=== PATIENT | female | born 1955 | race Caucasian/White ===

== ENCOUNTER 2017-11-04 15:00 | Outpatient (RCR) | payer OTHER, SELFPAY ==
--- NOTE | 2017-09-28 15:56 | HP.PTEVAL_ITS ---
Patient's Visit Information VITALY CORREA is a 62 year old F referred to Physical Therapy by MD ADOLPH Palacio with a diagnosis of R knee OA. Date of Evaluation: 09/28/17 Physical Therapist: Wily Templeton, PT, - Visit Plan Frequency: 1-2x /Week Duration: 4 Weeks Plan: R LE strengthening, core stab ex's, nustep, HEP. CP for pain - Subjective Subjective: Pt reports her R knee has been sore for 2-3 mos. Pt reports she noticed it the most when she was driving, switching from one peddle to the other one. Pt received an xray at that time which revealed OA, the worst in medial compartment. Pt reports advil helps with the pain at this time. Pt reports she can still do most things, but climbing ladders and stair negotiation still results in increased pain. No T or N in R LE. Occasional sleep difficulty secondary to pain. No PMHx R knee pain. 0/10 pain at rest, 8/ 10 at worst (stair negotiation). Pt is retired. - Pain R knee Pain Intensity (Out of 10): 0 Pain Intensity Range: 8 - Objective Neuro: B LE sensation is WNL to light touch. B achilles reflex= 1/3. Palpation : Pt is very sore on the medial compartment of R knee. No obvious swelling or deformity noted at this time. ROM: R knee 0-102 degrees, L knee 0-98 degrees. MMT: R knee flexion is 4/5, ext 4+/5. L knee is 5/5 throughout. Special tests: pos aplley compression test - Goals Goal 1:: Decrease R knee pain x 50% to aid with sleep Goal Time Frame: 4-6 Weeks Goal 2:: Increase R knee strength x 1 grade to aid with stair negotiation Goal Time Frame: 4-6 Weeks Goal 3:: I with HEP Goal Time Frame: 4-6 Weeks - Rehabilitation Potential Physical Therapy Diagnosis: R knee pain, weakness, and intol for driving secondary to R knee AO Rehabilitation Potential: Good - Anticipated Interventions Patient/Client Instruction: Educate patient on: Condition, Plan of Care For the Purpose of:: To improve self management Therapeutic Exercise to Include: Strength training, Endurance training, Balance training, Dynamic Lumbar Stabilization For the Purpose of:: To decrease pain, To improve muscle performance and motor function, To improve ability to perform ADL's Cryotherapy (ice pack, ice massage): Yes For the Purpose of:: To decrease pain Thank you for the opportunity to evaluate your patient. For Medicare and Medicare HMO plans, please review the plan of care and approve it. It will need to be FAXED BACK to us at [phone] for Medicare purposes. Please let me know if there are questions or concerns regarding this plan of care. Physician Signature: Date:
--- NOTE | 2018-01-10 12:54 | HP.PT.NRP ---
HP - Discharge Summary (1) - Patient Information VITALY CORREA was seen in my office for initial evaluation on 09/28/17. The following Plan of Care was established for this patient: Initial Frequency: 1-2x /Week Initial Duration: 4 Weeks - Anticipated Interventions Patient/Client Instruction: Educate patient on: Condition, Plan of Care For the Purpose of:: To improve self management Therapeutic Exercise to Include: Strength training, Endurance training, Balance training, Dynamic Lumbar Stabilization For the Purpose of:: To decrease pain, To improve muscle performance and motor function, To improve ability to perform ADL's Cryotherapy (ice pack, ice massage): Yes For the Purpose of:: To decrease pain This patient was last seen in our office . Pertinent comments regarding their Physical therapy will appear below: Pt was last treated on the date of 11/04/17. Pt has not returned through todays date, and is therefore discontinued at this time. At this point I will be discontinuing this patient from physical therapy. I would be happy to see this patient again in the future if found appropriate by the physician. Thank you! Wily Templeton, PT,
== END 2017-11-04 19:00 | disposition home or self-care (01) ==
LOC: PT 15:00
PROVIDERS: Family Provider Family Medicine; PCP Family Medicine; Visit Provider Orthopaedic Surgery
DX: M17.11 Unilateral primary osteoarthritis, right knee (principal)
CPT/HCPCS: 97110; 97161; 97530

== ENCOUNTER → 2018-01-12 14:03 | Outpatient (CLI) | payer OTHER, SELFPAY ==
[2018-01-12 16:17] LABS: Hemoglobin A1c 6.5 % (4.2-6.3)
[2018-01-12 16:28] LABS: Microalbumin,Random Urine 57.9 mg/L (NO RANGE EST.); Microalbumin:Creatinine Ratio 50.8 mg/g CRE (<30 mg/g CRE)
[2018-01-12 16:30] LABS: AST(SGOT) 23 U/L (15-37); Alanine Aminotransfer ALT/SGPT 27 U/L (13-56); Alkaline Phosphatase 201 U/L (45-117); Anion Gap 8 (5-15); BUN 23 mg/dL (7-18); BUN/Creat Ratio 22.1 RATIO (10-20); Bilirubin, Direct 0.19 mg/dL (0.00-0.30); Calcium,Total 9.5 mg/dL (8.5-10.1); Chloride 104 mmol/L (98-107); Cholesterol 166 mg/dL (200); Creatinine, Serum 1.04 mg/dL (0.55-1.02); EST Glomerular Filtration Rate 57 mL/min (>60); Est Glom Filt Rate - Afr Amer 69 mL/min (>60); Globulin 5.1 g/dL (2.2-4.2); Glucose 89 mg/dL (74-106); High Density Lipoprotein 41 mg/dL; Protein, Total 8.1 g/dL (6.4-8.2); Sodium Level 138 mmol/L (136-145); T4 Total, Thyroxin 10.7 ug/dL (4.8-13.9); Thyroid Stim Hormone (TSH) 1.63 uIU/mL (0.358-3.74); Triglycerides 95 mg/dL; Very Low Density Lipoprotein 19 mg/dL (5-40)
== END ==
PROVIDERS: Family Provider Family Medicine; PCP Family Medicine; Visit Provider Family Medicine
DX: E11.9 Type 2 diabetes mellitus without complications (principal); E03.9 Hypothyroidism, unspecified
CPT/HCPCS: 36415; 80048; 80061; 80076; 82043; 82570; 83036; 84436; 84443

== ENCOUNTER → 2018-08-29 19:41 | Outpatient (CLI) | payer OTHER, SELFPAY ==
[2017-07-06 11:00] VITALS: BMI 58.6
--- OUTSIDE RECORDS SUMMARY | 2018-12-01 10:12 | XMS RPT_ITS ---
:1955 Author Organization [facility] Care Team Providers Name Role Phone José Manuel Gonzalez Attending Unavailable Gilam, Tracy Primary Care Unavailable José Manuel Gonzalez Referring Unavailable Brian Lowery Attending Unavailable Brian Lowery Referring Unavailable Gilma, Tracy Primary Care Unavailable Tracy Dillard Attending Unavailable Dilmaiff, Tracy Primary Care Unavailable PROBLEMS PROBLEMS DATE TYPE CONDITION / CODE ATTENDING STATUS SOURCE 08/30/2018 Unknown R39.9 - Unspecified José Manuel Gonzalez Active [place] symptoms and signs Community involving the [facility] genitourinary Repository system / R39.9(ICD-10) 01/14/2018 Unknown M17.11 - Unilateral Brian Lowery Active [place] [facility] osteoarthritis, [facility] right knee / Repository M17.11(ICD-10) PROCEDURES PROCEDURES No Procedure Records FoundRESULTS RESULTS Observed: 08/29/2018 Status: F Source: [place] CULTURE, URINE 2:45 PM [facility] REPOSITORY Urine Culture ORGANISM 1: Presumptive E. coli [place] Count >100,000 Presumptive E. coli: REACTION Amoxacillin/Clavulanic Acid $ <=2 S Ampicillin $ <=2 S Ampicillin/Sulbactam $ <=2 S Cefazolin $ <=4 S Cefepime $ <=1 S Ceftriaxone $ <=1 S Ciprofloxacin $ <=0.25 S ESBL - Ertapenim $$$ <=0.5 S Gentamicin $ <=1 S Imipenem *NF <=0.25 S Levofloxacin $ <=0.12 S Nitrofurantoin $ <=16 S Piperacillin/Tazobactam $$ <=4 S Tobramycin $ <=1 S Trimethoprim/Sulfametho $ <=20 S (NF) indicates non-formulary drug at [facility]. Approval by Infectious Disease Specialist required before non-formulary drugs may be ordered and/or dispensed. Performed By: #### M100.0650 #### [facility] [address] [place], [address] HEMOGLOBIN A1C Collected: 01/12/2018 Status: F Source: [place] 2:04 PM [facility] REPOSITORY TYPE CODE TESTS RESULT OUT OF RANGE REFERENCE UNITS LAB L501.9985 4.2-6.3 % High HGB A1C 6.5 Performed By: #### L501.9985 #### [facility] [address] [place], [address] MICROALB:CREAT Collected: 01/12/2018 Status: F Source: [place] RATIO,RANDOM UR 2:04 PM [facility] REPOSITORY TYPE CODE TESTS RESULT OUT OF RANGE REFERENCE UNITS LAB L501.1200 NO RANGE EST. mg/dL Normal UR CREAT 114.00 LAB L502.0500 NO RANGE EST. mg/L Normal 57.9 MICROALBUMIN ,UR LAB L502.0600 <30 mg/g CRE mg/g CRE High 50.8 MALB:CREAT Performed By: #### L502.0250 #### [facility] [address] [place], [address] BASIC METABOLIC Collected: 01/12/2018 Status: F Source: [place] PROFILE (BMP) 2:04 PM [facility] REPOSITORY TYPE CODE TESTS RESULT OUT OF RANGE REFERENCE UNITS LAB L501.0100 74-106 mg/dL Normal GLU 89 Result Comment: Please note revised GLUCOSE reference range effective 2017. LAB L501.1000 7-18 mg/dL High BUN 23 LAB L501.1100 0.55-1.02 mg/dL High CREAT,SERUM 1.04 Result Comment: The validity of the calculated GFR AND GFRAA in patients over 70 years has not been determined. Clinical correlation is essential. LAB L501.1110 >60 mL/min Low EST GFR 57 Result Comment: Non- GFR Calc LAB L501.1115 >60 mL/min Normal EST GFR - AA 69 Result Comment: GFR Calc LAB L501.1300 10-20 RATIO High BUN/CRE 22.1 LAB L501.2200 8.5-10.1 mg/dL CA Normal 9.5 LAB L501.5300 136-145 mmol/L NA Normal 138 LAB L501.5600 3.5-5.1 mmol/L K Normal 4.0 LAB L501.5900 98-107 mmol/L CL Normal 104 LAB L501.6100 21.0-32.0 mmol/L Normal CO2 26.0 LAB L501.6200 5-15 Normal GAP 8 Performed By: #### L500.2500, L500.3400, L500.4100, L501.9310, L501.9520 #### [facility] [address] [facility] [place], [place], [id number] LIVER PROFILE Collected: 01/12/2018 Status: F Source: [place] 2:04 PM [facility] REPOSITORY TYPE CODE TESTS RESULT OUT OF RANGE REFERENCE UNITS LAB L501.1500 6.4-8.2 g/dL Normal T PROT 8.1 LAB L501.1800 3.2-5.0 g/dL Low ALB 3.0 LAB L501.1950 2.2-4.2 g/dL High GLOB 5.1 LAB L501.4100 15-37 U/L Normal AST 23 LAB L501.4305 45-117 U/L High ALK P 201 LAB L501.4405 13-56 U/L Normal ALT 27 LAB L501.4600 0.20-1.00 mg/dL Normal T BILI 0.50 LAB L501.4700 0.00-0.30 mg/dL Normal D BILI 0.19 Performed By: #### L500.2500, L500.3400, L500.4100, L501.9310, L501.9520 #### [facility] [address] [place], [address] LIPID PROFILE Collected: 01/12/2018 Status: F Source: [place] 2:04 PM [facility] REPOSITORY TYPE CODE TESTS RESULT OUT OF RANGE REFERENCE UNITS LAB L501.4900 200 mg/dL Normal CHOL 166 Result Comment: <200 mg/dL Desirable 200-240 mg/dL Borderline >240 mg/dL High Risk LAB L501.5000 mg/dL Normal TRIG 95 Result Comment: The drugs N-Acetylcysteine and Metamizole may falsely depress this assay. Serum Triglycerides Reference Interval Normal <150 mg/dL Borderline high 150 - 199 mg/dL High 200 - 499 mg/dL Very High > or = 500 mg/dL LAB L501.6400 mg/dL Normal HDL 41 Result Comment: The drugs N-Acetylcysteine and Metamizole may falsely depress this assay. Reference Range HDL <40 mg/dL Low HDL Cholesterol HDL >or= 60 mg/dL High HDL Cholesterol LAB L501.6500 0-130 mg/dL Normal LDL 106 LAB L501.6600 5-40 mg/dL Normal VLDL 19 Performed By: #### L500.2500, L500.3400, L500.4100, L501.9310, L501.9520 #### [facility] [address] [facility] [place], [place], [address] T4 TOTAL, THYROXIN Collected: 01/12/2018 Status: F Source: [place] 2:04 PM [facility] REPOSITORY TYPE CODE TESTS RESULT OUT OF RANGE REFERENCE UNITS LAB L501.9310 4.8-13.9 ug/dL T4 Normal THYROXIN 10.7 Performed By: #### L500.2500, L500.3400, L500.4100, L501.9310, L501.9520 #### [facility] [address] [place], [place], [address] THYROID STIM HORMONE Collected: 01/12/2018 Status: F Source: [place] (TSH) 2:04 PM [facility] REPOSITORY TYPE CODE TESTS RESULT OUT OF RANGE REFERENCE UNITS LAB L501.9520 0.358-3.74 uIU/mL Normal TSH 1.63 Performed By: #### L500.2500, L500.3400, L500.4100, L501.9310, L501.9520 #### [facility] [address] [place], [address] ALLERGIES ALLERGIES DATE TYPE / CODE NAME / CODE REACTION SEVERITY SOURCE 08/18/2017 Drug nabumetone/F Itching Unknown [facility] Allergy/4160 [id number]([facility] [address](SNOMED NORM) Repository CT) ENCOUNTERS ENCOUNTERS ADMIT/DISCHARGE ACCOUNT ADMITTING ENCOUNTER LOCATION SOURCE NUMBER CLASS 08/29/2018 [id number] [place] [facility] ing:LABSPEC Repository 01/12/2018 [id number] Ambulatory [place] 7 [facility] ing:MFPLAB Repository 11/04/2017/ [id number] Ambulatory [place] 8 4 [facility] ing:PT Repository PAYERS PAYERS ENCOUNTER GUARANTOR PAYER SUBSCRIBER SOURCE 08/29/2018 VITALY Yeager Primary VITALY [id number] Insurance:MEDICAL MOOREDOB: [facility] [id number] Number: Repository [id number]: 330 [id number] [phone] () Date:[id number] [address]XF: 08/29/2018 Secondary NOT GIVENUNK [place] Insurance:SELF PAY [facility] Number: Effective Repository Date:2018-08-29 01/12/2018 VITALY Yeager Primary VITALY Shobha [id number] Insurance:MEDICAL MOOREDOB: [facility] [id number] Number: Repository [id number]: 330 [id number] [phone] (HP) Date:[id number] [address]YJ: 01/12/2018 Secondary NOT GIVENUNK [place] Insurance:SELF PAY [facility] Number: Effective Repository Date:2018-01-12 11/04/2017 VITALY [id number] Insurance:MEDICAL MOOREDOB: [facility] [id number] Number: Repository [id number]: [phone]) [id number] [phone] () Date:[id number], [place] [address]PO: 11/04/2017 Secondary NOT GIVENUNK [place] Insurance:SELF PAY [facility] Number: Effective Repository Date:2017-09-23
== END ==
PROVIDERS: Family Provider Family Medicine; PCP Family Medicine; Referring Provider Nurse Practitioner Family; Visit Provider Nurse Practitioner Family
DX: R39.9 Unspecified symptoms and signs involving the genitourinary system (principal)
CPT/HCPCS: 87086; 87088; 87186

== ENCOUNTER → 2019-01-11 14:05 | Outpatient (CLI) | payer OTHER, SELFPAY ==
[2019-01-11 16:56] LABS: AST(SGOT) 21 U/L (15-37); Alanine Aminotransfer ALT/SGPT 21 U/L (13-56); Albumin, Serum 3.3 g/dL (3.2-5.0); Alkaline Phosphatase 271 U/L (45-117); Anion Gap 6 (5-15); BUN 22 mg/dL (7-18); BUN/Creat Ratio 25.3 RATIO (10-20); Bilirubin, Direct 0.24 mg/dL (0.00-0.30); Chloride 105 mmol/L (98-107); Cholesterol 196 mg/dL (200); Creatinine, Serum 0.87 mg/dL (0.55-1.02); EST Glomerular Filtration Rate 70 mL/min (>60); Est Glom Filt Rate - Afr Amer 85 mL/min (>60); Globulin 3.9 g/dL (2.2-4.2); Glucose 109 mg/dL (74-106); High Density Lipoprotein 50 mg/dL; Potassium 4.5 mmol/L (3.5-5.1); Protein, Total 7.2 g/dL (6.4-8.2); Sodium Level 139 mmol/L (136-145); Thyroid Stim Hormone (TSH) 1.87 uIU/mL (0.358-3.74); Triglycerides 102 mg/dL; Very Low Density Lipoprotein 20 mg/dL (5-40)
[2019-01-11 17:55] LABS: Microalbumin,Random Urine 81.6 mg/L (NO RANGE EST.); Microalbumin:Creatinine Ratio 79.2 mg/g CRE (<30 mg/g CRE)
== END ==
PROVIDERS: Family Provider Family Medicine; PCP Family Medicine; Referring Provider Family Medicine; Visit Provider Family Medicine
DX: E11.65 Type 2 diabetes mellitus with hyperglycemia (principal)
CPT/HCPCS: 36415; 80048; 80061; 80076; 82043; 82570; 84443

== ENCOUNTER → 2019-02-20 11:59 | Outpatient (CLI) | payer OTHER, SELFPAY ==
[2017-07-06 11:00] VITALS: BMI 58.6
[2019-02-20 14:17] LABS: Prothrombin Time (Protime)PT. 13.4 SECONDS (11.7-14.9)
[2019-02-20 14:18] LABS: Partial Thromboplast Time 33.8 Seconds (24.1-36.2)
[2019-02-20 14:24] LABS: ALB/GLOB Ratio 0.6 RATIO (0.9-2.4); AST(SGOT) 22 U/L (15-37); Alanine Aminotransfer ALT/SGPT 23 U/L (13-56); Albumin, Serum 3.1 g/dL (3.2-5.0); Alkaline Phosphatase 211 U/L (45-117); Anion Gap 10 (5-15); BUN 21 mg/dL (7-18); BUN/Creat Ratio 22.3 RATIO (10-20); Calcium,Total 9.7 mg/dL (8.5-10.1); Chloride 105 mmol/L (98-107); Creatinine, Serum 0.94 mg/dL (0.55-1.02); EST Glomerular Filtration Rate 64 mL/min (>60); Est Glom Filt Rate - Afr Amer 77 mL/min (>60); Glucose 115 mg/dL (74-106); Potassium 4.6 mmol/L (3.5-5.1); Protein, Total 8.1 g/dL (6.4-8.2); Sodium Level 140 mmol/L (136-145)
[2019-02-21 13:27] LABS: AFP, Tumor Marker 2.1 ng/mL (0.0-8.3)
== END ==
PROVIDERS: Family Provider Family Medicine; PCP Family Medicine; Referring Provider Internal Medicine Gastroenterology; Visit Provider Internal Medicine Gastroenterology
DX: K74.60 Unspecified cirrhosis of liver (principal)
CPT/HCPCS: 36415; 80053; 82105; 85610; 85730

== ENCOUNTER → 2019-02-23 07:02 | Outpatient (CLI) | payer OTHER, SELFPAY ==
[2017-07-06 11:00] VITALS: BMI 58.6
--- NOTE | 2019-02-23 07:04 | CT_ITS ---
STUDY: CT ABDOMEN AND PELVIS WITH CONTRAST REASON FOR EXAM: Female, 64 years old. Patient has a history of cirrhosis of the liver. RADIATION DOSAGE (If Supplied By Facility): CTDIvol = ( 17.07 ) mGy, DLP = ( 2020.68 ) mGycm TECHNIQUE: Transaxial images were obtained from the dome of the diaphragm to the symphysis pubis with oral contrast. 100cc IV/Oral Isovue 300 was administered. Sagittal and coronal images were reconstructed. Individualized dose optimization techniques were used for this CT. COMPARISON: Comparison is made with prior study dated May 10, 2014. FINDINGS: The visualized lung bases are unremarkable. The visualized portions of the heart are within normal limits. There is a diffuse contour abnormality of the liver consistent with cirrhotic changes. Once again, findings in keeping with the venous collaterals in the splenic hilum in keeping with the varices. Normal gallbladder and extrahepatic biliary system. Normal spleen. Normal pancreas. Normal bilateral adrenal glands. Normal right kidney. Normal left kidney. Normal visualized stomach. Normal small intestine. Normal colon. The appendix is visualized and appears normal. There is scattered atherosclerotic calcification of the abdominal aorta, without a demonstrated aneurysm. Normal inferior vena cava. Normal retroperitoneum. Normal urinary bladder. There is a 7.2 cm x 8.4 cm cyst in the left ovary. Normal abdominal wall. Normal osseous structures. CT/Abdomen/Pelvis WITH Contrast IMPRESSION: Nodular contour of the liver as described in keeping with cirrhosis. Findings suggestive of varicosities in the region of the splenic hilum 7.2 cm x 8.4 cm left ovarian cyst. Electronically Signed: Mac Gregorio, at 10:10 EDT , Service support ,
== END ==
PROVIDERS: Family Provider Family Medicine; PCP Family Medicine; Referring Provider Internal Medicine Gastroenterology; Visit Provider Internal Medicine Gastroenterology
DX: K74.60 Unspecified cirrhosis of liver (principal)
CPT/HCPCS: 74177; Q9967

== ENCOUNTER → 2019-10-24 14:12 | Outpatient (CLI) | payer OTHER, SELFPAY ==
[2017-07-06 11:00] VITALS: BMI 58.6
[2019-10-24 16:14] LABS: Anion Gap 6 (5-15); BUN 19 mg/dL (7-18); Calcium,Total 9.4 mg/dL (8.5-10.1); Chloride 105 mmol/L (98-107); EST Glomerular Filtration Rate 67 mL/min (>60); Est Glom Filt Rate - Afr Amer 81 mL/min (>60); Glucose 118 mg/dL (74-106); Potassium 4.1 mmol/L (3.5-5.1); Sodium Level 138 mmol/L (136-145)
== END ==
PROVIDERS: PCP Family Medicine; Visit Provider Family Medicine
DX: E11.65 Type 2 diabetes mellitus with hyperglycemia (principal)
CPT/HCPCS: 36415; 80048

== ENCOUNTER → 2020-05-03 13:27 | Outpatient (CLI) | payer OTHER, SELFPAY ==
[2017-07-06 11:00] VITALS: BMI 58.6
--- NOTE | 2020-05-03 13:43 | BI_ITS ---
MAMMOGRAPHY - BILATERAL SCREENING 3-D TOMOSYNTHESIS REASON FOR EXAM: Female, 65 years old. Annual screening mammogram. PERTINENT HISTORY: No significant family history. TECHNIQUE: 2-D mammograms and 3-D Tomosynthesis of the breast (s) were performed. CAD was performed. COMPARISON: Prior films from 1999 not available. FINDINGS: The breast composition is almost entirely fat. Scattered benign calcifications are seen. No dense spiculated masses or suspicious microcalcifications are identified. No architectural distortion is identified. There is no skin thickening or retraction. There has been no significant change since the prior study. BI/SCREEN MAMM (CAD) W/VIANEY BILAT IMPRESSION: No mammographic signs of malignancy. Routine yearly mammograms recommended. ASSESSMENT CATEGORY: BIRADS Category 2: Benign. A letter regarding these results will be sent to the patient by the facility within 30 days. FOLLOW UP RECOMMENDATION: Yearly follow up mammogram recommended. (A) Approximately 10% of breast cancers are not detected by mammography. A normal mammogram should not delay biopsy of a clinically suspicious abnormality. Electronically Signed: Celestino Bragg MD at 15:54 EDT , Service support ,
== END ==
PROVIDERS: PCP Family Medicine; Referring Provider Family Medicine; Visit Provider Family Medicine
DX: Z12.31 Encounter for screening mammogram for malignant neoplasm of breast (principal)
CPT/HCPCS: 77063; 77067

== ENCOUNTER 2020-05-08 14:59 | Outpatient (RCR) | payer OTHER, SELFPAY ==
[2017-07-06 11:00] VITALS: BMI 58.6
== END 2020-05-13 23:59 ==
LOC: DC 14:59
PROVIDERS: PCP Family Medicine; Visit Provider Family Medicine
DX: Z71.3 Dietary counseling and surveillance (principal); E11.65 Type 2 diabetes mellitus with hyperglycemia
CPT/HCPCS: G0108

== ENCOUNTER 2020-06-12 13:00 | Outpatient (RCR) | payer OTHER, SELFPAY ==
[2017-07-06 11:00] VITALS: BMI 58.6
== END 2020-06-12 23:59 ==
LOC: DC 13:00
PROVIDERS: PCP Family Medicine; Visit Provider Family Medicine
DX: Z71.3 Dietary counseling and surveillance (principal); E11.65 Type 2 diabetes mellitus with hyperglycemia
CPT/HCPCS: 97802; 97803; G0108

== ENCOUNTER 2020-07-03 15:00 | Outpatient (RCR) | payer OTHER, SELFPAY ==
[2017-07-06 11:00] VITALS: BMI 58.6
== END 2020-07-13 23:59 ==
LOC: DC 15:00
PROVIDERS: PCP Family Medicine; Visit Provider Family Medicine
DX: Z71.3 Dietary counseling and surveillance (principal); E11.65 Type 2 diabetes mellitus with hyperglycemia
CPT/HCPCS: G0108

== ENCOUNTER 2020-08-05 13:00 | Outpatient (RCR) | payer OTHER, SELFPAY ==
[2017-07-06 11:00] VITALS: BMI 58.6
== END 2020-08-12 23:59 ==
LOC: DC 13:00
PROVIDERS: PCP Family Medicine; Visit Provider Family Medicine
DX: Z71.3 Dietary counseling and surveillance (principal); E11.65 Type 2 diabetes mellitus with hyperglycemia
CPT/HCPCS: 97803; G0108

== ENCOUNTER → 2020-08-07 11:04 | Outpatient (CLI) | payer OTHER, SELFPAY ==
[2017-07-06 11:00] VITALS: BMI 58.6
[2020-08-07 12:33] LABS: Hematocrit 42.8 % (37-47); Hemoglobin 13.2 g/dL (12.0-15.0); Mean Corp Hgb Conc 30.8 g/dL (32-36); Mean Corpuscular Hgb 28.8 pg (27.0-32.0); Mean Corpuscular Volume 93.4 fL (81-99); Platelet Count 295 K/mm3 (150-450); Prothrombin Time (Protime)PT. 12.7 SECONDS (11.7-14.9); RBC Distribution Width CV 12.7 % (11.6-14.6); RBC Distribution Width SD 43.9 fl (35.1-43.9); Red Blood Count 4.58 M/mm3 (4.2-5.4); White Blood Count 6.1 K/mm3 (4.4-11.0)
[2020-08-07 12:34] LABS: Partial Thromboplast Time 29.9 Seconds (24.1-36.2)
[2020-08-07 12:57] LABS: ALB/GLOB Ratio 0.7 RATIO (0.9-2.4); AST(SGOT) 16 U/L (15-37); Alanine Aminotransfer ALT/SGPT 21 U/L (13-56); Albumin, Serum 3.1 g/dL (3.2-5.0); Alkaline Phosphatase 219 U/L (45-117); Anion Gap 7 (5-15); BUN 27 mg/dL (7-18); BUN/Creat Ratio 29.6 RATIO (10-20); Calcium,Total 9.5 mg/dL (8.5-10.1); Chloride 106 mmol/L (98-107); Creatinine, Serum 0.91 mg/dL (0.55-1.02); EST Glomerular Filtration Rate 66 mL/min (>60); Est Glom Filt Rate - Afr Amer 80 mL/min (>60); Globulin 4.5 g/dL (2.2-4.2); Glucose 166 mg/dL (74-106); Protein, Total 7.6 g/dL (6.4-8.2); Sodium Level 138 mmol/L (136-145)
[2020-08-08 08:43] LABS: AFP, Tumor Marker 2.4 ng/mL (0.0-8.3)
== END ==
PROVIDERS: PCP Family Medicine; Referring Provider Internal Medicine Gastroenterology; Visit Provider Internal Medicine Gastroenterology
DX: K74.60 Unspecified cirrhosis of liver (principal)
CPT/HCPCS: 36415; 80053; 82105; 85027; 85610; 85730

== ENCOUNTER 2020-09-02 11:02 | Outpatient (RCR) | payer OTHER, SELFPAY ==
[2017-07-06 11:00] VITALS: BMI 58.6
== END 2020-09-12 23:59 ==
LOC: DC 11:02
PROVIDERS: PCP Family Medicine; Visit Provider Family Medicine
DX: Z71.3 Dietary counseling and surveillance (principal); E11.65 Type 2 diabetes mellitus with hyperglycemia
CPT/HCPCS: 97803

== ENCOUNTER 2020-10-02 14:02 | Outpatient (RCR) | payer OTHER, SELFPAY ==
[2017-07-06 11:00] VITALS: BMI 58.6
== END 2020-10-13 23:59 ==
LOC: DC 14:02
PROVIDERS: PCP Family Medicine; Visit Provider Family Medicine
DX: Z71.3 Dietary counseling and surveillance (principal); E11.65 Type 2 diabetes mellitus with hyperglycemia
CPT/HCPCS: G0108

== ENCOUNTER → 2020-10-22 13:53 | Outpatient (CLI) | payer OTHER, SELFPAY ==
[2020-10-22 15:52] LABS: T4 Total, Thyroxin 10.1 ug/dL (4.8-13.9); Thyroid Stim Hormone (TSH) 1.64 uIU/mL (0.358-3.74)
== END ==
PROVIDERS: PCP Family Medicine; Referring Provider Family Medicine; Visit Provider Family Medicine
DX: E03.9 Hypothyroidism, unspecified (principal)
CPT/HCPCS: 36415; 84436; 84443

== ENCOUNTER 2020-11-27 13:08 | Outpatient (RCR) | payer OTHER, SELFPAY ==
[2017-07-06 11:00] VITALS: BMI 58.6
== END 2020-12-11 23:59 ==
LOC: DC 13:08
PROVIDERS: PCP Family Medicine; Visit Provider Family Medicine
DX: E11.65 Type 2 diabetes mellitus with hyperglycemia (principal)
CPT/HCPCS: G0108

== ENCOUNTER 2021-01-08 13:34 | Outpatient (RCR) | payer OTHER, SELFPAY ==
[2017-07-06 11:00] VITALS: BMI 58.6
== END 2021-01-10 23:59 ==
LOC: DC 13:34
PROVIDERS: PCP Family Medicine; Visit Provider Family Medicine
DX: E11.65 Type 2 diabetes mellitus with hyperglycemia (principal)
CPT/HCPCS: G0108

== ENCOUNTER 2021-01-16 14:33 | Outpatient (RCR) | payer OTHER, SELFPAY ==
[2017-07-06 11:00] VITALS: BMI 58.6
== END 2021-02-10 23:59 ==
LOC: DC 14:33
PROVIDERS: PCP Family Medicine; Visit Provider Family Medicine
DX: E11.65 Type 2 diabetes mellitus with hyperglycemia (principal)
CPT/HCPCS: G0109

== ENCOUNTER 2021-02-13 10:03 | Outpatient (RCR) | payer MEDICARE, OTHER, SELFPAY ==
[2017-07-06 11:00] VITALS: BMI 58.6
== END 2021-03-12 23:59 ==
LOC: DC 10:03
PROVIDERS: PCP Family Medicine; Visit Provider Family Medicine
DX: E11.65 Type 2 diabetes mellitus with hyperglycemia (principal)
CPT/HCPCS: G0109

== ENCOUNTER → 2021-03-19 11:38 | Outpatient (CLI) | payer MEDICARE, OTHER, SELFPAY ==
[2017-07-06 11:00] VITALS: BMI 58.6
--- NOTE | 2021-03-19 11:43 | RAD_ITS ---
STUDY: X-RAY - PELVIS AND BILATERAL HIPS REASON FOR EXAM: Female, 66 years old. HIP PAIN TECHNIQUE: AP view of the pelvis.? 2 views of the right hip, and 2 views of the left hip were obtained. COMPARISON: None. FINDINGS: There is a non-specific bowel gas pattern. Normal visualized soft tissue structures. There is narrowing with cortical sclerosis and osteophyte formation of the sacroiliac joint consistent with degenerative osteoarthritic changes. Normal bilateral superior and inferior pubic rami. Normal pubic symphysis. Normal bilateral ischial tuberosities. Normal visualized right femoral head. Normal right acetabulum. There is moderate articular joint space narrowing of the right hip. Normal visualized left femoral head. Normal left acetabulum. There is moderate articular joint space narrowing of the left hip. RAD/Hips B/L min 2 views w/ Pelvis IMPRESSION: Moderate degree of joint space narrowing of both hip joints. Electronically Signed: Mac Gregorio MD at 14:32 EDT , Service support ,
== END ==
PROVIDERS: PCP Family Medicine; Referring Provider Family Medicine; Visit Provider Family Medicine
DX: M25.559 Pain in unspecified hip (principal)
CPT/HCPCS: 73521

== ENCOUNTER 2021-03-20 14:30 | Outpatient (RCR) | payer MEDICARE, OTHER, SELFPAY ==
[2017-07-06 11:00] VITALS: BMI 58.6
== END 2021-04-12 23:59 ==
LOC: DC 14:30
PROVIDERS: PCP Family Medicine; Visit Provider Family Medicine
DX: E11.65 Type 2 diabetes mellitus with hyperglycemia (principal)
CPT/HCPCS: G0109

== ENCOUNTER → 2021-04-25 15:13 | Outpatient (CLI) | payer MEDICARE, OTHER, SELFPAY ==
[2017-07-06 11:00] VITALS: BMI 58.6
[2021-04-25 17:52] LABS: Absolute Lymphocyte Count 1.05 X10^3/uL (0.83-4.51); Absolute Neutrophil Count 4.8 X10^3/uL (2.0-7.7); Basophil# 0.03 X10^3/uL; Basophil% 0.5 % (0-1); Eosinophil# 0.31 X10^3/uL; Eosinophils% 4.7 % (0-5); Hematocrit 41.8 % (37-47); Hemoglobin 13.5 g/dL (12.0-15.0); Lymphocyte # 1.05 X10^3/ul (0.83-4.51); Mean Corp Hgb Conc 32.3 g/dL (32-36); Mean Corpuscular Hgb 30.5 pg (27.0-32.0); Mean Corpuscular Volume 94.6 fL (81-99); Mean Platelet Vol. 11.1 fl (6.2-12.0); Monocyte# 0.32 X10^3/uL; Monocyte% 4.9 % (0-10); NRBC Flagged by Analyzer 0 % (0-5); Neutrophil # 4.83 X10^3/uL (2.7-7.7); Neutrophil % 73.6 % (47-70); Platelet Count 242 K/mm3 (150-450); RBC Distribution Width CV 12.1 % (11.6-14.6); RBC Distribution Width SD 42.2 fl (35.1-43.9); Red Blood Count 4.42 M/mm3 (4.2-5.4); White Blood Count 6.6 K/mm3 (4.4-11.0)
[2021-04-25 17:54] LABS: Hemoglobin A1c 6.7 % (3.8-5.6)
[2021-04-25 18:09] LABS: ALB/GLOB Ratio 0.7 RATIO (0.9-2.4); AST(SGOT) 17 U/L (15-37); Alanine Aminotransfer ALT/SGPT 21 U/L (13-56); Albumin, Serum 3.2 g/dL (3.2-5.0); Alkaline Phosphatase 192 U/L (45-117); Anion Gap 6 (5-15); BUN 18 mg/dL (7-18); BUN/Creat Ratio 24.2 RATIO (10-20); Calcium,Total 9.3 mg/dL (8.5-10.1); Chloride 105 mmol/L (98-107); Cholesterol 167 mg/dL (200); Creatinine, Serum 0.74 mg/dL (0.55-1.02); EST Glomerular Filtration Rate 83 mL/min (>60); Est Glom Filt Rate - Afr Amer 100 mL/min (>60); Globulin 4.4 g/dL (2.2-4.2); Glucose 162 mg/dL (74-106); High Density Lipoprotein 56 mg/dL; Potassium 4.3 mmol/L (3.5-5.1); Protein, Total 7.6 g/dL (6.4-8.2); Sodium Level 138 mmol/L (136-145); T4 Total, Thyroxin 9.8 ug/dL (4.8-13.9); Thyroid Stim Hormone (TSH) 1.81 uIU/mL (0.358-3.74); Triglycerides 93 mg/dL; Very Low Density Lipoprotein 19 mg/dL (5-40)
== END ==
PROVIDERS: PCP Family Medicine; Referring Provider Family Medicine; Visit Provider Registered Nurse
DX: E11.65 Type 2 diabetes mellitus with hyperglycemia (principal); E03.9 Hypothyroidism, unspecified
CPT/HCPCS: 36415; 80053; 80061; 83036; 84436; 84443; 85025

== ENCOUNTER 2021-04-29 12:30 | Outpatient (RCR) | payer MEDICARE, OTHER, SELFPAY ==
--- NOTE | 2021-03-31 16:54 | HP.PTEVAL ---
Patient's Visit Information VITALY CORREA is a 66 year old F referred to Physical Therapy by Dr. Tracy Dillard MD with a diagnosis of Bilateral Hip Pain. Date of Evaluation: 03/31/21 Physical Therapist: Britt Weiner DPT - Visit Plan Frequency: 2x /Week Duration: 4 Weeks Plan: Aquatic- Focus on LE and core strength/stabilization with functional mobility - Subjective Patient reports that she had extreme right hip pain- in the past she noticed if she leans one way or the other or leans forwards she has had it in the past. She was leaning over the left side for an afternoon-it was the worst pain. Is normally on crutches for 4-5 days and this time she had to do 7-8 days. So since she has intermittent pain she wanted to get it checked out. She was here for PT prior she had left SI joint issues so she has two heel lifts in her left shoe and that really helps. She knows that she has poor muscle tone and the pain felt like severe muscle cramps. It grabbed every time she moved. The pain at this time is completely gone for about 2-3 weeks but she is nervous that its going to come back. She uses a cane all the time due to bad knees and in her foot. Her balance is not as good- she has been using the cane for a few years. Pain is located in the back of the hip. Does not radiate into her back. Has never had back issues before. No falls. She reports that she is more sedentary and sits for most of the day- has a bike that she does use sometimes. Sits in a lift chair and also sleeps in that as well- has been sleeping in it for 12-13 years- bothers her back to sleep in a regular bed. PMHx: HTN, DM, heart murmor, thyroid, sarcoidosis of the liver. Meds: asprin, thyroid, depression meds, metformin, statin, liver - Objective Posture: FH, RS, increased kyphosis- can correct with verbal and tactile cues but is unable to maintain. Gait: severely antalgic- decreased stance on the left with- toes turned out to the side and does not take full steps- single point cane. Seated HR/TR: able but reports pain in the feet. unable to perform standing. SLS: weight shift but unable to SLS without significant UE A. Sensation/Reflex: WNL. Palpation: not tender to touch. ROM: Lumbar: WFL Hip: Flexion: limited to 90 degrees, Extn: 10 degrees, Abd: 60 degrees, IR/ER: not tested due to pain but limited. Knee: 0-90 degrees, Ankle: WFL. Strength: Core: fair, minus Hip: 4/5 with pain, Knee: 4+/5 Ankle: 4/5. Flex: HS: severe, Gastroc: moderate - Goals Goal 1:: Patient will be I with HEP and progression Goal Time Frame: 4-6 Weeks Goal 2:: Patient will maintain proper posture t/o tx session to demo core strength/stabilization Goal Time Frame: 4-6 Weeks Goal 3:: Patient will report no pain for 1 week Goal Time Frame: 4-6 Weeks - Rehabilitation Potential Physical Therapy Diagnosis: Patient presents with hypmobility- she has decreased painfree ROM, LE and core strength/stabilization, proprioception, flex and muscular endurance leading to abnormal gait pattern and increased pain with ADL's. Rehabilitation Potential: Fair - Anticipated Interventions Patient/Client Instruction: Educate patient on: Benefits of Fitness Program Therapeutic Exercise to Include: Strength training, Endurance training, Balance training, Coordination, Agility training, Postural training, Flexibilty training, Gait and locomotor training, Neuromotor development, In an aquatic setting, Dynamic Lumbar Stabilization, Scapular Strength/Stabilization For the Purpose of:: To improve muscle performance and motor function Thank you for the opportunity to evaluate your patient. For Medicare and Medicare HMO plans, please review the plan of care and approve it. It will need to be FAXED BACK to us at [phone] for Medicare purposes. For Medicare only, by signing this I certify the plan of care. Please let me know if there are questions or concerns regarding this plan of care. Physician Signature: Date:
--- NOTE | 2021-04-29 12:43 | HP.PTDCSUM ---
It has been my pleasure to treat VITALY CORREA referred by Dr. Tracy Dillard MD, with the diagnosis of Bilateral Hip Pain for a total of 8 visit(s). Discharge Date: 04/29/21 Please see the following information for a summary of their discharge status. Subjective: Pt liked the water and she felt that she got stronger. She feels that her pain is much better. Every now and then she will feel the pain but it does not stay. She is still using her cane. No falls. Pt is able do some of the exercises at home and prefers do them at home now. L knee Pain Intensity (Out of 10): 0 RLE Pain Intensity (Out of 10): 1 % Improvement: 60 Objective/Function: pt is challenged on land to do her ex, fewer reps and needed rest breaks d/t fatigue today. Goal 1:: Patient will be I with HEP and progression Goal Progress: Goal Met Goal 2:: Patient will maintain proper posture t/o tx session to demo core strength/stabilization Goal Progress: Progressing Goal 3:: Patient will report no pain for 1 week Goal Progress: Goal Met Plan: DC PT to HEP Discharge Comments: DC PT to HEP If there are questions or concerns regarding this patient's physical therapy, please feel free to call me at [phone]. Thank you for the referral of this patient. Sincerely, Albertina Martins, MPT Balance/Gait/Functional tests - Balance/Special Test Scores Lower Extremity Functional Score: 38
== END 2021-04-29 19:00 | disposition home or self-care (01) ==
LOC: PT 12:30
PROVIDERS: PCP Family Medicine; Referring Provider Family Medicine; Visit Provider Family Medicine
DX: M25.551 Pain in right hip (principal); M25.552 Pain in left hip
CPT/HCPCS: 97110; 97113; 97162; 97530

== ENCOUNTER 2021-05-01 09:30 | Outpatient (RCR) | payer MEDICARE, OTHER, SELFPAY ==
[2017-07-06 11:00] VITALS: BMI 58.6
== END 2021-05-01 23:59 | disposition home or self-care (01) ==
LOC: DC 09:30
PROVIDERS: PCP Family Medicine; Visit Provider Family Medicine
DX: E11.65 Type 2 diabetes mellitus with hyperglycemia (principal)
CPT/HCPCS: G0109

== ENCOUNTER → 2021-06-03 12:32 | Outpatient (CLI) | payer MEDICARE, OTHER, SELFPAY ==
--- NOTE | 2021-06-03 12:48 | MRI_ITS ---
STUDY: MRI ABDOMEN WITH AND WITHOUT CONTRAST REASON FOR EXAM: Female, 66 years old. CIRRHOSIS TECHNIQUE: Standardized fat and water weighted pulse sequences were obtained in all 3 orthogonal planes post contrast administration. IV 29 CC DOTAREM was administered for the contrast portion of the examination. COMPARISON: None. FINDINGS: The visualized lung bases are unremarkable. The visualized portions of the heart are within normal limits. There is a diffuse contour abnormality of the liver consistent with cirrhotic changes. No T2 hyperintense or arterially hyperenhancing lesions seen in the liver. There is gallbladder sludge. There is normal extrahepatic biliary system. There is mild splenomegaly. Normal pancreas. Normal bilateral adrenal glands. Normal right kidney. Normal left kidney. Normal visualized stomach. Normal small intestine. Normal colon. Normal abdominal aorta. Normal inferior vena cava. Normal retroperitoneum. Normal abdominal wall. Normal osseous structures. MRI/MRI Abd WITH and W/O Contrast IMPRESSION: Cirrhotic liver with no T2 hyperintense or arterially hyperenhancing lesions to suggest HCC. Evidence of portal hypertension including mild splenomegaly. Electronically Signed: Leonides Acevedo MD at 22:48 EDT Tel , Service support ,
[2021-06-03 12:56] LABS: CREATININE FINGERSTICK 0.7 mg/dL (0.55-1.02); EGFR FINGERSTICK > 60.0000 mL/min (>60)
== END ==
PROVIDERS: PCP Family Medicine; Referring Provider Internal Medicine Gastroenterology; Visit Provider Internal Medicine Gastroenterology
DX: K74.60 Unspecified cirrhosis of liver (principal); K76.6 Portal hypertension
CPT/HCPCS: 74183; A9575

== ENCOUNTER → 2022-05-07 | Outpatient (CLI) | payer MEDICARE, OTHER, SELFPAY ==
--- NOTE | 2022-05-07 14:55 | BI_ITS ---
MAMMOGRAPHY - BILATERAL SCREENING REASON FOR EXAM: Female, 67 years old. Routine annual screening examination. PERTINENT HISTORY: Non-contributory. TECHNIQUE: Digital bilateral breast vianey (3D mammographic acquisition) in the CC and MLO projections. 2-D mediolateral oblique (MLO) and craniocaudad (CC) views of both breasts were obtained. CAD: Full Field Digital Mammography with Computer Added Detection was performed. COMPARISON: Comparison is made with prior study 05/03/2020. FINDINGS: Breast Composition: The breasts are almost entirely fatty. There are no dominant masses or suspicious calcifications. Stable small benign-appearing bilateral axillary lymph nodes. No other significant abnormalities are identified. There has been no significant change since the prior study. BI/SCRN MAMM (CAD)W/VIANEY BILAT IMPRESSION: Stable bilateral screening mammogram. Yearly follow-up mammogram recommended. (A) ASSESSMENT CATEGORY: BIRADS Category 2: Benign. A letter regarding these results will be sent to the patient by the facility within 30 days. Approximately 10% of breast cancers are not detected by mammography. A normal mammogram should not delay biopsy of a clinically suspicious abnormality. [id number] Electronically Signed: Mac Gregorio MD at 8:31 EDT ,
--- NOTE | 2022-05-07 15:00 | BD_ITS ---
STUDY: DUAL ENERGY X-RAY ABSORPTIOMETRY / DXA REASON FOR EXAM: Female, 67 years old. V76.12ScreeningBONE DENSITY REASON FOR EXAM TECHNIQUE: Bone Mineral Density (BMD) measurements of lumbar spine and bilateral hips were obtained. COMPARISON: None. FINDINGS: Lumbar Spine (L1-L4): g/cm2 (1.166) / T-score (1.1) / Z-score (2.9) Findings are suggestive of normal bone density with a low fracture risk. Left Femur Total: g/cm2 (0.927) / T-score (-0.1) / Z-score (1.2) Left Femoral Neck: g/cm2 (0.636) / T-score (-1.9) / Z-score (-0.3) Right Femur Total: g/cm2 (0.918) / T-score (-0.2) / Z-score (1.1) Right Femoral Neck: g/cm2 (0.662) / T-score (-1.7) / Z-score (-0.1) BD/Dexa Bone Density Study IMPRESSION: The patient is considered osteopenic as outlined below according to World Greg Organization (WHO) criteria with a moderate fracture risk. Reference Information: The T-score is the number of standard deviations above or below the standard which is normal for young adults at their peak bone mineral density. The World Health Organization (WHO) interprets the T-scores as follows: Above -1 Normal bone density Between -1 and -2.5 Osteopenia Equal to / or below -2.5 Osteoporosis As a practical clinical guideline, osteopenia may be graded as follows: Mild -1 through -1.5 Moderate -1.6 through -2.0 Severe -2.1 through -2.4 The Z-score is the number of standard deviations above or below age-matched controls. A Z-score of less than -1.5 would be considered abnormal. References: 1. NIH Osteoporosis and Related Bone Diseases www osteo.org 2. International Society for Clinical Densitometry www iscd.org 3. National Osteoporosis Foundation www nof.org Electronically Signed: Mac Gregorio MD at 14:26 EDT ,
== END | disposition home or self-care (01) ==
LOC: OPBD 14:52
PROVIDERS: PCP Family Medicine; Visit Provider Family Medicine
DX: N95.9 Unspecified menopausal and perimenopausal disorder (principal); Z12.31 Encounter for screening mammogram for malignant neoplasm of breast
CPT/HCPCS: 77063; 77067; 77080

== ENCOUNTER 2022-09-05 13:51 | Inpatient (IN) | payer MEDICARE, OTHER, SELFPAY ==
[2022-09-05] VITALS (23 sets, daily range): BP systolic 129–167; BP diastolic 76–100; PULSE 56–135; RESP 12–36; TEMP 36.3–36.8; O2SAT 82–98; BMI 58.1
--- NOTE | 2022-09-05 14:14 | RAD_ITS ---
STUDY: X-RAY CHEST REASON FOR EXAM: Female, 67 years old. cough TECHNIQUE: XR Chest 1 View COMPARISON: Prior comparison studies are not available for review at this time. FINDINGS: There is atherosclerotic calcification of the aortic arch with tortuosity. There are diffuse degenerative changes of the visualized thoracic spine. There is degenerative osteoarthritis of the bilateral shoulders. There is no demonstrated pleural abnormality. There is bilateral infiltrate. Normal size heart. Normal mediastinum and alexsander. Normal visualized pulmonary arteries. There is no demonstrated abnormality of the visualized soft tissue structures of the upper abdomen. RAD/Chest 1 View (Portable) IMPRESSION: There is bilateral infiltrate. Electronically Signed: Wily Garcia MD at 15:09 EST ,
--- NOTE | 2022-09-05 14:16 | ED.VIS.DYS ---
HPI History of Present Illness Chief Complaint: Shortness of Breath Informant: patient Narrative Narrative: 3 days worsening dyspnea cough. Fever 2 days ago. COVID vaccinated home COVID test negative. No history of COPD or asthma. Sleep apnea with CPAP at night she has been using this more even during the day to help with breathing. Denies chest pains. Presented 82% on room air. [facility] Medical History Diabetes Hypertension sarcoidosis liver Home Medications Ropinirole Hcl [Requip] 0.5 mg PO QHS 05/23/15 [History Last Taken Unknown] aripiprazole 2 mg tablet 0.5 mg PO DAILY 05/23/15 [History Last Taken Unknown] aspirin 81 mg chewable tablet 81 mg PO DAILY@0800 05/23/15 [History Last Taken Unknown] bupropion HCl 150 mg 24 hr tablet, extended release 150 mg PO DAILY 05/23/15 [History Last Taken Unknown] glimepiride 2 mg tablet 2 mg PO DAILY 05/23/15 [History Last Taken Unknown] levothyroxine 50 mcg tablet 50 mcg PO DAILY 05/23/15 [History Last Taken 07/06/17 09:45 50 MCG] loratadine 10 mg tablet (Allergy Relief (loratadine)) 10 mg PO DAILY PRN PRN allergies 05/23/15 [History Last Taken Unknown] trazodone 50 mg tablet 50 mg PO DAILY 05/23/15 [History Last Taken Unknown] ursodiol 250 mg tablet 500 mg PO TID 05/23/15 [History Last Taken Unknown] amlodipine 5 mg-benazepril 10 mg capsule 1 ea PO DAILY 06/30/17 [History Last Taken 07/06/17 09:45 1 EACH] exenatide microspheres 2 mg/0.65 mL subcutaneous pen injector (Bydureon) 2 mg SQ QWEEK 06/30/17 [History Last Taken Unknown] docusate sodium 100 mg capsule (DOK) 100 mg PO BID PRN PRN Constipation ##10 07/06/17 [Rx Last Taken Unknown] allopurinol 300 mg tablet 300 mg PO DAILY 09/05/22 [History Last Taken Unknown] furosemide 40 mg tablet 40 mg PO QODAY 09/05/22 [History Last Taken Unknown] omeprazole 20 mg capsule,delayed release 20 mg PO DAILY 09/05/22 [History Last Taken Unknown] tamsulosin 0.4 mg capsule (Flomax) 0.4 mg PO DAILY 09/05/22 [History Last Taken Unknown] Allergy/AdvReac Type Severity Reaction Status Date / Time nabumetone [From Relafen] Allergy Itching Verified 09/05/22 13:51 nitrofurantoin Allergy Rash Verified 09/05/22 16:12 [From Macrobid] Family History Father Goodpasture syndrome Surgical History bilateral carpal tunnel left long finger I&D right long finger I&D Social History Smoking Status: Never smoker ROS ROS ED Constitutional Constitutional ED: Reports fever(s); Denies chills or sweats Eyes Eyes: Denies change in vision ENT ENT ED: Denies dysphagia or sore throat Cardiovascular Cardiovascular: Denies chest pain, leg edema, palpitations or racing heartbeat Respiratory/Chest Respiratory/Chest: Reports cough and dyspnea; Denies dyspnea on exertion Gastrointestinal Gastrointestinal: Denies abdominal pain, diarrhea, nausea or vomiting Genitourinary Genitourinary ED: Denies dysuria, hematuria or urinary frequency Musculoskeletal Musculoskeletal: Denies back pain, extremity pain or neck pain Integumentary Denies rash or wounds Neurologic Neurologic: Denies headache(s), paresthesias or weakness EXAM Physical Exam Const Vital Signs: 09/05/22 13:52 09/05/22 13:51 09/05/22 13:54 Temperature 97.8 F Temperature Source Temporal Pulse Rate 89 Respiratory Rate 26 H Respiratory Pattern Tachypnea Blood Pressure 129/78 H Blood Pressure Mean 95 Pulse Ox 82 97 Oxygen Delivery Method Room Air Nasal Cannula Nasal Cannula Oxygen Flow Rate (L/min) 5 5 Fraction of Inspired Oxygen (FIO2) 09/05/22 14:25 09/05/22 14:51 09/05/22 15:00 Temperature Temperature Source Pulse Rate 127 H 121 H Respiratory Rate 27 H 25 H Respiratory Pattern Blood Pressure 141/90 H 157/98 H Blood Pressure Mean 107 117 Pulse Ox 94 98 92 Oxygen Delivery Method Nasal Cannula Bi-pap Bi-pap Oxygen Flow Rate (L/min) 5 Fraction of Inspired Oxygen (FIO2) 09/05/22 14:54 09/05/22 15:00 09/05/22 14:28 Temperature 97.4 F L 97.5 F L Temperature Source Temporal Temporal Pulse Rate 123 H 126 H 135 H Respiratory Rate 24 H 27 H 36 H Respiratory Pattern Tachypnea Blood Pressure 141/90 H 159/99 H Blood Pressure Mean 107 119 Pulse Ox 97 97 Oxygen Delivery Method Bi-pap Bi-pap Oxygen Flow Rate (L/min) Fraction of Inspired Oxygen (FIO2) 09/05/22 14:28 09/05/22 14:45 09/05/22 15:50 Temperature Temperature Source Pulse Rate 135 H 135 H 115 H Respiratory Rate 36 H 24 H 23 H Respiratory Pattern Tachypnea Tachypnea Blood Pressure 165/95 H Blood Pressure Mean 118 Pulse Ox 95 97 97 Oxygen Delivery Method Bi-pap Oxygen Flow Rate (L/min) Fraction of Inspired Oxygen (FIO2) 45 35 Positive well nourished and well developed Constitutional Narrative: Nasal cannula speaking in short sentences. General Appearance ED: well developed HEENT Reports moist mucous membranes normocephalic and atraumatic Eyes PERRL, EOMs intact bilaterally and conjunctivae normal General Eye ED: Yes normal appearance of both eyes Neck no lymphadenopathy and supple General: Negative for tenderness Chest Wall Chest: Negative for tenderness Resp Resp Narrative: Diffuse rhonchi, diminished breath sounds at the bases. Effort and Inspection: respiratory distress Cardio no murmurs Rate: tachycardic Rhythm: abnormal rhythm Peripheral Pulses: pulses 2+ throughout GI normal to inspection, nondistended, normoactive bowel sounds and non-tender Palpation: Negative for guarding or rebound tenderness present Back/Spine no CVA tenderness and no thoracic nor lumbar tenderness Extremity normal to inspection General Extremety ED: Negative for edema or tenderness General Extremity: Negative for edema Neuro oriented x3 and no sensory deficits noted Sensorium / Orientation: awake and alert Skin Skin Narrative: Sweaty on exam. Sepsis Attestation Sepsis Alert: Yes Sepsis Attestation: Agree w/Sepsis Date exam was performed: 09/05/22 Time exam was performed: 16:00 Possible Source of Sepsis: Pulmonary Sepsis Organ Dysfunction Criteria Present: Lactic Acid > 2 mmol/L Fluid Resuscitation Fluid Resuscitation ordered: Fluids not indicated Sepsis Note Date exam was performed: 09/05/22 Time exam was performed: 16:30 Sepsis Attestation: Sepsis re-evaluation was performed MDM MDM MDM Narrative Medical decision making narrative: Hypoxic on arrival speaking in short sentences. Rhonchorous throughout. Sepsis labs were ordered, BiPAP. On 40% oxygen ABG was stable this was weaned down. She felt better with the BiPAP. Chest x-ray 1 view reviewed by myself read by radiology bilateral infiltrates. Her white count was normal. COVID and influenza negative. She is covered with committee acquired pneumonia sepsis antibiotics of Rocephin and doxycycline. Lactic acid returned at 2.2. She meets sepsis criteria. Sodium 133. Blood cultures were drawn prior to antibiotics. Reevaluation A. fib with RVR heart rate in the 120s with a seen on the EKG. She is given IV Lopressor x3. I discussed with hospitalist Dr. Bethea for admission. She will be admitted to PCU. Prior to transport upstairs patient converted normal sinus rhythm with confirmed EKG. Lab Data Attestation: I reviewed the patient's lab results. Labs: Laboratory Results - last 24 hr 09/05/22 09/05/22 09/05/22 14:10 14:10 14:10 WBC 5.1 RBC 4.55 Hgb 13.8 Hct 42.5 MCV 93.4 MCH 30.3 MCHC 32.5 RDW Std Deviation 44.1 H RDW Coeff of Tree 12.9 Plt Count 195 MPV 10.1 Immature Gran % (Auto) 0.400 Neut % (Auto) 81.0 H Lymph % (Auto) 12.[address] [place] % (Auto) 6.1 Eos % (Auto) 0.0 Baso % (Auto) 0.4 Absolute Neuts (auto) 4.1 Absolute Lymphs (auto) 0.61 L Nucleated RBC % 0 PT 14.4 INR 1.2 APTT 34.4 Sodium 133 L Potassium 4.0 Chloride 94 L Carbon Dioxide 32.0 Anion Gap 7 BUN 20 H Creatinine 1.03 H Estim Creat Clear Calc 42.49 Est GFR (MDRD) Af Amer 69 Est GFR (MDRD) Non-Af 57 L BUN/Creatinine Ratio 19.4 Glucose 365 H Lactic Acid Calcium 8.5 Total Bilirubin 0.60 AST 34 ALT 27 Alkaline Phosphatase 236 H Total Protein 7.7 Albumin 2.9 L Globulin 4.8 H Albumin/Globulin Ratio 0.6 L 09/05/22 14:10 WBC RBC Hgb Hct MCV MCH MCHC RDW Std Deviation RDW Coeff of Tree Plt Count MPV Immature Gran % (Auto) Neut % (Auto) Lymph % (Auto) [place] % (Auto) Eos % (Auto) Baso % (Auto) Absolute Neuts (auto) Absolute Lymphs (auto) Nucleated RBC % PT INR APTT Sodium Potassium Chloride Carbon Dioxide Anion Gap BUN Creatinine Estim Creat Clear Calc Est GFR (MDRD) Af Amer Est GFR (MDRD) Non-Af BUN/Creatinine Ratio Glucose Lactic Acid 2.2 H* Calcium Total Bilirubin AST ALT Alkaline Phosphatase Total Protein Albumin Globulin Albumin/Globulin Ratio ABG Data ABG results: ABG 09/05/22 14:50 Specimen Type ART Sample Site L Radial pH 7.37 Bicarbonate Actual 33.4 H Total CO2 35 Base Excess 8 H O2 Saturation 98 O2 % 40 ABG pCO2 58.2 H ABG pO2 103 H [place] Test Positive Respiration Rate 12 O2 Delivery Device BiPAP Vent Mode BiLevel Tidal Volume 450 POC PEEP 6 Clinical Comments 06/05 Radiography Diagnostic Testing: Clinical Impression(s) from Imaging Studies Chest X-Ray 09/05/22 14:14 IMPRESSION: There is bilateral infiltrate. Electronically Signed: Wily Garcia MD at 15:09 EST Reading Location ID and State: [facility] / [place] , Service support , EKG Initial EKG: Attestation: I personally reviewed and interpreted this EKG as follows: Comments: Atrial fibrillation rate of 139, possible ST depression extreme lateral leads. Artifacts at baseline. Follow-up EKG: Attestation: I personally reviewed and interpreted this EKG as follows: Comments: Repeat at 1656: Sinus rhythm with no acute findings. Discharge Plan Triage Chief Complaint: Shortness of Breath ED Provider: Jose Sweeney Dx/Rx/DC Orders Clinical Impression: Community acquired pneumonia, Acute respiratory failure with hypoxia, Severe sepsis, Atrial fibrillation, currently in sinus rhythm Primary Care Provider: Tracy Dillard Disposition Disposition: Acute Care [facility]
[2022-09-05 14:27] LABS: Absolute Lymphocyte Count 0.61 X10^3/uL (0.83-4.51); Absolute Neutrophil Count 4.1 X10^3/uL (2.0-7.7); Basophil# 0.02 X10^3/uL; Basophil% 0.4 % (0-1); Hematocrit 42.5 % (37-47); Hemoglobin 13.8 g/dL (12.0-15.0); Lymphocyte # 0.61 X10^3/ul (0.83-4.51); Lymphocyte % 12.1 % (19-41); Mean Corp Hgb Conc 32.5 g/dL (32-36); Mean Corpuscular Hgb 30.3 pg (27.0-32.0); Mean Corpuscular Volume 93.4 fL (81-99); Mean Platelet Vol. 10.1 fl (6.2-12.0); Monocyte# 0.31 X10^3/uL; Monocyte% 6.1 % (0-10); NRBC Flagged by Analyzer 0 % (0-5); Neutrophil # 4.09 X10^3/uL (2.7-7.7); Platelet Count 195 K/mm3 (150-450); RBC Distribution Width CV 12.9 % (11.6-14.6); RBC Distribution Width SD 44.1 fl (35.1-43.9); Red Blood Count 4.55 M/mm3 (4.2-5.4); White Blood Count 5.1 K/mm3 (4.4-11.0)
[2022-09-05 14:35] LABS: International Normalized Ratio 1.2; Prothrombin Time (Protime)PT. 14.4 SECONDS (11.7-14.9)
[2022-09-05 14:36] LABS: Partial Thromboplast Time 34.4 Seconds (24.1-36.2)
[2022-09-05 14:41] LABS: ALB/GLOB Ratio 0.6 RATIO (0.9-2.4); AST(SGOT) 34 U/L (15-37); Alanine Aminotransfer ALT/SGPT 27 U/L (13-56); Albumin, Serum 2.9 g/dL (3.2-5.0); Alkaline Phosphatase 236 U/L (45-117); Anion Gap 7 (5-15); BUN 20 mg/dL (7-18); BUN/Creat Ratio 19.4 RATIO (10-20); Calcium,Total 8.5 mg/dL (8.5-10.1); Chloride 94 mmol/L (98-107); Creatinine, Serum 1.03 mg/dL (0.55-1.02); EST Glomerular Filtration Rate 57 mL/min (>60); Est Glom Filt Rate - Afr Amer 69 mL/min (>60); Estimated Creatinine Clearance 42.49 ml/min; Globulin 4.8 g/dL (2.2-4.2); Glucose 365 mg/dL (74-106); Protein, Total 7.7 g/dL (6.4-8.2); Sodium Level 133 mmol/L (136-145)
[2022-09-05 14:55] LABS: Allen Test Positive; Base Excess 8 mmol/L (-2 to +2); Bicarbonate 33.4 mmol/L (22-26); Blood Gas Specimen Type ART; Comment 24/8; FI02 40; Mode BiLevel; O2 Delivery Device BiPAP; PEEP 6; PO2 103 mmHG (75-100); RR 12; SITE L Radial; SO2 98 % (95-99); Total Carbon Dioxide 35 mmol/L; Vt 450; pCO2 58.2 mmHg (35-45); pH 7.37 (7.35-7.45)
[2022-09-05] MEDS: Albuterol 2.5 MG/3 ML VIAL.NEB. INHALATION (15:06)
[2022-09-05 15:26] LABS: Lactic Acid 2.2 mmol/L (0.4-1.9)
[2022-09-05] MEDS: Metoprolol Tartrate 5 MG/5 ML Vial IV ×3 (15:32→16:06)
[2022-09-05] MEDS: Ipratropium/Albuterol Sulfate 3 ML AMPUL.NEB INHALATION (15:34)
--- NOTE | 2022-09-05 16:07 | NURSING ---
PCU [place] PNEUMONIA, HYPOXIA, AFIB RVR
--- NOTE | 2022-09-05 16:42 | HP.PCM.HOS_ITS ---
HPI - General General Date of Admission: 09/05/22 HPI Narrative VITALY CORREA, is a 67 F who presents to the hospital with 4 days of not feeling well. She states that she developed a cough as well as fever a few days ago. She was hoping that it would go away before the holidays without having to come into the hospital or go to her doctor. She does not have a history of COPD but she does have a history of sleep apnea and she does wear CPAP at night. When she presented to the hospital she was 82% on room air and during my evaluation was oxygenating well and doing well on BiPAP. Chest x-ray in the ED demonstrated bilateral infiltrates. [facility] Medical History Diabetes Hypertension sarcoidosis liver Home Medications Ropinirole Hcl [Requip] 0.5 mg PO QHS 05/23/15 [History Last Taken Unknown] aripiprazole 2 mg tablet 0.5 mg PO DAILY 05/23/15 [History Last Taken Unknown] aspirin 81 mg chewable tablet 81 mg PO DAILY@0800 05/23/15 [History Last Taken Unknown] bupropion HCl 150 mg 24 hr tablet, extended release 150 mg PO DAILY 05/23/15 [History Last Taken Unknown] glimepiride 2 mg tablet 2 mg PO DAILY 05/23/15 [History Last Taken Unknown] levothyroxine 50 mcg tablet 50 mcg PO DAILY 05/23/15 [History Last Taken 07/06/17 09:45 50 MCG] loratadine 10 mg tablet (Allergy Relief (loratadine)) 10 mg PO DAILY PRN PRN allergies 05/23/15 [History Last Taken Unknown] trazodone 50 mg tablet 50 mg PO DAILY 05/23/15 [History Last Taken Unknown] ursodiol 250 mg tablet 500 mg PO TID 05/23/15 [History Last Taken Unknown] amlodipine 5 mg-benazepril 10 mg capsule 1 ea PO DAILY 06/30/17 [History Last Taken 07/06/17 09:45 1 EACH] exenatide microspheres 2 mg/0.65 mL subcutaneous pen injector (Bydureon) 2 mg SQ QWEEK 06/30/17 [History Last Taken Unknown] docusate sodium 100 mg capsule (DOK) 100 mg PO BID PRN PRN Constipation ##10 07/06/17 [Rx Last Taken Unknown] allopurinol 300 mg tablet 300 mg PO DAILY 09/05/22 [History Last Taken Unknown] furosemide 40 mg tablet 40 mg PO QODAY 09/05/22 [History Last Taken Unknown] omeprazole 20 mg capsule,delayed release 20 mg PO DAILY 09/05/22 [History Last Taken Unknown] tamsulosin 0.4 mg capsule (Flomax) 0.4 mg PO DAILY 09/05/22 [History Last Taken Unknown] Allergy/AdvReac Type Severity Reaction Status Date / Time nabumetone [From Relafen] Allergy Itching Verified 09/05/22 13:51 nitrofurantoin Allergy Rash Verified 09/05/22 16:12 [From Macrobid] Family History Father Goodpasture syndrome Surgical History bilateral carpal tunnel left long finger I&D right long finger I&D Social History Smoking Status: Never smoker ROS Constitutional Constitutional: Reports chills, fatigue and fever(s); Denies malaise Eyes Eyes: Denies blurry vision ENT HEENT: Denies headache(s) or nasal discharge Cardiovascular Cardiovascular: Denies chest pain, dyspnea on exertion or syncope Respiratory/Chest Respiratory/Chest: Reports cough and shortness of breath at rest; Denies shortness of breath with exertion Gastrointestinal Gastrointestinal: Denies constipation, diarrhea, nausea or vomiting Genitourinary Genitourinary: Denies dysuria Neurologic Neurologic: Denies focal weakness, numbness or tremor(s) Psychiatric Psychiatric: Denies anxiety or depression Vital Signs Vital Signs Vital Signs: 09/05/22 13:52 09/05/22 13:51 09/05/22 13:54 Temperature 97.8 F Temperature Source Temporal Pulse Rate 89 Respiratory Rate 26 H Respiratory Pattern Tachypnea Blood Pressure 129/78 H Blood Pressure Mean 95 Pulse Ox 82 97 Oxygen Delivery Method Room Air Nasal Cannula Nasal Cannula Oxygen Flow Rate (L/min) 5 5 Fraction of Inspired Oxygen (FIO2) 09/05/22 14:25 09/05/22 14:51 09/05/22 15:00 Temperature Temperature Source Pulse Rate 127 H 121 H Respiratory Rate 27 H 25 H Respiratory Pattern Blood Pressure 141/90 H 157/98 H Blood Pressure Mean 107 117 Pulse Ox 94 98 92 Oxygen Delivery Method Nasal Cannula Bi-pap Bi-pap Oxygen Flow Rate (L/min) 5 Fraction of Inspired Oxygen (FIO2) 09/05/22 14:54 09/05/22 15:00 09/05/22 14:28 Temperature 97.4 F L 97.5 F L Temperature Source Temporal Temporal Pulse Rate 123 H 126 H 135 H Respiratory Rate 24 H 27 H 36 H Respiratory Pattern Tachypnea Blood Pressure 141/90 H 159/99 H Blood Pressure Mean 107 119 Pulse Ox 97 97 Oxygen Delivery Method Bi-pap Bi-pap Oxygen Flow Rate (L/min) Fraction of Inspired Oxygen (FIO2) 09/05/22 14:28 09/05/22 14:45 09/05/22 15:50 Temperature Temperature Source Pulse Rate 135 H 135 H 115 H Respiratory Rate 36 H 24 H 23 H Respiratory Pattern Tachypnea Tachypnea Blood Pressure 165/95 H Blood Pressure Mean 118 Pulse Ox 95 97 97 Oxygen Delivery Method Bi-pap Oxygen Flow Rate (L/min) Fraction of Inspired Oxygen (FIO2) 45 35 09/05/22 15:57 09/05/22 16:00 09/05/22 16:00 Temperature 97.6 F L 97.3 F L Temperature Source Temporal Temporal Pulse Rate 102 H 96 96 Respiratory Rate 21 H 22 H Respiratory Pattern Blood Pressure 167/100 H 155/91 H Blood Pressure Mean 122 112 Pulse Ox 97 97 Oxygen Delivery Method Bi-pap Bi-pap Oxygen Flow Rate (L/min) Fraction of Inspired Oxygen (FIO2) Weight Weight: 318 lb Body Mass Index (BMI) 58.1 Physical Exam Narrative General: Alert, Oriented x3, Cooperative, No apparent distress while on BiPAP HEENT: Atraumatic, PERRLA, EOMI, Normocephalic, morbidly obese Oral: Moist Mucosa Neck: Supple, No JVD Lungs: Diminished, Normal air movement, rhonchi on the right, No wheeze, No rales Cardiovascular: Regular rate, Regular Rhythm, Normal S1, Normal S2, No murmurs Abdomen: Soft, Non Tender, Non-Distended, No Hepato-splenomegaly Extremities: Chronic lymphedema, Capillary Refill Less than 3 Seconds Skin: No rashes, No breakdown Musculoskeletal: No Tenderness to Palpation of Joints or Extremities Neurological: Cranial nerves II-XII grossly intact, Motor Exam 5/5 strength throughout, Sensory exam intact to light touch and pain Psych/Mental Status: Normal Affect, Appropriate Results Lab / Micro Data Result Diagrams: 09/05/22 14:10 09/05/22 14:10 Labs: Laboratory Results - last 24 hr 09/05/22 14:10: WBC 5.1, RBC 4.55, Hgb 13.8, Hct 42.5, MCV 93.4, MCH 30.3, MCHC 32.5, RDW Std Deviation 44.1 H, RDW Coeff of Tree 12.9, Plt Count 195, MPV 10.1, Immature Gran % (Auto) 0.400, Neut % (Auto) 81.0 H, Lymph % (Auto) 12.1 L, [place] % (Auto) 6.1, Eos % (Auto) 0.0, Baso % (Auto) 0.4, Absolute Neuts (auto) 4.1, Absolute Lymphs (auto) 0.61 L, Nucleated RBC % 0 09/05/22 14:10: PT 14.4, INR 1.2, APTT 34.4 09/05/22 14:10: Sodium 133 L, Potassium 4.0, Chloride 94 L, Carbon Dioxide 32.0, Anion Gap 7, BUN 20 H, Creatinine 1.03 H, Estim Creat Clear Calc 42.49, Est GFR (MDRD) Af Amer 69, Est GFR (MDRD) Non-Af 57 L, BUN/Creatinine Ratio 19.4, Glucose 365 H, Calcium 8.5, Total Bilirubin 0.60, AST 34, ALT 27, Alkaline Phosphatase 236 H, Total Protein 7.7, Albumin 2.9 L, Globulin 4.8 H, A lbumin/Globulin Ratio 0.6 L 09/05/22 14:10: Lactic Acid 2.2 H* Micro: Microbiology 09/05/22 14:21 Nasal Secretion SARS-CoV-2 & FLU Antigen (Rapid) - Final ABG Data ABG results: ABG 09/05/22 14:50 Specimen Type ART Sample Site L Radial pH 7.37 Bicarbonate Actual 33.4 H Total CO2 35 Base Excess 8 H O2 Saturation 98 O2 % 40 ABG pCO2 58.2 H ABG pO2 103 H [place] Test Positive Respiration Rate 12 O2 Delivery Device BiPAP Vent Mode BiLevel Tidal Volume 450 POC PEEP 6 Clinical Comments 06/05 Radiology Impression Chest X-Ray 09/05/22 14:14 IMPRESSION: There is bilateral infiltrate. Electronically Signed: Wily Garcia MD at 15:09 EST , Assessment & Plan Assessment/Plan (1) Acute respiratory failure with hypoxia: (2) Pneumonia: PLAN: Plan 1. Acute hypoxic respiratory failure secondary to community-acquired pneumonia/NEREYDA ?We will continue with Rocephin and azithromycin, she was given a dose of doxycycline in the ER ? Continue with BiPAP and wean as able ? She has been COVID vaccinated and she was negative for COVID and flu ? We will obtain a sputum culture 2. New onset A. fib/HTN/HLD/lower extremity edema ? We will continue with her home blood pressure medications, her blood pressures are stable ? We will obtain an echo to better characterize her A. fib and place her on p.o. metoprolol ? We will obtain a TSH ? Will hold her Lasix, her creatinine is very slightly elevated to 1.03 we will hold off any fluids 3. Morbid obesity/DM2 ? We will hold her glimepiride ? Continue with sliding scale insulin ? Accu-Cheks AC at bedtime ? We will monitor and make adjustments as necessary 4. Hypothyroidism ? Stable ? Continue with Synthroid 4. GERD ? Stable ? Continue with PPI DVT: Lovenox Charges/Coding Visit Charges Inpatient E&M: 29058 Init Hosp L3
--- NOTE | 2022-09-05 17:19 | ECHOCS_ITS ---
Reason For Study: AFIB Procedure This was a 2D Doppler, Color Flow transthoracic echocardiogram. The study was technically difficult. Contrast injection was performed. Exam performed portable in patient room. Left Ventricle Normal size and thickness. The left ventricular ejection fraction is 65 %. Unable to assess diastolic function based on available data. Right Ventricle Normal right ventricle. Atria The left atrium is moderately enlarged. The right atrium is not well visualized. Mitral Valve Trivial mitral valve insufficiency. Tricuspid Valve The tricuspid valve is not well visualized. Aortic Valve There is no aortic stenosis. Trivial aortic valve insufficiency. Pulmonic Valve The pulmonic valve is not well visualized. Great Vessels Normal sized aortic root. Pericardium/Pleural No pericardial effusion. Medication Diluted definity 2ml given slow IV push to enhance endocardial definition. MMode/2D Measurements & Calculations Ao root diam: 2.8 cm LA dimension(2D): 4.3 cm RA A4 area: 26.6 cm2 Time Measurements MV dec time: 0.27 sec Doppler Measurements & Calculations MV E max cornell: 116.1 cm/sec Lat Peak E' Cornell: 11.5 cm/sec Med Peak E' Cornell: 12.7 cm/sec MV A max cornell: 54.9 cm/sec E/E' lat: 10.1 E/E' med: 9.1 MV E/A: 2.1 MV V2 max: 87.0 cm/sec MV dec slope: 426.9 cm/sec2 Ao V2 max: 203.5 cm/sec MV max P.1 mmHg Ao max P.6 mmHg MV V2 mean: 41.8 cm/sec Ao V2 mean: 134.9 cm/sec MV mean P.92 mmHg Ao mean P.5 mmHg MV V2 VTI: 25.4 cm Ao V2 VTI: 43.8 cm AV (velocity ratio): 0.58 LV V1 max: 109.7 cm/sec PA V2 max: 162.3 cm/sec LV V1 max P.8 mmHg LV V1 mean P.1 mmHg LV V1 mean: 83.9 cm/sec LV V1 VTI: 25.2 cm ECHO/Echo Complete W/ Contrast Interpretation Summary The study was technically difficult. The left ventricular ejection fraction is 65 %. The left atrium is moderately enlarged. Ordering Physician: Everton Bethea Referring Physician: Tracy Dillard M.D. Performed By: Jacqueline Moreno RCS
--- NOTE | 2022-09-05 17:26 | CPS ---
Pt on AVAPS, too SOB to do I.S.
[2022-09-05 18:21] LABS: Reflex Lactate? Y
[2022-09-05] MEDS: Insulin Lispro 100 UNIT/ML INSULN.PEN SC ×2 (18:25→23:55)
[2022-09-05 18:29] LABS: Thyroid Stim Hormone (TSH) 2.11 uIU/mL (0.358-3.74)
[2022-09-05 18:30] LABS: Bedside Glucose 371 mg/dL (74-106)
[2022-09-05 19:04] LABS: Lactic Acid 1.3 mmol/L (0.4-1.9)
[2022-09-05] MEDS: Enoxaparin 30 MG/0.3 ML Syringe SC (23:54)
[2022-09-06] VITALS (14 sets, daily range): BP systolic 141–170; BP diastolic 68–80; PULSE 57–81; RESP 12–24; TEMP 36.2–37; O2SAT 95–97
[2022-09-06 01:36] LABS: Bedside Glucose 259 mg/dL (74-106)
[2022-09-06 05:06] LABS: Absolute Lymphocyte Count 0.86 X10^3/uL (0.83-4.51); Absolute Neutrophil Count 3.7 X10^3/uL (2.0-7.7); Basophil# 0.01 X10^3/uL; Basophil% 0.2 % (0-1); Hematocrit 39.2 % (37-47); Hemoglobin 12.6 g/dL (12.0-15.0); Lymphocyte # 0.86 X10^3/ul (0.83-4.51); Lymphocyte % 17.4 % (19-41); Mean Corp Hgb Conc 32.1 g/dL (32-36); Mean Corpuscular Hgb 30.7 pg (27.0-32.0); Mean Corpuscular Volume 95.4 fL (81-99); Mean Platelet Vol. 10.1 fl (6.2-12.0); Monocyte# 0.38 X10^3/uL; Monocyte% 7.7 % (0-10); NRBC Flagged by Analyzer 0 % (0-5); Neutrophil # 3.68 X10^3/uL (2.7-7.7); Neutrophil % 74.5 % (47-70); Platelet Count 197 K/mm3 (150-450); RBC Distribution Width CV 13.1 % (11.6-14.6); RBC Distribution Width SD 46.1 fl (35.1-43.9); Red Blood Count 4.11 M/mm3 (4.2-5.4); White Blood Count 4.9 K/mm3 (4.4-11.0)
[2022-09-06 05:39] LABS: Anion Gap 4 (5-15); BUN 24 mg/dL (7-18); BUN/Creat Ratio 25.5 RATIO (10-20); Calcium,Total 7.8 mg/dL (8.5-10.1); Chloride 99 mmol/L (98-107); Creatinine, Serum 0.94 mg/dL (0.55-1.02); EST Glomerular Filtration Rate 63 mL/min (>60); Est Glom Filt Rate - Afr Amer 76 mL/min (>60); Estimated Creatinine Clearance 46.56 ml/min; Glucose 217 mg/dL (74-106); Potassium 4.3 mmol/L (3.5-5.1); Sodium Level 134 mmol/L (136-145)
[2022-09-06] MEDS: Ursodiol 250 MG Tablet 500 MG PO ×3 (05:50→21:20)
[2022-09-06] MEDS: Levothyroxine 50 MCG Tablet PO (05:50)
[2022-09-06] MEDS: Insulin Lispro 100 UNIT/ML INSULN.PEN SC ×4 (06:26→21:19)
[2022-09-06 06:50] LABS: Bedside Glucose 217 mg/dL (74-106)
[2022-09-06] MEDS: Aspirin 81 MG TAB.CHEW PO (08:54)
[2022-09-06] MEDS: Allopurinol 300 MG Tablet PO (08:54)
[2022-09-06] MEDS: Tamsulosin HCl 0.4 MG Capsule PO (10:54)
[2022-09-06] MEDS: traZODone 50 MG Tablet PO (10:54)
[2022-09-06] MEDS: Enoxaparin 30 MG/0.3 ML Syringe SC ×2 (10:54→21:20)
[2022-09-06] MEDS: Azithromycin 250 MG Tablet 500 MG PO (10:55)
[2022-09-06] MEDS: amLODIPine 2.5 MG Tablet PO (10:55)
[2022-09-06] MEDS: Pantoprazole Sodium 20 MG Tablet PO (10:55)
[2022-09-06] MEDS: Lisinopril 10 MG Tablet PO (10:56)
[2022-09-06] MEDS: buPROPion (XL) 150 MG TABLET.XL PO (10:57)
[2022-09-06] MEDS: Ceftriaxone 1 GM/50 ML BAG IV (10:57)
--- NOTE | 2022-09-06 12:41 | PCM.PN.HOSP ---
Subjective Subjective Doing well, no issues overnight. Her oxygenation is improved and she is now on 4 L nasal cannula down from BiPAP Objective Data Objective Data Vital Signs: Vital Signs Temp Pulse Resp BP Pulse Ox O2 Del Method O2 Flow Rate 98 F 81 24 H 170/79 H 97 Nasal Cannula 4 09/06/22 11:45 09/06/22 11:45 09/06/22 11:45 09/06/22 11:45 09/06/22 11:45 09/06/22 11:45 09/06/22 11:45 FiO2 30 09/06/22 01:50 Oxygen Flow Rate (L/min) 4 Oxygen Delivery Method Nasal Cannula Weight: 317 lb 15.916 oz Body Mass Index (BMI) 58.1 Intake & Output: Intake and Output for Last 24 Hours 09/05/22 09/06/22 09/07/22 03:59 03:59 03:59 Intake Total 310 / 310 300 / 300 Output Total 200 / 200 200 / 200 Balance 110 / 110 100 / 100 Lab / Micro Data Result Diagrams: 09/06/22 04:30 09/06/22 04:30 Labs: Laboratory Results - last 24 hr 09/05/22 14:10: WBC 5.1, RBC 4.55, Hgb 13.8, Hct 42.5, MCV 93.4, MCH 30.3, MCHC 32.5, RDW Std Deviation 44.1 H, RDW Coeff of Tree 12.9, Plt Count 195, MPV 10.1, Immature Gran % (Auto) 0.400, Neut % (Auto) 81.0 H, Lymph % (Auto) 12.1 L, Mcintosh % (Auto) 6.1, Eos % (Auto) 0.0, Baso % (Auto) 0.4, Absolute Neuts (auto) 4.1, Absolute Lymphs (auto) 0.61 L, Nucleated RBC % 0 09/05/22 14:10: PT 14.4, INR 1.2, APTT 34.4 09/05/22 14:10: Sodium 133 L, Potassium 4.0, Chloride 94 L, Carbon Dioxide 32.0, Anion Gap 7, BUN 20 H, Creatinine 1.03 H, Estim Creat Clear Calc 42.49, Est GFR (MDRD) Af Amer 69, Est GFR (MDRD) Non-Af 57 L, BUN/Creatinine Ratio 19.4, Glucose 365 H, Calcium 8.5, Total Bilirubin 0.60, AST 34, ALT 27, Alkaline Phosphatase 236 H, Total Protein 7.7, Albumin 2.9 L, Globulin 4.8 H, Albumin/Globulin Ratio 0.6 L 09/05/22 14:10: Lactic Acid 2.2 H* 09/05/22 14:10: TSH 2.11 09/05/22 18:11: POC Glucose 371 H 09/05/22 18:29: Lactic Acid 1.3 09/05/22 23:52: POC Glucose 259 H 09/06/22 04:30: WBC 4.9, RBC 4.11 L, Hgb 12.6, Hct 39.2, MCV 95.4, MCH 30.7, MCHC 32.1, RDW Std Deviation 46.1 H, RDW Coeff of Tree 13.1, Plt Count 197, MPV 10.1, Immature Gran % (Auto) 0.200, Neut % (Auto) 74.5 H, Lymph % (Auto) 17.4 L, Mcintosh % (Auto) 7.7, Eos % (Auto) 0.0, Baso % (Auto) 0.2, Absolute Neuts (auto) 3.7, Absolute Lymphs (auto) 0.86, Nucleated RBC % 0 09/06/22 04:30: Sodium 134 L, Potassium 4.3, Chloride 99, Carbon Dioxide 31.0, Anion Gap 4 L, BUN 24 H, Creatinine 0.94, Estim Creat Clear Calc 46.56, Est GFR (MDRD) Af Amer 76, Est GFR (MDRD) Non-Af 63, BUN/Creatinine Ratio 25.5 H, Glucose 217 H, Calcium 7.8 L 09/06/22 06:25: POC Glucose 217 H Micro: Microbiology 09/05/22 14:21 Nasal Secretion SARS-CoV-2 & FLU Antigen (Rapid) - Final ABG Data ABG results: ABG 09/05/22 14:50 Specimen Type ART Sample Site L Radial pH 7.37 Bicarbonate Actual 33.4 H Total CO2 35 Base Excess 8 H O2 Saturation 98 O2 % 40 ABG pCO2 58.2 H ABG pO2 103 H Motnana Test Positive Respiration Rate 12 O2 Delivery Device BiPAP Vent Mode BiLevel Tidal Volume 450 POC PEEP 6 Clinical Comments 06/05 Radiography Diagnostic Testing: Radiology Impression Chest X-Ray 09/05/22 14:14 IMPRESSION: There is bilateral infiltrate. Electronically Signed: Wily Garcia MD at 15:09 EST Reading Location ID and State: [facility] / [place] , Service support , Physical Exam Narrative General: Alert, Oriented x3, Cooperative, No apparent distress while on BiPAP HEENT: Atraumatic, PERRLA, EOMI, Normocephalic, morbidly obese Oral: Moist Mucosa Neck: Supple, No JVD Lungs: Diminished, Normal air movement, rhonchi on the right?improved, No wheeze, No rales Cardiovascular: Regular rate, Regular Rhythm, Normal S1, Normal S2, No murmurs Abdomen: Soft, Non Tender, Non-Distended, No Hepato-splenomegaly Extremities: Chronic lymphedema, Capillary Refill Less than 3 Seconds Skin: No rashes, No breakdown Musculoskeletal: No Tenderness to Palpation of Joints or Extremities Neurological: Cranial nerves II-XII grossly intact, Motor Exam 5/5 strength throughout, Sensory exam intact to light touch and pain Psych/Mental Status: Normal Affect, Appropriate Assessment & Plan Assessment/Plan (1) Acute respiratory failure with hypoxia: (2) Pneumonia: PLAN: Plan 1. Acute hypoxic respiratory failure secondary to community-acquired pneumonia/NEREYDA ?We will continue with Rocephin and azithromycin, she was given a dose of doxycycline in the ER ?She has been weaned down to 4 L nasal cannula we will continue to encourage getting out of bed and sitting in the chair and ambulating ? She has been COVID vaccinated and she was negative for COVID and flu ? We will obtain a sputum culture ? Unlikely that she was septic her tachycardia and her tachypnea were likely related to her new onset A. fib 2. New onset A. fib/HTN/HLD/lower extremity edema ? We will continue with her home blood pressure medications, her blood pressures are stable ? We will obtain an echo to better characterize her A. fib as she converted to normal sinus last evening and her heart rate was down into the 60s so her metoprolol was discontinued. We will hold off on any Eliquis secondary to the fact that her A. fib converted and it was likely due to her respiratory status ? TSH is normal ? Can resume her Lasix 3. Morbid obesity/DM2 ? We will hold her glimepiride ? Continue with sliding scale insulin ? Accu-Cheks AC at bedtime ? We will monitor and make adjustments as necessary 4. Hypothyroidism ? Stable ? Continue with Synthroid 4. GERD ? Stable ? Continue with PPI DVT: Lovenox Charges/Coding Visit Charges Inpatient E&M: 43444 Subs Hosp L2
[2022-09-06 13:05] LABS: Bedside Glucose 269 mg/dL (74-106)
[2022-09-06 18:30] LABS: Bedside Glucose 239 mg/dL (74-106)
[2022-09-06 22:36] LABS: Bedside Glucose 242 mg/dL (74-106)
[2022-09-07] VITALS (16 sets, daily range): BP systolic 140–166; BP diastolic 68–83; PULSE 61–87; RESP 12–30; TEMP 36.1–37; O2SAT 86–98
[2022-09-07] MEDS: Levothyroxine 50 MCG Tablet PO (05:24)
[2022-09-07] MEDS: Ursodiol 250 MG Tablet 500 MG PO ×3 (05:24→21:52)
[2022-09-07] MEDS: Insulin Lispro 100 UNIT/ML INSULN.PEN SC ×4 (06:29→21:49)
[2022-09-07 07:11] LABS: Bedside Glucose 169 mg/dL (74-106)
[2022-09-07 07:16] LABS: Absolute Lymphocyte Count 0.97 X10^3/uL (0.83-4.51); Absolute Neutrophil Count 2.8 X10^3/uL (2.0-7.7); Basophil# 0.01 X10^3/uL; Basophil% 0.2 % (0-1); Eosinophil# 0.01 X10^3/uL; Eosinophils% 0.2 % (0-5); Hematocrit 38.7 % (37-47); Hemoglobin 12.1 g/dL (12.0-15.0); Lymphocyte # 0.97 X10^3/ul (0.83-4.51); Lymphocyte % 23.2 % (19-41); Mean Corp Hgb Conc 31.3 g/dL (32-36); Mean Corpuscular Hgb 29.9 pg (27.0-32.0); Mean Corpuscular Volume 95.6 fL (81-99); Mean Platelet Vol. 10.2 fl (6.2-12.0); Monocyte# 0.35 X10^3/uL; Monocyte% 8.4 % (0-10); NRBC Flagged by Analyzer 0 % (0-5); Neutrophil # 2.82 X10^3/uL (2.7-7.7); Neutrophil % 67.5 % (47-70); Platelet Count 212 K/mm3 (150-450); RBC Distribution Width SD 45.9 fl (35.1-43.9); Red Blood Count 4.05 M/mm3 (4.2-5.4); White Blood Count 4.2 K/mm3 (4.4-11.0)
[2022-09-07] MEDS: Allopurinol 300 MG Tablet PO (07:38)
[2022-09-07] MEDS: Aspirin 81 MG TAB.CHEW PO (07:38)
[2022-09-07] MEDS: 0.9% Saline Lock 10 ML Syringe IV (07:39)
[2022-09-07 08:03] LABS: Anion Gap 3 (5-15); BUN 28 mg/dL (7-18); BUN/Creat Ratio 30.3 RATIO (10-20); Calcium,Total 8.2 mg/dL (8.5-10.1); Chloride 99 mmol/L (98-107); Creatinine, Serum 0.92 mg/dL (0.55-1.02); EST Glomerular Filtration Rate 65 mL/min (>60); Est Glom Filt Rate - Afr Amer 78 mL/min (>60); Estimated Creatinine Clearance 47.57 ml/min; Glucose 168 mg/dL (74-106); Potassium 4.4 mmol/L (3.5-5.1); Sodium Level 136 mmol/L (136-145)
[2022-09-07 09:33] LABS: BNP,B-Type NATRIURETIC PEPTIDE 43.3 pg/mL (0-100)
[2022-09-07] MEDS: Furosemide 40 MG Tablet PO (09:58)
[2022-09-07] MEDS: Tamsulosin HCl 0.4 MG Capsule PO (09:58)
[2022-09-07] MEDS: Ceftriaxone 1 GM/50 ML BAG IV (09:58)
[2022-09-07] MEDS: buPROPion (XL) 150 MG TABLET.XL PO (09:58)
[2022-09-07] MEDS: amLODIPine 2.5 MG Tablet PO (09:59)
[2022-09-07] MEDS: Enoxaparin 30 MG/0.3 ML Syringe SC ×2 (09:59→21:45)
[2022-09-07] MEDS: Pantoprazole Sodium 20 MG Tablet PO (09:59)
[2022-09-07] MEDS: Lisinopril 10 MG Tablet PO (10:00)
[2022-09-07 11:35] LABS: Bedside Glucose 216 mg/dL (74-106)
[2022-09-07] MEDS: ARIPiprazole 2 MG Tablet 1 MG PO (14:45)
--- NOTE | 2022-09-07 15:40 | PN.HOSP_ITS ---
Subjective Subjective Patient is currently feeling little bit better. Has been weaned to 2 L nasal cannula with stable oxygen saturations. Still with shortness of breath. Appears very fatigued. Highly suspect viral etiology with differential and no leukocytosis or fevers. Objective Data Objective Data Vital Signs: Vital Signs Temp Pulse Resp BP Pulse Ox O2 Del Method O2 Flow Rate 98.6 F 74 24 H 140/83 H 97 Nasal Cannula 2 09/07/22 14:41 09/07/22 14:41 09/07/22 14:41 09/07/22 14:41 09/07/22 14:41 09/07/22 14:41 09/07/22 14:41 FiO2 97 09/07/22 14:34 Oxygen Flow Rate (L/min) [At 2 REST with Oxygen] Oxygen Flow Rate (L/min) 2 Oxygen Delivery Method Nasal Cannula Weight: 144.24 kg Body Mass Index (BMI) 58.1 Intake & Output: Intake and Output for Last 24 Hours 09/05/22 09/06/22 09/07/22 23:59 23:59 23:59 Intake Total 310 / 310 870 / 870 420 / 420 Output Total 800 / 800 475 / 475 Balance 310 / 110 70 / 70 -55 / -55 Lab / Micro Data Result Diagrams: 09/07/22 06:40 09/07/22 06:40 Labs: Laboratory Results - last 24 hr 09/06/22 17:46: POC Glucose 239 H 09/06/22 21:17: POC Glucose 242 H 09/07/22 06:28: POC Glucose 169 H 09/07/22 06:40: WBC 4.2 L, RBC 4.05 L, Hgb 12.1, Hct 38.7, MCV 95.6, MCH 29.9, MCHC 31.3 L, RDW Std Deviation 45.9 H, RDW Coeff of Tree 13.0, Plt Count 212, MPV 10.2, Immature Gran % (Auto) 0.500, Neut % (Auto) 67.5, Lymph % (Auto) 23.2, M roney % (Auto) 8.4, Eos % (Auto) 0.2, Baso % (Auto) 0.2, Absolute Neuts (auto) 2.8, Absolute Lymphs (auto) 0.97, Nucleated RBC % 0 09/07/22 06:40: Sodium 136, Potassium 4.4, Chloride 99, Carbon Dioxide 34.0 H, Anion Gap 3 L, BUN 28 H, Creatinine 0.92, Estim Creat Clear Calc 47.57, Est GFR (MDRD) Af Amer 78, Est GFR (MDRD) Non-Af 65, BUN/Creatinine Ratio 30.3 H, Glucose 168 H, Calcium 8.2 L 09/07/22 06:40: B-Natriuretic Peptide 43.3 09/07/22 11:08: POC Glucose 216 H Micro: Microbiology 09/05/22 14:19 Blood Culture (Wb) - Anticubital Right Blood Culture - Preliminary No growth in 48 hours. 09/05/22 14:50 Blood Culture (Wb) - Left Forearm Blood Culture - Preliminary No growth in 48 hours. 09/06/22 17:50 Urine, Clean Catch Legionella Antigen - Final 09/06/22 17:50 Urine, Clean Catch Streptococcus pneumoniae Antigen (M - Final 09/05/22 14:21 Nasal Secretion SARS-CoV-2 & FLU Antigen (Rapid) - Final Physical Exam Const alert, oriented x3, no apparent distress and well nourished Constitutional Narrative: Morbidly obese, white female, middle-aged, sitting up in bed, appears ill but nontoxic, currently appears comfortable but fatigued HEENT head/scalp atraumatic and moist oral mucous membranes HEENT Narrative: Dentition is fair, Mallampati 3, no thrush Head and Scalp: normocephalic Resp no retractions and no use of accessory muscles Resp Narrative: Diffuse scattered crackles, some noise in the upper airway, no wheeze or rhonchi, mild tachypnea Auscultation: Negative for rhonchi or wheezes Cardio regular rate, regular rhythm, S1 normal heart sound, S2 normal heart sound, no murmurs, no rub, no gallops and no clicks GI normal to inspection, nondistended, normoactive bowel sounds, soft to palpation and non-tender GI Narrative: Large protuberant abdomen Extremity Extremity Narrative: Trace bilateral lower extremity edema, no cyanosis or clubbing, pedal pulses are 2+ Neuro oriented x3, moves all extremities and no focal motor deficits Neuro Narrative: Dentalized weakness noted Speech: speech normal Psych Psych Narrative: Affect is somewhat flat but mood seems appropriate for situation Assessment & Plan Assessment/Plan (1) Community acquired pneumonia: (2) Acute respiratory failure with hypoxia: (3) Atrial fibrillation, currently in sinus rhythm: PLAN: Plan Acute hypoxic respiratory failure secondary to suspected viral pneumonia -Continue committee acquired coverage for now with Rocephin -Discontinue azithromycin with negative Legionella -Currently down to 2 L nasal cannula and continue weaning -Respiratory viral panel as I think that is likely that this is viral in nature -Urine culture is pending however patient has been unable to produce -Add Acapella -Continue I-S -Add Mucinex -PT/OT consultation as I am concerned that she may develop worsening debility giving her current physical status New onset A. fib -Patient has already converted to normal sinus rhythm -No anticoagulation unless she redevelops A. fib -TSH is within normal limits -Echocardiogram is pending -Had been on metoprolol however heart rate went to the 60s so this was discontinued Leukopenia -Differential was unremarkable -Suspect related to acute infection-likely viral DM-2 -Hold home antidiabetic agents -Continue sliding scale insulin -Carb controlled diet -Monitor blood sugars-thus far stable Hypertension -Continue home amlodipine, Lasix every other day, lisinopril Hypothyroidism -TSH within normal limits -Continue home levothyroxine GERD -Continue Protonix NEREYDA -Nocturnal BiPAP/CPAP Morbid obesity -Recommend weight loss -Complicates treatment, prognosis, outcomes Gout -Continue home allopurinol Depression/anxiety -Continue home aripiprazole -Continue home bupropion -Continue home trazodone DVT prophylaxis -Continue home enoxaparin CODE STATUS -Full code Charges/Coding Visit Charges Inpatient E&M: 53756 Subs Hosp L2
[2022-09-07 16:21] LABS: Bedside Glucose 182 mg/dL (74-106)
[2022-09-07] MEDS: guaiFENesin 1,200 MG Tablet 1200 MG PO (21:51)
[2022-09-08] VITALS (23 sets, daily range): BP systolic 151–175; BP diastolic 69–87; PULSE 67–95; RESP 12–30; TEMP 36.6–37.3; O2SAT 89–96
[2022-09-08 00:10] LABS: Bedside Glucose 219 mg/dL (74-106)
[2022-09-08] MEDS: Ursodiol 250 MG Tablet 500 MG PO ×3 (04:56→20:28)
[2022-09-08] MEDS: Ibuprofen 200 MG Tablet PO (04:57)
[2022-09-08] MEDS: Levothyroxine 50 MCG Tablet PO (04:57)
[2022-09-08 05:10] LABS: Absolute Lymphocyte Count 0.84 X10^3/uL (0.83-4.51); Absolute Neutrophil Count 2.7 X10^3/uL (2.0-7.7); Basophil# 0.01 X10^3/uL; Basophil% 0.3 % (0-1); Eosinophil# 0.03 X10^3/uL; Eosinophils% 0.8 % (0-5); Hematocrit 40.3 % (37-47); Hemoglobin 12.4 g/dL (12.0-15.0); Lymphocyte # 0.84 X10^3/ul (0.83-4.51); Lymphocyte % 21.5 % (19-41); Mean Corp Hgb Conc 30.8 g/dL (32-36); Mean Corpuscular Hgb 29.2 pg (27.0-32.0); Mean Platelet Vol. 10.1 fl (6.2-12.0); Monocyte# 0.34 X10^3/uL; Monocyte% 8.7 % (0-10); NRBC Flagged by Analyzer 0 % (0-5); Neutrophil # 2.68 X10^3/uL (2.7-7.7); Neutrophil % 68.4 % (47-70); Platelet Count 243 K/mm3 (150-450); RBC Distribution Width CV 12.7 % (11.6-14.6); RBC Distribution Width SD 44.1 fl (35.1-43.9); Red Blood Count 4.24 M/mm3 (4.2-5.4); White Blood Count 3.9 K/mm3 (4.4-11.0)
[2022-09-08] MEDS: 0.9% Saline Lock 10 ML Syringe IV ×2 (05:23→12:27)
[2022-09-08] MEDS: hydrALAZINE 20 MG/ML Vial 10 MG IV ×2 (05:23→22:06)
[2022-09-08 05:49] LABS: ALB/GLOB Ratio 0.5 RATIO (0.9-2.4); AST(SGOT) 34 U/L (15-37); Alanine Aminotransfer ALT/SGPT 17 U/L (13-56); Albumin, Serum 2.1 g/dL (3.2-5.0); Alkaline Phosphatase 186 U/L (45-117); Anion Gap 4 (5-15); BUN 20 mg/dL (7-18); BUN/Creat Ratio 26.1 RATIO (10-20); Calcium,Total 8.6 mg/dL (8.5-10.1); Chloride 98 mmol/L (98-107); Creatinine, Serum 0.76 mg/dL (0.55-1.02); EST Glomerular Filtration Rate 80 mL/min (>60); Est Glom Filt Rate - Afr Amer 97 mL/min (>60); Estimated Creatinine Clearance 43.77 ml/min; Globulin 4.6 g/dL (2.2-4.2); Glucose 162 mg/dL (74-106); Magnesium 2.4 mg/dL (1.6-2.6); Phosphorus 2.1 mg/dL (2.5-4.9); Potassium 4.7 mmol/L (3.5-5.1); Protein, Total 6.7 g/dL (6.4-8.2); Sodium Level 136 mmol/L (136-145)
--- NOTE | 2022-09-08 05:55 | RAD_ITS ---
EXAM: XR CHEST, 1 VIEW CLINICAL INDICATION: SOB TECHNIQUE: Frontal view of the chest. This report was created using [employer] report generation technology. COMPARISON: 09/05/2022 FINDINGS: LUNGS AND PLEURAL SPACES: Continued patchy bilateral airspace disease, not significantly changed. No pneumothorax. No effusion. HEART: Unremarkable. Cardiac silhouette not enlarged. MEDIASTINUM: Central airways and mediastinal contour are unremarkable. BONES/JOINTS: Unremarkable. SOFT TISSUES: Unremarkable. RAD/Chest 1 View (Portable) IMPRESSION: Continued patchy bilateral airspace disease, not significantly changed. Electronically Signed: Wily Mcgregor MD at 7:23 EST ,
[2022-09-08] MEDS: Insulin Lispro 100 UNIT/ML INSULN.PEN SC ×4 (06:26→22:07)
[2022-09-08] MEDS: Lisinopril 10 MG Tablet PO ×2 (06:51→09:31)
[2022-09-08] MEDS: amLODIPine 2.5 MG Tablet PO (06:51)
[2022-09-08 06:56] LABS: Bedside Glucose 174 mg/dL (74-106)
[2022-09-08] MEDS: Aspirin 81 MG TAB.CHEW PO (09:25)
[2022-09-08] MEDS: Tamsulosin HCl 0.4 MG Capsule PO (09:26)
[2022-09-08] MEDS: Pantoprazole Sodium 20 MG Tablet PO (09:26)
[2022-09-08] MEDS: Enoxaparin 30 MG/0.3 ML Syringe SC ×2 (09:26→20:28)
[2022-09-08] MEDS: traZODone 50 MG Tablet PO (09:27)
[2022-09-08] MEDS: ARIPiprazole 2 MG Tablet 1 MG PO (09:28)
[2022-09-08] MEDS: Allopurinol 300 MG Tablet PO (09:28)
[2022-09-08] MEDS: buPROPion (XL) 150 MG TABLET.XL PO (09:29)
[2022-09-08] MEDS: amLODIPine 10 MG Tablet PO (09:30)
[2022-09-08] MEDS: Na Biphos/Potassium Phosphate PACKET 1 PACKET PO ×2 (09:30→20:28)
--- NOTE | 2022-09-08 10:36 | CT_ITS ---
EXAM: CT ANGIOGRAPHY CHEST WITHOUT AND WITH INTRAVENOUS CONTRAST CLINICAL INDICATION: Shortness of breath. TECHNIQUE: Helically acquired angiography images were obtained of the chest without and with intravenous contrast. This CT exam was performed using one or more of the following dose reduction techniques: automated exposure control, adjustment of the mA and/or kV according to patient size, and/or use of iterative reconstruction technique. This report was created using [employer] report generation technology. MIP reconstructed images were created and reviewed. CONTRAST: IV 100mL Isovue-370 RADIATION DOSE: CTDIvol = 18.6 mGy, DLP = 513.23 mGy-cm COMPARISON: None. FINDINGS: PULMONARY ARTERIES: Less than optimal contrast enhancement of the central pulmonary arteries but suboptimal contrast enhancement of the peripheral pulmonary arteries. Dilated main pulmonary artery suspicious for poststenotic dilatation. AORTA: Unremarkable. Normal in caliber. No evidence of dissection. GREAT VESSELS OF AORTIC ARCH: Unremarkable. Normal in caliber. No evidence of dissection. LUNGS AND PLEURAL SPACES: Ill-defined multifocal groundglass opacities in the upper lobes, right middle lobe and lower lobes. No mass. No pleural effusion or thickening. No pneumothorax. HEART: Unremarkable. Heart size is normal. No pericardial effusion. No signs of right heart strain, ratio of right ventricle to left ventricle measures less than 1. MEDIASTINUM: Unremarkable. No mediastinal or hilar adenopathy. Esophagus is unremarkable. No hiatal hernia. THYROID: Unremarkable. No thyroid lesions. BONES/JOINTS: Unremarkable. No suspicious lytic or blastic abnormality. LIVER: Nodularity of the liver surface due to cirrhosis. CT/CTA Chest W/WO Contrast IMPRESSION: 1. No CTA evidence of central pulmonary thromboembolism but peripheral pulmonary thromboembolism is suboptimal for evaluation due to suboptimal contrast enhancement of the peripheral pulmonary arteries. 2. Dilated main pulmonary artery suspiciously secondary to pulmonic valvular stenosis with poststenotic dilatation. 2-D echocardiogram will help confirm/clarify. 3. No CTA evidence of thoracic aortic aneurysm or dissection. 4. Multifocal groundglass opacities in both lungs is nonspecific. Covid-19 pneumonia is worrisome. Advise clinical correlation. 5. Multi nodularity of the liver surface consistent liver cirrhosis. Electronically Signed: Luke Garces MD at 11:24 EST ,
--- NOTE | 2022-09-08 11:15 | CASEMGMT ---
RN WEI Face to Face with patient for initial transition planning/care coordination assessment. RN CM introduced self and role at [facility]. Patient lying in bed, alert and oriented. Patient willing to participate in assessment and is able to answer all questions appropriately. Care providers, pharmacy, and demographics verified. Patient wishes to discharge home, denies need for home health at this time, will monitor progress with therapy. Patient states she has no further needs or concerns at this time. CM to follow for discharge planning needs that may arise. PCP: Gilma Specialists: Song cabin man; [facility]; Harrison, urologist Preferred Pharmacy: [facility] Insurance: [employer], [employer] Prescription Benefit: yes Living Will/HPOA: yes, sister Indira Farley LNOK: sister Living Arrangements: Patient lives alone in a single story home with 4 steps and railing to enter the home. Patient state she was independent at home. Transportation: self, sister DME/HHC: Patient has raised toilet, cane, walker, grab bars, and cpap at home. No previous HHC or SNF. Will monitor for home oxgyen at discharge. DME agencies reviewed with patient and prefers [employer]. Disposition Plan: Patient to discharge home with family support and follow-up plans in place. Esmer PATEL, RN, CM
--- NOTE | 2022-09-08 11:30 | PN.HOSP_ITS ---
Subjective Subjective Requiring oxygen at 2 L still. Lives alone at baseline. States she still gets very exertionally dyspneic. T-max in the last 24 hours 99.2. Objective Data Objective Data Vital Signs: Vital Signs Temp Pulse Resp BP Pulse Ox O2 Del Method O2 Flow Rate 99.1 F 88 27 H 151/81 H 94 Nasal Cannula 2 09/08/22 11:25 09/08/22 11:25 09/08/22 11:25 09/08/22 11:25 09/08/22 11:25 09/08/22 11:25 09/08/22 11:25 FiO2 30 09/08/22 04:55 Oxygen Flow Rate (L/min) [At 2 REST with Oxygen] Oxygen Flow Rate (L/min) 2 Oxygen Delivery Method Nasal Cannula Weight: 144.2 kg Body Mass Index (BMI) 58.1 Intake & Output: Intake and Output for Last 24 Hours 09/06/22 09/07/22 09/08/22 23:59 23:59 23:59 Intake Total 870 / 870 420 / 540 150 / 150 Output Total 800 / 800 1525 / 2075 1000 / 1000 Balance 70 / 70 -1105 / -1535 -850 / -850 Lab / Micro Data Result Diagrams: 09/08/22 04:37 09/08/22 04:37 Labs: Laboratory Results - last 24 hr 09/07/22 11:08: POC Glucose 216 H 09/07/22 15:57: POC Glucose 182 H 09/07/22 21:48: POC Glucose 219 H 09/08/22 04:37: WBC 3.9 L, RBC 4.24, Hgb 12.4, Hct 40.3, MCV 95.0, MCH 29.2, MCHC 30.8 L, RDW Std Deviation 44.1 H, RDW Coeff of Tree 12.7, Plt Count 243, MPV 10.1, Immature Gran % (Auto) 0.300, Neut % (Auto) 68.4, Lymph % (Auto) 21.5, [place] % (Auto) 8.7, Eos % (Auto) 0.8, Baso % (Auto) 0.3, Absolute Neuts (auto) 2.7, Absolute Lymphs (auto) 0.84, Nucleated RBC % 0 09/08/22 04:37: Sodium 136, Potassium 4.7, Chloride 98, Carbon Dioxide 34.0 H, Anion Gap 4 L, BUN 20 H, Creatinine 0.76, Estim Creat Clear Calc 43.77, Est GFR (MDRD) Af Amer 97, Est GFR (MDRD) Non-Af 80, BUN/Creatinine Ratio 26.1 H, Glucose 162 H, Calcium 8.6, Phosphorus 2.1 L, Magnesium 2.4, Total Bilirubin 0.80, AST 34, ALT 17, Alkaline Phosphatase 186 H, Total Protein 6.7, Albumin 2.1 L, Globulin 4.6 H, Albumin/Globulin Ratio 0.5 L 09/08/22 06:23: POC Glucose 174 H Micro: Microbiology 09/07/22 20:20 Mucosa - Nasopharyngeal Respiratory Panel (PCR) - Final 09/05/22 14:19 Blood Culture (Wb) - Anticubital Right Blood Culture - Preliminary No growth in 48 hours. 09/05/22 14:50 Blood Culture (Wb) - Left Forearm Blood Culture - Preliminary No growth in 48 hours. 09/06/22 17:50 Urine, Clean Catch Legionella Antigen - Final 09/06/22 17:50 Urine, Clean Catch Streptococcus pneumoniae Antigen (M - Final 09/05/22 14:21 Nasal Secretion SARS-CoV-2 & FLU Antigen (Rapid) - Final Radiography Diagnostic Testing: Radiology Impression Chest X-Ray 09/08/22 05:55 IMPRESSION: Continued patchy bilateral airspace disease, not significantly changed. Electronically Signed: Wily Mcgregor MD at 7:23 EST Reading Location ID and State: [facility] / [place] Tel , Service support , Chest CTA 09/08/22 10:36 IMPRESSION: 1. No CTA evidence of central pulmonary thromboembolism but peripheral pulmonary thromboembolism is suboptimal for evaluation due to suboptimal contrast enhancement of the peripheral pulmonary arteries. 2. Dilated main pulmonary artery suspiciously secondary to pulmonic valvular stenosis with poststenotic dilatation. 2-D echocardiogram will help confirm/clarify. 3. No CTA evidence of thoracic aortic aneurysm or dissection. 4. Multifocal groundglass opacities in both lungs is nonspecific. Covid-19 pneumonia is worrisome. Advise clinical correlation. 5. Multi nodularity of the liver surface consistent liver cirrhosis. Electronically Signed: Luke Garces MD at 11:24 EST , Physical Exam Const alert, oriented x3, no apparent distress and well nourished Constitutional Narrative: Morbidly obese, white female, middle-aged, sitting up in bed, appears ill but nontoxic, currently appears comfortable but fatigued, able to sit up in bed independently for lung exam HEENT head/scalp atraumatic and moist oral mucous membranes HEENT Narrative: Mallampati 3-4, no thrush Resp no retractions and no use of accessory muscles Resp Narrative: Diffuse scattered crackles that do not improve with coughing, no wheeze or rhonchi, tachypnea Auscultation: crackles; Negative for rhonchi or wheezes Cardio regular rate, regular rhythm, S1 normal heart sound, S2 normal heart sound, no murmurs, no rub, no gallops and no clicks GI normal to inspection, nondistended, normoactive bowel sounds, soft to palpation and non-tender GI Narrative: Large protuberant abdomen Extremity Extremity Narrative: Trace bilateral lower extremity edema, no cyanosis or clubbing, pedal pulses are 2+ Neuro oriented x3, moves all extremities and no focal motor deficits Neuro Narrative: Mild generalized weakness noted Speech: speech normal Psych affect normal Psych Narrative: Very pleasant and appropriately interactive Assessment & Plan Assessment/Plan (1) Community acquired pneumonia: (2) Acute respiratory failure with hypoxia: (3) Atrial fibrillation, currently in sinus rhythm: PLAN: Plan Acute hypoxic respiratory failure secondary to suspected viral pneumonia -We will discontinue all antibiotics -Remains at 2 L at 94% but becomes markedly dyspneic with exertion -BNP without elevation yesterday -Respiratory viral panel unremarkable -COVID and influenza were negative on admission -Check COVID PCR -Blood cultures are normal -CTA of the chest performed and shows no PE, dilated pulmonary artery, multifocal ground glass opacities, liver nodularity consistent with cirrhosis -Continue Acapella -Continue I-S -Continue Mucinex -PT/OT consultation as I am concerned that she may develop worsening debility giving her current physical status New onset A. fib -Brief episode with quick conversion to a sinus rhythm and no new events -No anticoagulation unless she redevelops A. fib at this time -TSH is within normal limits -Echocardiogram is pending Leukopenia -Differential was unremarkable -Possibly related to acute viral syndrome Hypophosphatemia -Potassium replacement orally -Repeat in a.m. DM-2 -Hold home antidiabetic agents -Continue sliding scale insulin -Carb controlled diet -Monitor blood sugars-thus far stable Hypertension -Continue home Lasix every other day, lisinopril -Increase amlodipine to 10 mg -We will dose with an extra dose of Lasix today Liver cirrhosis-suspect secondary to HEAD -We will refer to GI as outpatient -Suspect HEAD--> findings are consistent with CT of the abdomen pelvis done on 02/23/19 -It appears the patient has seen Dr. Miller previously Hypothyroidism -TSH within normal limits -Continue home levothyroxine GERD -Continue Protonix NEREYDA -Nocturnal BiPAP/CPAP Morbid obesity -Recommend weight loss -Complicates treatment, prognosis, outcomes Gout -Continue home allopurinol Depression/anxiety -Continue home aripiprazole -Continue home bupropion -Continue home trazodone DVT prophylaxis -Continue home enoxaparin CODE STATUS -Full code Charges/Coding Visit Charges Inpatient E&M: 42960 Subs Hosp L2
[2022-09-08] MEDS: Ceftriaxone 1 GM/50 ML BAG IV (11:33)
[2022-09-08] MEDS: Furosemide 40 MG/4 ML Vial IV (12:26)
[2022-09-08] MEDS: guaiFENesin 1,200 MG Tablet 1200 MG PO ×2 (12:27→20:28)
[2022-09-08 12:40] LABS: Bedside Glucose 237 mg/dL (74-106)
[2022-09-08 17:15] LABS: Bedside Glucose 265 mg/dL (74-106)
[2022-09-08] MEDS: Acetaminophen 325 MG Tablet 650 MG PO (22:17)
[2022-09-09] VITALS (24 sets, daily range): BP systolic 124–212; BP diastolic 61–130; PULSE 71–151; RESP 12–33; TEMP 36.8–37.2; O2SAT 93–98
[2022-09-09] MEDS: 0.9% Saline Lock 10 ML Syringe IV ×3 (01:14→16:49)
[2022-09-09] MEDS: hydrALAZINE 20 MG/ML Vial 10 MG IV ×2 (01:15→06:11)
[2022-09-09 02:31] LABS: Bedside Glucose 236 mg/dL (74-106)
[2022-09-09] MEDS: Ursodiol 250 MG Tablet 500 MG PO ×3 (05:51→23:25)
[2022-09-09] MEDS: Levothyroxine 50 MCG Tablet PO (05:51)
[2022-09-09] MEDS: Insulin Lispro 100 UNIT/ML INSULN.PEN SC ×4 (06:36→23:27)
[2022-09-09 07:20] LABS: Bedside Glucose 189 mg/dL (74-106)
[2022-09-09 08:24] LABS: Absolute Lymphocyte Count 0.74 X10^3/uL (0.83-4.51); Basophil# 0.01 X10^3/uL; Basophil% 0.2 % (0-1); Eosinophil# 0.02 X10^3/uL; Eosinophils% 0.4 % (0-5); Hematocrit 38.6 % (37-47); Hemoglobin 12.5 g/dL (12.0-15.0); Lymphocyte # 0.74 X10^3/ul (0.83-4.51); Lymphocyte % 14.1 % (19-41); Mean Corp Hgb Conc 32.4 g/dL (32-36); Mean Corpuscular Hgb 30.1 pg (27.0-32.0); Mean Platelet Vol. 9.9 fl (6.2-12.0); Monocyte# 0.44 X10^3/uL; Monocyte% 8.4 % (0-10); NRBC Flagged by Analyzer 0 % (0-5); Neutrophil # 4.01 X10^3/uL (2.7-7.7); Neutrophil % 76.3 % (47-70); Platelet Count 260 K/mm3 (150-450); RBC Distribution Width CV 12.9 % (11.6-14.6); RBC Distribution Width SD 44.3 fl (35.1-43.9); Red Blood Count 4.15 M/mm3 (4.2-5.4); White Blood Count 5.3 K/mm3 (4.4-11.0)
[2022-09-09 08:53] LABS: Anion Gap 7 (5-15); BUN 24 mg/dL (7-18); BUN/Creat Ratio 28.7 RATIO (10-20); Calcium,Total 8.8 mg/dL (8.5-10.1); Chloride 96 mmol/L (98-107); Creatinine, Serum 0.84 mg/dL (0.55-1.02); EST Glomerular Filtration Rate 72 mL/min (>60); Est Glom Filt Rate - Afr Amer 88 mL/min (>60); Glucose 193 mg/dL (74-106); Potassium 3.8 mmol/L (3.5-5.1); Sodium Level 137 mmol/L (136-145)
--- NOTE | 2022-09-09 09:10 | NURSING ---
Emergency documentation effective at this time, per charge nurse Luke CROSS
[2022-09-09 09:35] LABS: International Normalized Ratio 1.2; Prothrombin Time (Protime)PT. 15.1 SECONDS (11.7-14.9)
--- NOTE | 2022-09-09 09:52 | CPS ---
patient cannot do incentive or pep
[2022-09-09] MEDS: Aspirin 81 MG TAB.CHEW PO (10:31)
[2022-09-09] MEDS: Allopurinol 300 MG Tablet PO (10:31)
[2022-09-09] MEDS: buPROPion (XL) 150 MG TABLET.XL PO (10:32)
[2022-09-09] MEDS: guaiFENesin 1,200 MG Tablet 1200 MG PO ×2 (10:32→23:21)
[2022-09-09] MEDS: Enoxaparin 30 MG/0.3 ML Syringe SC (10:32)
[2022-09-09] MEDS: Pantoprazole Sodium 20 MG Tablet PO (10:32)
[2022-09-09] MEDS: Tamsulosin HCl 0.4 MG Capsule PO (10:32)
[2022-09-09] MEDS: Furosemide 40 MG Tablet PO (10:32)
[2022-09-09] MEDS: amLODIPine 10 MG Tablet PO (10:32)
[2022-09-09] MEDS: ARIPiprazole 2 MG Tablet 1 MG PO (10:33)
[2022-09-09] MEDS: Na Biphos/Potassium Phosphate PACKET 1 PACKET PO ×2 (10:39→23:23)
[2022-09-09 11:55] LABS: Bedside Glucose 346 mg/dL (74-106)
--- NOTE | 2022-09-09 12:07 | CASEMGMT ---
Social Work Consult: [facility] placement. Referral source: Hospitalist. This secondary social studies teacher met with patient in room. Introduced self and secondary social studies teacher role. Patient agreeable to speak with this secondary social studies teacher. This secondary social studies teacher broached topic of half-way placement for patient. Patient is agreeable to half-way. This secondary social studies teacher provided patient with list of in-network nursing facilities that are local to patient geographical region. Patient to look over list and provide this secondary social studies teacher with preferred half-way. This secondary social studies teacher inquired as to which family member this secondary social studies teacher can contact in regards to patient care. Patient request for this secondary social studies teacher to contact patient sister, Indira. Telephone call to Indira. This secondary social studies teacher updated Indira on discharge plan for patient. Indira with no questions and thanked this secondary social studies teacher for the phone call. Proposed discharge date: TBD PLAN[facility]. Adeel BARRAZA, [place]
[2022-09-09] MEDS: Furosemide 20 MG/2 ML VIAL IV (12:19)
--- NOTE | 2022-09-09 13:34 | CASEMGMT ---
Social Work This community mental health social worker following up with patient in room. Patient reports to have looked over list and first choice is [facility]. This community mental health social worker updated discharge planning assistance, Annabella. Annabella to make referral to [facility]. Proposed discharge date: Medically cleared, pending senior care acceptance. PLAN: nursing home home. Adeel BARRAZA, [place]
--- NOTE | 2022-09-09 13:44 | CASEMGMT ---
Discharge Banking Officer This typewriter assembler sent referral to Janiya at [facility] via [facility]. Randall VALENZUELA Post Commander
--- NOTE | 2022-09-09 14:30 | CASEMGMT ---
Discharge Corporate Concierge Patient has been accepted at [facility]. Patient can go to [facility] when medically ready. LYNN Jimenez notified. Randall VALENZUELA Crocheter
--- NOTE | 2022-09-09 14:36 | CASEMGMT ---
Social Work Notified by discharge planning aideAnnabella that patient has been accepted by [facility] and can be admitted today. Annabella reports that [facility] just needs a few hours to get things ready. This social services aide updated Dr. Jenkins on above information. Dr. Jenkins reports that patient is medically cleared for discharge today. This social services aide updated patient on above information. Patient agreeable to discharge to [facility] skilled. This social services aide inquired about transportation for patient. Patient request for this social services aide to set up a wheelchair van/cot transport for patient and is aware that the wheelchair van might not be covered by patient insurance. [facility]phone call to [facility]. Transportation set up for 4:30pm today. Transportation form completed and placed with patient discharge information. This social services aide provided discharge planning aideAnnabella with signed medication list and transfer to extended care from to be sent to [facility] and then placed on patient chart. Proposed discharge date: 09/09/2022 [address]AN: [facility], [place]. Adeel BARRAZA, [place]
--- NOTE | 2022-09-09 14:40 | PCM.TXEXTCAR ---
Diet Diet Order/Speech Therapy: 09/05/22 17:20 Diet: Cardiac: Calorie-Controlled Food consistency:: Regular Liquid Consistency:: Regular/Thin Dietary Modifications:: Consistent Carbohydrate How many daily calories?: 1800 calorie Routine Orders/Code Status O2 Liters per Minute: 2 at rest and 4 with exertion O2 Frequency: Continuous Keep PO Greater than or Equal to (%): 90 Routine Lab Work: CBC (09/14/2022) and BMP (09/14/2022) Code Status: Full Code Wound(s) left lower leg: Wound Type: healing laceration Suggestions for Active Care Change Position every (hours): 2 Hours to sit in a chair: 2 Times a day to sit in chair: 3 Therapies Physical Therapy: Eval and Treat Occupational Therapy: Eval and Treat Problem/Diagnosis (1) Community acquired pneumonia: Status: Acute Code(s): J18.9 - Pneumonia, unspecified organism (2) Acute respiratory failure with hypoxia: Status: Acute Code(s): J96.01 - Acute respiratory failure with hypoxia (3) Atrial fibrillation, currently in sinus rhythm: Status: Acute Code(s): Z86.79 - Personal history of other diseases of the circulatory system Allergies/Procedures Done in Hospital Allergies nabumetone [From Relafen] Allergy (Verified 09/05/22 13:51) Itching nitrofurantoin [From Macrobid] Allergy (Verified 09/05/22 16:12) Rash Procedures: 2-D Echocardiogram and - (CTA chest) Type of Care/Length of Stay Estimated LOS: Convalescent Care Less Than 30 days Type of Care Needed: Skilled Rehab Potential: Good Prognosis: Good Additional Orders/Day of Discharge Day of Discharge: 09/09/22 Dietary and Speech Recommendations Dietitian Recommendations/Changes: Will adjust diet to 1800 calorie/consistent carbohydrate; cardiac. ONS not indicated at this time. Diet education as pt willing; supportive weight loss referral recommended when medically stable. Follow Up Care Please follow up with your Primary Care Physician in: 4 weeks Please Follow Up With: Jose David Zuleta MD When: 2 weeks Discharge Plan Admission Admit Date/Time: 09/05/22 15:55 Attending Provider: Mavis Jenkins Primary Care Provider: Tracy Dillard Consulting Providers: Everton Bethea Discharge Orders/Prescriptions Prescriptions: No Action trazodone 50 MG tablet 50 mg PO DAILY glimepiride 2 MG tablet 2 mg PO DAILY levothyroxine 50 MCG tablet 50 mcg PO DAILY ursodiol 250 MG tablet 500 mg PO TID Label Comments: LIVER aspirin 81 MG tablet,chewable 81 mg PO DAILY@0800 loratadine [Allergy Relief (loratadine)] 10 MG tablet 10 mg PO DAILY PRN PRN (Reason: allergies) bupropion HCl 150 MG tablet extended release 24 hr 150 mg PO DAILY aripiprazole 2 MG tablet 0.5 mg PO DAILY Ropinirole Hcl [Requip] 0.25 MG tablet 0.5 mg PO QHS amlodipine-benazepril 1 EACH capsule 1 ea PO DAILY Label Comments: AMLODIPINE DOSE IS 2.5 MG Bydureon 2 MG/0.65 ML pen injector 2 mg SQ QWEEK docusate sodium [DOK] 100 MG capsule 100 mg PO BID PRN PRN (Reason: Constipation) Qty: 10 0RF furosemide 40 mg Tablet 40 mg PO QODAY tamsulosin [Flomax] 0.4 mg Capsule 0.4 mg PO DAILY omeprazole 20 mg Capsule,Delayed Release(Dr/Ec) 20 mg PO DAILY allopurinol 300 mg tablet 300 mg PO DAILY Label Comments: TAKE 1 TABLET BY MOUTH EVERY DAY Referrals / Follow Up: Tracy Dillard MD [Primary Care Provider] -
--- NOTE | 2022-09-09 14:42 | DS.PCM_ITS ---
Providers Date of Admission: 09/05/22 Date of Discharge: 09/10/22 Primary Care Physician: Dr. Tracy Dillard MD Reason For Visit: AFIB WITH HYPOXIA AND PNEUMONIA Diagnosis Discharge Diagnosis (1) Community acquired pneumonia: Status: Acute Code(s): J18.9 - Pneumonia, unspecified organism (2) Acute respiratory failure with hypoxia: Status: Acute Code(s): J96.01 - Acute respiratory failure with hypoxia (3) Atrial fibrillation, currently in sinus rhythm: Status: Acute Code(s): Z86.79 - Personal history of other diseases of the circulatory system Plan Acute hypoxic respiratory failure secondary to suspected viral pneumonia -We will discontinue all antibiotics -Remains at 2 L at 94% but becomes markedly dyspneic with exertion -BNP without elevation yesterday -Respiratory viral panel unremarkable -COVID and influenza were negative on admission -Check COVID PCR -Blood cultures are normal -CTA of the chest performed and shows no PE, dilated pulmonary artery, multifocal ground glass opacities, liver nodularity consistent with cirrhosis -Continue Acapella -Continue I-S -Continue Mucinex -PT/OT consultation as I am concerned that she may develop worsening debility giving her current physical status New onset A. fib -Brief episode with quick conversion to a sinus rhythm and no new events -No anticoagulation unless she redevelops A. fib at this time -TSH is within normal limits -Echocardiogram is pending Leukopenia -Differential was unremarkable -Possibly related to acute viral syndrome Hypophosphatemia -Potassium replacement orally -Repeat in a.m. DM-2 -Hold home antidiabetic agents -Continue sliding scale insulin -Carb controlled diet -Monitor blood sugars-thus far stable Hypertension -Continue home Lasix every other day, lisinopril -Increase amlodipine to 10 mg -We will dose with an extra dose of Lasix today Liver cirrhosis-suspect secondary to HEAD -We will refer to GI as outpatient -Suspect HEDA--> findings are consistent with CT of the abdomen pelvis done on 02/23/19 -It appears the patient has seen Dr. Miller previously Hypothyroidism -TSH within normal limits -Continue home levothyroxine GERD -Continue Protonix NEREYDA -Nocturnal BiPAP/CPAP Morbid obesity -Recommend weight loss -Complicates treatment, prognosis, outcomes Gout -Continue home allopurinol Depression/anxiety -Continue home aripiprazole -Continue home bupropion -Continue home trazodone DVT prophylaxis -Continue home enoxaparin CODE STATUS -Full code Medications at Discharge Home Medications Ropinirole Hcl [Requip] 0.5 mg PO QHS 05/23/15 aripiprazole 2 mg tablet 0.5 mg PO DAILY 05/23/15 aspirin 81 mg chewable tablet 81 mg PO DAILY@0800 05/23/15 bupropion HCl 150 mg 24 hr tablet, extended release 150 mg PO DAILY 05/23/15 glimepiride 2 mg tablet 2 mg PO DAILY 05/23/15 levothyroxine 50 mcg tablet 50 mcg PO DAILY 05/23/15 loratadine 10 mg tablet (Allergy Relief (loratadine)) 10 mg PO DAILY PRN PRN allergies 05/23/15 trazodone 50 mg tablet 50 mg PO DAILY 05/23/15 ursodiol 250 mg tablet 500 mg PO TID 05/23/15 exenatide microspheres 2 mg/0.65 mL subcutaneous pen injector (Bydureon) 2 mg SQ QWEEK Check with primary doctor 06/30/17 docusate sodium 100 mg capsule (DOK) 100 mg PO BID PRN PRN Constipation ##10 07/06/17 allopurinol 300 mg tablet 300 mg PO DAILY 09/05/22 furosemide 40 mg tablet 40 mg PO QODAY 09/05/22 omeprazole 20 mg capsule,delayed release 20 mg PO DAILY 09/05/22 tamsulosin 0.4 mg capsule (Flomax) 0.4 mg PO DAILY 09/05/22 acetaminophen 325 mg tablet (Tylenol) 650 mg PO Q4H PRN PRN Fever, pain -06/22 #0 tabs 09/09/22 amlodipine 10 mg tablet 10 mg PO DAILY #0 tabs 09/09/22 apixaban 5 mg tablet (Eliquis) 5 mg PO BID #0 tabs 09/09/22 guaifenesin 1,200 mg tablet, extended release 12 hr (Mucus Relief ER) 1,200 mg PO BID #0 tabs 09/09/22 lisinopril 10 mg tablet 10 mg PO DAILY #0 tabs 09/09/22 azithromycin 500 mg tablet 500 mg PO DAILY 14 days #14 tabs 09/10/22 carvedilol 6.25 mg tablet 12.5 mg PO BID #60 tabs 09/10/22 furosemide 40 mg tablet 40 mg PO DAILY #0 tabs 09/10/22 Hospital Course Operations None Procedures 2-D Echocardiogram and - (Chest x-ray/CTA chest/foot and ankle x-ray) Summary of Care Provided Minutes Spent on Discharge: 38 Hospital Course: Mrs. Richter is a 67-year-old morbidly obese white female who presented to the emergency department [facility] on 09/05/2022 with 4 days of general malaise and not feeling well. She reported that she developed a cough as well as a fever a few days prior to presentation and was hoping it would go away prior to the holidays without having to come to the hospital or go to see her doctor. She does not have any lung disease at baseline of which she is aware however she does have sleep apnea and follows with Dr. Zuleta. She does wear CPAP at night. Upon presentation the hospital she was noted to have an oxygen saturation of 92% on room air and was initially placed on BiPAP for respiratory distress. Her chest x-ray in the emergency department demonstrated bilateral interstitial infiltrates. She was admitted to the medical floor and started on Rocephin and azithromycin for suspected community-acquired pneumonia. While in the emergency department she was noted to have tachycardia and found to be in atrial fibrillation. This initial bout was very brief however she had recurrent bouts during her hospital course all of which were short in nature and she was started on Coreg and Eliquis for this and was in sinus rhythm at the time of discharge. She will need outpatient cardio allergy follow-up after discharge and has requested to follow-up with Dr. Hendricks. A TSH was obtained and found to be unremarkable. An echocardiogram was also obtained and showed an EF of 65% with a moderately enlarged left atrium. She was eventually able to be weaned to 2 L however remained on 2 L at rest and 4 L with exertion. With her ongoing hypoxia and failure to progress any further we obtain a CTA of her chest which showed a dilated main pulmonary artery suspicious of pulmonary artery hypertension. This was reviewed with compared to previous CTAs and was present as far back as 2007. It also showed no PE or aneurysm/dissection, multifocal groundglass opacities in both lungs and a multi nodular liver consistent with liver cirrhosis. The liver appearance was present on an abdominal CT of the abdomen pelvis done in 2019. We also obtain a BNP which was normal at 43.3. A rapid COVID and flu are negative as were respiratory viral panel. We were unable to obtain a sputum culture. Given the appearance on her CAT scan and chest x-ray I did obtain a COVID PCR which was also negative. Strep pneumo and Legionella antigens were negative. Blood cultures were negative. I reviewed the case with her outpatient correction[facility] psychiatrist Dr. Zuleta who reviewed the imaging. We had stopped antibiotics when her cultures resulted as negative however he wanted us to retry azithromycin as he suspects this may be an atypical pneumonia. He indicated he would follow-up with her in 2 weeks after discharge. She complained of some foot pain to physical therapy during her hospital course and foot and ankle x-rays were obtained and showed no signs of acute fracture. Physical and Occupational Therapy both recommended ongoing rehab prior to discharge home as she was quite debilitated and became fairly short of breath with exertion. Oxygen saturation were stable when she was on 4 L nasal c annula. She will need to be discharged on 2 L nasal cannula at rest and 4 L with exertion. She will continue to wear her CPAP with naps and at at bedtime. New medications include Coreg, daily scheduled Lasix, Eliquis, and azithromycin to complete a 14-day course. She was discharged to the nursing facility in stable condition on 09/10/2022. I would recommend a repeat BMP and CBC within the next week. With regards to her cirrhosis I will make a referral to gastroenterology to be performed after she is discharged from the nursing facility Discharge diagnoses: Acute hypoxic respiratory failure secondary to suspected viral/atypical pneumonia Sepsis secondary pneumonia New onset atrial fibrillation-now in sinus rhythm Leukopenia Hypophosphatemia-resolved DM-2 Hypertension Liver cirrhosis-suspect secondary to HEAD Hypothyroidism GERD NEREYDA Morbid obesity Gout Depression Anxiety Physical Exam Narrative Patient states she is overall feeling much better than presentation. Still short of breath predominantly with exertion and with intermittent tachypnea. Const alert, oriented x3, no apparent distress and well nourished Constitutional Narrative: Morbidly obese, white female, middle-aged, lying in bed sleeping upon my arrival but awakens easily, appears more comfortable today, able to sit up in bed independently for lung exam but still appears generally weak General Appearance: cooperative, comfortable, well kempt and well developed Orientation / Consciousness: awake, oriented to person, oriented to place and oriented to time Exam Limitations: no limitations HEENT normocephalic, head/scalp atraumatic, hearing grossly normal bilaterally and moist oral mucous membranes HEENT Narrative: Mallampati 3, no thrush Eyes PERRL, EOMs intact bilaterally and conjunctivae normal Eyes Narrative: No scleral icterus Neck no lymphadenopathy and supple Neck Narrative: Trachea midline, no thyroid enlargement, intermittently has an upper airway wheeze Resp no retractions and no use of accessory muscles Resp Narrative: Diffuse scattered crackles that do not improve with coughing, no wheeze or rhonchi, mild tachypnea, wheeze present upon my arrival however clears with cough Auscultation: crackles and wheezes; Negative for rhonchi Cardio regular rate, regular rhythm, S1 normal heart sound, S2 normal heart sound, no murmurs, no rub, no gallops and no clicks GI normal to inspection, nondistended, normoactive bowel sounds, soft to palpation and non-tender GI Narrative: Large protuberant abdomen with pannus Extremity no clubbing, cyanosis or edema Extremity Narrative: Pedal pulses are 2+ Skin no rashes or lesions noted, no wounds, skin turgor normal and no jaundice Neuro oriented x3, CN's II-XII intact bilaterally, moves all extremities and no focal motor deficits Neuro Narrative: Mild generalized weakness noted Speech: speech normal Psych affect normal Psych Narrative: Very pleasant and appropriately interactive Weight / BMI Weight Weight: 144.2 kg Body Mass Index (BMI) 58.1 ABG / Lab / Microbiology Data Result Diagrams: 09/10/22 07:15 09/10/22 07:15 Laboratory: Laboratory Results - last 24 hr 09/07/22 20:20: COVID-19 (BONIFACIO) Not Detected 09/08/22 16:52: POC Glucose 265 H 09/08/22 22:03: POC Glucose 236 H 09/09/22 06:34: POC Glucose 189 H 09/09/22 07:45: WBC 5.3, RBC 4.15 L, Hgb 12.5, Hct 38.6, MCV 93.0, MCH 30.1, MCHC 32.4 D, RDW Std Deviation 44.3 H, RDW Coeff of Tree 12.9, Plt Count 260, MPV 9.9, Immature Gran % (Auto) 0.600, Neut % (Auto) 76.3 H, Lymph % (Auto) 14.1 L, [place] % (Auto) 8.4, Eos % (Auto) 0.4, Baso % (Auto) 0.2, Absolute Neuts (auto) 4.0, Absolute Lymphs (auto) 0.74 L, Nucleated RBC % 0 09/09/22 07:45: PT 15.1 H, INR 1.2 09/09/22 07:45: Sodium 137, Potassium 3.8, Chloride 96 L, Carbon Dioxide 34.0 H, Anion Gap 7, BUN 24 H, Creatinine 0.84, Estim Creat Clear Calc 52.10, Est GFR (MDRD) Af Amer 88, Est GFR (MDRD) Non-Af 72, BUN/Creatinine Ratio 28.7 H, Glucose 193 H, Calcium 8.8 09/09/22 11:30: POC Glucose 346 H Microbiology: Microbiology 09/07/22 20:20 Mucosa - Nasopharyngeal Respiratory Panel (PCR) - Final 09/05/22 14:19 Blood Culture (Wb) - Anticubital Right Blood Culture - Preliminary No growth in 48 hours. 09/05/22 14:50 Blood Culture (Wb) - Left Forearm Blood Culture - Preliminary No growth in 48 hours. 09/06/22 17:50 Urine, Clean Catch Legionella Antigen - Final 09/06/22 17:50 Urine, Clean Catch Streptococcus pneumoniae Antigen (M - Final 09/05/22 14:21 Nasal Secretion SARS-CoV-2 & FLU Antigen (Rapid) - Final D/C Instructions Please Follow Up With: Jose David Zuleta MD Meaningful Use Info Meaningful Use Diagnoses (Choose all that apply): None applicable Discharge Plan Admission Admit Date/Time: 09/05/22 15:55 Primary Reason for Your Visit: Cough/Shortness of Breath Attending Provider: Mavis Jenkins Primary Care Provider: Tracy Dillard Consulting Providers: Everton Bethea Discharge Orders/Prescriptions Prescriptions: New Eliquis 5 mg Tablet 5 mg PO BID Qty: 0 0RF acetaminophen [Tylenol] 325 mg Tablet 650 mg PO Q4H PRN PRN (Reason: Fever, pain 1-1010) Qty: 0 0RF amlodipine 10 mg Tablet 10 mg PO DAILY Qty: 0 0RF lisinopril 10 mg Tablet 10 mg PO DAILY Qty: 0 0RF Mucus Relief ER 1,200 mg Tablet Extended Release 12hr 1,200 mg PO BID Qty: 0 0RF furosemide 40 mg Tablet 40 mg PO DAILY Qty: 0 0RF carvedilol 6.25 mg Tablet 12.5 mg PO BID Qty: 60 0RF azithromycin 500 mg tablet 500 mg PO DAILY 14 Days Qty: 14 0RF Continued trazodone 50 MG tablet 50 mg PO DAILY glimepiride 2 MG tablet 2 mg PO DAILY levothyroxine 50 MCG tablet 50 mcg PO DAILY ursodiol 250 MG tablet 500 mg PO TID Label Comments: LIVER aspirin 81 MG tablet,chewable 81 mg PO DAILY@0800 loratadine [Allergy Relief (loratadine)] 10 MG tablet 10 mg PO DAILY PRN PRN (Reason: allergies) bupropion HCl 150 MG tablet extended release 24 hr 150 mg PO DAILY aripiprazole 2 MG tablet 0.5 mg PO DAILY Ropinirole Hcl [Requip] 0.25 MG tablet 0.5 mg PO QHS Bydureon 2 MG/0.65 ML pen injector 2 mg SQ QWEEK docusate sodium [DOK] 100 MG capsule 100 mg PO BID PRN PRN (Reason: Constipation) Qty: 10 0RF furosemide 40 mg Tablet 40 mg PO QODAY tamsulosin [Flomax] 0.4 mg Capsule 0.4 mg PO DAILY omeprazole 20 mg Capsule,Delayed Release(Dr/Ec) 20 mg PO DAILY allopurinol 300 mg tablet 300 mg PO DAILY Label Comments: TAKE 1 TABLET BY MOUTH EVERY DAY Discontinued amlodipine-benazepril 1 EACH capsule 1 ea PO DAILY Label Comments: AMLODIPINE DOSE IS 2.5 MG Referrals / Follow Up: Tracy Dillard MD [Primary Care Provider] - Within 1 Month Spenser Mccrary DO [Med Staff - Active Staff] - Within 1 Month (new appt for liver cirrhosis) Jose David Zuleta MD [Med Staff - Active Staff] - Within 2 Weeks Disposition Disposition (needs filled in before D/C Order can be placed): Shelter Facility Charges/Coding Visit Charges Inpatient E&M: 03063 SNF Disch >30 Min
--- NOTE | 2022-09-09 15:03 | EKG12_ITS ---
Test Reason : TACHY Blood Pressure : / mmHG Vent. Rate : 134 BPM Atrial Rate : 000 BPM P-R Int : 000 ms QRS Dur : 088 ms QT Int : 282 ms P-R-T Axes : 000 022 239 degrees QTc Int : 421 ms Atrial fibrillation with rapid ventricular response Nonspecific ST & T wave abnormality, consider inferolateral ischemia Abnormal ECG Confirmed by EL ELLSWORTH, RHONDA ([id number]), script editor ANÍBAL LINO ([id number]) on 09/17/2022 10:13:42 AM Referred By: Confirmed By:RHONDA GALLEGOS MD
[2022-09-09] MEDS: Carvedilol 6.25 MG Tablet PO ×2 (15:09→23:20)
--- NOTE | 2022-09-09 15:30 | CASEMGMT ---
Social Work PASRR completed in [employer]. This social sciences lecturer having difficulty getting PASRR to download to allow this social sciences lecturer to print document. Telephone call to Janiya Castro. This social sciences lecturer updated Janiya on above information. Janiya reports to be able to get PASRR off the [employer] system. Adeel Doyle LEGISLATORS, CREDIT OPERATIONS SPECIALIST-S
--- NOTE | 2022-09-09 15:55 | RAD_ITS ---
STUDY: X-RAY - RIGHT ANKLE REASON FOR EXAM: Female, 67 years old. Right ankle pain. Pain in the dorsum of the foot. Pain with walking. TECHNIQUE: 3 view(s) of the ankle. COMPARISON: Right foot, September 09, 2022. FINDINGS: Generalized osteopenia. Normal visualized distal tibia and fibula. Normal medial and lateral malleoli. Mild narrowing of the tibiotalar articulation. Normal visualized talus. There is a plantar spur along the undersurface of the calcaneus. Arthrosis of the visualized subtalar, talonavicular, calcaneocuboid and tarsal articulations. Mild generalized soft tissue swelling. RAD/Ankle min 3 Views IMPRESSION: Osteopenia and degenerative changes of the ankle. There is no acute fracture or dislocation. Electronically Signed: Raffi Multani DO at 16:46 EST ,
--- NOTE | 2022-09-09 16:06 | RAD_ITS ---
STUDY: X-RAY - RIGHT FOOT CLINICAL: Female, 67 years old. Pain in the right ankle and dorsum of the foot. Pain when walking. TECHNIQUE: 3 view(s) of the foot. COMPARISON: Right ankle, September 09, 2022 FINDINGS: Generalized osteopenia. There is a plantar calcaneal spur. Normal talus and tarsal bones. Arthrosis of the visualized subtalar, talonavicular, calcaneocuboid, tarsal and tarsometatarsal articulations. Normal metatarsi. There is degenerative arthrosis of the metatarsophalangeal joint of the hallux with a hallux valgus deformity. Normal tibial and fibular sesamoid bones. Normal interphalangeal joint of the great toe. Normal phalanges of the great toe. Normal second through fifth metatarsophalangeal joints. Normal interphalangeal joints and phalanges of the lesser toes. The soft tissue structures are unremarkable. RAD/Foot 2 Views IMPRESSION: Degenerative changes of the right foot without visualized fracture or dislocation. Electronically Signed: Raffi Multani DO at 16:36 EST ,
[2022-09-09] MEDS: Metoprolol Tartrate 5 MG/5 ML Vial IV (16:50)
[2022-09-09 17:01] LABS: Bedside Glucose 268 mg/dL (74-106)
--- NOTE | 2022-09-09 17:46 | PN.HOSP_ITS ---
Subjective Subjective Patient still short of breath but saturations stable on 2 L. Patient without any complaints. I was getting ready to discharge her to her nursing facility however she redeveloped A. fib with RVR Objective Data Objective Data Vital Signs: Vital Signs Temp Pulse Resp BP Pulse Ox O2 Del Method O2 Flow Rate 98.5 F 140 H 28 H 124/81 H 93 Nasal Cannula 2 09/09/22 14:50 09/09/22 16:50 09/09/22 14:50 09/09/22 16:50 09/09/22 14:50 09/09/22 14:50 09/09/22 14:50 FiO2 30 09/09/22 03:21 Oxygen Flow Rate (L/min) [At 2 REST with Oxygen] Oxygen Flow Rate (L/min) [At 0 REST on Room Air] Oxygen Flow Rate (L/min) 2 Oxygen Delivery Method Nasal Cannula Weight: 144.2 kg Body Mass Index (BMI) 58.1 Intake & Output: Intake and Output for Last 24 Hours 09/07/22 09/08/22 09/09/22 23:59 23:59 23:59 Intake Total 420 / 540 635 / 635 Output Total 1525 / 2075 2200 / 2200 0 / 0 Balance -1105 / -1535 -1565 / -1565 0 / 0 Lab / Micro Data Result Diagrams: 09/09/22 07:45 09/09/22 07:45 Labs: Laboratory Results - last 24 hr 09/08/22 22:03: POC Glucose 236 H 09/09/22 06:34: POC Glucose 189 H 09/09/22 07:45: WBC 5.3, RBC 4.15 L, Hgb 12.5, Hct 38.6, MCV 93.0, MCH 30.1, MCHC 32.4 D, RDW Std Deviation 44.3 H, RDW Coeff of Tree 12.9, Plt Count 260, MP V 9.9, Immature Gran % (Auto) 0.600, Neut % (Auto) 76.3 H, Lymph % (Auto) 14.1 L , [place] % (Auto) 8.4, Eos % (Auto) 0.4, Baso % (Auto) 0.2, Absolute Neuts (auto) 4.0, Absolute Lymphs (auto) 0.74 L, Nucleated RBC % 0 09/09/22 07:45: PT 15.1 H, INR 1.2 09/09/22 07:45: Sodium 137, Potassium 3.8, Chloride 96 L, Carbon Dioxide 34.0 H, Anion Gap 7, BUN 24 H, Creatinine 0.84, Estim Creat Clear Calc 52.10, Est GFR (MDRD) Af Amer 88, Est GFR (MDRD) Non-Af 72, BUN/Creatinine Ratio 28.7 H, Glucose 193 H, Calcium 8.8 09/09/22 11:30: POC Glucose 346 H 09/09/22 16:36: POC Glucose 268 H Micro: Microbiology 09/09/22 14:45 Nasal Secretion SARS-CoV-2 Antigen (Rapid) - Final 09/07/22 20:20 Mucosa - Nasopharyngeal Respiratory Panel (PCR) - Final 09/05/22 14:19 Blood Culture (Wb) - Anticubital Right Blood Culture - Preliminary No growth in 48 hours. 09/05/22 14:50 Blood Culture (Wb) - Left Forearm Blood Culture - Preliminary No growth in 48 hours. 09/06/22 17:50 Urine, Clean Catch Legionella Antigen - Final 09/06/22 17:50 Urine, Clean Catch Streptococcus pneumoniae Antigen (M - Final 09/05/22 14:21 Nasal Secretion SARS-CoV-2 & FLU Antigen (Rapid) - Final Radiography Diagnostic Testing: Radiology Impression Ankle X-Ray 09/09/22 15:55 IMPRESSION: Osteopenia and degenerative changes of the ankle. There is no acute fracture or dislocation. Electronically Signed: Raffi Multani DO at 16:46 EST Reading Location ID and State: [facility] / [place] Tel [phone], Service support , Foot X-Ray 09/09/22 16:06 IMPRESSION: Degenerative changes of the right foot without visualized fracture or dislocation. Electronically Signed: Raffi Multani DO at 16:36 EST Reading Location ID and State: [facility] / [place] Tel [phone], Service support , Physical Exam Const alert, oriented x3, no apparent distress and well nourished Constitutional Narrative: Morbidly obese, white female, middle-aged, sitting up in bed, toxic, currently appears comfortable but fatigued, able to sit up in bed independently for lung exam HEENT normocephalic, head/scalp atraumatic, hearing grossly normal bilaterally and moist oral mucous membranes Resp no retractions and no use of accessory muscles Resp Narrative: Diffuse scattered crackles that improve with coughing, no wheeze or rhonchi, mild tachypnea Auscultation: crackles; Negative for rhonchi or wheezes Cardio regular rate, regular rhythm, S1 normal heart sound, S2 normal heart sound, no murmurs, no rub, no gallops and no clicks GI normal to inspection, nondistended, normoactive bowel sounds, soft to palpation and non-tender GI Narrative: Large protuberant abdomen Extremity Extremity Narrative: Trace bilateral lower extremity edema, no cyanosis or clubbing, pedal pulses are 2+ Neuro oriented x3, moves all extremities and no focal motor deficits Neuro Narrative: Mild generalized weakness noted Speech: speech normal Psych affect normal Psych Narrative: Very pleasant and appropriately interactive Assessment & Plan Assessment/Plan (1) Community acquired pneumonia: (2) Acute respiratory failure with hypoxia: (3) Atrial fibrillation, currently in sinus rhythm: PLAN: Plan Acute hypoxic respiratory failure secondary to suspected viral pneumonia -We will discontinue all antibiotics -Remains at 2 L at 93-97 % at rest but becomes markedly dyspneic with exertion -Wrongly encourage increased mobility -BNP without elevation -Respiratory viral panel unremarkable -COVID and influenza were negative on admission -COVID PCR is negative -Blood cultures are normal -CTA of the chest performed and shows no PE, dilated pulmonary artery, multifocal ground glass opacities, liver nodularity consistent with cirrhosis -Continue Acapella -Continue I-S -Continue Mucinex -PT/OT evaluate the patient she will need placed at discharge -Discussed case with her personnel research scientist Dr. Zuleta and he recommended starting azithromycin to cover atypical pneumonia with her presentation as well start azithromycin 500 mg daily -Highly suspicious of pulmonary artery hypertension New onset A. fib -Redeveloped A. fib with RVR today just as I was getting ready to discharge her -Coreg initiated as blood pressures have been high -Eliquis restarted this morning as patient did have an event yesterday that quickly resolved -TSH is within normal limits -Echocardiogram was unremarkable Leukopenia -Differential was unremarkable -Possibly related to acute viral syndrome Hypophosphatemia -Resolved DM-2 -Hold home antidiabetic agents -Continue sliding scale insulin -Carb controlled diet -Monitor blood sugars-thus far stable Hypertension -Continue home Lasix every other day, lisinopril -Dose Lasix IV today -Increase amlodipine to 10 mg Liver cirrhosis-suspect secondary to HEAD -We will refer to GI as outpatient -Suspect HEAD--> findings are consistent with CT of the abdomen pelvis done on 02/23/19 -It appears the patient has seen Dr. Brunner previously Hypothyroidism -TSH within normal limits -Continue home levothyroxine GERD -Continue Protonix NEREYDA -Nocturnal BiPAP/CPAP Morbid obesity -Recommend weight loss -Complicates treatment, prognosis, outcomes Gout -Continue home allopurinol Depression/anxiety -Continue home aripiprazole -Continue home bupropion -Continue home trazodone DVT prophylaxis -Continue home enoxaparin CODE STATUS -Full code Charges/Coding Visit Charges Inpatient E&M: 89803 Subs Hosp L2
--- NOTE | 2022-09-09 19:00 | PCA ---
EMERGENCY DOCUMENTATION
[2022-09-09] MEDS: APIXABAN 5 MG TABLET PO (23:21)
[2022-09-09] MEDS: traZODone 50 MG Tablet PO (23:21)
[2022-09-10] VITALS (9 sets, daily range): BP systolic 142–157; BP diastolic 67–75; PULSE 76–80; RESP 12–24; TEMP 36.8–36.9; O2SAT 90–96
[2022-09-10 01:25] LABS: Bedside Glucose 239 mg/dL (74-106)
[2022-09-10] MEDS: Levothyroxine 50 MCG Tablet PO (05:53)
[2022-09-10] MEDS: Ursodiol 250 MG Tablet 500 MG PO (05:53)
[2022-09-10] MEDS: Insulin Lispro 100 UNIT/ML INSULN.PEN SC ×2 (07:00→11:14)
[2022-09-10 07:20] LABS: Bedside Glucose 181 mg/dL (74-106)
[2022-09-10 07:38] LABS: Absolute Lymphocyte Count 1.13 X10^3/uL (0.83-4.51); Absolute Neutrophil Count 6.4 X10^3/uL (2.0-7.7); Basophil# 0.02 X10^3/uL; Basophil% 0.2 % (0-1); Eosinophils% 1.2 % (0-5); Hematocrit 38.1 % (37-47); Hemoglobin 12.3 g/dL (12.0-15.0); Lymphocyte # 1.13 X10^3/ul (0.83-4.51); Lymphocyte % 13.6 % (19-41); Mean Corp Hgb Conc 32.3 g/dL (32-36); Mean Corpuscular Hgb 30.1 pg (27.0-32.0); Mean Corpuscular Volume 93.2 fL (81-99); Mean Platelet Vol. 9.7 fl (6.2-12.0); Monocyte# 0.64 X10^3/uL; Monocyte% 7.7 % (0-10); NRBC Flagged by Analyzer 0 % (0-5); Neutrophil # 6.39 X10^3/uL (2.7-7.7); Neutrophil % 76.7 % (47-70); Platelet Count 290 K/mm3 (150-450); RBC Distribution Width CV 12.7 % (11.6-14.6); RBC Distribution Width SD 43.6 fl (35.1-43.9); Red Blood Count 4.09 M/mm3 (4.2-5.4); White Blood Count 8.3 K/mm3 (4.4-11.0)
[2022-09-10 08:03] LABS: ALB/GLOB Ratio 0.5 RATIO (0.9-2.4); AST(SGOT) 25 U/L (15-37); Alanine Aminotransfer ALT/SGPT 16 U/L (13-56); Albumin, Serum 2.1 g/dL (3.2-5.0); Alkaline Phosphatase 173 U/L (45-117); Anion Gap 4 (5-15); BUN 25 mg/dL (7-18); BUN/Creat Ratio 31.1 RATIO (10-20); Calcium,Total 8.3 mg/dL (8.5-10.1); Chloride 96 mmol/L (98-107); EST Glomerular Filtration Rate 76 mL/min (>60); Est Glom Filt Rate - Afr Amer 92 mL/min (>60); Estimated Creatinine Clearance 54.71 ml/min; Globulin 4.6 g/dL (2.2-4.2); Glucose 190 mg/dL (74-106); Magnesium 2.2 mg/dL (1.6-2.6); Potassium 3.8 mmol/L (3.5-5.1); Protein, Total 6.7 g/dL (6.4-8.2); Sodium Level 136 mmol/L (136-145)
[2022-09-10] MEDS: Na Biphos/Potassium Phosphate PACKET 1 PACKET PO (08:08)
[2022-09-10] MEDS: Aspirin 81 MG TAB.CHEW PO (08:08)
[2022-09-10] MEDS: APIXABAN 5 MG TABLET PO (08:08)
[2022-09-10] MEDS: amLODIPine 10 MG Tablet PO (08:09)
[2022-09-10] MEDS: Allopurinol 300 MG Tablet PO (08:09)
[2022-09-10] MEDS: Pantoprazole Sodium 20 MG Tablet PO (08:09)
[2022-09-10] MEDS: Tamsulosin HCl 0.4 MG Capsule PO (08:09)
[2022-09-10] MEDS: buPROPion (XL) 150 MG TABLET.XL PO (08:09)
[2022-09-10] MEDS: guaiFENesin 1,200 MG Tablet 1200 MG PO (08:09)
[2022-09-10] MEDS: ARIPiprazole 2 MG Tablet 1 MG PO (08:10)
[2022-09-10] MEDS: Lisinopril 10 MG Tablet PO (08:10)
[2022-09-10] MEDS: Acetaminophen 325 MG Tablet 650 MG PO (08:19)
[2022-09-10] MEDS: Carvedilol 6.25 MG Tablet PO (08:19)
[2022-09-10 11:55] LABS: Bedside Glucose 330 mg/dL (74-106)
--- NOTE | 2022-09-10 12:37 | CASEMGMT ---
Social Work Patient cleared for discharge today to [facility] Telephone call to [facility]. Transportation set up for 09/10/2022 in 30min via wheelchair van. This director of social media marketing updated [facility] via [employer]. Janiya reports to be off today. Telephone call to [facility]. Jeff updated on patient being discharge today. This director of social media marketing updated patient and patient sister, Indira. All agreeable to above plan. Medical team updated. Proposed discharge date: 09/10/2022 PLAN[facility] Adeel BARRAZA, [place]
--- NOTE | 2022-09-10 13:38 | NURSING ---
report called to Deidre Solano rn at [facility]
== END 2022-09-10 13:35 | disposition skilled nursing facility (03) | DRG 871 ==
LOC: ED 15:58 → PCU 16:35
PROVIDERS: Admitting Provider Family Medicine; Emergency Provider Emergency Medicine; PCP Family Medicine; Visit Provider Internal Medicine
DX: A41.9 Sepsis, unspecified organism (principal); J96.01 Acute respiratory failure with hypoxia; J12.9 Viral pneumonia, unspecified; Z68.43 Body mass index [BMI] 50.0-59.9, adult; I27.20 Pulmonary hypertension, unspecified; E83.39 Other disorders of phosphorus metabolism; E11.9 Type 2 diabetes mellitus without complications; I48.91 Unspecified atrial fibrillation; Z79.4 Long term (current) use of insulin; E66.01 Morbid (severe) obesity due to excess calories; K74.60 Unspecified cirrhosis of liver; D72.819 Decreased white blood cell count, unspecified; E03.9 Hypothyroidism, unspecified; I10 Essential (primary) hypertension; K21.9 Gastro-esophageal reflux disease without esophagitis; E78.5 Hyperlipidemia, unspecified; M10.9 Gout, unspecified; G47.33 Obstructive sleep apnea (adult) (pediatric); K75.81 Nonalcoholic steatohepatitis (NASH); F41.9 Anxiety disorder, unspecified; F32.A Depression, unspecified; Z79.01 Long term (current) use of anticoagulants; Z79.84 Long term (current) use of oral hypoglycemic drugs; Z79.899 Other long term (current) drug therapy
CPT/HCPCS: 36415; 36600; 71045; 71275; 73610; 73620; 80048; 80053; 82803; 82962; 83605; 83735; 83880; 84100; 84443; 85025; 85610; 85730; 87040; 87426; 87428; 87449; 87633; 87635; 93005; 93306; 94002; 94003; 94640; 94668; 94762; 97110; 97116; 97162; 97166; 97530; 97535; 99251; 99285; J7030; J7040; J7050; Q9957; Q9967; A4216; C8929; G0463; J0696; J1940; U0003; U0005

== ENCOUNTER → 2022-09-11 | Outpatient (REF) | payer MEDICARE, OTHER, SELFPAY ==
[2022-09-11 07:47] LABS: Absolute Lymphocyte Count 0.88 X10^3/uL (0.83-4.51); Basophil# 0.03 X10^3/uL; Basophil% 0.3 % (0-1); Eosinophil# 0.07 X10^3/uL; Eosinophils% 0.7 % (0-5); Hematocrit 37.4 % (37-47); Hemoglobin 11.5 g/dL (12.0-15.0); Lymphocyte # 0.88 X10^3/ul (0.83-4.51); Mean Corp Hgb Conc 30.7 g/dL (32-36); Mean Corpuscular Volume 94.2 fL (81-99); Mean Platelet Vol. 10.5 fl (6.2-12.0); Monocyte# 0.73 X10^3/uL; Monocyte% 7.5 % (0-10); NRBC Flagged by Analyzer 0 % (0-5); Neutrophil # 7.98 X10^3/uL (2.7-7.7); Neutrophil % 82.1 % (47-70); Platelet Count 315 K/mm3 (150-450); RBC Distribution Width CV 12.5 % (11.6-14.6); RBC Distribution Width SD 43.2 fl (35.1-43.9); Red Blood Count 3.97 M/mm3 (4.2-5.4); White Blood Count 9.7 K/mm3 (4.4-11.0)
[2022-09-11 08:17] LABS: AST(SGOT) 18 U/L (15-37); Alanine Aminotransfer ALT/SGPT 15 U/L (13-56); Albumin, Serum 1.9 g/dL (3.2-5.0); Alkaline Phosphatase 163 U/L (45-117); Anion Gap 5 (5-15); BUN 28 mg/dL (7-18); Bilirubin, Direct 0.39 mg/dL (0.00-0.30); Calcium,Total 8.4 mg/dL (8.5-10.1); Chloride 97 mmol/L (98-107); Cholesterol 111 mg/dL (200); EST Glomerular Filtration Rate 76 mL/min (>60); Est Glom Filt Rate - Afr Amer 92 mL/min (>60); Globulin 4.7 g/dL (2.2-4.2); Glucose 225 mg/dL (74-106); High Density Lipoprotein 40 mg/dL; Potassium 3.6 mmol/L (3.5-5.1); Protein, Total 6.6 g/dL (6.4-8.2); Sodium Level 134 mmol/L (136-145); Thyroid Stim Hormone (TSH) 1.09 uIU/mL (0.358-3.74); Triglycerides 70 mg/dL; Very Low Density Lipoprotein 14 mg/dL (5-40)
[2022-09-11 08:52] LABS: Hemoglobin A1c 8.7 % (3.8-5.6)
== END ==
LOC: OLS.WHLTCC 04:00
PROVIDERS: PCP Family Medicine; Visit Provider Internal Medicine
DX: R53.83 Other fatigue (principal); J96.01 Acute respiratory failure with hypoxia; B37.9 Candidiasis, unspecified; I87.323 Chronic venous hypertension (idiopathic) with inflammation of bilateral lower extremity; Z86.79 Personal history of other diseases of the circulatory system; Z79.899 Other long term (current) drug therapy
CPT/HCPCS: 36415; 80048; 80061; 80076; 83036; 84443; 85025

== ENCOUNTER 2022-09-21 09:30 | Inpatient (IN) | payer MEDICARE, OTHER, SELFPAY ==
[2022-09-21] VITALS (18 sets, daily range): BP systolic 131–174; BP diastolic 61–120; PULSE 61–90; RESP 12–34; TEMP 35.8–36.9; O2SAT 82–97; BMI 65.0; BMI 58.1
--- NOTE | 2022-09-21 09:41 | EKG12_ITS ---
Test Reason : SOB Blood Pressure : / mmHG Vent. Rate : 078 BPM Atrial Rate : 078 BPM P-R Int : 156 ms QRS Dur : 094 ms QT Int : 366 ms P-R-T Axes : 045 021 054 degrees QTc Int : 417 ms Normal sinus rhythm Nonspecific ST abnormality Abnormal ECG Confirmed by EL ELLSWORTH, RHONDA ([id number]), acquisitions editor ANÍBAL LINO ([id number]) on 09/23/2022 10:33:08 AM Referred By: Confirmed By:RHONDA GALLEGOS MD
--- NOTE | 2022-09-21 09:45 | ED.VIS.DYS ---
HPI History of Present Illness Chief Complaint: Shortness of Breath Detail of Chief Complaint: Shortness of breath normally on O2 at 2 L Informant: patient, EMS, mental health staff and other (Review of prior records and most recent admission and discharge summary) Limited: other (Patient is not a good informant.) Onset/Context/Timing Onset: Days Context: gradual Timing: Continuous Current Severity: Difficult to determine Maximum Severity: Shortness of breath with any type of movement Worsened by: Exertion, Lying flat and Coughing Relieved by: Nothing Associated Symptoms cough and rhinorrhea; Negative for post nasal drip, ear pain, fever, sore throat, subjective, chills or sweats Chest Pain: Positive for None Narrative Narrative: Patient is a 67-year-old morbidly obese woman who is not a good informant. Patient is not awake or alert. She opens her eyes and responds to verbal stimuli. Patient was recently admitted for sepsis and pneumonia. She was discharged to nursing facility. She is presently on azithromycin. She is on anticoagulant for atrial fibrillation. She denies history of PE or DVT. Review of prior records indicates she does not have history of PE or DVT. She reports history of heart failure. She states an x-ray of her right upper extremity was obtained because of swelling. There is no history of trauma. There is some bruising which I suspect is due to the fact that she is on anticoagulant. Patient denies fever or chills. Patient states she is normally on oxygen at 2 L. Patient does complain of mild nasal congestion. She does report cough. The cough is essentially nonproductive. She states she has not not done much. She has been less mobile. She does report increased swelling of her lower and upper extremity. She denies fever, chills night sweats. She denies chest discomfort. She denies lower extremity pain or discoloration. She denies nausea, vomiting or diarrhea. She denies dysuria, frequency, urgency or hematuria. PE Risk Factors: Positive for Recent immobilization; Negative for Cancer, OCP + Smoking + > 35, Prior DVT or PE, Recent surgery or Recent travel Prior similar symptoms: Yes (Acute respiratory failure due to community-acquired pneumonia) Recent Illness/Hospitalization: Yes [facility] Medical History Atrial fibrillation, currently in sinus rhythm Diabetes Hypertension sarcoidosis liver Home Medications Ropinirole Hcl [Requip] 0.5 mg PO QHS 05/23/15 [History Last Taken 09/20/22] aripiprazole 2 mg tablet 0.5 mg PO DAILY 05/23/15 [History Last Taken 09/20/22] aspirin 81 mg chewable tablet 81 mg PO DAILY@0800 05/23/15 [History Last Taken Unknown] bupropion HCl 150 mg 24 hr tablet, extended release 150 mg PO DAILY 05/23/15 [History Last Taken 09/20/22] glimepiride 2 mg tablet 2 mg PO DAILY 05/23/15 [History Last Taken 09/20/22] levothyroxine 50 mcg tablet 50 mcg PO DAILY 05/23/15 [History Last Taken 09/20/22] loratadine 10 mg tablet (Allergy Relief (loratadine)) 10 mg PO DAILY PRN PRN allergies 05/23/15 [History Last Taken Unknown] trazodone 50 mg tablet 50 mg PO DAILY 05/23/15 [History Last Taken 09/20/22] ursodiol 250 mg tablet 500 mg PO TID 05/23/15 [History Last Taken 09/20/22] exenatide microspheres 2 mg/0.65 mL subcutaneous pen injector (Bydureon) 2 mg SQ QWEEK Check with primary doctor 06/30/17 [History Last Taken Unknown] docusate sodium 100 mg capsule (DOK) 100 mg PO BID PRN PRN Constipation #10 caps 07/06/17 [Rx Last Taken Unknown] allopurinol 300 mg tablet 300 mg PO DAILY 09/05/22 [History Last Taken 09/20/22] omeprazole 20 mg capsule,delayed release 20 mg PO DAILY 09/05/22 [History Last Taken Unknown] tamsulosin 0.4 mg capsule (Flomax) 0.4 mg PO DAILY 09/05/22 [History Last Taken 09/20/22] acetaminophen 325 mg tablet (Tylenol) 650 mg PO Q4H PRN PRN Fever, pain 1-06/22 #0 tabs 09/09/22 [Rx Last Taken Unknown] apixaban 5 mg tablet (Eliquis) 5 mg PO BID #0 tabs 09/09/22 [Rx Last Taken 09/20/22] guaifenesin 1,200 mg tablet, extended release 12 hr (Mucus Relief ER) 1,200 mg PO BID #0 tabs 09/09/22 [Rx Last Taken Unknown] lisinopril 10 mg tablet 10 mg PO DAILY #0 tabs 09/09/22 [Rx Last Taken 09/20/22] carvedilol 6.25 mg tablet 12.5 mg PO BID #60 tabs 09/10/22 [Rx Last Taken 09/20/22] furosemide 40 mg tablet 40 mg PO DAILY #0 tabs 09/10/22 [Rx Last Taken 09/20/22] amlodipine 2.5 mg-benazepril 10 mg capsule 2.5 - 10 cap PO DAILY HEART 09/21/22 [History Last Taken 09/20/22] Allergy/AdvReac Type Severity Reaction Status Date / Time nabumetone [From Relafen] Allergy Itching Verified 09/05/22 13:51 nitrofurantoin Allergy Rash Verified 09/05/22 16:12 [From Macrobid] Family History Father Goodpasture syndrome Surgical History bilateral carpal tunnel left long finger I&D right long finger I&D Social History (Updated 09/21/22 @ 09:[address] oJhnnie Duckworth MD) household members: none housing: long-term Smoking Status: Never smoker substance use type: does not use ROS ROS ED Review of Systems ROS Unobtainable: due to mental status Constitutional Constitutional ED: Denies chills, fever(s), sweats or weight loss Eyes Eyes: Denies blurry vision or change in vision ENT ENT ED: Reports rhinorrhea; Denies ear pain or sore throat Cardiovascular Cardiovascular: Reports orthopnea; Denies chest pain, palpitations, paroxysmal nocturnal dyspnea or racing heartbeat Respiratory/Chest Respiratory/Chest: Reports cough, dyspnea, dyspnea on exertion and orthopnea; Denies paroxysmal nocturnal dyspnea Gastrointestinal Gastrointestinal: Denies abdominal pain, diarrhea, melena, nausea or vomiting Genitourinary Genitourinary ED: Denies dysuria, hematuria or urinary frequency Musculoskeletal Musculoskeletal: Denies arthralgias, back pain, myalgias or neck pain Integumentary Reports other Details: Bruises noted extremities. ; Denies Abrasions or rash Neurologic Neurologic: Reports weakness; Denies paresthesias Psychiatric Psychiatric: Reports depression; Denies anxiety, suicidal ideation or suicidal thoughts Hematologic/Lymphatic Hematologic/Lymphatic: Reports easy bruising EXAM Physical Exam Const Vital Signs: 09/21/22 09:31 09/21/22 09:35 09/21/22 10:06 Temperature 97.7 F L 97.7 F L Temperature Source Temporal Temporal Pulse Rate 78 82 Respiratory Rate 26 H 19 H Respiratory Effort Blood Pressure 135/86 H 173/84 H Blood Pressure Mean 102 113 Pulse Ox 82 93 94 Oxygen Delivery Method Room Air Nasal Cannula Nasal Cannula Oxygen Flow Rate (L/min) 5 5 Fraction of Inspired Oxygen (FIO2) 09/21/22 10:06 09/21/22 10:15 09/21/22 10:52 Temperature Temperature Source Pulse Rate 77 76 Respiratory Rate 17 23 H Respiratory Effort Short of Breath Labored Accessory Muscle Use Blood Pressure Blood Pressure Mean Pulse Ox 95 Oxygen Delivery Method Room Air Oxygen Flow Rate (L/min) 5 Fraction of Inspired Oxygen (FIO2) 35 Positive well nourished, well developed and obese Constitutional Narrative: Patient is not awake or alert. General Appearance ED: well developed and NAD; Negative for pallor Nutritional Appearance: obese HEENT Reports dry mucous membranes HEENT Narrative: Head is atraumatic normocephalic. Ears normal. Nares reveals slight clear whitish drainage. Uvula is midline. No deviation of protrusion. No erythema exudate the posterior pharynx. No dysphonia. Mouth ED: Yes dry mucous membranes Mouth: dry mucous membranes Eyes PERRL and EOMs intact bilaterally General Eye ED: Negative for pale conjunctiva or scleral icterus Neck no lymphadenopathy, supple, no meningeal signs and no JVD Neck Narrative: Trachea is midline. There no inspiratory expiratory stridor. Difficult to say if patient does or does not have JVD based on body habitus. Resp No normal respiratory effort and No clear to auscultation bilaterally Resp Narrative: Patient has a pleuritic friction rub on the right. There is rhonchi noted bilaterally. There are rales at the right base. There is also mild expiratory wheezing noted. Breath sounds are diminished. Cardio regular rate, regular rhythm, S1 normal heart sound, S2 normal heart sound and no murmurs GI non-tender, non-distended and no masses Auscultation: normoactive bowel sounds Palpation: soft Back/Spine no CVA tenderness Back/Spine Narrative: Unable to inspect back due to body habitus and difficulty rolling patient in bed. Extremity Negative for normal to inspection Extremity Narrative: Patient has pitting edema of all extremities. There is no cellulitis, pressure sores or open wounds. Neuro oriented x3, CN's II-XII intact bilaterally and no sensory deficits noted [place] Coma Scale: document GCS findings Spontaneous Obeys Commands Oriented 15 Sensorium / Orientation: Negative for alert Psych Mood & Affect: depressed; Negative for anxious or tearful Skin no wounds Skin Narrative: Bruising noted. Suspect this is due to the fact that she is on Eliquis. General Skin Exam: Negative for jaundice or pallor MDM MDM MDM Narrative Medical decision making narrative: With history of obstructive sleep apnea requiring more oxygen and decreased awareness/alertness will obtain ABG to assess acid-base status and oxygen level since she is present on 5 L oxygen as well as CO2 because of concern for CO2 narcosis. EKG was obtained to evaluate for cardiac ischemia. CBC to assess white count and rule out anemia. Since she is diabetic BMP was obtained to assess glucose as well as CO2 and anion gap. Patient is on loop diuretic and will also assess sodium and potassium level. Chest x-ray is obtained to determine if the infiltrate has improved or gotten worse. Because of concern for sepsis blood cultures were obtained. Antibiotics were not administered since she is presently on antibiotics. Patient is still wheezing after aerosol treatments. Will order Solu-Medrol. Rapid COVID influenza were obtained because of bibasilar interstitial infiltrates noted on chest x-ray. Hospitalist has been paged for admission. Patient is presently on BiPAP. Lab Data Attestation: I reviewed the patient's lab results. Lab results narrative: CBC is unremarkable. Patient has mild anemia. Competence metabolic panel is remarked for glucose of 228 with a elevated carbon dioxide level and normal anion gap. BUN to creatinine ratio is elevated to 34-1. Lactate was normal. ABG reveals acute on chronic respiratory failure with hypercapnia and hypoxia. Labs: Laboratory Results - last 24 hr 09/21/22 09/21/22 09/21/22 10:00 10:00 10:00 WBC 6.9 RBC 3.85 L Hgb 11.6 L Hct 38.1 MCV 99.0 MCH 30.1 MCHC 30.4 L RDW Std Deviation 44.7 H RDW Coeff of Tree 12.6 Plt Count 375 MPV 10.2 Immature Gran % (Auto) 0.400 Neut % (Auto) 81.8 H Lymph % (Auto) 10.7 L [place] % (Auto) 6.1 Eos % (Auto) 0.6 Baso % (Auto) 0.4 Absolute Neuts (auto) 5.6 Absolute Lymphs (auto) 0.74 L Nucleated RBC % 0 Sodium 137 Potassium 4.8 Chloride 94 L Carbon Dioxide 41.0 H Anion Gap 2 L BUN 27 H Creatinine 0.79 Estim Creat Clear Calc 43.77 Est GFR (MDRD) Af Amer 94 Est GFR (MDRD) Non-Af 77 BUN/Creatinine Ratio 34.2 H Glucose 228 H Lactic Acid 0.5 Calcium 9.8 Total Bilirubin 0.40 AST 16 ALT 15 Alkaline Phosphatase 161 H Total Protein 7.5 Albumin 2.1 L Globulin 5.4 H Albumin/Globulin Ratio 0.4 L Radiography Chest X-Ray - ED: 1 View, 2 View and Read by ED Physician (Single view portable chest x-ray reveals bibasilar infiltrates. In light of this we will obtain rapid COVID influenza test. Cardiac silhouette is unremarkable. Perihilar regions unremarkable. Osseous structures are unremarkable.) Diagnostic Testing: Clinical Impression(s) from Imaging Studies Chest X-Ray 09/21/22 10:15 IMPRESSION: Essentially stable examination demonstrating mild degree of basilar congestion with patchy bibasilar infiltrates. Electronically Signed: Mac Gregorio MD at 10:44 EST , EKG Initial EKG: Attestation: I personally reviewed and interpreted this EKG as follows: Interpretation: Sinus Rhythm (Ventricular rate is 78. There is artifact. LA interval is 156 ms. Cures duration 94 ms. QT duration 366 ms. [place] is normal. EKG other than the artifact is normal.) Critical Care Time Critical Care Time: Yes Critical care time (excluding procedures): 30-74 minutes (37), Including time spent: (History, physical, documentation, review of prior admission and discharge summary interpretation laboratory results and chest x-ray initiation of therapy), Discussing w/Patient &/or Family/Inner Layer Scrubber Tender, Discussing w/Consultants (Hospitalist for admission) and Arranging Admission or Transfer Discharge Plan Dx/Rx/DC Orders Clinical Impression: Acute and chronic respiratory failure with hypercapnia, Acute and chronic respiratory failure with hypoxia, Acute bronchospasm, Acute hyperglycemia, Hypertension, Anticoagulant long-term use Disposition Disposition: Acute Care [facility]
[2022-09-21] MEDS: Ipratropium/Albuterol Sulfate 3 ML AMPUL.NEB INHALATION ×3 (10:04→23:05)
[2022-09-21] MEDS: Albuterol 2.5 MG/3 ML VIAL.NEB. INHALATION ×2 (10:04→10:56)
[2022-09-21 10:12] LABS: Absolute Lymphocyte Count 0.74 X10^3/uL (0.83-4.51); Absolute Neutrophil Count 5.6 X10^3/uL (2.0-7.7); Basophil# 0.03 X10^3/uL; Basophil% 0.4 % (0-1); Eosinophil# 0.04 X10^3/uL; Eosinophils% 0.6 % (0-5); Hematocrit 38.1 % (37-47); Hemoglobin 11.6 g/dL (12.0-15.0); Lymphocyte # 0.74 X10^3/ul (0.83-4.51); Lymphocyte % 10.7 % (19-41); Mean Corp Hgb Conc 30.4 g/dL (32-36); Mean Corpuscular Hgb 30.1 pg (27.0-32.0); Mean Platelet Vol. 10.2 fl (6.2-12.0); Monocyte# 0.42 X10^3/uL; Monocyte% 6.1 % (0-10); NRBC Flagged by Analyzer 0 % (0-5); Neutrophil # 5.64 X10^3/uL (2.7-7.7); Neutrophil % 81.8 % (47-70); Platelet Count 375 K/mm3 (150-450); RBC Distribution Width CV 12.6 % (11.6-14.6); RBC Distribution Width SD 44.7 fl (35.1-43.9); Red Blood Count 3.85 M/mm3 (4.2-5.4); White Blood Count 6.9 K/mm3 (4.4-11.0)
--- NOTE | 2022-09-21 10:15 | RAD_ITS ---
STUDY: X-RAY CHEST REASON FOR EXAM: Female, 67 years old. Acute on chronic respiratory failure, bilateral rh -- Rhonchi, friction rub on the right TECHNIQUE: Single AP portable view of the chest. COMPARISON: Comparison is made with prior study dated 09/08/2022. FINDINGS: EKG electrodes are seen. There is evidence of a vascular congestion. Stable bilateral patchy infiltrates. There is been essentially no change since prior study. There is no demonstrated pleural abnormality. Normal size heart. Normal mediastinum and alexsandre. Normal visualized pulmonary arteries. There is atherosclerotic calcification of the aortic arch with tortuosity. There are diffuse degenerative changes of the visualized thoracic spine. Normal visualized ribs, clavicles, and shoulders. There is no demonstrated abnormality of the visualized soft tissue structures of the upper abdomen. RAD/Chest 1 View (Portable) IMPRESSION: Essentially stable examination demonstrating mild degree of basilar congestion with patchy bibasilar infiltrates. Electronically Signed: Mac Gregorio MD at 10:44 EST ,
--- NOTE | 2022-09-21 10:26 | CPS ---
Critical blood gas results given to Dr Duckworth.
[2022-09-21 10:31] LABS: ALB/GLOB Ratio 0.4 RATIO (0.9-2.4); AST(SGOT) 16 U/L (15-37); Alanine Aminotransfer ALT/SGPT 15 U/L (13-56); Albumin, Serum 2.1 g/dL (3.2-5.0); Alkaline Phosphatase 161 U/L (45-117); Anion Gap 2 (5-15); BUN 27 mg/dL (7-18); BUN/Creat Ratio 34.2 RATIO (10-20); Calcium,Total 9.8 mg/dL (8.5-10.1); Chloride 94 mmol/L (98-107); Creatinine, Serum 0.79 mg/dL (0.55-1.02); EST Glomerular Filtration Rate 77 mL/min (>60); Est Glom Filt Rate - Afr Amer 94 mL/min (>60); Estimated Creatinine Clearance 43.77 ml/min; Globulin 5.4 g/dL (2.2-4.2); Glucose 228 mg/dL (74-106); Potassium 4.8 mmol/L (3.5-5.1); Protein, Total 7.5 g/dL (6.4-8.2); Sodium Level 137 mmol/L (136-145)
[2022-09-21 10:36] LABS: Lactic Acid 0.5 mmol/L (0.4-1.9)
[2022-09-21 11:31] LABS: Allen Test Positive; Base Excess 20 mmol/L (-2 to +2); Bicarbonate 47.1 mmol/L (22-26); Blood Gas Specimen Type ART; PO2 71 mmHG (75-100); SITE R Radial; SO2 90 % (95-99); Total Carbon Dioxide > 50 mmol/L; pCO2 99.3 mmHg (35-45); pH 7.28 (7.35-7.45)
--- NOTE | 2022-09-21 12:08 | PCM.HP.STD ---
HPI - General General Date of Admission: 09/21/22 Date of Service: 09/21/22 Chief Complaint: SOB, AMS HPI Narrative VITALY CORREA, 67-year-old female with obstructive sleep apnea, chronic hypoxic respiratory failure on 2 L of home O2 who presented to [facility] 09/21/2022 from a nursing facility due to increasing confusion and shortness of breath. Here she was noted to be hypoxic and confused, was noted to have a PCO2 of 99.3 and a low PO2 and was placed on BiPAP, hospitalist consulted for admission. History obtained partially from . Rober but partially from friend at bedside. She had been having increasing shortness of breath and confusion over the past several days, mild nonproductive cough. Reports she had a temperature of 99.8 but nothing further than that. Has some swelling in her extremities. Upon further discussion she has not been able to use her CPAP for her obstructive [facility] apnea at the [facility] due to not having a location for her O2 so she has not been using CPAP or BiPAP since discharge. [facility] Medical History Atrial fibrillation, currently in sinus rhythm Diabetes Hypertension sarcoidosis liver Home Medications Ropinirole Hcl [Requip] 0.5 mg PO QHS 05/23/15 [History Last Taken 09/20/22] aripiprazole 2 mg tablet 0.5 mg PO DAILY 05/23/15 [History Last Taken 09/20/22] aspirin 81 mg chewable tablet 81 mg PO DAILY@0800 05/23/15 [History Last Taken Unknown] bupropion HCl 150 mg 24 hr tablet, extended release 150 mg PO DAILY 05/23/15 [History Last Taken 09/20/22] glimepiride 2 mg tablet 2 mg PO DAILY 05/23/15 [History Last Taken 09/20/22] levothyroxine 50 mcg tablet 50 mcg PO DAILY 05/23/15 [History Last Taken 09/20/22] loratadine 10 mg tablet (Allergy Relief (loratadine)) 10 mg PO DAILY PRN PRN allergies 05/23/15 [History Last Taken Unknown] trazodone 50 mg tablet 50 mg PO DAILY 05/23/15 [History Last Taken 09/20/22] ursodiol 250 mg tablet 500 mg PO TID 09/10/15 [History Last Taken 09/20/22] exenatide microspheres 2 mg/0.65 mL subcutaneous pen injector (Bydureon) 2 mg SQ QWEEK Check with primary doctor 06/30/17 [History Last Taken Unknown] docusate sodium 100 mg capsule (DOK) 100 mg PO BID PRN PRN Constipation #10 caps 07/06/17 [Rx Last Taken Unknown] allopurinol 300 mg tablet 300 mg PO DAILY 09/05/22 [History Last Taken 09/20/22] omeprazole 20 mg capsule,delayed release 20 mg PO DAILY 09/05/22 [History Last Taken Unknown] tamsulosin 0.4 mg capsule (Flomax) 0.4 mg PO DAILY 09/05/22 [History Last Taken 09/20/22] acetaminophen 325 mg tablet (Tylenol) 650 mg PO Q4H PRN PRN Fever, pain 1-06/22 #0 tabs 09/09/22 [Rx Last Taken Unknown] apixaban 5 mg tablet (Eliquis) 5 mg PO BID #0 tabs 09/09/22 [Rx Last Taken 09/20/22] guaifenesin 1,200 mg tablet, extended release 12 hr (Mucus Relief ER) 1,200 mg PO BID #0 tabs 09/09/22 [Rx Last Taken Unknown] lisinopril 10 mg tablet 10 mg PO DAILY #0 tabs 09/09/22 [Rx Last Taken 09/20/22] carvedilol 6.25 mg tablet 12.5 mg PO BID #60 tabs 09/10/22 [Rx Last Taken 09/20/22] furosemide 40 mg tablet 40 mg PO DAILY #0 tabs 09/10/22 [Rx Last Taken 09/20/22] amlodipine 2.5 mg-benazepril 10 mg capsule 2.5 - 10 cap PO DAILY HEART 09/21/22 [History Last Taken 09/20/22] Allergy/AdvReac Type Severity Reaction Status Date / Time nabumetone [From Relafen] Allergy Itching Verified 09/05/22 13:51 nitrofurantoin Allergy Rash Verified 09/05/22 16:12 [From Macrobid] Family History Father Goodpasture syndrome Surgical History bilateral carpal tunnel left long finger I&D right long finger I&D Social History (Updated 09/21/22 @ 09:[address] Johnnie Duckworth MD) household members: none housing: [facility] Smoking Status: Never smoker substance use type: does not use ROS Constitutional Constitutional: Reports other Details: tmax 99.8 ; Denies change in weight or chills Eyes Eyes: Denies change in vision ENT HEENT: Denies headache(s), nasal congestion or sore throat Cardiovascular Cardiovascular: Denies chest pain or palpitations Respiratory/Chest Respiratory/Chest: Reports cough, shortness of breath at rest and shortness of breath with exertion Gastrointestinal Gastrointestinal: Reports other Details: denies changes in bowel or bladder ; Denies abdominal pain Genitourinary Genitourinary: Reports other Details: denies changes in urination Musculoskeletal Musculoskeletal: Denies joint pain Neurologic Neurologic: Denies dizziness, focal weakness, headache(s), numbness or tingling Psychiatric Psychiatric: Reports other Details: had some confusion, improving Hematologic/Lymphatic Hematologic/Lymphatic: Denies easy bleeding Allergic/Immunologic Allergic/Immunologic: Reports other Details: denies rashes Vital Signs Vital Signs Vital Signs: 09/21/22 09:31 09/21/22 09:35 09/21/22 10:06 Temperature 97.7 F L 97.7 F L Temperature Source Temporal Temporal Pulse Rate 78 82 Respiratory Rate 26 H 19 H Respiratory Effort Blood Pressure 135/86 H 173/84 H Blood Pressure Mean 102 113 Pulse Ox 82 93 94 Oxygen Delivery Method Room Air Nasal Cannula Nasal Cannula Oxygen Flow Rate (L/min) 5 5 Fraction of Inspired Oxygen (FIO2) 09/21/22 10:06 09/21/22 10:15 09/21/22 10:52 Temperature Temperature Source Pulse Rate 77 76 Respiratory Rate 17 23 H Respiratory Effort Short of Breath Labored Accessory Muscle Use Blood Pressure Blood Pressure Mean Pulse Ox 95 Oxygen Delivery Method Room Air Oxygen Flow Rate (L/min) 5 Fraction of Inspired Oxygen (FIO2) 35 Weight Weight: 161.4 kg Body Mass Index (BMI) 65.0 Physical Exam Const Constitutional Narrative: Appears tired, on BiPAP and wakes up easily, not presently in acute distress HEENT normocephalic and head/scalp atraumatic Eyes Eyes Narrative: EOM grossly intact, anicteric Neck supple Resp Resp Narrative: On BiPAP, weak cough, diminished at the bases Cardio regular rate and regular rhythm GI soft to palpation, non-tender and non-distended Extremity Extremity Narrative: 1+ pitting edema in extremities Neuro moves all extremities Neuro Narrative: No overt focal deficits appreciated Psych Psych Narrative: Cooperative Results Lab / Micro Data Result Diagrams: 09/21/22 10:00 09/21/22 10:00 Labs: Laboratory Results - last 24 hr 09/21/22 10:00: WBC 6.9, RBC 3.85 L, Hgb 11.6 L, Hct 38.1, MCV 99.0, MCH 30.1, MCHC 30.4 L, RDW Std Deviation 44.7 H, RDW Coeff of Tree 12.6, Plt Count 375, MPV 10.2, Immature Gran % (Auto) 0.400, Neut % (Auto) 81.8 H, Lymph % (Auto) 10.7 L, [place] % (Auto) 6.1, Eos % (Auto) 0.6, Baso % (Auto) 0.4, Absolute Neuts (auto) 5.6, Absolute Lymphs (auto) 0.74 L, Nucleated RBC % 0 09/21/22 10:00: Sodium 137, Potassium 4.8, Chloride 94 L, Carbon Dioxide 41.0 H, Anion Gap 2 L, BUN 27 H, Creatinine 0.79, Estim Creat Clear Calc 43.77, Est GFR (MDRD) Af Amer 94, Est GFR (MDRD) Non-Af 77, BUN/Creatinine Ratio 34.2 H, Glucose 228 H, Calcium 9.8, Total Bilirubin 0.40, AST 16, ALT 15, Alkaline Phosphatase 161 H, Total Protein 7.5, Albumin 2.1 L, Globulin 5.4 H, Albumin/Globulin Ratio 0.4 L 09/21/22 10:00: Lactic Acid 0.5 ABG Data ABG results: ABG 09/21/22 10:22 Specimen Type ART Sample Site R Radial pH 7.28 L Bicarbonate Actual 47.1 H Total CO2 > 50 Base Excess 20 H O2 Saturation 90 L ABG pCO2 99.3 H* ABG pO2 71 L [place] Test Positive O2 Delivery Device CPAP Liter Flow 5.0 Crit Call To/Read Back Yes Radiology Impression Chest X-Ray 09/21/22 10:15 IMPRESSION: Essentially stable examination demonstrating mild degree of basilar congestion with patchy bibasilar infiltrates. Electronically Signed: Mac Gregorio MD at 10:44 EST , Assessment & Plan Assessment/Plan (1) Acute and chronic respiratory failure with hypercapnia: PLAN: Plan #acute on chronic combined hypoxic and hypercapneic respiratory failure Likely secondary to noncompliance with CPAP versus fluid overload versus acute exacerbation of underlying lung condition most likely combination Hypoxic and hypercapnic on ABG, placed on BiPAP and does seem to be improving Had been given nebs and steroids, repeat abg Does not appear to have a hx of COPD but is responding to nebs and steroids so will continue Do not see s/s of bacterial infxn so will hold changing abx this time but continue azithro course Do not see definitive infiltrate on x-ray but does have some increased congestion Will continue breathing treatments and steroids as well as Lasix, will give extra dose IV now however Will check for COVID, flu, respiratory panel Daily weights, I's and O's, incentive spirometry Will follow with Dr. Reinoso on Oct 06 as outpt Did have increased confusion which I presume to be d/t hypercapnia, seems to be improving on BiPAP, repeat ABG. Wakes up easily and is protecting airway, patient did confirm that she is full code but do not feel she needs intubated at this time, due to dependence on BiPAP and her mental status however will admit to stepdown though likely will be able to de-escalate care to PCU quickly she continues to respond well #Type 2 diabetes mellitus Holding home glimepiride Sliding scale insulin and glucose checks #Paroxysmal atrial fibrillation Continue Eliquis 5 mg twice daily Continue carvedilol #Hypothyroidism Continue Synthroid If no recent TSH done will obtain #DVT ppx: Home Jennifer Ashley MD Charges/Coding Visit Charges Inpatient E&M: 38980 Init Hosp L2
[2022-09-21] MEDS: MethylPREDNISolone 125 MG/2 ML Vial IV (12:15)
[2022-09-21 13:15] LABS: Blood Gas Specimen Type VEN; O2 Delivery Device AVAPS; VBG BASE EXCESS 19 mmol/L (-1.0-3.5); VBG Bicarbonate 44 mmol/L (22-26); VBG PO2 52 mmHg (25-40); VBG SO2 84 % (50-70); VBG TCO2 47 mmol/L (23-33); VBG pCO2 75.5 mmHg (41-51); VBG pH 7.38 (7.32-7.42)
--- NOTE | 2022-09-21 13:19 | CPS ---
critical blood gas results given to dr smith
[2022-09-21] MEDS: Azithromycin 250 MG Tablet 500 MG PO (17:40)
[2022-09-21] MEDS: Insulin Lispro 100 UNIT/ML INSULN.PEN SC ×2 (17:40→21:34)
[2022-09-21] MEDS: Furosemide 20 MG/2 ML VIAL IV (17:40)
[2022-09-21] MEDS: Ursodiol 250 MG Tablet 500 MG PO ×2 (17:40→21:35)
[2022-09-21 17:45] LABS: Bedside Glucose 252 mg/dL (74-106)
[2022-09-21] MEDS: Carvedilol 6.25 MG Tablet 12.5 MG PO (21:33)
[2022-09-21] MEDS: APIXABAN 5 MG TABLET PO (21:33)
[2022-09-21] MEDS: Pramipexole Di-HCl 0.25 MG Tablet PO (21:34)
[2022-09-21] MEDS: guaiFENesin 1,200 MG Tablet 1200 MG PO (21:35)
[2022-09-21] MEDS: 0.9% Saline Lock 10 ML Syringe IV (21:36)
[2022-09-22] VITALS (17 sets, daily range): BP systolic 130–177; BP diastolic 62–104; PULSE 67–83; RESP 12–30; TEMP 36.5–36.9; O2SAT 92–98
[2022-09-22 00:50] LABS: Bedside Glucose 298 mg/dL (74-106)
[2022-09-22] MEDS: Ipratropium/Albuterol Sulfate 3 ML AMPUL.NEB INHALATION ×5 (02:58→21:13)
[2022-09-22] MEDS: Menthol/Lanolin/Calamine/Znox 113 GM Tube 1 APPLIC TOPICAL ×3 (06:08→23:00)
[2022-09-22] MEDS: Levothyroxine 50 MCG Tablet PO (06:09)
[2022-09-22] MEDS: Ursodiol 250 MG Tablet 500 MG PO ×3 (06:09→22:12)
[2022-09-22] MEDS: 0.9% Saline Lock 10 ML Syringe IV ×2 (06:09→12:52)
[2022-09-22] MEDS: Insulin Lispro 100 UNIT/ML INSULN.PEN SC ×2 (06:15→23:00)
[2022-09-22 06:18] LABS: Hematocrit 33.9 % (37-47); Hemoglobin 10.4 g/dL (12.0-15.0); Mean Corp Hgb Conc 30.7 g/dL (32-36); Mean Corpuscular Hgb 29.5 pg (27.0-32.0); Mean Platelet Vol. 10.6 fl (6.2-12.0); Platelet Count 328 K/mm3 (150-450); RBC Distribution Width CV 12.7 % (11.6-14.6); RBC Distribution Width SD 43.1 fl (35.1-43.9); Red Blood Count 3.53 M/mm3 (4.2-5.4); White Blood Count 4.4 K/mm3 (4.4-11.0)
[2022-09-22 06:41] LABS: Bedside Glucose 347 mg/dL (74-106)
[2022-09-22 07:04] LABS: ALB/GLOB Ratio 0.4 RATIO (0.9-2.4); AST(SGOT) 14 U/L (15-37); Alanine Aminotransfer ALT/SGPT 15 U/L (13-56); Albumin, Serum 1.8 g/dL (3.2-5.0); Alkaline Phosphatase 136 U/L (45-117); Anion Gap 4 (5-15); BUN 34 mg/dL (7-18); BUN/Creat Ratio 39.4 RATIO (10-20); Calcium,Total 9.6 mg/dL (8.5-10.1); Chloride 90 mmol/L (98-107); Creatinine, Serum 0.86 mg/dL (0.55-1.02); EST Glomerular Filtration Rate 70 mL/min (>60); Est Glom Filt Rate - Afr Amer 84 mL/min (>60); Estimated Creatinine Clearance 50.89 ml/min; Globulin 4.8 g/dL (2.2-4.2); Glucose 337 mg/dL (74-106); Potassium 4.9 mmol/L (3.5-5.1); Protein, Total 6.6 g/dL (6.4-8.2); Sodium Level 133 mmol/L (136-145); Thyroid Stim Hormone (TSH) 1.11 uIU/mL (0.358-3.74)
--- NOTE | 2022-09-22 09:38 | CASEMGMT ---
Patient is from [facility]. LYNN met with patient and she confirmed her plans are to return to [place] when ready. LYNN will send updates to [place] and make sure they are okay taking patient back at d/c. Plan: Return to [place] at d/c Shelia ANTON
--- NOTE | 2022-09-22 10:08 | CASEMGMT ---
During rounds with physician she indicated patient likely returned to [facility] because she was not on a cpap at night or with naps. LYNN told physician LYNN will follow up on this. LYNN did review d/c orders from patient's last visit and there were no orders for cpap or bipap. LYNN sent a message to Janiya via [employer] and inquired if patient had been wearing a cpap or bipap at night and with naps. Await response. Plan: d/c back to [place] Shelia ANTON
[2022-09-22] MEDS: ARIPiprazole 2 MG Tablet 1 MG PO (10:33)
[2022-09-22] MEDS: Azithromycin 250 MG Tablet 500 MG PO (10:34)
[2022-09-22] MEDS: Carvedilol 6.25 MG Tablet 12.5 MG PO ×2 (10:35→22:11)
[2022-09-22] MEDS: Allopurinol 300 MG Tablet PO (10:36)
[2022-09-22] MEDS: buPROPion (XL) 150 MG TABLET.XL PO (10:36)
[2022-09-22] MEDS: Aspirin 81 MG TAB.CHEW PO (10:36)
[2022-09-22] MEDS: Lisinopril 10 MG Tablet PO (10:36)
[2022-09-22] MEDS: guaiFENesin 1,200 MG Tablet 1200 MG PO ×2 (10:37→22:12)
[2022-09-22] MEDS: APIXABAN 5 MG TABLET PO ×2 (10:37→22:11)
[2022-09-22] MEDS: Pantoprazole Sodium 20 MG Tablet PO (10:37)
[2022-09-22] MEDS: Tamsulosin HCl 0.4 MG Capsule PO (10:37)
[2022-09-22] MEDS: Furosemide 40 MG Tablet PO (10:37)
[2022-09-22] MEDS: Insulin Lispro 100 UNIT/ML INSULN.PEN 14 UNIT SC (12:50)
[2022-09-22] MEDS: hydrALAZINE 20 MG/ML Vial 10 MG IV (12:51)
--- NOTE | 2022-09-22 14:28 | PN.HOSP_ITS ---
Subjective Subjective Is feeling somewhat better today though at time of evaluation felt ready to go back on BiPAP Objective Data Objective Data Vital Signs: Vital Signs Temp Pulse Resp BP Pulse Ox O2 Del Method O2 Flow Rate 98.1 F 71 22 H 177/69 H 98 Bi-pap 2 09/22/22 12:16 09/22/22 12:51 09/22/22 13:02 09/22/22 12:51 09/22/22 14:06 09/22/22 13:02 09/22/22 14:06 FiO2 30 09/22/22 13:02 Oxygen Flow Rate (L/min) 2 Oxygen Delivery Method Bi-pap Weight: 145.6 kg Body Mass Index (BMI) 58.1 Intake & Output: Intake and Output for Last 24 Hours 09/20/22 09/21/22 09/22/22 23:59 23:59 23:59 Intake Total 710 / 710 Output Total 1150 / 1150 Balance -440 / -440 Lab / Micro Data Result Diagrams: 09/22/22 06:03 09/22/22 06:03 Labs: Laboratory Results - last 24 hr 09/21/22 17:24: POC Glucose 252 H 09/21/22 21:31: POC Glucose 298 H 09/22/22 06:03: WBC 4.4, RBC 3.53 L, Hgb 10.4 L, Hct 33.9 L, MCV 96.0, MCH 29.5, MCHC 30.7 L, RDW Std Deviation 43.1, RDW Coeff of Tree 12.7, Plt Count 328, MPV 1 0.6 09/22/22 06:03: Sodium 133 L, Potassium 4.9, Chloride 90 L, Carbon Dioxide 39.0 H, Anion Gap 4 L, BUN 34 H, Creatinine 0.86, Estim Creat Clear Calc 50.89, Est GFR (MDRD) Af Amer 84, Est GFR (MDRD) Non-Af 70, BUN/Creatinine Ratio 39.4 H, Glucose 337 H, Calcium 9.6, Total Bilirubin 0.50, AST 14 L, ALT 15, Alkaline Phosphatase 136 H, Total Protein 6.6, Albumin 1.8 L, Globulin 4.8 H, Albumin/Globulin Ratio 0.4 L, TSH 1.11 09/22/22 06:14: POC Glucose 347 H Micro: Microbiology 09/21/22 16:30 Mucosa - Nose Respiratory Panel (PCR) - Final 09/21/22 12:25 Nasal Secretion SARS-CoV-2 & FLU Antigen (Rapid) - Final Physical Exam Const Constitutional Narrative: Awake alert, not in acute distress HEENT normocephalic and head/scalp atraumatic Eyes Eyes Narrative: EOM grossly intact, anicteric Neck supple Resp Resp Narrative: Diminished at the bases but better airflow than on admission Cardio regular rate and regular rhythm GI soft to palpation, non-tender and non-distended Extremity Extremity Narrative: 1+ pitting edema in extremities Neuro moves all extremities Neuro Narrative: No overt focal deficits appreciated Psych Psych Narrative: Cooperative Assessment & Plan Assessment/Plan (1) Acute and chronic respiratory failure with hypercapnia: PLAN: Plan #acute on chronic combined hypoxic and hypercapneic respiratory failure Likely secondary to noncompliance with CPAP versus fluid overload versus acute exacerbation of underlying lung condition most likely combination Hypoxic and hypercapnic on ABG, placed on BiPAP and does seem to be improving Had been given nebs and steroids, repeat abg Does not appear to have a hx of COPD but is responding to nebs and steroids so will continue Do not see s/s of bacterial infxn so will hold changing abx this time but continue azithro course Do not see definitive infiltrate on x-ray but does have some increased congestion Will continue breathing treatments and steroids as well as Lasix, will give extra dose IV now however Will check for COVID, flu, respiratory panel Daily weights, I's and O's, incentive spirometry Will follow with Dr. Reinoso on Oct 06 as outpt Did have increased confusion which I presume to be d/t hypercapnia, seems to be improving on BiPAP, repeat ABG. Wakes up easily and is protecting airway, patient did confirm that she is full code but do not feel she needs intubated at this time, due to dependence on BiPAP and her mental status however will admit to stepdown though likely will be able to de-escalate care to PCU quickly she continues to respond well 09/22: Is improving, continue BiPAP nightly and as needed. Continue current management #Type 2 diabetes mellitus Holding home glimepiride Sliding scale insulin and glucose checks 10: Does not have Byetta on formulary, will start long-acting #Paroxysmal atrial fibrillation Continue Eliquis 5 mg twice daily Continue carvedilol #Hypothyroidism Continue Synthroid TSH within normal limits #DVT ppx: Home Jennifer Ashley MD Charges/Coding Visit Charges Inpatient E&M: 78479 Subs Hosp L2
--- NOTE | 2022-09-22 14:35 | CASEMGMT ---
LYNN spoke with patient and her sister, Indira. Indira told SW patient's cpap machine is very old and there is no way to hook it up to O2. Patient was scheduled to get a new sleep study so she could update her machine on Sep 09, but she was in the hospital so it had to be canceled. Patient's cpap machine is here now at [facility]. LYNN spoke with RN and fire extinguisher charger wondering if patient could be placed on her cpap when she naps or tonight to see if she does okay with cpap and no O2. They will try this and pass this along to next shift. Shelia Fox BALANCING MACHINE SET UP WORKER DESEAN
[2022-09-22] MEDS: Insulin Lispro 100 UNIT/ML INSULN.PEN 20 UNIT SC (17:55)
[2022-09-22 20:51] LABS: Bedside Glucose 453 mg/dL (74-106)
[2022-09-22 20:51] LABS: Bedside Glucose 469 mg/dL (74-106)
[2022-09-22] MEDS: Pramipexole Di-HCl 0.25 MG Tablet PO (22:12)
[2022-09-22] MEDS: amLODIPine 5 MG Tablet PO (22:12)
[2022-09-22] MEDS: Insulin Glargine-YFGN 100 UNIT/ML Pen SC (22:15)
[2022-09-23] VITALS (14 sets, daily range): BP systolic 122–143; BP diastolic 56–69; PULSE 65–81; RESP 12–24; TEMP 36.5–37.3; O2SAT 93–98
[2022-09-23] MEDS: Insulin Lispro 100 UNIT/ML INSULN.PEN SC ×4 (01:29→17:44)
[2022-09-23 05:56] LABS: Bedside Glucose 353 mg/dL (74-106)
[2022-09-23 05:56] LABS: Bedside Glucose 450 mg/dL (74-106)
[2022-09-23] MEDS: Menthol/Lanolin/Calamine/Znox 113 GM Tube 1 APPLIC TOPICAL ×3 (06:16→21:02)
[2022-09-23] MEDS: Levothyroxine 50 MCG Tablet PO (06:17)
[2022-09-23] MEDS: Ursodiol 250 MG Tablet 500 MG PO ×3 (06:17→21:13)
[2022-09-23 06:55] LABS: Bedside Glucose 289 mg/dL (74-106)
[2022-09-23 07:14] LABS: Absolute Lymphocyte Count 0.62 X10^3/uL (0.83-4.51); Absolute Neutrophil Count 7.3 X10^3/uL (2.0-7.7); Hematocrit 34.6 % (37-47); Hemoglobin 10.7 g/dL (12.0-15.0); Lymphocyte # 0.62 X10^3/ul (0.83-4.51); Lymphocyte % 7.4 % (19-41); Mean Corp Hgb Conc 30.9 g/dL (32-36); Mean Corpuscular Hgb 28.9 pg (27.0-32.0); Mean Corpuscular Volume 93.5 fL (81-99); Mean Platelet Vol. 10.5 fl (6.2-12.0); Monocyte% 4.8 % (0-10); NRBC Flagged by Analyzer 0 % (0-5); Neutrophil # 7.26 X10^3/uL (2.7-7.7); Platelet Count 348 K/mm3 (150-450); RBC Distribution Width SD 43.1 fl (35.1-43.9); White Blood Count 8.4 K/mm3 (4.4-11.0)
[2022-09-23] MEDS: Ipratropium/Albuterol Sulfate 3 ML AMPUL.NEB INHALATION ×4 (07:33→19:21)
[2022-09-23 07:34] LABS: O2 Delivery Device Cannula
[2022-09-23 07:37] LABS: Anion Gap 1 (5-15); BUN 50 mg/dL (7-18); BUN/Creat Ratio 50.8 RATIO (10-20); Calcium,Total 9.9 mg/dL (8.5-10.1); Chloride 92 mmol/L (98-107); Creatinine, Serum 0.98 mg/dL (0.55-1.02); EST Glomerular Filtration Rate 60 mL/min (>60); Est Glom Filt Rate - Afr Amer 72 mL/min (>60); Estimated Creatinine Clearance 44.66 ml/min; Glucose 298 mg/dL (74-106); Potassium 4.3 mmol/L (3.5-5.1); Sodium Level 133 mmol/L (136-145)
--- NOTE | 2022-09-23 08:03 | CPS ---
Pt was placed on her home Bipap unit per nurse instruction in order to see if her saturation stays in acceptable range. Nurse aware of placement at this time.
[2022-09-23] MEDS: guaiFENesin 1,200 MG Tablet 1200 MG PO ×2 (08:34→21:12)
[2022-09-23] MEDS: Lisinopril 10 MG Tablet PO (08:34)
[2022-09-23] MEDS: Azithromycin 250 MG Tablet 500 MG PO (08:34)
[2022-09-23] MEDS: Carvedilol 6.25 MG Tablet 12.5 MG PO ×2 (08:35→21:10)
[2022-09-23] MEDS: predniSONE 20 MG Tablet 40 MG PO (08:35)
[2022-09-23] MEDS: ARIPiprazole 2 MG Tablet 1 MG PO (08:35)
[2022-09-23] MEDS: Furosemide 40 MG Tablet PO (08:36)
[2022-09-23] MEDS: Aspirin 81 MG TAB.CHEW PO (08:36)
[2022-09-23] MEDS: Pantoprazole Sodium 20 MG Tablet PO (08:36)
[2022-09-23] MEDS: APIXABAN 5 MG TABLET PO ×2 (08:36→21:11)
[2022-09-23] MEDS: Tamsulosin HCl 0.4 MG Capsule PO (08:36)
[2022-09-23] MEDS: amLODIPine 5 MG Tablet PO (08:36)
[2022-09-23] MEDS: buPROPion (XL) 150 MG TABLET.XL PO (08:36)
[2022-09-23] MEDS: Allopurinol 300 MG Tablet PO (08:36)
[2022-09-23 08:40] LABS: Bedside Glucose 486 mg/dL (74-106)
[2022-09-23 08:40] LABS: Bedside Glucose > 500 mg/dL (74-106)
--- NOTE | 2022-09-23 11:05 | CPS ---
1025AM Pt is on her own CPAP unit. Saturation is 88-89% upon entering room. 3 lpm O2 was bleed into pts unit. Saturationto 94%. career services manager and pt's nurse aware of oxygen bleed in.
[2022-09-23] MEDS: Insulin Glargine-YFGN 100 UNIT/ML Pen SC (12:04)
[2022-09-23 14:05] LABS: Bedside Glucose 380 mg/dL (74-106)
--- NOTE | 2022-09-23 14:25 | PCM.PN.HOSP ---
Subjective Subjective Feeling better this AM, breathing improving. No CP, no other complaints Objective Data Objective Data Vital Signs: Vital Signs Temp Pulse Resp BP Pulse Ox O2 Del Method O2 Flow Rate 97.7 F L 65 16 143/69 H 96 Nasal Cannula 2 09/23/22 08:25 09/23/22 10:51 09/23/22 10:51 09/23/22 08:25 09/23/22 08:25 09/23/22 08:43 09/23/22 08:43 FiO2 09/23/22 03:44 Oxygen Flow Rate (L/min) 2 Oxygen Delivery Method Nasal Cannula Weight: 146.9 kg Body Mass Index (BMI) 58.1 Intake & Output: Intake and Output for Last 24 Hours 09/21/22 09/22/22 09/23/22 23:59 23:59 23:59 Intake Total 710 / 710 Output Total 1950 / 1950 550 / 550 Balance -1240 / -1240 -550 / -550 Lab / Micro Data Result Diagrams: 09/23/22 07:00 09/23/22 07:00 Labs: Laboratory Results - last 24 hr 09/22/22 12:21: POC Glucose 469 H* 09/22/22 16:08: POC Glucose 453 H* 09/22/22 22:14: POC Glucose > 500 H* 09/22/22 22:17: POC Glucose 486 H* 09/23/22 00:52: POC Glucose 450 H 09/23/22 03:09: POC Glucose 353 H 09/23/22 06:19: POC Glucose 289 H 09/23/22 07:00: WBC 8.4, RBC 3.70 L, Hgb 10.7 L, Hct 34.6 L, MCV 93.5, MCH 28.9, MCHC 30.9 L, RDW Std Deviation 43.1, RDW Coeff of Tree 13.0, Plt Count 348, MPV 10.5, Immature Gran % (Auto) 0.800, Neut % (Auto) 87.0 H, Lymph % (Auto) 7.4 L, [place] % (Auto) 4.8, Eos % (Auto) 0.0, Baso % (Auto) 0.0, Absolute Neuts (auto) 7.3, Absolute Lymphs (auto) 0.62 L, Nucleated RBC % 0 09/23/22 07:00: Sodium 133 L, Potassium 4.3, Chloride 92 L, Carbon Dioxide 40.0 H, Anion Gap 1 L, BUN 50 H, Creatinine 0.98, Estim Creat Clear Calc 44.66, Est GFR (MDRD) Af Amer 72, Est GFR (MDRD) Non-Af 60, BUN/Creatinine Ratio 50.8 H, Glucose 298 H, Calcium 9.9 09/23/22 12:01: POC Glucose 380 H Micro: Microbiology 09/21/22 10:10 Blood Culture (Wb) - Anticubital Right Blood Culture - Preliminary No growth in 48 hours. 09/21/22 10:00 Blood Culture (Wb) - Arm Left Blood Culture - Preliminary No growth in 48 hours. 09/21/22 16:30 Mucosa - Nose Respiratory Panel (PCR) - Final 09/21/22 12:25 Nasal Secretion SARS-CoV-2 & FLU Antigen (Rapid) - Final ABG Data ABG results: ABG 09/21/22 10:22 O2 Delivery Device Cannula Physical Exam Const Constitutional Narrative: Awake alert, not in acute distress HEENT normocephalic and head/scalp atraumatic Eyes Eyes Narrative: EOM grossly intact, anicteric Neck supple Resp Resp Narrative: improving airflow Cardio regular rate and regular rhythm GI soft to palpation, non-tender and non-distended Extremity Extremity Narrative: 1+ pitting edema in extremities Neuro moves all extremities Neuro Narrative: No overt focal deficits appreciated Psych Psych Narrative: Cooperative Assessment & Plan Assessment/Plan (1) Acute and chronic respiratory failure with hypercapnia: PLAN: Plan #acute on chronic combined hypoxic and hypercapneic respiratory failure Likely secondary to noncompliance with CPAP versus fluid overload versus acute exacerbation of underlying lung condition most likely combination Hypoxic and hypercapnic on ABG, placed on BiPAP and does seem to be improving Had been given nebs and steroids, repeat abg Does not appear to have a hx of COPD but is responding to nebs and steroids so will continue Do not see s/s of bacterial infxn so will hold changing abx this time but continue azithro course Do not see definitive infiltrate on x-ray but does have some increased congestion Will continue breathing treatments and steroids as well as Lasix, will give extra dose IV now however Will check for COVID, flu, respiratory panel Daily weights, I's and O's, incentive spirometry Will follow with Dr. Reinoso on Oct 06 as outpt Did have increased confusion which I presume to be d/t hypercapnia, seems to be improving on BiPAP, repeat ABG. Wakes up easily and is protecting airway, patient did confirm that she is full code but do not feel she needs intubated at this time, due to dependence on BiPAP and her mental status however will admit to stepdown though likely will be able to de-escalate care to PCU quickly she continues to respond well 09/22: Is improving, continue BiPAP nightly and as needed. Continue current management 09/23: Stable from a respiratory standpoint but do not presently have a safe discharge, discussed options- will have ABG this evening then attempt home cpap with O2 and AM ABG to assess for PO2 and PCO2 to assess levels and safety of d/c back to SNF with cpap +O2 #Type 2 diabetes mellitus Holding home glimepiride Sliding scale insulin and glucose checks 09/22: Does not have Byetta on formulary, will start long-acting 09/23: will adjust further #Paroxysmal atrial fibrillation Continue Eliquis 5 mg twice daily Continue carvedilol #Hypothyroidism Continue Synthroid TSH within normal limits #DVT ppx: Home Ludaquis Nataly Ashley MD Charges/Coding Visit Charges Inpatient E&M: 11254 Subs Hosp L1
[2022-09-23] MEDS: Insulin Lispro 100 UNIT/ML INSULN.PEN 15 UNIT SC (21:02)
[2022-09-23] MEDS: Insulin Glargine-YFGN 100 UNIT/ML Pen 8 UNIT SC (21:09)
[2022-09-23] MEDS: Pramipexole Di-HCl 0.25 MG Tablet PO (21:13)
--- NOTE | 2022-09-23 22:08 | CPS ---
Pt on home Cpap machine with a 3L bleed in. ABG will be obtained at 10:15pm
[2022-09-23 22:30] LABS: Allen Test Positive; Base Excess 14 mmol/L (-2 to +2); Bicarbonate 38.6 mmol/L (22-26); Blood Gas Specimen Type ART; O2 Delivery Device CPAP; PO2 66 mmHG (75-100); SITE R Radial; SO2 92 % (95-99); Total Carbon Dioxide 41 mmol/L; pCO2 60.4 mmHg (35-45); pH 7.41 (7.35-7.45)
[2022-09-24] VITALS (8 sets, daily range): BP systolic 107–144; BP diastolic 55–75; PULSE 57–77; RESP 16–18; TEMP 36.4–36.8; O2SAT 93–98
[2022-09-24] MEDS: Insulin Lispro 100 UNIT/ML INSULN.PEN SC ×5 (00:10→16:15)
[2022-09-24 01:21] LABS: Bedside Glucose 460 mg/dL (74-106)
[2022-09-24 01:21] LABS: Bedside Glucose 430 mg/dL (74-106)
[2022-09-24] MEDS: Menthol/Lanolin/Calamine/Znox 113 GM Tube 1 APPLIC TOPICAL ×2 (05:14→13:27)
[2022-09-24] MEDS: Levothyroxine 50 MCG Tablet PO (05:17)
[2022-09-24] MEDS: Ursodiol 250 MG Tablet 500 MG PO ×2 (05:17→14:22)
[2022-09-24 05:50] LABS: Allen Test Positive; Base Excess 16 mmol/L (-2 to +2); Bicarbonate 40.8 mmol/L (22-26); Blood Gas Specimen Type ART; O2 Delivery Device Cannula; PO2 91 mmHG (75-100); SITE R Radial; SO2 97 % (95-99); Total Carbon Dioxide 43 mmol/L; pCO2 65.1 mmHg (35-45); pH 7.41 (7.35-7.45)
[2022-09-24 06:51] LABS: Absolute Lymphocyte Count 0.99 X10^3/uL (0.83-4.51); Absolute Neutrophil Count 6.4 X10^3/uL (2.0-7.7); Hematocrit 34.4 % (37-47); Hemoglobin 10.8 g/dL (12.0-15.0); Lymphocyte # 0.99 X10^3/ul (0.83-4.51); Lymphocyte % 12.5 % (19-41); Mean Corp Hgb Conc 31.4 g/dL (32-36); Mean Corpuscular Hgb 29.4 pg (27.0-32.0); Mean Corpuscular Volume 93.7 fL (81-99); Mean Platelet Vol. 10.6 fl (6.2-12.0); Monocyte# 0.52 X10^3/uL; Monocyte% 6.6 % (0-10); NRBC Flagged by Analyzer 0 % (0-5); Neutrophil # 6.36 X10^3/uL (2.7-7.7); Neutrophil % 80.5 % (47-70); Platelet Count 323 K/mm3 (150-450); RBC Distribution Width CV 13.1 % (11.6-14.6); RBC Distribution Width SD 43.6 fl (35.1-43.9); Red Blood Count 3.67 M/mm3 (4.2-5.4); White Blood Count 7.9 K/mm3 (4.4-11.0)
[2022-09-24] MEDS: Ipratropium/Albuterol Sulfate 3 ML AMPUL.NEB INHALATION ×2 (07:10→10:26)
[2022-09-24 07:17] LABS: Anion Gap 2 (5-15); BUN 49 mg/dL (7-18); BUN/Creat Ratio 49.7 RATIO (10-20); Calcium,Total 9.5 mg/dL (8.5-10.1); Chloride 94 mmol/L (98-107); Creatinine, Serum 0.98 mg/dL (0.55-1.02); EST Glomerular Filtration Rate 60 mL/min (>60); Est Glom Filt Rate - Afr Amer 72 mL/min (>60); Estimated Creatinine Clearance 44.66 ml/min; Glucose 227 mg/dL (74-106); Potassium 4.1 mmol/L (3.5-5.1); Sodium Level 136 mmol/L (136-145)
[2022-09-24 07:20] LABS: Bedside Glucose 331 mg/dL (74-106)
[2022-09-24 07:20] LABS: Bedside Glucose 221 mg/dL (74-106)
[2022-09-24 07:35] LABS: Bedside Glucose > 500 mg/dL (74-106)
[2022-09-24 07:35] LABS: Bedside Glucose > 500 mg/dL (74-106)
[2022-09-24] MEDS: guaiFENesin 1,200 MG Tablet 1200 MG PO (08:35)
[2022-09-24] MEDS: predniSONE 20 MG Tablet 40 MG PO (08:35)
[2022-09-24] MEDS: Allopurinol 300 MG Tablet PO (08:36)
[2022-09-24] MEDS: Azithromycin 250 MG Tablet 500 MG PO (08:36)
[2022-09-24] MEDS: Lisinopril 10 MG Tablet PO (08:36)
[2022-09-24] MEDS: Carvedilol 6.25 MG Tablet 12.5 MG PO (08:36)
[2022-09-24] MEDS: Tamsulosin HCl 0.4 MG Capsule PO (08:36)
[2022-09-24] MEDS: Pantoprazole Sodium 20 MG Tablet PO (08:36)
[2022-09-24] MEDS: ARIPiprazole 2 MG Tablet 1 MG PO (08:36)
[2022-09-24] MEDS: APIXABAN 5 MG TABLET PO (08:36)
[2022-09-24] MEDS: Furosemide 40 MG Tablet PO (08:37)
[2022-09-24] MEDS: buPROPion (XL) 150 MG TABLET.XL PO (08:37)
[2022-09-24] MEDS: amLODIPine 5 MG Tablet PO (08:37)
[2022-09-24] MEDS: Insulin Glargine-YFGN 100 UNIT/ML Pen 8 UNIT SC (08:37)
[2022-09-24] MEDS: Aspirin 81 MG TAB.CHEW PO (08:37)
--- NOTE | 2022-09-24 10:56 | CASEMGMT ---
Patient is ready for discharge back to [place] today. Patient has a connector that [facility] respiratory provided that allows patient to have O2 connected to her cpap machine. LYNN sent Janiya at [facility] a message via [employer] letting her know this information. SW also spoke with patient letting her know about discharge. Await orders. Plan: d/c back to [place] under skilled level of care. Shelia Fox ICT PROGRAMMER DESEAN
[2022-09-24 12:06] LABS: Bedside Glucose 295 mg/dL (74-106)
--- NOTE | 2022-09-24 14:39 | TREXTCAR_ITS ---
Diet Diet Order/Speech Therapy: 09/21/22 16:22 Diet: Cardiac: Calorie-Controlled Food consistency:: Regular Liquid Consistency:: Regular/Thin Dietary Modifications:: Consistent Carbohydrate Diet Comments: Can start once able to take breaks from bipap How many daily calories?: 1999 calorie Routine Orders/Code Status Suppository Frequency: Daily PRN O2 Liters per Minute: 2 O2 Frequency: Continuous Keep PO Greater than or Equal to (%): 92 Code Status: Full Code Therapies Physical Therapy: Eval and Treat Occupational Therapy: Eval and Treat Problem/Diagnosis (1) Acute and chronic respiratory failure with hypercapnia: Status: Chronic Code(s): J96.22 - Acute and chronic respiratory failure with hypercapnia Plan #acute on 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 Richter is a 67-year-old female with a history of obstructive sleep apnea, chronic hypoxic respiratory failure on 2 L of home O2 who presented 09/21/2022 from long-term facility due to confusion and hypoxia as well as shortness of breath. In the ED her PCO2 was 99.3 and she had a low PCO2 and was placed on BiPAP and hospitalist consulted for admission. She was very tired but was improving by the time of evaluation. She did report that she had not been able to use her CPAP for her NEREYDA at her retirement due to not having an attachment for her O2. She was brought in and placed on nebs and steroids. Did not appear to have a bacterial infection but had been given azithromycin and due to unclear underlying cause this had been continued but no additional antibiotics were added. Received an extra dose of Lasix due to increased congestion on chest x- ray. Respiratory panel and flu negative. She improved with using BiPAP and was stable for discharge. Suspect part of her worsening mental status was due to lack of CPAP/BiPAP available at bedtime. Was able to obtain attachments so O2 could be used through her CPAP. ABG obtained before using CPAP in the evening and then in the morning with good p.o. till in the morning, PCO2 minimally increased and she had no worsening in her mental status. Discussed extensively following up with her toaster element repairer and she is agreeable. DISCHARGE INSTRUCTIONS PLEASE READ - It is imperative that you use your CPAP with oxygen attachment nightly - It will be important for you to follow-up with your lung doctor upon discharge, you indicated that you have an appointment on October [address] Zuleta - you will take 2 more days of prednisone and 1 more day of azithromycin - Would recommend albuterol nebulizers as needed and duo nebs 3 times a day which can be de-escalated or discontinued once your breathing continues to improve -Please call your primary care provider's office upon discharge to schedule a hospital follow up within 1 week. -For any concerning signs or symptoms please call 911 or proceed to the nearest emergency department Allergies/Procedures Done in Hospital Allergies nabumetone [From Relafen] Allergy (Verified 09/05/22 13:51) Itching nitrofurantoin [From Macrobid] Allergy (Verified 09/05/22 16:12) Rash Type of Care/Length of Stay Estimated LOS: Convalescent Care Less Than 30 days Type of Care Needed: Skilled Rehab Potential: Fair Prognosis: Fair Additional Orders/Day of Discharge Day of Discharge: 09/24/22 Dietary and Speech Recommendations Dietitian Recommendations/Changes: Continue 2000 calorie/consistent carbohydrate; cardiac diet. No ONS at this time. Diet education as pt agreeable; need supportive weight loss with out-patient dietitian. Discharge Plan Admission Admit Date/Time: 09/21/22 11:54 Primary Reason for Your Visit: Shortness of breath and confusion Attending Provider: Nataly Ashley Primary Care Provider: Tracy Dillard Instructions Patient Instructions: CPAP Additional Instructions / Restrictions: DISCHARGE INSTRUCTIONS PLEASE READ - It is imperative that you use your CPAP with oxygen attachment nightly - It will be important for you to follow-up with your lung doctor upon discharge, you indicated that you have an appointment on October [address] Zuleta - you will take 2 more days of prednisone and 1 more day of azithromycin - Would recommend albuterol nebulizers as needed and duo nebs 3 times a day which can be de-escalated or discontinued once your breathing continues to improve -Please call your primary care provider's office upon discharge to schedule a hospital follow up within 1 week. -For any concerning signs or symptoms please call 911 or proceed to the nearest emergency department Discharge Orders/Prescriptions Prescriptions: New ipratropium-albuterol 0.5 mg-3 mg(2.5 mg base)/3 mL Solution For Nebulization 3 ml inhalation Q8H Qty: 90 0RF albuterol sulfate 2.5 mg /3 mL (0.083 %) Solution For Nebulization 2.5 mg inhalation Q2H PRN PRN (Reason: SHORTNESS OF BREATH ) Qty: 75 0RF azithromycin 250 mg Tablet 500 mg PO Q24 1 Days Qty: 2 0RF prednisone 20 mg Tablet 40 mg PO DAILY 2 Days Qty: 4 0RF Continued trazodone 50 MG tablet 50 mg PO DAILY glimepiride 2 MG tablet 2 mg PO DAILY levothyroxine 50 MCG tablet 50 mcg PO DAILY ursodiol 250 MG tablet 500 mg PO TID Label Comments: LIVER aspirin 81 MG tablet,chewable 81 mg PO DAILY@0800 loratadine [Allergy Relief (loratadine)] 10 MG tablet 10 mg PO DAILY PRN PRN (Reason: allergies) bupropion HCl 150 MG tablet extended release 24 hr 150 mg PO DAILY aripiprazole 2 MG tablet 0.5 mg PO DAILY Ropinirole Hcl [Requip] 0.25 MG tablet 0.5 mg PO QHS Bydureon 2 MG/0.65 ML pen injector 2 mg SQ QWEEK docusate sodium [DOK] 100 MG capsule 100 mg PO BID PRN PRN (Reason: Constipation) Qty: 10 0RF tamsulosin [Flomax] 0.4 mg Capsule 0.4 mg PO DAILY omeprazole 20 mg Capsule,Delayed Release(Dr/Ec) 20 mg PO DAILY allopurinol 300 mg tablet 300 mg PO DAILY Label Comments: TAKE 1 TABLET BY MOUTH EVERY DAY Eliquis 5 mg Tablet 5 mg PO BID Qty: 0 0RF acetaminophen [Tylenol] 325 mg Tablet 650 mg PO Q4H PRN PRN (Reason: Fever, pain 1-06/22) Qty: 0 0RF lisinopril 10 mg Tablet 10 mg PO DAILY Qty: 0 0RF furosemide 40 mg Tablet 40 mg PO DAILY Qty: 0 0RF carvedilol 6.25 mg Tablet 12.5 mg PO BID Qty: 60 0RF amlodipine-benazepril 2.5-10 mg capsule 2.5 - 10 cap PO DAILY Discontinued Mucus Relief ER 1,200 mg Tablet Extended Release 12hr 1,200 mg PO BID Qty: 0 0RF Referrals / Follow Up: Tracy Dillard MD [Primary Care Provider] - Within 1 Week Jose David Zuleta MD [Med Staff - Active Staff] - See Referral Note (Please follow-up as previously scheduled) Disposition Disposition (needs filled in before D/C Order can be placed): [facility] Facility
--- NOTE | 2022-09-24 15:19 | DS.PCM_ITS ---
Providers Date of Admission: 09/21/22 Date of Discharge: 09/24/22 Primary Care Physician: Dr. Tracy Dillard MD Reason For Visit: ACUTE ON CHRONIC HYPOXIC AND HYPERCAPNIC RESP FAIL Diagnosis Discharge Diagnosis (1) Acute and chronic respiratory failure with hypercapnia: Status: Chronic Code(s): J96.22 - Acute and chronic respiratory failure with hypercapnia Plan #acute on chronic combined hypoxic and hypercapneic respiratory failure #Type 2 diabetes mellitus #Paroxysmal atrial fibrillation #Hypothyroidism Medications at Discharge Home Medications Ropinirole Hcl [Requip] 0.5 mg PO QHS 05/23/15 aripiprazole 2 mg tablet 0.5 mg PO DAILY 05/23/15 aspirin 81 mg chewable tablet 81 mg PO DAILY@0800 05/23/15 bupropion HCl 150 mg 24 hr tablet, extended release 150 mg PO DAILY 05/23/15 glimepiride 2 mg tablet 2 mg PO DAILY 05/23/15 levothyroxine 50 mcg tablet 50 mcg PO DAILY 05/23/15 loratadine 10 mg tablet (Allergy Relief (loratadine)) 10 mg PO DAILY PRN PRN allergies 05/23/15 trazodone 50 mg tablet 50 mg PO DAILY 05/23/15 ursodiol 250 mg tablet 500 mg PO TID 05/23/15 exenatide microspheres 2 mg/0.65 mL subcutaneous pen injector (Bydureon) 2 mg SQ QWEEK Check with primary doctor 06/30/17 docusate sodium 100 mg capsule (DOK) 100 mg PO BID PRN PRN Constipation #10 caps 07/06/17 allopurinol 300 mg tablet 300 mg PO DAILY 09/05/22 omeprazole 20 mg capsule,delayed release 20 mg PO DAILY 09/05/22 tamsulosin 0.4 mg capsule (Flomax) 0.4 mg PO DAILY 09/05/22 acetaminophen 325 mg tablet (Tylenol) 650 mg PO Q4H PRN PRN Fever, pain -06/22 #0 tabs 09/09/22 apixaban 5 mg tablet (Eliquis) 5 mg PO BID #0 tabs 09/09/22 lisinopril 10 mg tablet 10 mg PO DAILY #0 tabs 09/09/22 carvedilol 6.25 mg tablet 12.5 mg PO BID #60 tabs 09/10/22 furosemide 40 mg tablet 40 mg PO DAILY #0 tabs 09/10/22 amlodipine 2.5 mg-benazepril 10 mg capsule 2.5 - 10 cap PO DAILY HEART 09/21/22 albuterol sulfate 2.5 mg/3 mL (0.083 %) solution for nebulization 2.5 mg (3 mL) inhalation Q2H PRN PRN SHORTNESS OF BREATH #75 mL 09/24/22 azithromycin 250 mg tablet 500 mg PO Q24 1 day #2 tabs 09/24/22 ipratropium 0.5 mg-albuterol 3 mg (2.5 mg base)/3 mL nebulization soln 3 ml inhalation Q8H #90 mL 09/24/22 prednisone 20 mg tablet 40 mg PO DAILY 2 days #4 tabs 09/24/22 Hospital Course Summary of Care Provided Minutes Spent on Discharge: 35 Hospital Course: Ms. Richter is a 67-year-old female with a history of obstructive sleep apnea, chronic hypoxic respiratory failure on 2 L of home O2 who [facility] confusion and hypoxia as well as shortness of breath. In the ED her PCO2 was 99.3 and she had a low PCO2 and was placed on BiPAP and hospitalist consulted for admission. She was very tired but was improving by the time of evaluation. She did report that she had not been able to use her CPAP for her [place] at her [place] [facility] due to not having an attachment for her O2. She was brought in and placed on nebs and steroids. Did not appear to have a bacterial infection but had been given azithromycin and due to unclear underlying cause this had been continued but no additional antibiotics were added. Received an extra dose of Lasix due to increased congestion on chest x-ray. Respiratory panel and flu negative. She improved with using BiPAP and was stable for discharge. Suspect part of her worsening mental status was due to lack of CPAP/BiPAP available at bedtime. Was able to obtain attachments so O2 could be used through her CPAP. ABG obtained before using CPAP in the evening and then in the morning with good p.o. till in the morning, PCO2 minimally increased and she had no worsening in her mental status. Discussed extensively following up with her statistical clerk and she is agreeable. DISCHARGE INSTRUCTIONS PLEASE READ - It is imperative that you use your CPAP with oxygen attachment nightly - It will be important for you to follow-up with your lung doctor upon discharge, you indicated that you have an appointment on October [address] Zuleta - you will take 2 more days of prednisone and 1 more day of azithromycin - Would recommend albuterol nebulizers as needed and duo nebs 3 times a day which can be de-escalated or discontinued once your breathing continues to improve -Please call your primary care provider's office upon discharge to schedule a hospital follow up within 1 week. -For any concerning signs or symptoms please call 911 or proceed to the nearest emergency department Physical Exam Const Constitutional Narrative: Awake alert, not in acute distress HEENT normocephalic and head/scalp atraumatic Eyes Eyes Narrative: EOM grossly intact, anicteric Neck supple Resp Resp Narrative: improving airflow Cardio regular rate and regular rhythm GI soft to palpation, non-tender and non-distended Extremity Extremity Narrative: 1+ pitting edema in extremities Neuro moves all extremities Neuro Narrative: No overt focal deficits appreciated Psych Psych Narrative: Cooperative Weight / BMI Weight Weight: 148.7 kg Body Mass Index (BMI) 58.1 ABG / Lab / Microbiology Data Result Diagrams: 09/24/22 06:28 09/24/22 06:28 Laboratory: Laboratory Results - last 24 hr 09/23/22 17:19: POC Glucose 460 H* 09/23/22 20:20: POC Glucose > 500 H* 09/23/22 20:21: POC Glucose > 500 H* 09/23/22 23:53: POC Glucose 430 H 09/24/22 01:33: POC Glucose 331 H 09/24/22 06:28: WBC 7.9, RBC 3.67 L, Hgb 10.8 L, Hct 34.4 L, MCV 93.7, MCH 29.4, MCHC 31.4 L, RDW Std Deviation 43.6, RDW Coeff of Tree 13.1, Plt Count 323, MPV 10.6, Immature Gran % (Auto) 0.400, Neut % (Auto) 80.5 H, Lymph % (Auto) 12.5 L, [place] % (Auto) 6.6, Eos % (Auto) 0.0, Baso % (Auto) 0.0, Absolute Neuts (auto) 6.4, Absolute Lymphs (auto) 0.99, Nucleated RBC % 0 09/24/22 06:28: Sodium 136, Potassium 4.1, Chloride 94 L, Carbon Dioxide 40.0 H, Anion Gap 2 L, BUN 49 H, Creatinine 0.98, Estim Creat Clear Calc 44.66, Est GFR (MDRD) Af Amer 72, Est GFR (MDRD) Non-Af 60, BUN/Creatinine Ratio 49.7 H, Glucose 227 H, Calcium 9.5 09/24/22 06:57: POC Glucose 221 H 09/24/22 11:21: POC Glucose 295 H Microbiology: Microbiology 09/24/22 13:30 Nasal Secretion SARS-CoV-2 Antigen (Rapid) - Final 09/23/22 08:45 Sputum, Expectorated/Coughed Gram Stain - Final 09/23/22 08:45 Sputum, Expectorated/Coughed Respiratory Culture - Preliminary Appears to be normal respiratory erin. Further studies to follow. 09/21/22 10:10 Blood Culture (Wb) - Anticubital Right Blood Culture - Preliminary No growth in 48 hours. 09/21/22 10:00 Blood Culture (Wb) - Arm Left Blood Culture - Preliminary No growth in 48 hours. 09/21/22 16:30 Mucosa - Nose Respiratory Panel (PCR) - Final 09/21/22 12:25 Nasal Secretion SARS-CoV-2 & FLU Antigen (Rapid) - Final ABG: ABG 09/23/22 09/24/22 22:25 05:44 Specimen Type ART ART Sample Site R Radial R Radial pH 7.41 7.41 Bicarbonate Actual 38.6 H 40.8 H Total CO2 41 43 Base Excess 14 H 16 H O2 Saturation 92 L 97 ABG pCO2 60.4 H 65.1 H ABG pO2 66 L 91 [place] Test Positive Positive O2 Delivery Device CPAP Cannula Liter Flow 3.0 2.0 Clinical Comments D/C Instructions Discharge Diet: - (Diabetic diet) Meaningful Use Info Meaningful Use Diagnoses (Choose all that apply): None applicable Discharge Plan Admission Admit Date/Time: 09/21/22 11:54 Primary Reason for Your Visit: Shortness of breath and confusion Attending Provider: Nataly Ashley Primary Care Provider: Tracy Dillard Instructions Patient Instructions: CPAP Additional Instructions / Restrictions: DISCHARGE INSTRUCTIONS PLEASE READ - It is imperative that you use your CPAP with oxygen attachment nightly - It will be important for you to follow-up with your lung doctor upon discharge, you indicated that you have an appointment on October [address] Zuleta - you will take 2 more days of prednisone and 1 more day of azithromycin - Would recommend albuterol nebulizers as needed and duo nebs 3 times a day which can be de-escalated or discontinued once your breathing continues to improve -Please call your primary care provider's office upon discharge to schedule a hospital follow up within 1 week. -For any concerning signs or symptoms please call 911 or proceed to the nearest emergency department Discharge Orders/Prescriptions Prescriptions: New ipratropium-albuterol 0.5 mg-3 mg(2.5 mg base)/3 mL Solution For Nebulization 3 ml inhalation Q8H Qty: 90 0RF albuterol sulfate 2.5 mg /3 mL (0.083 %) Solution For Nebulization 2.5 mg inhalation Q2H PRN PRN (Reason: SHORTNESS OF BREATH ) Qty: 75 0RF azithromycin 250 mg Tablet 500 mg PO Q24 1 Days Qty: 2 0RF prednisone 20 mg Tablet 40 mg PO DAILY 2 Days Qty: 4 0RF Continued trazodone 50 MG tablet 50 mg PO DAILY glimepiride 2 MG tablet 2 mg PO DAILY levothyroxine 50 MCG tablet 50 mcg PO DAILY ursodiol 250 MG tablet 500 mg PO TID Label Comments: LIVER aspirin 81 MG tablet,chewable 81 mg PO DAILY@0800 loratadine [Allergy Relief (loratadine)] 10 MG tablet 10 mg PO DAILY PRN PRN (Reason: allergies) bupropion HCl 150 MG tablet extended release 24 hr 150 mg PO DAILY aripiprazole 2 MG tablet 0.5 mg PO DAILY Ropinirole Hcl [Requip] 0.25 MG tablet 0.5 mg PO QHS Bydureon 2 MG/0.65 ML pen injector 2 mg SQ QWEEK docusate sodium [DOK] 100 MG capsule 100 mg PO BID PRN PRN (Reason: Constipation) Qty: 10 0RF tamsulosin [Flomax] 0.4 mg Capsule 0.4 mg PO DAILY omeprazole 20 mg Capsule,Delayed Release(Dr/Ec) 20 mg PO DAILY allopurinol 300 mg tablet 300 mg PO DAILY Label Comments: TAKE 1 TABLET BY MOUTH EVERY DAY Eliquis 5 mg Tablet 5 mg PO BID Qty: 0 0RF acetaminophen [Tylenol] 325 mg Tablet 650 mg PO Q4H PRN PRN (Reason: Fever, pain -06/22) Qty: 0 0RF lisinopril 10 mg Tablet 10 mg PO DAILY Qty: 0 0RF furosemide 40 mg Tablet 40 mg PO DAILY Qty: 0 0RF carvedilol 6.25 mg Tablet 12.5 mg PO BID Qty: 60 0RF amlodipine-benazepril 2.5-10 mg capsule 2.5 - 10 cap PO DAILY Discontinued Mucus Relief ER 1,200 mg Tablet Extended Release 12hr 1,200 mg PO BID Qty: 0 0RF Referrals / Follow Up: Tracy Dillard MD [Primary Care Provider] - Within 1 Week Jose David Zuleta MD [Med Staff - Active Staff] - See Referral Note (Please follow-up as previously scheduled) Disposition Disposition (needs filled in before D/C Order can be placed): [facility] Charges/Coding Visit Charges Inpatient E&M: 25204 Disch Hosp >30min
--- NOTE | 2022-09-24 15:21 | CASEMGMT ---
Addendum entered by Shelia Fox 09/24/22 15:51: SW called [facility] and they are not able to do a 430 brass pickler. They can pick patient up at 530. SW notified RN, office secretary, patient, and [place] at [facility] via [facility]. Shelia ANTON Original Note: Patient is ready for discharge. SW sent orders and COVID test to [facility] via [facility]. SW requested a 430 brass pickler from [facility] via the [facility] portal. Awaiting their acceptance. Plan: d/c back to [facility] under skilled level of care. [facility] will transport via wheelchair van. Shelia ANTON
[2022-09-24 16:30] LABS: Bedside Glucose 409 mg/dL (74-106)
--- NOTE | 2022-09-24 16:54 | NURSING ---
Natacha from [facility] called our p/u time was 1730 and has been pushed back to 1900/193
== END 2022-09-24 19:08 | disposition skilled nursing facility (03) | DRG 189 ==
LOC: ED 14:18 → PCU 14:22
PROVIDERS: Admitting Provider Internal Medicine; Emergency Provider Emergency Medicine; PCP Family Medicine; Visit Provider Internal Medicine
DX: J96.22 Acute and chronic respiratory failure with hypercapnia (principal); Z68.44 Body mass index [BMI] 60.0-69.9, adult; Z99.81 Dependence on supplemental oxygen; J96.21 Acute and chronic respiratory failure with hypoxia; E66.01 Morbid (severe) obesity due to excess calories; E11.65 Type 2 diabetes mellitus with hyperglycemia; I48.0 Paroxysmal atrial fibrillation; E03.9 Hypothyroidism, unspecified; I10 Essential (primary) hypertension; J98.01 Acute bronchospasm; G47.33 Obstructive sleep apnea (adult) (pediatric); Z91.198 Patient's noncompliance with other medical treatment and regimen for other reason; Z79.01 Long term (current) use of anticoagulants; Z79.82 Long term (current) use of aspirin; Z79.84 Long term (current) use of oral hypoglycemic drugs; Z79.899 Other long term (current) drug therapy
CPT/HCPCS: 36415; 36600; 71045; 80048; 80053; 82803; 82962; 83605; 84443; 85025; 85027; 87040; 87070; 87205; 87428; 87633; 87811; 93005; 94002; 94003; 94640; 94762; 97110; 97116; 97163; 97166; 97530; 97535; 99252; 99285; A4216; G0463; J1940

== ENCOUNTER → 2022-10-23 | Outpatient (REF) | payer MEDICARE, OTHER, SELFPAY ==
[2022-10-23 07:58] LABS: Absolute Lymphocyte Count 1.14 X10^3/uL (0.83-4.51); Absolute Neutrophil Count 2.4 X10^3/uL (2.0-7.7); Basophil# 0.02 X10^3/uL; Basophil% 0.5 % (0-1); Eosinophil# 0.18 X10^3/uL; Eosinophils% 4.4 % (0-5); Hematocrit 33.9 % (37-47); Hemoglobin 10.7 g/dL (12.0-15.0); Lymphocyte # 1.14 X10^3/ul (0.83-4.51); Lymphocyte % 27.7 % (19-41); Mean Corp Hgb Conc 31.6 g/dL (32-36); Mean Corpuscular Hgb 30.9 pg (27.0-32.0); Mean Platelet Vol. 10.5 fl (6.2-12.0); Monocyte# 0.39 X10^3/uL; Monocyte% 9.5 % (0-10); NRBC Flagged by Analyzer 0 % (0-5); Neutrophil # 2.37 X10^3/uL (2.7-7.7); Neutrophil % 57.4 % (47-70); Platelet Count 237 K/mm3 (150-450); RBC Distribution Width CV 15.6 % (11.6-14.6); RBC Distribution Width SD 55.4 fl (35.1-43.9); Red Blood Count 3.46 M/mm3 (4.2-5.4); White Blood Count 4.1 K/mm3 (4.4-11.0)
[2022-10-23 08:09] LABS: Anion Gap 6 (5-15); BUN 11 mg/dL (7-18); BUN/Creat Ratio 12.5 RATIO (10-20); Calcium,Total 8.5 mg/dL (8.5-10.1); Chloride 101 mmol/L (98-107); Creatinine, Serum 0.88 mg/dL (0.55-1.02); EST Glomerular Filtration Rate 68 mL/min (>60); Est Glom Filt Rate - Afr Amer 83 mL/min (>60); Glucose 125 mg/dL (74-106); Sodium Level 143 mmol/L (136-145)
== END ==
LOC: OLS.WHLTCC 05:00
PROVIDERS: PCP Family Medicine; Visit Provider Internal Medicine
DX: R53.83 Other fatigue (principal); J96.01 Acute respiratory failure with hypoxia; B37.9 Candidiasis, unspecified; I87.323 Chronic venous hypertension (idiopathic) with inflammation of bilateral lower extremity; Z86.79 Personal history of other diseases of the circulatory system
CPT/HCPCS: 36415; 80048; 85025

== ENCOUNTER → 2022-11-23 | Outpatient (CLI) | payer MEDICARE, OTHER, SELFPAY ==
[2022-11-23 18:17] LABS: Anion Gap 7 (5-15); BUN 20 mg/dL (7-18); Calcium,Total 9.6 mg/dL (8.5-10.1); Chloride 102 mmol/L (98-107); Creatinine, Serum 0.77 mg/dL (0.55-1.02); EST Glomerular Filtration Rate 80 mL/min (>60); Est Glom Filt Rate - Afr Amer 96 mL/min (>60); Glucose 181 mg/dL (74-106); Potassium 4.1 mmol/L (3.5-5.1); Sodium Level 136 mmol/L (136-145)
== END | disposition home or self-care (01) ==
LOC: MFPLAB 14:59
PROVIDERS: PCP Family Medicine; Visit Provider Family Medicine
DX: I48.91 Unspecified atrial fibrillation (principal)
CPT/HCPCS: 36415; 80048

== ENCOUNTER → 2023-02-03 | Outpatient (CLI) | payer MEDICARE, OTHER, SELFPAY ==
[2023-02-03 18:04] LABS: International Normalized Ratio 1.4; Prothrombin Time (Protime)PT. 17.5 SECONDS (11.7-14.9)
[2023-02-03 18:06] LABS: ALB/GLOB Ratio 0.7 RATIO (0.9-2.4); AST(SGOT) 22 U/L (15-37); Alanine Aminotransfer ALT/SGPT 19 U/L (13-56); Albumin, Serum 3.2 g/dL (3.2-5.0); Alkaline Phosphatase 167 U/L (45-117); Anion Gap 8 (5-15); BUN 9 mg/dL (7-18); BUN/Creat Ratio 12.8 RATIO (10-20); Calcium,Total 9.7 mg/dL (8.5-10.1); Chloride 105 mmol/L (98-107); EST Glomerular Filtration Rate 88 mL/min (>60); Est Glom Filt Rate - Afr Amer 107 mL/min (>60); Globulin 4.4 g/dL (2.2-4.2); Glucose 163 mg/dL (74-106); Potassium 3.9 mmol/L (3.5-5.1); Protein, Total 7.6 g/dL (6.4-8.2); Sodium Level 140 mmol/L (136-145)
[2023-02-05 04:07] LABS: AFP, Tumor Marker 2.6 ng/mL (0.0-9.2)
== END | disposition home or self-care (01) ==
LOC: MTLAB 15:44
PROVIDERS: PCP Family Medicine; Referring Provider Internal Medicine Gastroenterology; Visit Provider Internal Medicine Gastroenterology
DX: K74.60 Unspecified cirrhosis of liver (principal)
CPT/HCPCS: 36415; 80053; 82105; 85610; 85730

== ENCOUNTER → 2023-02-19 | Outpatient (CLI) | payer MEDICARE, OTHER, SELFPAY ==
--- NOTE | 2023-02-19 15:39 | MRI_ITS ---
EXAM: MR Abdomen WO/W Contrast HISTORY: CIRRHOSIS TECHNIQUE: MR Abdomen WO/W Contrast COMPARISON: MR abdomen June 03, 2021. LIMITATIONS: None. FINDINGS: Nodular liver contour. No suspicious focal liver lesions. No gallstones. No pericholecystic inflammatory change. The spleen is mildly enlarged. Portosystemic collaterals are identified, predominantly perisplenic. Fatty infiltration of the pancreas. No peripancreatic inflammatory change. Multiple small renal cysts bilaterally. No hydronephrosis. No gross free fluid. MRI/MRI Abd WITH and W/O Contrast IMPRESSION: Hepatic cirrhosis with evidence of portal hypertension. No suspicious liver lesions. Electronically Signed: Quan Clayton MD at 8:02 EDT ,
== END | disposition home or self-care (01) ==
LOC: MRI 15:18
PROVIDERS: PCP Family Medicine; Referring Provider Internal Medicine Gastroenterology; Visit Provider Internal Medicine Gastroenterology
DX: K74.60 Unspecified cirrhosis of liver (principal)
CPT/HCPCS: 74183; A9575

== ENCOUNTER → 2023-04-30 | Outpatient (CLI) | payer MEDICARE, OTHER, SELFPAY ==
[2023-04-30 15:55] LABS: AST(SGOT) 20 U/L (15-37); Alanine Aminotransfer ALT/SGPT 13 U/L (13-56); Albumin, Serum 3.1 g/dL (3.2-5.0); Alkaline Phosphatase 184 U/L (45-117); Anion Gap 7 (5-15); BUN 13 mg/dL (7-18); BUN/Creat Ratio 20.8 RATIO (10-20); Bilirubin, Direct 0.32 mg/dL (0.00-0.30); Calcium,Total 9.3 mg/dL (8.5-10.1); Chloride 103 mmol/L (98-107); Cholesterol 177 mg/dL (200); Creatinine, Serum 0.62 mg/dL (0.55-1.02); EST Glomerular Filtration Rate 101 mL/min (>60); Est Glom Filt Rate - Afr Amer 123 mL/min (>60); Globulin 3.9 g/dL (2.2-4.2); Glucose 165 mg/dL (74-106); High Density Lipoprotein 51 mg/dL; Potassium 3.6 mmol/L (3.5-5.1); Sodium Level 137 mmol/L (136-145); T4 Total, Thyroxin 8.8 ug/dL (4.8-13.9); Thyroid Stim Hormone (TSH) 2.96 uIU/mL (0.358-3.74); Triglycerides 111 mg/dL; Very Low Density Lipoprotein 22 mg/dL (5-40)
== END | disposition home or self-care (01) ==
LOC: MFPLAB 13:55
PROVIDERS: PCP Family Medicine; Visit Provider Family Medicine
DX: E11.69 Type 2 diabetes mellitus with other specified complication (principal); E11.59 Type 2 diabetes mellitus with other circulatory complications; E03.9 Hypothyroidism, unspecified
CPT/HCPCS: 36415; 80048; 80061; 80076; 84436; 84443

== ENCOUNTER 2024-01-19 14:05 | Outpatient (CLI) | payer MEDICARE, OTHER, SELFPAY ==
[2024-01-19 15:12] LABS: Hematocrit 40.3 % (37-47); Mean Corp Hgb Conc 32.3 g/dL (32-36); Mean Corpuscular Volume 93.1 fL (81-99); Mean Platelet Vol. 10.5 fl (6.2-12.0); Platelet Count 238 K/mm3 (150-450); RBC Distribution Width CV 12.8 % (11.6-14.6); RBC Distribution Width SD 44.1 fl (35.1-43.9); Red Blood Count 4.33 M/mm3 (4.2-5.4)
[2024-01-19 15:44] LABS: Ferritin 44 ng/mL (8-252)
== END 2024-01-19 23:59 | disposition home or self-care (01) ==
PROVIDERS: PCP Family Medicine; Referring Provider Internal Medicine Pulmonary Disease; Visit Provider Internal Medicine Pulmonary Disease
DX: R06.02 Shortness of breath (principal)
CPT/HCPCS: 36415; 82728; 85027

== ENCOUNTER 2024-03-06 07:28 | Day surgery (SDC) | payer MEDICARE, OTHER, SELFPAY ==
--- NOTE | 2024-02-21 16:50 | RAD_ITS ---
INDICATION: Cardiac Catheterization EXAMINATION/TECHNIQUE: X-RAY - XR Chest 2 Views COMPARISON: September 21, 2022. FINDINGS: LINES/DEVICES: None. LUNGS: Small scattered pulmonary calcified granulomas. No consolidation. Minimal basilar interstitial thickening which is decreased from prior exam. Slight blunting of the costophrenic angles. No pneumothorax. MEDIASTINUM AND CARDIOVASCULAR STRUCTURES: Multiple calcified hilar lymph nodes. Cardiac size upper limits of normal. BONES AND SOFT TISSUES: Unremarkable. RAD/Chest PA and Lateral IMPRESSION: Thoracic calcified sequela of prior granulomatous disease. Blunted costophrenic angles which may represent atelectasis or trace effusions. No evidence of florid pulmonary edema or focal airspace consolidation. Electronically Signed: Thiago Gonzalez MD at 3:11 EDT ,
[2024-02-21 17:12] LABS: Absolute Lymphocyte Count 1.38 X10^3/uL (0.83-4.51); Absolute Neutrophil Count 3.4 X10^3/uL (2.0-7.7); Basophil# 0.05 X10^3/uL; Basophil% 0.9 % (0-1); Eosinophil# 0.29 X10^3/uL; Eosinophils% 5.3 % (0-5); Hematocrit 42.4 % (37-47); Hemoglobin 13.8 g/dL (12.0-15.0); Lymphocyte # 1.38 X10^3/ul (0.83-4.51); Lymphocyte % 25.1 % (19-41); Mean Corp Hgb Conc 32.5 g/dL (32-36); Mean Corpuscular Hgb 30.2 pg (27.0-32.0); Mean Corpuscular Volume 92.8 fL (81-99); Mean Platelet Vol. 10.6 fl (6.2-12.0); Monocyte# 0.36 X10^3/uL; Monocyte% 6.6 % (0-10); NRBC Flagged by Analyzer 0 % (0-5); Neutrophil % 61.9 % (47-70); Platelet Count 249 K/mm3 (150-450); RBC Distribution Width CV 12.5 % (11.6-14.6); RBC Distribution Width SD 42.5 fl (35.1-43.9); Red Blood Count 4.57 M/mm3 (4.2-5.4); White Blood Count 5.5 K/mm3 (4.4-11.0)
[2024-02-21 17:16] LABS: International Normalized Ratio 1.4; Prothrombin Time (Protime)PT. 17.5 SECONDS (11.7-14.9)
[2024-02-21 17:17] LABS: Partial Thromboplast Time 36.2 Seconds (24.1-36.2)
[2024-02-21 17:31] LABS: Anion Gap 5 (5-15); BUN 18 mg/dL (7-18); BUN/Creat Ratio 21.7 RATIO (10-20); Calcium,Total 9.4 mg/dL (8.5-10.1); Chloride 105 mmol/L (98-107); Creatinine, Serum 0.83 mg/dL (0.55-1.02); EST Glomerular Filtration Rate 73 mL/min (>60); Est Glom Filt Rate - Afr Amer 88 mL/min (>60); Glucose 179 mg/dL (74-106); Potassium 4.7 mmol/L (3.5-5.1); Sodium Level 134 mmol/L (136-145)
--- NOTE | 2024-02-29 14:31 | PCM.HP.BLA ---
History and Physical Date of Admission: 03/06/24 April Richter is a 69-year-old lady who presents for a right and left cardiac catheterization. She has a previous history of hypertension who presented to the emergency room on 2021 with hypoxia and shortness of breath. She was initially admitted with a suspected community-acquired pneumonia and she was noted to be tachycardic in the emergency room with atrial fibrillation. She was started on carvedilol and Eliquis and spontaneously converted to sinus rhythm. TSH was noted to be normal and echocardiogram demonstrated preserved left ventricular systolic function of 65% and moderately enlarged left atrium. She had a CTA of her chest done which demonstrated mildly dilated main pulmonary artery but no evidence of pulmonary embolism. BT SOUP MIXER was done which was normal. She was subsequently discharged on carvedilol and Eliquis. She subsequently presented back to the hospital approximately 9 days later with acute on chronic combined hypoxic and hypercapnic respiratory failure. She maintained sinus rhythm during that visit. She was treated with CPAP and BiPAP and then subsequently weaned onto supplemental oxygen. Her cardiac medications were continued. She has not had any neck arm or jaw discomfort suggest angina no dizziness or diaphoresis no near syncope or syncope and no episodes of palpitations. AST and ALT were noted to be normal and her alkaline phosphatase was minimally elevated at 136 with a normal being up to 117. Lipid profile demonstrated total cholesterol of 111 LDL of 57 and HDL of 40. Patient does acknowledge dyspnea on exertion. Intake Vital Signs See EMR Allergies See EMR Medications See EMR [facility] Medical History Acute and chronic respiratory failure with hypercapnia Acute and chronic respiratory failure with hypoxia Atrial fibrillation, currently in sinus rhythm Depression Essential hypertension GERD (gastroesophageal reflux disease) Hypothyroidism NEREYDA on CPAP Paroxysmal atrial fibrillation sarcoidosis liver Type 2 diabetes mellitus without complication Surgical History History of bilateral carpal tunnel release Hx of laparoscopy left long finger I&D right long finger I&D Family History Father Goodpasture syndrome CHF (congestive heart failure)Mother CAD (coronary artery disease) CHF (congestive heart failure) Social History household members: none housing: detention Smoking Status: Never smoker alcohol intake: never substance use type: does not use caffeine: Yes ROS Const Const: Negative for fatigue, weakness, headache(s), frequent falls, difficulty sleeping or excessive sweating Eyes Eyes: Negative for loss of peripheral vision, transient loss of vision, blurry vision, double vision or tunnel vision ENT ENT: Positive for balance problems (uses cane); Negative for headache(s), dizziness or Nosebleed/epistaxis Cardio Chest Pain: No Palpitations: Yes (Occasionally) feels like its: fast and thumping Edema: Bilateral (BLE and hands) Muscle aches with walking: None Resp Respiratory: Positive SOB; Negative for SOB at rest, SOB orthopnea\SOB lying down, Cough or paroxysmal nocturnal dyspnea GI GI: Negative nausea, vomiting, heartburn or black,tarry stools : Negative for hematuria Musc Musc: Positive for muscle weakness (Legs), joint pain and balance problems (uses cane); Negative for muscle aches/ myalgia Skin Skin: Negative non-healing lesions, rash or unusual bruising Neuro Neuro: Negative for dizziness, lightheadedness, near syncope, syncope, frequent falls, headache(s), weakness, blurry vision, double vision or lack of coordination Adarsh Hematologic/Lymphatic: Negative for easy bleeding or easy bruising Endo Endo: Negative for fatigue, excessive sweating or increased thirst/drinking Psych Psych: Negative for anxiety or depression Allergy Allergy/Immunology: Negative for hives and Negative for rash Cardiology Exam Const Appearance: cooperative, healthy appearing, comfortable, no acute distress and well developed Nutritional Appearance: obese Orientation: alert, awake and oriented x3 uses cane Head Head: normal to inspection Ears: hearing grossly normal bilaterally Nose: external nose normal Face and Sinus: face symmetric Mouth: oral mucosae normal, lip normal and moist mucous membranes Eyes General: appearance normal, both eyes and all related structures Eyelids: eyelids normal Conjunctivae: conjunctivae normal Pupils: PERRL EOM: EOM intact bilaterally Neck Neck: normal visual inspection and trachea midline; Negative no JVD Carotids: Negative bruit Chest Chest inspection: normal inspection of the chest Auscultation: Bilateral: Clear to Auscultation Cardio Palpation: normal PMI Rate: regular rate Rhythm: regular rhythm Heart sounds: S1 normal and S2 normal; Negative rub, gallop or murmur GI GI: soft, no hepatosplenomegaly, bowel sounds present and obese Neuro General: patient alert, patient awake, patient oriented x3 and CN's II-XI intact bilaterally Extremities Pulses: Normal: Right Posterior Tibial Pulse, Left Posterior Tibial Pulse, Right Radial Pulse and Left Radial Pulse Lower Extremity Edema: +2: Bilateral (lymphedema) Psych Psychological: normal affect Supplemental Info Supplemental Information Echocardiogram 09/08/2022 Interpretation Summary The study was technically difficult. The left ventricular ejection fraction is 65 %. The left atrium is moderately enlarged. Chest CTA 09/08/2022 IMPRESSION: 1.? No CTA evidence of central pulmonary thromboembolism but peripheral pulmonary thromboembolism is suboptimal for evaluation due to suboptimal contrast enhancement of the peripheral pulmonary arteries. 2.? Dilated main pulmonary artery suspiciously secondary to pulmonic valvular stenosis with poststenotic dilatation. 2-D echocardiogram will help confirm/clarify. 3.? No CTA evidence of thoracic aortic aneurysm or dissection. 4.? Multifocal groundglass opacities in both lungs is nonspecific. Covid-19 pneumonia is worrisome. Advise clinical correlation. 5.? Multi nodularity of the liver surface consistent liver cirrhosis. ? Assessment and Plan Assessment and Plan (1) Dyspnea on exertion: Status: Chronic Plan: Patient acknowledges dyspnea on exertion. She does have severe pulmonary hypertension with a pulmonary artery trunk measuring 46 mm. Would like to proceed with a right and left cardiac catheterization to further assess her HALEY. Depending on results, further recommendations will be made.
[2024-03-03 09:10] VITALS: BMI 53.7
[2024-03-06 09:41] LABS: Base Excess 3 mmol/L (-2 to +2); Bicarbonate 28.7 mmol/L (22-26); Blood Gas Specimen Type ART; Mode Not entered; O2 Delivery Device Not entered; PO2 66 mmHG (75-100); SITE Not entered; SO2 92 % (95-99); Total Carbon Dioxide 30 mmol/L; pH 7.37 (7.35-7.45)
[2024-03-06 09:56] LABS: Blood Gas Specimen Type VEN; O2 Delivery Device Not entered; SITE Not entered; VBG BASE EXCESS 3 mmol/L (-1.0-3.5); VBG Bicarbonate 29 mmol/L (22-26); VBG PO2 35 mmHg (25-40); VBG SO2 62 % (50-70); VBG TCO2 31 mmol/L (23-33); VBG pH 7.34 (7.32-7.42)
[2024-03-06 10:02] LABS: Blood Gas Specimen Type VEN; O2 Delivery Device Not entered; SITE Not entered; VBG BASE EXCESS 4 mmol/L (-1.0-3.5); VBG Bicarbonate 29 mmol/L (22-26); VBG PO2 37 mmHg (25-40); VBG SO2 67 % (50-70); VBG TCO2 31 mmol/L (23-33); VBG pH 7.35 (7.32-7.42)
[2024-03-06 10:06] LABS: Blood Gas Specimen Type VEN; O2 Delivery Device Not entered; SITE Not entered; VBG BASE EXCESS 2 mmol/L (-1.0-3.5); VBG Bicarbonate 28 mmol/L (22-26); VBG PO2 36 mmHg (25-40); VBG SO2 64 % (50-70); VBG TCO2 29 mmol/L (23-33); VBG pCO2 50.3 mmHg (41-51); VBG pH 7.35 (7.32-7.42)
--- NOTE | 2024-03-06 10:09 | CL.D_ITS ---
Patient Name: VITALY CORREA Study Date: 03/06/2024 Performing: Elkin Hendricks MD Ht: 62 inches 157.48 cm : 1955 Wt: 294.01 lbs 133.36 kg Age: 69 Gender: female BSA: 2.25 PROCEDURE(S) PERFORMED DC05-(88180)RHC/LHC/COR/LV CLINICAL PROFILE AND INDICATIONS Indications: Other Heart Failure: None Stress/Imaging Stress/Image Study Performed: No CAD Presentations: Other: SOB CONCLUSIONS Normal coronary arteries Right heart pressures - mildly elevated Normal pulmonary capillary wedge RECOMMENDATIONS As per referring sales center associate. DESCRIPTION OF PROCEDURE The patient arrived to the procedure lab. The risks and benefits of the procedure as well as a full description of our services here and current unavailability of surgical backup were fully explained to the patient and/or their significant other prior to the catheterization. The Timeout was completed, verifying the correct patient and procedure. The patient's procedural site was prepped and draped in the usual fashion. Local anesthetic was given subcutaneously to right radial region with Lidocaine 2%. Using a modified Seldinger technique, arterial access was obtained via the right radial artery, a 6Fr sheath was inserted. Venous access was obtained via the right brachiocephalic vein, with Micropuncture set Left Coronary Artery selective angiography was performed in multiple views using a 5 Fr. 4.0 [place] catheter. Right Coronary Artery selective angiography was then performed in multiple views using a 5 Fr. 4.0 [place] catheter. Left Ventriculography was performed in RIVER projection using a 5 Fr. Pigtail catheter. LV to AO pullback pressures were then recorded. A 7Fr thermal dilution catheter was inserted and right heart pressures were recorded, it was then advanced to PA position for cardiac outputs. O2 saturations were then obtained. Thermal dilution cardiac outputs were then recorded.The arterial sheath was pulled and a TR Band was applied for hemostasis 15 ml of air. The venous sheath was then pulled and manual compression applied until hemostasis achieved CORONARY ANGIOGRAPHY DOMINANCE: Right Dominant LEFT HEART ASSESSMENT Left Ventricular Ejection Fraction: by LV Gram 65 % Normal LV wall motion Normal Left Ventricular systolic function Normal Left Ventricular systolic function RIGHT HEART ASSESSMENT Thermal CO: 8.15 Thermal CI: 3.62 Sam CO: 5.32 Sam CI: 2.36 PW: 18/ 17 PA: 50/13 28 RV: 46/1 12 RA: 7/5 5 Right Heart pressures - elevated Pulmonary capillary wedge pressure on the right heart cath was 18-20 and on the left heart cath was 15. LEFT MAIN: Angiographically normal LEFT ANTERIOR DESCENDING ARTERY: Angiographically normal CIRCUMFLEX ARTERY: Angiographically normal RIGHT CORONARY ARTERY: Angiographically normal COMPLICATIONS No Complications PROCEDURE MEDICATIONS Fentanyl 50 mcg IV Versed 1 mg IV Heparin given IA 03/06/2024 09:28:15 Verapamil 2.5mg, Ntg 100mcgs, 3000 units of Heparin given IA 03/06/2024 09:28:15 SUMMARY OF HEMODYNAMIC DATA Time AIR REST ECG 08:01:42 AO 118/63 (87) SA 09:42:53 LV 98/6, 26 09:45:03 LV 97/7, 32 09:45:12 LV 107/4, 12 09:45:52 LV 113/6, 14 09:46:01 LVp 119/6, 15 09:46:04 AOp 127/58 (87) 09:46:11 RA 7/5 (5) SV 09:49:52 RA 11/10 (8) 09:51:30 RV 46/1, 12 09:51:51 PA 50/13 (28) PA 09:52:21 PA 49/12 (29) 09:53:14 PW (17) PV 09:53:33 PW (20) 09:58:52 RV 49/0, 13 09:59:18 Type SV CO (l/m) CI (l/m/ HR Time AIR REST Thermal 114.90 8.15 3.62 71 08:01:42 Sam 74.90 5.32 2.36 71 08:01:42 Label % O2 Pres/Loc Time AIR REST AO 92 PV 10:06:35 RA 62 SV 10:06:44 RV 64 10:06:52 PA 67 PA 10:06:57 Signed By Elkin Hendricks MD On 03/06/2024 10:08:48 Elkin Hendricks MD
== END 2024-03-06 12:15 | disposition home or self-care (01) ==
PROVIDERS: Nurse Practitioner Gerontology; PCP Family Medicine; Referring Provider Internal Medicine Cardiovascular Disease; Visit Provider Internal Medicine Cardiovascular Disease
DX: R06.02 Shortness of breath (principal); I48.0 Paroxysmal atrial fibrillation; E11.9 Type 2 diabetes mellitus without complications; Q25.6 Stenosis of pulmonary artery; I10 Essential (primary) hypertension; E66.9 Obesity, unspecified; G47.33 Obstructive sleep apnea (adult) (pediatric); E03.9 Hypothyroidism, unspecified; I25.10 Atherosclerotic heart disease of native coronary artery without angina pectoris; Z79.51 Long term (current) use of inhaled steroids; Z79.01 Long term (current) use of anticoagulants; Z79.82 Long term (current) use of aspirin; Z79.899 Other long term (current) drug therapy
CPT/HCPCS: 36415; 71046; 80048; 82803; 85025; 85610; 85730; 93005; 93460; 99152; 99153; C1894; J7040; Q9967; C1751; C1769

== ENCOUNTER 2024-04-11 19:16 | Emergency (ER) | payer MEDICARE, OTHER, SELFPAY ==
[2024-04-11 19:17] VITALS: BP 175/76; PULSE 78; RESP 16; TEMP 36.7; O2SAT 98; BMI 56.4
--- NOTE | 2024-04-11 19:41 | EX.ED.UPPERE ---
HPI History of Present Illness HPI Narrative: Patient presents with left shoulder and upper arm pain that began after a fall today. Patient states she lost her balance while going up stairs to a deck. Patient states that she fell onto her left side. Patient states her left arm was abducted at the time. Patient denies any head injury or loss of consciousness. Patient describes her pain as dull. Patient states it is worse with movement. Patient states it is better with rest. Patient denies any paresthesias or weakness. Patient denies any other injuries. Chief Complaint: Fall Informant: patient Occured/Mechanism Mechanism/Context: Yes fall and Yes same level fall Onset/Context/Timing Onset: Today Context: Sudden Onset Timing: Continuous Quality of Pain: Dull Location: Left arm and left shoulder Worsened by: Movement Relieved by: Rest Associated Symptoms Associated Symptoms: Negative for Parasthesia, Weakness or Loss of Funtion [facility] Medical History GERD (gastroesophageal reflux disease) Depression Type 2 diabetes mellitus without complication Hypothyroidism Paroxysmal atrial fibrillation Essential hypertension NEREYDA on CPAP Acute and chronic respiratory failure with hypoxia Acute and chronic respiratory failure with hypercapnia Atrial fibrillation, currently in sinus rhythm sarcoidosis liver Home Medications ?Medication ?Instructions ?Recorded ?Last Taken ?Type bupropion HCl 150 mg 24 hr tablet, 150 mg PO DAILY 05/23/15 09/20/22 History extended release glimepiride 2 mg tablet 2 mg PO DAILY 05/23/15 03/06/24 History levothyroxine 50 mcg tablet 50 mcg PO DAILY 05/23/15 09/20/22 History loratadine 10 mg tablet (Allergy 10 mg PO DAILY PRN PRN allergies 05/23/15 Unknown History Relief (loratadine)) allopurinol 300 mg tablet 300 mg PO DAILY 09/05/22 09/20/22 History omeprazole 20 mg capsule,delayed 20 mg PO DAILY 09/05/22 Unknown History release tamsulosin 0.4 mg capsule (Flomax) 0.4 mg PO DAILY 09/05/22 09/20/22 History acetaminophen 325 mg tablet 650 mg (2 x 325 mg) PO Q4H PRN PRN 09/09/22 Unknown Rx (Tylenol) Fever, pain 1-06/22 #0 tabs amlodipine 2.5 mg-benazepril 10 mg 1 cap PO DAILY HEART 10/13/22 03/06/24 History capsule carvedilol 6.25 mg tablet 6.25 mg PO BID 10/13/22 03/06/24 History ropinirole 0.25 mg tablet 0.5 mg PO QHS 10/13/22 Unknown History trazodone 50 mg tablet 50 mg PO QHS 10/13/22 Unknown History ursodiol 500 mg tablet 500 mg PO TID 10/13/22 Unknown History apixaban 5 mg tablet (Eliquis) 5 mg PO BID #180 tabs 10/26/22 02/25/24 Rx furosemide 40 mg tablet 40 mg PO DAILY 04/14/23 Unknown History aripiprazole 2 mg tablet 0.5 mg PO DAILY 10/22/23 Unknown History aspirin 81 mg tablet,delayed 81 mg PO DAILY Cardiac 02/21/24 03/06/24 Rx release (Adult Aspirin Regimen) catheterization #10 tabs aripiprazole 2 mg tablet (Abilify) 1 mg PO DAILY 04/11/24 Unknown History hydrocodone-acetaminophen 5-325mg 1 tab PO Q6H PRN PRN Pain 3 days 04/11/24 Unknown Rx 5mg-325mg #10 TABLETS Allergy/AdvReac Type Severity Reaction Status Date / Time nabumetone (From Relafen) Allergy Itching Verified 10/22/23 11:31 nitrofurantoin (From Allergy Rash Verified 10/22/23 11:31 Macrobid) Family History Father Goodpasture syndrome CHF (congestive heart failure) Mother CAD (coronary artery disease) CHF (congestive heart failure) Surgical History History of bilateral carpal tunnel release Hx of laparoscopy left long finger I&D right long finger I&D Social History household members: none housing: alf Smoking Status: Never smoker alcohol intake: never substance use type: does not use caffeine: Yes ROS ROS ED Constitutional Constitutional ED: Denies chills or fever(s) Eyes Eyes: Denies blurry vision or change in vision ENT ENT ED: Denies rhinorrhea or sore throat Cardiovascular Cardiovascular: Denies chest pain or palpitations Respiratory/Chest Respiratory/Chest: Denies cough or dyspnea Gastrointestinal Gastrointestinal: Denies nausea or vomiting Genitourinary Genitourinary ED: Denies dysuria or hematuria Musculoskeletal Musculoskeletal: Denies back pain or neck pain Integumentary Denies abscess or rash Neurologic Neurologic: Denies headache(s) or weakness Allergic/Immunologic Allergic/Immunologic ED: Denies mouth swelling or urticaria EXAM Physical Exam Const Vital Signs: 04/11/24 19:17 04/11/24 19:34 Temperature 98.0 F Temperature Source Oral Pulse Rate 78 Respiratory Rate 16 Respiratory Effort Normal Respiratory Depth Normal Respiratory Pattern Normal Blood Pressure 175/76 H Blood Pressure Mean 109 Pulse Ox 98 Oxygen Delivery Method Room Air Room Air Positive well nourished and well developed General Appearance ED: well developed and NAD HEENT Reports moist mucous membranes normocephalic and atraumatic Neck full ROM and supple Resp normal respiratory effort and clear to auscultation bilaterally Cardio regular rate and regular rhythm GI non-tender and non-distended Palpation: soft Extremity Extremity Narrative: There is tenderness over the left shoulder and proximal humerus. There is no obvious deformity noted. Range of motion was limited in all motions of the left shoulder secondary to pain. Radial pulses are equal bilateral. Sensation was intact to light touch in the radial, median, and ulnar areas. Strength is 5/5 in the radial, median, and ulnar areas. Neuro oriented x3, CN's II-XII intact bilaterally, moves all extremities, no focal motor deficits and no sensory deficits noted Sensorium / Orientation: alert Motor Exam: strength 5/5 throughout Psych mental status grossly normal MDM MDM MDM Narrative Medical decision making narrative: Differential diagnosis includes proximal humerus fracture, shoulder dislocation, contusion, sprain, and intracranial bleeding. Since the patient is on apixaban, CT scan of the brain will be obtained to assess for intracranial bleeding. X-rays of the left shoulder will be obtained to assess for fracture and dislocation. Radiography Diagnostic Testing: CT scan of the brain was obtained. There is no acute intracranial abnormality. This was interpreted by the radiologist and was also independently reviewed by myself. X-rays of the left shoulder were obtained. There are 3 views. On my independent interpretation, there is a nondisplaced fracture of the greater tuberosity. There is no dislocation noted. Radiologist also interpreted the x-rays and agrees. Treatment and Re-Evaluation Narrative: Patient was given injection of morphine here. Patient was advised of her findings. Patient was given a sling and swath. Patient was given a prescription for a short course of [place]. Patient was given a referral for orthopedics for follow-up care in 5 to 7 days. Patient was instructed to follow-up with her primary care physician in 5 to 7 days. Patient and family understood and were agreeable with the plan. All questions were answered. Discharge Plan Triage Chief Complaint: Fall ED Provider: Yasmany Nur Dx/Rx/DC Orders Clinical Impression: Fracture of greater tuberosity of left humerus, Fall Instructions: ED Fracture, Shoulder Prescriptions: New hydrocodone-acetaminophen 5-325 mg tablet 1 tab PO Q6H PRN PRN (Reason: Pain) 3 Days Qty: 10 0RF No Action carvedilol 6.25 mg tablet 6.25 mg PO BID ropinirole 0.25 mg tablet 0.5 mg PO QHS Patient Comments: TAKE 1 TO 2 TABLETS BY MOUTH AT BEDTIME ursodiol 500 mg tablet 500 mg PO TID furosemide 40 mg tablet 40 mg PO DAILY Rx Instructions: 3xweek glimepiride 2 MG tablet 2 mg PO DAILY levothyroxine 50 MCG tablet 50 mcg PO DAILY loratadine [Allergy Relief (loratadine)] 10 MG tablet 10 mg PO DAILY PRN PRN (Reason: allergies) bupropion HCl 150 MG tablet extended release 24 hr 150 mg PO DAILY trazodone 50 mg tablet 50 mg PO QHS aripiprazole 2 mg tablet 0.5 mg PO DAILY tamsulosin [Flomax] 0.4 mg Capsule 0.4 mg PO DAILY omeprazole 20 mg Capsule,Delayed Release(Dr/Ec) 20 mg PO DAILY allopurinol 300 mg tablet 300 mg PO DAILY Patient Comments: TAKE 1 TABLET BY MOUTH EVERY DAY acetaminophen [Tylenol] 325 mg Tablet 650 mg PO Q4H PRN PRN (Reason: Fever, pain 1-06/22) Qty: 0 0RF amlodipine-benazepril 2.5-10 mg capsule 1 cap PO DAILY aripiprazole [Abilify] 2 mg tablet 1 mg PO DAILY Patient Comments: 1/2 tab 1x a day Eliquis 5 mg tablet 5 mg PO BID Qty: 180 3RF aspirin [Adult Aspirin Regimen] 81 mg tablet,delayed release (DR/EC) 81 mg PO DAILY Qty: 10 0RF Primary Care Provider: Tracy Dillard Referrals: Tracy Dillard MD [Primary Care Provider] - 5-7 Days Bartolome Tse MD [Med Staff - Active Staff] - 5-7 Days Print Language: [place] Disposition Disposition: Home, Self Care
[2024-04-11] MEDS: Morphine 4 MG/ML Syringe IV (20:01)
--- NOTE | 2024-04-11 20:15 | CT_ITS ---
EXAM: CT HEAD WITHOUT INTRAVENOUS CONTRAST CLINICAL INDICATION: FALL TECHNIQUE: Multiple axial images were obtained of the head without intravenous contrast. This CT exam was performed using one or more of the following dose reduction techniques: automated exposure control, adjustment of the mA and/or kV according to patient size, and/or use of iterative reconstruction technique. COMPARISON: No relevant prior studies available. FINDINGS: BRAIN AND EXTRA-AXIAL SPACES: Unremarkable. No intra- or extra-axial hemorrhage. No evidence of acute infarct. No intracranial mass or mass effect. There is preservation of the devlin/white matter interface. Posterior fossa structures are unremarkable. Ventricles are appropriate for age. No hydrocephalus. Basal cisterns are patent. BONES/JOINTS: Unremarkable. No discrete lytic or blastic abnormalities. SINUSES: Unremarkable as visualized. Clear. MASTOID AIR CELLS: Unremarkable. Clear. ORBITS: Visualized globes, extraocular muscles, optic nerves and retrobulbar fat appear unremarkable. CT/Brain/Head without Contrast IMPRESSION: Negative head/brain CT without intravenous contrast. Electronically Signed: Javier Aguilar MD at 20:56 EDT ,
--- NOTE | 2024-04-11 20:22 | RAD_ITS ---
EXAM: XR LEFT SHOULDER COMPLETE, 2 OR MORE VIEWS CLINICAL INDICATION: Injury/Pain TECHNIQUE: Two or more views of the left shoulder. COMPARISON: No relevant prior studies available. FINDINGS: BONES/JOINTS: There is an apparent nondisplaced fracture of the greater tuberosity. No other abnormalities are identified. Preservation of the joint space. No sclerotic or destructive changes observed. SOFT TISSUES: Unremarkable. No soft tissue swelling or gas. No radiopaque foreign body. RAD/Shoulder min 2 Views IMPRESSION: Apparent nondisplaced fracture of the greater tuberosity. Electronically Signed: Javier Aguilar MD at 21:03 EDT ,
[2024-04-11 21:16] VITALS: BP 189/89; PULSE 78; RESP 18; O2SAT 93
[2024-04-11 21:43] VITALS: BP 189/89; PULSE 78; RESP 20; TEMP 36.6; O2SAT 93
[2024-04-11] MEDS: HYDROcodone Bitartrate/Apap 5/325 Tablet PO (21:50)
== END 2024-04-11 22:06 | disposition home or self-care (01) ==
PROVIDERS: Emergency Provider Emergency Medicine; PCP Family Medicine; Visit Provider Emergency Medicine
DX: S42.255A Nondisplaced fracture of greater tuberosity of left humerus, initial encounter for closed fracture (principal); I48.0 Paroxysmal atrial fibrillation; E11.9 Type 2 diabetes mellitus without complications; W18.39XA Other fall on same level, initial encounter; I10 Essential (primary) hypertension; Z79.01 Long term (current) use of anticoagulants; Z79.84 Long term (current) use of oral hypoglycemic drugs; Z79.899 Other long term (current) drug therapy
CPT/HCPCS: 70450; 73030; 96374; 99283

== ENCOUNTER → 2024-04-19 | Outpatient (CLI) | payer MEDICARE, OTHER, SELFPAY ==
[2024-04-19 12:16] LABS: Absolute Lymphocyte Count 0.94 X10^3/uL (0.83-4.51); Absolute Neutrophil Count 4.8 X10^3/uL (2.0-7.7); Basophil# 0.03 X10^3/uL; Basophil% 0.5 % (0-1); Eosinophil# 0.32 X10^3/uL; Eosinophils% 4.9 % (0-5); Hematocrit 33.5 % (37-47); Hemoglobin 10.9 g/dL (12.0-15.0); Lymphocyte # 0.94 X10^3/ul (0.83-4.51); Lymphocyte % 14.4 % (19-41); Mean Corp Hgb Conc 32.5 g/dL (32-36); Mean Corpuscular Hgb 30.7 pg (27.0-32.0); Mean Corpuscular Volume 94.4 fL (81-99); Mean Platelet Vol. 10.2 fl (6.2-12.0); Monocyte# 0.42 X10^3/uL; Monocyte% 6.4 % (0-10); NRBC Flagged by Analyzer 0 % (0-5); Neutrophil # 4.81 X10^3/uL (2.7-7.7); Neutrophil % 73.3 % (47-70); Platelet Count 266 K/mm3 (150-450); RBC Distribution Width CV 12.7 % (11.6-14.6); RBC Distribution Width SD 44.1 fl (35.1-43.9); Red Blood Count 3.55 M/mm3 (4.2-5.4); White Blood Count 6.6 K/mm3 (4.4-11.0)
== END | disposition home or self-care (01) ==
PROVIDERS: PCP Family Medicine; Referring Provider Physician Assistant Medical; Visit Provider Physician Assistant Medical
DX: I48.0 Paroxysmal atrial fibrillation (principal)
CPT/HCPCS: 36415; 85025

== ENCOUNTER → 2024-04-28 | Outpatient (CLI) | payer MEDICARE, OTHER, SELFPAY ==
[2024-04-28 15:51] LABS: Hemoglobin A1c 7.8 % (3.8-5.6)
[2024-04-28 16:03] LABS: AST(SGOT) 23 U/L (15-37); Alanine Aminotransfer ALT/SGPT 18 U/L (13-56); Cholesterol 152 mg/dL (200); High Density Lipoprotein 53 mg/dL; Triglycerides 116 mg/dL; Very Low Density Lipoprotein 23 mg/dL (5-40)
== END | disposition home or self-care (01) ==
LOC: MFPLAB 13:49
PROVIDERS: PCP Family Medicine; Visit Provider Family Medicine
DX: E11.29 Type 2 diabetes mellitus with other diabetic kidney complication (principal); I48.91 Unspecified atrial fibrillation; E11.69 Type 2 diabetes mellitus with other specified complication; R80.9 Proteinuria, unspecified; E78.5 Hyperlipidemia, unspecified
CPT/HCPCS: 36415; 80061; 83036; 84443; 84450; 84460

== ENCOUNTER → 2024-06-01 | Outpatient (CLI) | payer MEDICARE, OTHER, SELFPAY ==
[2024-06-01 17:58] LABS: Absolute Lymphocyte Count 1.46 X10^3/uL (0.83-4.51); Absolute Neutrophil Count 5.3 X10^3/uL (2.0-7.7); Basophil# 0.04 X10^3/uL; Basophil% 0.5 % (0-1); Eosinophil# 0.31 X10^3/uL; Eosinophils% 4.1 % (0-5); Hematocrit 38.4 % (37-47); Hemoglobin 12.3 g/dL (12.0-15.0); Lymphocyte # 1.46 X10^3/ul (0.83-4.51); Lymphocyte % 19.5 % (19-41); Mean Corpuscular Hgb 31.1 pg (27.0-32.0); Mean Corpuscular Volume 97.2 fL (81-99); Mean Platelet Vol. 10.3 fl (6.2-12.0); Monocyte# 0.37 X10^3/uL; Monocyte% 4.9 % (0-10); NRBC Flagged by Analyzer 0 % (0-5); Neutrophil % 70.7 % (47-70); Platelet Count 275 K/mm3 (150-450); RBC Distribution Width CV 12.8 % (11.6-14.6); RBC Distribution Width SD 45.8 fl (35.1-43.9); Red Blood Count 3.95 M/mm3 (4.2-5.4); White Blood Count 7.5 K/mm3 (4.4-11.0)
== END | disposition home or self-care (01) ==
PROVIDERS: PCP Family Medicine; Referring Provider Physician Assistant Medical; Visit Provider Physician Assistant Medical
DX: D64.9 Anemia, unspecified (principal)
CPT/HCPCS: 36415; 85025

== ENCOUNTER 2024-09-29 12:00 | Outpatient (RCR) | payer MEDICARE, OTHER, SELFPAY ==
--- NOTE | 2024-07-18 13:51 | HP.PTEVAL_ITS ---
Patient's Visit Information Visit Information Visit Information: VITALY CORREA is a 69 year old F referred to Physical Therapy by ESPERANZA Garcia with a diagnosis of Fall on April 11 and Fx L surgical neck of humerus.. Date of Evaluation: 07/18/24 Physical Therapist: RITU Harrison Visit Plan Frequency: 2x /Week Duration: 2 Months Plan: 2X/ week for 8 weeks for L shoulder AAROM, AROM, scapular and RC strength with HEP Pt does not lay on her back. Fall on April 11 and Fx L surgical neck of humerus. HEP: sitting wand flex/ABD, standing belly up against mat table for stability and wand IR Subjective Subjective: She broke her L arm. She lost her balance and fell on it with her arm up in the air on April 11. She is R handed. They put her arm in a sling for 6 weeks. Her mobility is better but she has trouble reaching behind her and she has no strength if she has to lift over her head. She sleeps in a lift chair so she does not know if she can sleep on that side. She struggles putting on her bra and hooking her bra. She drives and has no issue. She is taking Tylenol as needed. 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 Shoulder AROM: R shoulder flexion 155 and L shoulder flexion 100 R shoulder ABD 140 and L 107 R shoulder IR T12 and L Greater Trochanter on the L R shoulder ER 70 and L 52 Shoulder MMT: R shoulder flexion 9.2 and L 6.7 R shoulder ABD 9.6 and L 4.3 R shoulder ER 8.6 and L 7.8 R shoulder IR 11 and L 9.7 Balance/Special Test Scores Quick DASH Score: 40.9075 Goals Goal 1:: I HEP Goal Time Frame: 6-8 Weeks Goal 2:: Increase L shoulder AROM (at the time of eval: Shoulder AROM: R shoulder flexion 155 and L shoulder flexion 100 R shoulder ABD 140 and L 107 R shoulder IR T12 and L Greater Trochanter on the L R shoulder ER 70 and L 52) Goal Time Frame: 6-8 Weeks Goal 3:: Increase L shoulder strength (at the time of the eval: Shoulder MMT: R shoulder flexion 9.2 and L 6.7 R shoulder ABD 9.6 and L 4.3 R shoulder ER 8.6 and L 7.8 R shoulder IR 11 and L 9.7) Goal Time Frame: 6-8 Weeks Goal 4:: Be able to reach behind her back to reach her bra Goal Time Frame: 6-8 Weeks Goal 5:: Be able to reach overhead and hold something getting it out of the cupboard with ease Goal Time Frame: 6-8 Weeks Rehabilitation Potential Rehabilitation Potential: Good Anticipated Interventions Patient/Client Instruction: Educate patient on: Condition and Plan of Care For the Purpose of:: To decrease pain, To increase ROM, To improve nutrient delivery to tissue, To increase oxygenation perfusion, To improve muscle performance and motor function, To improve ability to perform ADL's, To increase tolerance to activity/condition/position, To improve performance and independence with ADL's, To decrease level of supervision to perform tasks, To improve ability of physical actions for home/community/work/leisure, To improve health of tissue, To decrease soft tissue restriction and To increase flexibility/ROM Therapeutic Exercise to Include: Strength training, Endurance training, Postural training, Neuromotor development, Passive ROM, Active ROM and Scapular Strength/Stabilization For the Purpose of:: To decrease pain, To increase ROM, To improve nutrient delivery to tissue, To improve muscle performance and motor function, To improve ability to perform ADL's, To increase tolerance to activity/condition/position, To improve performance and independence with ADL's, To decrease level of supervision to perform tasks, To improve ability of physical actions for home/community/work/leisure, To improve gait and locomotor functions, To improve health of tissue, To decrease soft tissue restriction and To increase flexibility/ROM Manual Therapy Techniques to Include: Passive ROM For the Purpose of:: To increase ROM Text: Thank you for the opportunity to evaluate your patient. For Medicare and Medicare HMO plans, please review the plan of care and approve it. It will need to be FAXED BACK to us at [phone] for Medicare purposes. For Medicare only, by signing this I certify the plan of care. Please let me know if there are questions or concerns regarding this plan of care. Physician Signature: Date:
--- NOTE | 2024-07-18 15:12 | HP.OTEVAL ---
Patient's Visit Information Visit Information Visit Information: VITALY CORREA is a 69 year old F, referred to Occupational Therapy by ESPERANZA Garcia, with a diagnosis of 3 part fx surgical neck of humerus, primary oa L hand. Date of Evaluation: 07/18/24 Occupational Therapist: Anh Mccall Subjective Subjective: This 69 year old female with fx to greater tuberosity April [id number] as well as primary OA received therapy at home for approx 6 weeks now done with home therapy. this female denies pain at this time unless moving thumb. Fx occurred by falling after losing balance. No surgical intervention received for shoulder routine healing. Pt was in sling for 6 weeks and now results in loss of ability to make composite fist. pt is R hand dominant. denies numbness and tingling at this time. decreased ability to grasp and maintain grasp on items which has impacted ability to perform self care Pain L thumb: Current Pain Intensity: 2 Objective Objective/Observation: arrives ROM limitations noted at thumb as well as digits. pts IF crosses over MF pt LF PIP little flexion ROM Wrist: L 50/45 R 60/45 MP: L -35/80 R - 25/ 65 IP: L 0/30 R 0/45 Opposition: wfl however adductor takes over MP: L D2 0/80 D3 0/83 D4 0/80 D5 0/75 PIP: L D2 0/90 D3 0/75 D4 0/80 D5 0/ 15 DIP: L D2 -35 extension D30/25 D40/25 D5 -30/65 ROM Comments: L ulnar dev 30 L radial dev 15 R ulnar dev 40 R radial dev 15 pt is 2.5 cm IF to palm of hand Strength Boat Canvas Maker And Installer: R 20# L 5# Lateral Pinch: R 5# L 0# Tripod Pinch: R1# L 0# Edema Wrist: R 16 cm L 17.5 cm Sensation Sensation Comments: denies Quick DASH-Disab of Arm,Shoulder& Hand Quick DASH Score: 34.0900 Goals Goal:ROM equal to unaffected hand: Yes Goal:Boat Canvas Maker And Installer/Pinch strength at least 75% of unaffected hand: Yes Goal:No pain with affected hand use: Yes Goal:Full use of affected hand in daily activities including work: Yes Other Goal: pt will improve quick dash score by 10 points or more (34.09) in order to maximize functional use of L hand pt will verbalize/ demonstrate 100% accuracy in proper joint protection and positioning to promote use of L hand. Rehabilitation General Assessment: This 69 year old female with dx of L 3 part fx of humerus and primary OA of L hand demonstrates impairments in L hand ROM as well as strength and pain with use of thumb. occasional triggering of thumb with use. This pt would benefit from OT in order to improve ROM strength provide ed on joint protection and positioning as well as bracing as needed 1-2x a week for 4-6 weeks in order to promote optimal functional use of L UE. Rehabilitation Potential: Good Anticipated Interventions Anticipated Interventions: A/AAROM/PROM, Strengthening, Triggerpoint Release, Modalities, ADL Training, Education re assistive Equipment, Education re Diagnosis and Home Program Visit Plan Frequency: 1-2x /Week Duration: 4-6 Weeks General Plan: AROM/PROM/AAROM bracing modalities strengthening TEXT: Thank you for the opportunity to evaluate your patient. For Medicare and Medicare HMO plans, please review the plan of care and approve it. It will need to be FAXED BACK to us at [phone] for Medicare purposes. Please let me know if there are questions or concerns regarding this plan of care. Physician Signature: Date:
--- NOTE | 2024-08-21 13:52 | HP.PTREVAL ---
Re-Evaluation Intro: ESPERANZA Garcia, It has been my pleasure to treat VITALY CORREA over the last 8 visits for Fall on April 11 and Fx L surgical neck of humerus.. Please see the progress note below for an update on the physical therapy plan of care! Subjective Subjective: Pt is doing ok but still struggling with reaching behind her back and Keke gave her some exercises to do and she is still struggling with that. She can get her arm up over head but not all the way and she feels the pull. She is doing her HEP Objective Objective/Function: Shoulder AROM: R shoulder flexion 155 and L shoulder flexion 130 R shoulder ABD 140 and L 134 R shoulder IR T12 and L5 on the L R shoulder ER 70 and L 55 Shoulder MMT: R shoulder flexion 9.2 and L 7.3 R shoulder ABD 9.6 and L 7.2 R shoulder ER 8.6 and L 10.4 R shoulder IR 11 and L 10.8 Plan Plan Plan: +++Work on strength/ROM over 90 within pain tolerance but overall shoulder strength to reach goals. (Add sitting wand flexion for ROM/strength). 2X/ week for 8 weeks for L shoulder AAROM, AROM, scapular and RC strength with HEP Pt does not lay on her back. Fall on April 11 and Fx L surgical neck of humerus. HEP: sitting wand flex/ABD, standing belly up against mat table for stability and wand IR Balance/Gait/Functional tests Balance/Special Test Scores Quick DASH Score: 31.8175 Goals Goals Goal 1:: I HEP Goal Time Frame: 6-8 Weeks Goal Progress: Goal Met Goal 2:: Increase L shoulder AROM (at the time of eval: Shoulder AROM: R shoulder flexion 155 and L shoulder flexion 100 R shoulder ABD 140 and L 107 R shoulder IR T12 and L Greater Trochanter on the L R shoulder ER 70 and L 52) Goal Time Frame: 6-8 Weeks Goal Progress: Progressing Goal 3:: Increase L shoulder strength (at the time of the eval: Shoulder MMT: R shoulder flexion 9.2 and L 6.7 R shoulder ABD 9.6 and L 4.3 R shoulder ER 8.6 and L 7.8 R shoulder IR 11 and L 9.7) Goal Time Frame: 6-8 Weeks Goal Progress: Progressing Goal 4:: Be able to reach behind her back to reach her bra Goal Time Frame: 6-8 Weeks Goal Progress: Progressing Goal 5:: Be able to reach overhead and hold something getting it out of the cupboard with ease Goal Time Frame: 6-8 Weeks Goal Progress: Progressing Anticipated Interventions Anticipated Interventions Patient/Client Instruction: Educate patient on: Condition and Plan of Care For the Purpose of:: To decrease pain, To increase ROM, To improve nutrient delivery to tissue, To increase oxygenation perfusion, To improve muscle performance and motor function, To improve ability to perform ADL's, To increase tolerance to activity/condition/position, To improve performance and independence with ADL's, To decrease level of supervision to perform tasks, To improve ability of physical actions for home/community/work/leisure, To improve health of tissue, To decrease soft tissue restriction and To increase flexibility/ROM Therapeutic Exercise to Include: Strength training, Endurance training, Postural training, Neuromotor development, Passive ROM, Active ROM and Scapular Strength/Stabilization For the Purpose of:: To decrease pain, To increase ROM, To improve nutrient delivery to tissue, To improve muscle performance and motor function, To improve ability to perform ADL's, To increase tolerance to activity/condition/position, To improve performance and independence with ADL's, To decrease level of supervision to perform tasks, To improve ability of physical actions for home/community/work/leisure, To improve gait and locomotor functions, To improve health of tissue, To decrease soft tissue restriction and To increase flexibility/ROM Manual Therapy Techniques to Include: Passive ROM For the Purpose of:: To increase ROM Re-Evaluation Ending Re-evaluation ending: Please do not hesitate to contact me at [phone] by phone or if you have questions or concerns regarding this new plan of care! Sincerely, Albertina Martins MPT
--- NOTE | 2024-08-31 16:47 | HP.OTDCSUM ---
Discharge Summary D/C Summary: It has been my pleasure to treat VITALY CORREA under orders from ESPERANZA Garcia, for the diagnosis of 3 part fx surgical neck of humerus, primary oa L hand for a total of 8 visit(s). Please see the following information for a summary of their discharge status. 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 left IF PIP 100* DIP flexion 50* left MF PIP 95 DIP flexion 30* left RF PIP 90 DIP flexion 30* left LF PIP 0 ( hard end feel) pt demo with functional ROM of left hand and strength following humerus fx - pt demo with OA deformities of all joints of left hand PIP feel is hard end feel and mechanically will not change- Goals Patient Goals: Regain Strength, Decrease Pain, Decrease Swelling/Stiffness, Use Hand/Wrist/Arm Normally Again, Increase ROM, Be More Independent in ADLS, Resume Former Household Responsibilities (Cooking,Cleaning,Yard, etc.) and Resume Hobbies Goal:ROM equal to unaffected hand: Yes Goal Progress: not met Goal:Transitions Rn Care Coordinator/Pinch strength at least 75% of unaffected hand: Yes Goal Progress: not met Goal:No pain with affected hand use: Yes Goal Progress: Goal Met Goal:Full use of affected hand in daily activities including work: Yes Goal Progress: Goal Met Other Goal: pt will improve quick dash score by 10 points or more (34.09) in order to maximize functional use of L hand now 13.65 GOAL MET pt will verbalize/ demonstrate 100% accuracy in proper joint protection and positioning to promote use of L hand. ( goal met) Plan Plan: AROM/AAROM/PROM strengthening trigger point release D/C Information Discharge Comments: This 69 year old female arrives with dx of OA of L hand. pt demonstrates decreased pain of L hand with functional use as well as improvement in ROM and strength. discharge pt at this time due to reaching maximal potential -- pt in agreeance. d/c sentence: If there are questions or concerns regarding this patient's occupational therapy, please fell free to call me at [phone]. Thank you for the referral of this patient. Sincerely, Anh Mccall
--- NOTE | 2024-08-31 16:47 | HP.OT.NRP ---
Patient Information Patient Information: VITALY CORREA was seen in my office for initial evaluation on 07/18/24. The following Plan of Care was established for this patient: POC Established Initial Frequency: 1-2x /Week Initial Duration: 4-6 Weeks Plan: AROM/AAROM/PROM strengthening trigger point release Anticipated Interventions Anticipated Interventions: A/AAROM/PROM, Strengthening, Triggerpoint Release, Modalities, ADL Training, Education re assistive Equipment, Education re Diagnosis and Home Program Last Seen Last Seen: This patient was last seen in our office 08/31/24. Pertinent comments regarding their Occupational therapy will appear below: This 69 year old female arrives with dx of OA of L hand. pt demonstrates decreased pain of L hand with functional use as well as improvement in ROM and strength. discharge pt at this time due to reaching maximal potential -- pt in agreeance. At this point I will be discontinuing this patient from occupational therapy. I would be happy to see this patient again in the future if found appropriate by the physician. Thank you! Anh Mccall
--- NOTE | 2024-09-29 12:31 | HP.PTDCSUM ---
Discharge Summary D/C summary: It has been my pleasure to treat VITALY CORREA referred by ESPERANZA Garcia, with the diagnosis of Fall on April 11 and Fx L surgical neck of humerus. for a total of 15 visit(s). Discharge Date: 09/29/24 Please see the following information for a summary of their discharge status. Subjective Subjective: Pt reports that she is doing good but sometimes when she moves her arm there is grinding or a pop and not painful. That is her big concern. She is still struggling trying to reach behind her and up. She feels confidence in her HEP. Pain L SH: Pain Intensity (Out of 10): 0 Overall Improvement % Improvement: 70 Objective Objective/Function: Discussed IR with a gait belt along the midline. AROM: R shoulder flexion 155 and L shoulder flexion 147 R shoulder ABD 140 and L 144 R shoulder IR T12 and L Greater Trochanter on the L2 R shoulder ER 70 and L 70 Shoulder MMT: R shoulder flexion 9.2 and L 7.2 R shoulder ABD 9.6 and L 7.4 R shoulder ER 8.6 and L 11 R shoulder IR 11 and L 12.4 Goals Goal 1:: I HEP Goal Progress: Goal Met Goal 2:: Increase L shoulder AROM (at the time of eval: Shoulder AROM: R shoulder flexion 155 and L shoulder flexion 100 R shoulder ABD 140 and L 107 R shoulder IR T12 and L Greater Trochanter on the L R shoulder ER 70 and L 52) Goal Progress: Goal Met Goal 3:: Increase L shoulder strength (at the time of the eval: Shoulder MMT: R shoulder flexion 9.2 and L 6.7 R shoulder ABD 9.6 and L 4.3 R shoulder ER 8.6 and L 7.8 R shoulder IR 11 and L 9.7) Goal Progress: Goal Met Goal 4:: Be able to reach behind her back to reach her bra Goal Progress: Progressing Goal 5:: Be able to reach overhead and hold something getting it out of the cupboard with ease Goal Progress: Goal Met Plan Plan: +++Work on strength/ROM over 90 within pain tolerance but overall shoulder strength to reach goals. (Add sitting wand flexion for ROM/strength). 2X/ week for 8 weeks for L shoulder AAROM, AROM, scapular and RC strength with HEP Pt does not lay on her back. Fall on April 11 and Fx L surgical neck of humerus. HEP: sitting wand flex/ABD, standing belly up against mat table for stability and wand IR D/C Information Discharge Comments: DC PT to HEP (continue to work on flexion and IR with a gait belt) d/c sentence: If there are questions or concerns regarding this patient's physical therapy, please feel free to call me at [phone]. Thank you for the referral of this patient. Sincerely, Albertina Martins, MPT Balance/Gait/Functional tests Balance/Special Test Scores Quick DASH Score: 13.6350 Improvement % Improvement: 70
== END 2024-09-29 19:00 | disposition home or self-care (01) ==
LOC: PT 12:00
PROVIDERS: PCP Family Medicine; Referring Provider Physician Assistant Surgical; Visit Provider Physician Assistant Surgical
DX: S42.232D 3-part fracture of surgical neck of left humerus, subsequent encounter for fracture with routine healing (principal); M19.042 Primary osteoarthritis, left hand
CPT/HCPCS: 97035; 97110; 97140; 97161; 97165; 97530

== ENCOUNTER → 2024-10-31 | Outpatient (CLI) | payer MEDICARE, OTHER, SELFPAY ==
[2024-10-31 18:08] LABS: Protein, Urine (Random) 167.5 mg/dL (<11.9); Protein:Creat Ratio 3798 mg/g CRE (0-200)
[2024-10-31 18:33] LABS: Anion Gap 7 (5-15); BUN 15 mg/dL (7-18); BUN/Creat Ratio 20.4 RATIO (10-20); Calcium,Total 9.6 mg/dL (8.5-10.1); Chloride 102 mmol/L (98-107); Creatinine, Serum 0.74 mg/dL (0.55-1.02); EST Glomerular Filtration Rate 83 mL/min (>60); Est Glom Filt Rate - Afr Amer 101 mL/min (>60); Glucose 241 mg/dL (74-106); Potassium 4.2 mmol/L (3.5-5.1); Sodium Level 137 mmol/L (136-145)
== END | disposition home or self-care (01) ==
LOC: MFPLAB 16:19
PROVIDERS: PCP Family Medicine; Referring Provider Family Medicine; Visit Provider Family Medicine
DX: E11.59 Type 2 diabetes mellitus with other circulatory complications (principal); I48.91 Unspecified atrial fibrillation; E66.01 Morbid (severe) obesity due to excess calories
CPT/HCPCS: 36415; 80048; 82570; 84156; 84443

== ENCOUNTER → 2024-11-13 | Outpatient (CLI) | payer MEDICARE, OTHER, SELFPAY ==
[2024-11-13 18:01] LABS: Hematocrit 40.3 % (37-47); Hemoglobin 13.3 g/dL (12.0-15.0); Mean Corpuscular Hgb 31.1 pg (27.0-32.0); Mean Corpuscular Volume 94.4 fL (81-99); Mean Platelet Vol. 10.8 fl (6.2-12.0); Platelet Count 218 K/mm3 (150-450); RBC Distribution Width CV 12.3 % (11.6-14.6); RBC Distribution Width SD 42.4 fl (35.1-43.9); Red Blood Count 4.27 M/mm3 (4.2-5.4); White Blood Count 6.6 K/mm3 (4.4-11.0)
[2024-11-13 18:10] LABS: International Normalized Ratio 1.4; Prothrombin Time (Protime)PT. 17.5 SECONDS (11.7-14.9)
[2024-11-13 18:11] LABS: Partial Thromboplast Time 34.9 Seconds (24.1-36.2)
[2024-11-13 21:11] LABS: AST(SGOT) 19 U/L (<=31); Alanine Aminotransfer ALT/SGPT 8 U/L (<=34); Albumin, Serum 3.5 g/dL (3.4-4.8); Alkaline Phosphatase 184 U/L (35-104); BUN 23 mg/dL (4-19); BUN/Creat Ratio 34.6 RATIO (10-20); Creatinine, Serum 0.66 mg/dL (0.70-1.20); EST Glomerular Filtration Rate 96 (>60); Globulin 3.5 g/dL (2.2-4.2); Glucose 250 mg/dL (70-99); Total Bilirubin 0.51 mg/dL (0.00-1.30)
[2024-11-13 21:57] LABS: Anion Gap 11 (5-15); Calcium,Total 9.8 mg/dL (7.6-11.0); Carbon Dioxide 23.4 mmol/L (21.0-32.0); Chloride 102 mmol/L (98-108); Potassium 4.8 mmol/L (3.3-5.1); Sodium Level 136 mmol/L (133-145)
[2024-11-15 08:09] LABS: AFP, Tumor Marker < 1.8 ng/mL (0.0-9.2)
== END | disposition home or self-care (01) ==
LOC: MTLAB 15:00
PROVIDERS: PCP Family Medicine; Referring Provider Internal Medicine Gastroenterology; Visit Provider Internal Medicine Gastroenterology
DX: K74.60 Unspecified cirrhosis of liver (principal); I48.0 Paroxysmal atrial fibrillation; I10 Essential (primary) hypertension
CPT/HCPCS: 36415; 80053; 82105; 85027; 85610; 85730

== ENCOUNTER → 2024-12-06 | Outpatient (CLI) | payer MEDICARE, OTHER, SELFPAY ==
--- NOTE | 2024-12-06 13:16 | MRI_ITS ---
PROCEDURE: MRI of the abdomen without and with intravenous contrast. 12/06/2024 REASON FOR EXAM: Liver cirrhosis. No new complaints. TECHNIQUE: Multi planar, multisequence MRI images of the abdomen were obtained without and with intravenous contrast. 28 cc Clariscan IV contrast was administered. COMPARISON: Abdominal MRI 02/19/2023. FINDINGS: Moderate multilevel degenerative disc disease in the lumbar and lower thoracic spine. Mild S shaped scoliotic curvature of the thoracic/lumbar spine on coronal images. Heart size within normal limits. No sizable pericardial effusion. Lower lungs are grossly clear. Abdominal aorta normal in caliber. No large abdominal wall defect. The included bowel segments show no specific abnormality. Moderate lobulated contour of the liver is similar to the previous study. Patchy wall thickening of the stomach. Due to lack of distention versus peristalsis. No significant signal dropout of the liver to indicate fatty metamorphosis. The adrenal glands and pancreas show no specific abnormality. Moderate atrophy of the pancreatic parenchyma. Spleen size at the upper limits of normal at 13 cm. No discrete splenic lesion. There are nonenhancing bilateral renal cysts, the largest exophytic posterior superior right kidney at 16 mm. No solid-appearing renal mass or obstructive uropathy. No upper abdominal ascites or adenopathy. Some venous collaterals in the left upper abdomen/perisplenic region, not significantly changed. No enhancing liver lesion. No filling defects in the gallbladder. No abnormal dilation of the biliary tree. Portal vein is patent. There is a partially included nonenhancing T2 hyperintense cystic mass of the lower central pelvis measuring a proximally 9.3 cm. This was included on postcontrast coronal images on the prior study. MRI/MRI Abd WITH and W/O Contrast IMPRESSION: Similar appearance of moderate cirrhosis of the liver. No enhancing liver lesi on. No upper abdominal ascites or adenopathy. Left upper abdominal varices/collaterals are similar. Spleen size at upper coronado its of normal. Nonenhancing bilateral renal cysts, the largest on the right at 1.3 cm. A fairly simple appearing 9.3 craniocaudad dimension cystic mass, which does no t appear to enhance on the prior study, is not significantly changed, partially included on the current study. The lack of si gnificant interval change in 1.5 years is most compatible with a benign finding. Suggest a short-term follow-up pelvic ultras ound evaluation in 1 month. Reading Location: [facility]
== END | disposition home or self-care (01) ==
LOC: MRI 13:04
PROVIDERS: PCP Family Medicine; Referring Provider Internal Medicine Gastroenterology; Visit Provider Internal Medicine Gastroenterology
DX: K74.60 Unspecified cirrhosis of liver (principal)
CPT/HCPCS: 74183; A9575; A4216

== ENCOUNTER 2024-12-28 11:50 | Outpatient (CLI) | payer MEDICARE, OTHER, SELFPAY ==
[2024-12-28 13:28] LABS: Protein:Creat Ratio 2368 mg/g CRE (0-200)
[2024-12-29 12:08] LABS: ANTINUCLEAR ANTIBODIES DIRECT Negative (Negative)
[2025-01-01 15:08] LABS: Complement C3 180 mg/dL (82-167); Cytoplasmic Ab (C-ANCA) <1:20 titer (Neg:<1:20); PROEL- A/G Ratio 0.8 (0.7-1.7); PROEL- Albumin 2.9 g/dL (2.9-4.4); PROEL- Alpha-1 Globulin 0.3 g/dL (0.0-0.4); PROEL- Alpha-2 Globulin 0.8 g/dL (0.4-1.0); PROEL- Beta Globulin 1.5 g/dL (0.7-1.3); PROEL- Globulin, Total 3.7 g/dL (2.2-3.9); PROEL- TOTAL PROTEIN 6.6 g/dL (6.0-8.5); PROEL-M-Spike Not Observed g/dL (Not Observed); Perinuclear Ab (P-ANCA) <1:20 titer (Neg:<1:20)
== END 2024-12-28 23:59 | disposition home or self-care (01) ==
LOC: LAB 11:52
PROVIDERS: PCP Family Medicine; Referring Provider Internal Medicine Nephrology; Visit Provider Internal Medicine Nephrology
DX: R80.9 Proteinuria, unspecified (principal)
CPT/HCPCS: 36415; 82570; 84156; 84165; 86037; 86038; 86160; 86335

== ENCOUNTER → 2025-02-02 | Outpatient (CLI) | payer MEDICARE, OTHER, SELFPAY ==
[2025-02-02 13:40] LABS: Protein:Creat Ratio 2944 mg/g CRE (0-200)
[2025-02-06 08:08] LABS: ANTINUCLEAR ANTIBODIES DIRECT Negative (Negative)
== END | disposition home or self-care (01) ==
LOC: MTLAB 10:56
PROVIDERS: PCP Family Medicine; Referring Provider Internal Medicine Nephrology; Visit Provider Internal Medicine Nephrology
DX: R80.9 Proteinuria, unspecified (principal)
CPT/HCPCS: 36415; 82570; 84156; 84165; 86037; 86038; 86160; 86335

== ENCOUNTER 2025-02-13 13:30 | Outpatient (RCR) | payer MEDICARE, OTHER, SELFPAY ==
--- NOTE | 2024-12-28 15:16 | HP.PTEVAL_ITS ---
Patient's Visit Information Visit Information Visit Information: VITALY CORREA is a 69 year old F referred to Physical Therapy by Dr. Karen Terry MD with a diagnosis of Pelvic floor dysfunction and incontinence. Date of Evaluation: 12/28/24 Physical Therapist: Payal Torres Visit Plan Frequency: 1x/Week Duration: 2 Months Plan: Continue 1 x week. Add week 2 next visit. She has trouble laying on her back due to back pain and shortness of breath, but may benefit from additional pelvic floor releases to address mild tightness bilaterally. Also look at right lumbar next visit. Subjective Subjective: She is coming for incontinence. Urinary and bowel incontinence. Urinary incontinence has been going on since 2007. If she has to go to the bathroom, she had to make a dash for the bathroom and she doesn't always make it. When she gets the urge to go, she goes in her pad right away. When she does she doesn't urinate much in the toilet. She goes 13-15 times a day and she has to change her pad every time. She doesn't leak with a cough or sneeze. She has been dealing with bowel incontinence a couple of years. For a couple of years her problem has gotten worse. When she gets the urge to go, she gets up and she can make it to the bathroom. Sometimes she can't make it to the bathroom. She can have diarrhea. She has bowel movements 1-2 x day. Second time consistent with diarrhea. She can't hold back gas very well. She doesn't even know it's going to happen. She is having trouble with her right low back. MRI in past she remembers something about a degenerative disc problem. Low back pain comes and goes depends on what she is doing and her movement about 4 years ago. Lately her back pain is 3-4/10. No leg pain. Dr. Terry put her on different med to control an overactive bladder. One of the meds made her mouth dry. She isn't taking any right now. The med was helping to lessen the frequency but not helping the incontinence. Dr. Terry found she is not fully emptying her bladder. She is urinating once every hour to hour and a half. She usually wakes up wet. She can wet her pad overnight and not even know it. She doesn't usually drink coffee. She drinks 3 16 oz bottles of water a day. Her goal would like to be able to hold her urine. She has tried kegels in past but she isn't sure if she was doing correctly. Pain Right lumbar pain: Pain Intensity (Out of 10): 2 Pain Intensity Range: 5 Objective Objective: Incontinence impact questionnaire 12, Urogenital distress inventory 12, Colorectal-Anal distress inventory 12 She gives consent for internal pelvic floor work [place] 3/4//2 mild , moderate pelvic floor tightness bilaterally (she had difficulty laying on her back for the exam ) Did not look at right low back Goals Goal 1:: Vitaly's pad use will go from 10-12 pads a day to 4 a day which will indicate less leaking episodes on a day to day basis. Goal Time Frame: 6-8 Weeks Goal 2:: Vitaly will be able to hold back gas to avoid embarrassment during day to day life. Goal Time Frame: 6-8 Weeks Goal 3:: Vitaly will go thru a period of 3 weeks without experiencing any incontinence of bowels. Goal Time Frame: 6-8 Weeks Goal 4:: Vitaly will be on a frequency of voiding 7-8 times a day to allow for less disruption in her day to day activities. Goal Time Frame: 6-8 Weeks Goal 5:: Vitaly will wake up dry in the mornings. Goal Time Frame: 6-8 Weeks Rehabilitation Potential Physical Therapy Diagnosis: Urge incontinence, Frequency of micturition Rehabilitation Potential: Fair Anticipated Interventions Patient/Client Instruction: Educate patient on: Condition and Plan of Care For the Purpose of:: To improve muscle performance and motor function, To improve ability of physical actions for home/community/work/leisure, To improve health and function and To improve self management Therapeutic Exercise to Include: Strength training, Body mechanics, Postural training and Neuromotor development For the Purpose of:: To improve muscle performance and motor function, To improve health and function and To improve self management Manual Therapy Techniques to Include: Trigger point massage and Soft tissue mobilization For the Purpose of:: To decrease pain, To improve muscle performance and motor function and To improve self management Text: Thank you for the opportunity to evaluate your patient. For Medicare and Medicare HMO plans, please review the plan of care and approve it. It will need to be FAXED BACK to us at [phone] for Medicare purposes. For Medicare only, by signing this I certify the plan of care. Please let me know if there are questions or concerns regarding this plan of care. Physician Signature: Date:___
--- NOTE | 2025-01-30 14:11 | HP.PTREVAL_ITS ---
Re-Evaluation Intro: Dr. Karen Terry MD, It has been my pleasure to treat VITALY CORREA over the last 4 visits for Pelvic floor dysfunction and incontinence. Please see the progress note below for an update on the physical therapy plan of care! Subjective Subjective: She feels like she has noticed a slight improvement in her leaking. She thinks she may be expecting too much too soon. She states it seems like she can hold it when she is sitting but when she stands up she states she urinates and looses control (more than just leaking). She states her low back pain is 4/10 today. She feels about 10% improved with her incontinence/control to date. She follows up with Dr. Terry next Wednesday. Objective Objective/Function: Next visit will do internal pelvic floor exam to see how her contraction ability is improving. Slight improvement in her control. Hydrating more may be helpful in lessening urgency (urine likely too concentrated). Plan Plan Plan: Continue pelvic floor work next visit to see how she is improving with her contraction ability. Add week 5 next visit and review weeks 1-3. Continue work on lumbar (worse on right side)- today had patient in sitting with the walker support and pillow in front of her. Goals Goals Goal 1:: Vitaly's pad use will go from 10-12 pads a day to 4 a day which will indicate less leaking episodes on a day to day basis. Goal Time Frame: 6-8 Weeks Goal Progress: Not Progressing (No change) Goal 2:: Vitaly will be able to hold back gas to avoid embarrassment during day to day life. Goal Time Frame: 6-8 Weeks Goal Progress: Not Progressing (No change) Goal 3:: Vitaly will go thru a period of 3 weeks without experiencing any incontinence of bowels. Goal Time Frame: 6-8 Weeks Goal Progress: Not Progressing Goal 4:: Vitaly will be on a frequency of voiding 7-8 times a day to allow for less disruption in her day to day activities. Goal Time Frame: 6-8 Weeks Goal Progress: Progressing Goal 5:: Vitaly will wake up dry in the mornings. Goal Time Frame: 6-8 Weeks Goal Progress: Progressing Anticipated Interventions Anticipated Interventions Patient/Client Instruction: Educate patient on: Condition and Plan of Care For the Purpose of:: To improve muscle performance and motor function, To improve ability of physical actions for home/community/work/leisure, To improve health and function and To improve self management Therapeutic Exercise to Include: Strength training, Body mechanics, Postural training and Neuromotor development For the Purpose of:: To improve muscle performance and motor function, To imp rove health and function and To improve self management Manual Therapy Techniques to Include: Trigger point massage and Soft tissue mobilization For the Purpose of:: To decrease pain, To improve muscle performance and motor function and To improve self management Re-Evaluation Ending Re-evaluation ending: Please do not hesitate to contact me at [phone] by phone or if you have questions or concerns regarding this new plan of care! Sincerely, Payal Torres
--- NOTE | 2025-06-26 16:27 | HP.PT.NRP ---
Patient Information Patient Information: VITALY CORREA was seen in my office for initial evaluation on 12/28/24. The following Plan of Care was established for this patient: POC Established Initial Frequency: 1x/Week Initial Duration: 2 Months Anticipated Interventions Patient/Client Instruction: Educate patient on: Condition and Plan of Care For the Purpose of:: To improve muscle performance and motor function, To improve ability of physical actions for home/community/work/leisure, To improve health and function and To improve self management Therapeutic Exercise to Include: Strength training, Body mechanics, Postural training and Neuromotor development For the Purpose of:: To improve muscle performance and motor function, To improve health and function and To improve self management Manual Therapy Techniques to Include: Trigger point massage and Soft tissue mobilization For the Purpose of:: To decrease pain, To improve muscle performance and motor function and To improve self management Last Seen Last Seen: This patient was last seen in our office 02/13/25. Pertinent comments regarding their Physical therapy will appear below: Spoke with patient in a follow up. She states she is still experiencing leaking unfortunately and about the same. She will be following up with Dr. Terry in June. At this time we are discharging her. At this point I will be discontinuing this patient from physical therapy. I would be happy to see this patient again in the future if found appropriate by the physician. Thank you! Payal Torres
== END 2025-02-13 19:00 | disposition home or self-care (01) ==
LOC: PT 13:30
PROVIDERS: PCP Family Medicine; Referring Provider Urology; Visit Provider Urology
DX: N94.9 Unspecified condition associated with female genital organs and menstrual cycle; R32 Unspecified urinary incontinence
CPT/HCPCS: 97110; 97112; 97140; 97162; 97530

== ENCOUNTER → 2025-05-03 | Outpatient (CLI) | payer MEDICARE, OTHER, SELFPAY ==
[2025-05-03 18:25] LABS: AST(SGOT) 19 U/L (<=31); Alanine Aminotransfer ALT/SGPT 8 U/L (<=34); Albumin, Serum 3.4 g/dL (3.4-4.8); Alkaline Phosphatase 188 U/L (35-104); Anion Gap 11 (5-15); BUN 14 mg/dL (4-19); BUN/Creat Ratio 20.9 RATIO (10-20); Calcium,Total 9.6 mg/dL (7.6-11.0); Carbon Dioxide 24.7 mmol/L (21.0-32.0); Chloride 100 mmol/L (98-108); Cholesterol 167 mg/dL (<=200); Globulin 3.7 g/dL (2.2-4.2); Glucose 192 mg/dL (70-99); Low Density Lipoprotein Calc. 93 mg/dL; Potassium 5.1 mmol/L (3.3-5.1); Triglycerides 122 mg/dL; Very Low Density Lipoprotein 24 mg/dL (5-40); cholesterol:hdl ratio screen 3.36
[2025-05-03 18:41] LABS: Creatinine, Urine (random) 83.60 mg/dL (28.00-217.00)
[2025-05-03 18:53] LABS: Protein, Urine (Random) 211.0 mg/dL (0.0-12.0); Protein:Creat Ratio 2524 mg/g CRE (0-200)
--- NOTE | 2025-05-16 14:23 | HP.PT.NRP ---
Patient Information Patient Information: VITALY CORREA was seen in my office for initial evaluation on . The following Plan of Care was established for this patient: Last Seen Last Seen: This patient was last seen in our office 02/13/25. Pertinent comments regarding their Physical therapy will appear below: Spoke with patient by phone in a follow up. Unfortunately she states she is about the same and still experiencing leaking. She will be following up with Dr. Terry in June. She states she has still been doing the pelvic floor strengthening exercises at home. At this time, we are discharging her from PT. At this point I will be discontinuing this patient from physical therapy. I would be happy to see this patient again in the future if found appropriate by the physician. Thank you! Payal Torres
== END | disposition home or self-care (01) ==
LOC: MTLAB 14:36
PROVIDERS: PCP Family Medicine; Referring Provider Family Medicine; Visit Provider Internal Medicine Nephrology
DX: E11.29 Type 2 diabetes mellitus with other diabetic kidney complication (principal); E11.59 Type 2 diabetes mellitus with other circulatory complications; R80.9 Proteinuria, unspecified
CPT/HCPCS: 36415; 80053; 80061; 82570; 84156

== ENCOUNTER → 2025-08-10 | Outpatient (CLI) | payer MEDICARE, OTHER, SELFPAY ==
--- NOTE | 2025-08-10 13:41 | BI_ITS ---
EXAM: SCRN MAMM (CAD)W/VIANEY BILAT DATE: 08/10/2025 CLINICAL HISTORY: F, Age 70 y/o , SCREENING TECHNIQUE: Procedure Code: [id number] Modality: MG Procedure: SCRN MAMM (CAD)W/VIANEY BILAT COMPARISON: Prior exam(s) dated mammogram dated 05/07/2022. FINDINGS: TISSUE DENSITY: The breasts are almost entirely fatty. Bilateral Breast Mammographic Findings: There are no suspicious masses, suspicious clustered microcalcifications, architectural distortion or secondary signs of malignancy identified in either breast. Benign-appearing round microcalcifications are seen in both breasts. Benign vascular calcifications are seen in both breasts. BI/SCRN MAMM (CAD)W/VIANEY BILAT IMPRESSION: Benign screening mammogram OVERALL FINAL ASSESSMENT BI-RADS 2: BENIGN RECOMMENDATION: Routine annual follow-up in 1 Year Additional Recommendation none A letter with findings and recommendations will be mailed to the patient. Reading Location: [id number]
--- OUTSIDE RECORDS SUMMARY | 2025-08-10 13:41 | XMS RPT_ITS | CCD ---
Author Organization [facility] Care Team Providers Care Aircraft Part Assembler Name Role Phone Kirill Garcia Unavailable Dr. Tracy Dillard Primary Care Provider Dr. Jose Sweeney Emergency Provider Dr. Everton Bethea Admit Provider Dr. Everton Bethea Attending Provider Dr. Everton Bethea Other Provider Dr. Mary Ulrich Attending Provider Dr. Mavis Jenkins Attending Provider Dr. Mavis Jenkins Other Provider Jessy COOKY MACHINE OPERATOR, KIRK-Felix Whitney Attending Provider Gennav Dr. Johnnie Arellano Emergency Provider Dr. Nataly Ashley Attending Provider Dr. Nataly Ashley Admit Provider Dr. Nataly Ashley Other Provider Dr. Tracy Dillard Primary Care Provider Dr. Jose Sweeney Emergency Provider Dr. Everton Bethea Admit Provider Dr. Everton Bethea Attending Provider Dr. Everton Bethea Other Provider Dr. Mary Ulrich Attending Provider Dr. Mavis Jenkins Attending Provider Dr. Mavis Jenkins Other Provider Dr. Aleks Noriega Attending Provider Dr. Aleks Noriega Referring Provider Jessy COOKY MACHINE OPERATOR, MARK Whitney Attending Provider Dr. Johnnie Whitman Emergency Provider Dr. Nataly Ashley Attending Provider Dr. Nataly Ashley Admit Provider Dr. Nataly Ashley Other Provider Dr. Tracy Dillard Referring Provider Dr. Elkin Hendricks Attending Provider GILMA ELLSWORTH, DR CHAMBERS Primary Care Physician DR CALI MONTGOMERY MD Attending Spenser DILLARD MD, DR CHAMBERS Primary Care Unavailable Dr. Tracy Dillard Primary Care Provider Dr. Tracy Dillard Referring Provider ESPERANZA Lorenzana Attending Provider Dr. Tracy Dillard MD Primary Care Provider Zoraida Sosa Attending Provider [phone] Zoraida Sosa Referring Provider [phone] Dr. Tracy Dillard MD Attending Provider Dr. Tracy Dillard MD Referring Provider Dr. Cali Montgomery MD Attending Provider Dr. Cali Montgomery MD Referring Provider Dr. Elkin Hendricks MD Attending Provider [phone] Belinda Jenkins DO Attending Provider Dr. Belinda Jenkins DO Referring Provider Dr. Karen Terry MD Attending Provider Dr. Karen Terry MD Referring Provider DR CALI MONTGOMERY MD Attending Spenser DILLARD MD, DR CHAMBERS Primary Care Unavailable VALENTINA ELLSWORTH, DR SAMUEL Attending Unavailsharath DILLARD MD, DR CHAMBERS Primary Care Unavailable Gilma ELLSWORTH, Dr. Tracy Blackwood Primary Care Provider [phone] Harrison ELLSWORTH, Dr. Jones Attending Provider Harrison ELLSWORTH, Dr. Jones Referring Provider Gilma ELLSWORTH, Dr. Tracy Blackwood Primary Care Provider [phone] Gregory SOLANO, Dr. Trevino Attending Provider Gregory SOLANO, Dr. Trevino Referring Provider Harrison ELLSWORTH, Dr. Jones Attending Provider Harrison ELLSWORTH, Dr. Jones Referring Provider Kaylie ELLSWORTH, Dr. Fink Primary Care Provider Kaylie ELLSWORTH, Dr. Fink Referring Provider Gilma ELLSWORTH, Dr. Tracy Blackwood Primary Care Physician [phone] Harrison ELLSWORTH, Dr. Jones Attending Physician Kaylie ELLSWORTH, Dr. Fink Primary Care Physician [phone] Gregory SOLANO, Dr. Trevino Attending Physician Gilma ELLSWORTH, Dr. Tracy Blackwood Referring Provider Nubia Lorenzana Attending Physician Kimberley Carter MD Primary Care Physician [phone] Jolliff, Tracy S Primary Care Unavailable Jolliff, Tracy S Attending Unavailable Jolliff, Tracy S Referring Unavailable GeebourCali Attending Unavailable Geebour, Cali Referring Unavailable Jolliff, Tracy S Primary Care Unavailable Jolliff, Tracy S Primary Care Unavailable Cali Montgomery Attending Unavailable Cali Montgomery Referring Unavailable Jolliff, Tracy S Primary Care Unavailable Karen Terry Attending Unavailable Karen Terry Referring Unavailable Jolliff, Tracy S Primary Care Unavailable Belinda Jenkins Attending Unavailable Belinda Jenkins Referring Unavailable Jolliff, Tracy S Primary Care Unavailable Belinda Jenkins Attending Unavailable Belinda Jenkins Referring Unavailable Aleks Lott Primary Care Unavailable Aleks Lott Referring Unavailable Belinda Jenkins Attending Unavailable Zoraida Galvez Attending Unavailable Zoraida Galvez Referring Unavailable Tracy Dillard Primary Care Unavailable Nubia Lorenzana Attending Unavail able Tracy Dillard Referring Unavailable Kimberley Carter Primary Care Unavailable Tracy Dillard Primary Care Unavailable Elkin Hendricks Attending Unavailable Tracy Dillard Referring Unavailable Allergies Allergy Classification Reported Allergen(s) Allergy Type Date of Onset Reaction(s) Facility (19 sources) nabumetone; Translations: [nabumetone] Drug Allergy 7 Itching, ITCH [facility] (17 sources) Nitrofurantoin Drug Allergy 2 Rash [facility] (1 source) NITROFURANTOIN, MACROCRYSTALS / Nitrofurantoin, Monohydrate; Translations: [nitrofurantoin] Drug Allergy [facility] (7 sources) oxyCODONE Drug Allergy 4 Pain in joints [facility] Comment on above: severe pain in joint s (1 source) nabumetone Drug Allergy 5 [facility] (1 source) Nitrofurantoin Drug Allergy 5 [facility] (1 source) oxyCODONE Drug Allergy 5 [facility] Medications Current Medications Medication Drug Class(es) Dates Sig (Normalized) Sig (Original) acetaminophen 325 mg oral tablet (16 sources) Start: 09-09-2022 take 2 tablets by mouth every four hours as needed for pain Acetaminophen (Tylenol) 325 mg Tablet Active 650 mg PO EVERY 4 HOURS NEEDED as needed for Fever, pain -10 0 0 September 09, 2022 1:00am Complies with drug therapy allopurinol 300 mg oral tablet (17 sources) Xanthine Oxidase Inhibitor Start: 09-05-2022 take 1 tablet by mouth once daily Allopurinol 300 mg tablet Active 300 mg PO DAILY September 05, 2022 1:00am Complies with drug therapy amLODIPine 10 mg oral tablet (1 source) Dihydropyridine Calcium Channel Curtis Start: 09-09-2022 take 10 mg by mouth once daily Amlodipine Active 10 MG PO DAILY 0 September 09, 2022 12:00am ARIPiprazole 2 mg oral tablet (20 sources) Atypical Antipsychotic Start: 04-11-2024 take 1 mg by mouth once daily Aripiprazole (Abilify) 2 mg tablet Active 1 mg PO DAILY April 11, 2024 12:00am Complies with drug therapy Start: 02-27-2019 ARIPiprazole 2 mg oral tablet Dose : 2 mg = 1 tab(s), Oral, Daily, 0 Refill(s) Start Date: 02/27/19 Status: Ordered Start: 05-23-2015 End: 04-17-2024 take 0.5 mg by mouth once daily Aripiprazole 2 mg tablet Discontinued 0.5 mg PO DAILY October 22, 2023 12:32pm April 17, 2024 10:45am Start: 05-23-2015 take 0.5 mg by mouth once daily Aripiprazole Active 0.5 MG PO DAILY May 23, 2015 12:00am Start: 05-23-2015 take 1 mg by mouth once daily Aripiprazole Active 1 MG PO DAILY May 23, 2015 12:00am Start: 05-09-2015 ABILIFY 2 MG T ABS daily ARIPIPRAZOLE [id number] [place] 24 hr buPROPion hydrochloride 150 mg extended release oral tablet (20 sources) Aminoketone Start: 02-27-2019 take 1 tablet by mouth every hour, then take 1 tablet by mouth every twenty-four hours buPROPion 150 mg/24 hours (XL) oral tablet, extended release Dose : 150 mg = 1 tab(s), Oral, q24h, # 90 tab(s), 0 Refill(s) Start Date: 02/27/19 Status: Ordered Start: 05-23-2015 take 1 tablet by [facility] once daily Bupropion Hcl 150 MG tablet extended release 24 hr Active 150 mg PO DAILY May 23, 2015 12:00am Complies with drug therapy Start: 05-09-2015 WELLBUTRIN 75 MG TABS daily BUPROPION HCL [id number] Tracy Acosta Frase carvedilol 12.5 mg oral tablet (20 sources) alpha-Adrenergic Curtis, beta-Adrenergic Curtis Start: 12-14-2024 take 1 tablet by mouth twice daily at mealtime Carvedilol 12.5 mg tablet Active 12.5 mg PO TWICE A DAY 180 December 14, 2024 12:00am must administer with a meal/food Complies with drug therapy Start: 10-13-2022 End: 12-14-2024 take 1 tablet by mouth twice daily Carvedilol 6.25 mg tablet Discontinued 6.25 mg PO TWICE A DAY October 13, 2022 12:48pm December 14, 2024 11:05am Start: 09-10-2022 End: 10-13-2022 take 2 tablets by mouth twice daily Carvedilol 6.25 mg Tablet Discontinued 12.5 mg PO TWICE A DAY 60 0 September 10, 2022 1:00am October 13, 2022 12:56pm Start: 09-10-2022 End: 10-13-2022 take 12.5 mg by mouth twice daily Carvedilol Discontinued 12.5 MG PO TWICE A DAY 60 September 10, 2022 1:00am October 13, 2022 12:56pm Finerenone (2 sources) Start: 06-19-2025 take 1 tablet by mouth once daily Finerenone (Kerendia) 10 mg tablet Active 10 mg PO daily June 19, 2025 12:00am Complies with drug therapy ibuprofen 200 mg oral tablet (1 source) Nonsteroidal Anti-inflammatory Drug Start: 02-27-2019 Advil 200 mg oral tablet Dose : 400 mg = 2 tab(s), Oral, q4h, PRN as needed for pain, # 120 tab(s), 0 Refill(s) Start Date: 02/27/19 Status: Ordered loratadine 5 mg chewable tablet (19 sources) Start: 02-15-2023 Claritin 5 mg oral tablet, chewable Dose : 5 mg = 1 tab(s), Chewed, qDay, 0 Refill(s) Start Date: 02/15/23 Status: Ordered Start: 05-23-2015 take 1 tablet by [facility] once daily as needed Loratadine (Allergy Relief (Loratadine)) 10 MG tablet Active 10 mg PO DAILY NEEDED as needed for allergies May 23, 2015 12:00am Complies with drug therapy omeprazole 20 mg delayed release oral capsule (18 sources) Proton Pump Inhibitor Start: 09-05-2022 take 1 capsule by mouth once daily Omeprazole 20 mg Capsule,Delayed Release(Dr/Ec) Active 20 mg PO DAILY September 05, 2022 1:00am Complies with drug therapy Start: 06-09-2021 omeprazole 40 mg oral delayed release capsule Dose : 40 mg = 1 cap(s), Oral, qDay, 0 Refill(s) Start Date: 06/09/21 Status: Ordered pantoprazole 40 mg delayed release oral tablet (3 sources) Proton Pump Inhibitor Start: 05-23-2015 take 40 mg by mouth once daily Pantoprazole Active 40 MG PO DAILY May 23, 2015 12:00am Start: 05-09-2015 PROTONIX 40 MG TBEC three times a day PANTOPRAZOLE SODIUM [id number] [place] promethazine hydrochloride 25 mg oral tablet (1 source) Phenothiazine Start: 07-06-2017 take 25 mg by mouth every four hours as needed Promethazine Active 25 MG PO EVERY 4 HOURS NEEDED July 06, 2017 12:00am rOPINIRole 0.25 mg oral tablet (20 sources) Nonergot Dopamine Agonist Start: 10-13-2022 take 0.5 mg by mouth at bedtime Ropinirole Active 0.5 MG PO AT BEDTIME October 13, 2022 1:00am Start: 02-27-2019 rOPINIRole 0.2 5 mg oral tablet Dose : 0.25 mg = 1 tab(s), Oral, TID, # 270 tab(s), 0 Refill(s) Start Date: 02/27/19 Status: Ordered Start: 05-23-2015 End: 10-13-2022 take 2 tablets by mouth at bedtime Ropinirole 0.25 mg tablet Active 0.5 mg PO AT BEDTIME October 13, 2022 1:00am Complies with drug therapy Start: 05-23-2015 take 3 tablets by [facility] once daily Ropinirole Hcl (Requip) 0.25 MG tablet Active 0.75 MG PO DAILY May 23, 2015 12:00am Semaglutide (2 sources) Start: 06-19-2025 Semaglutide (Ozempic) 0.25 mg or 0.5 mg (2 mg/3 mL) pen injector Active 0.25 mg SC EVERY WEEK June 19, 2025 12:00am Complies with drug therapy spironolactone 100 mg oral tablet (7 sources) Aldosterone Antagonist Start: 06-19-2025 End: 06-19-2025 take 1 tablet by mouth once daily as needed Spironolactone 100 mg tablet Active 100 mg PO daily as needed for when using lasix June 19, 2025 11:36am Complies with drug therapy Start: 05-23-2015 Spironolactone Active 50 MG PO DIRECTED May 23, 2015 12:00am Start: 05-09-2015 SPIRONOLACTONE 50 MG TABS 3 weekly SPIRONOLACTONE [id number] [place] levothyroxine sodium 0.05 mg oral tablet (20 sources) l-Thyroxine Start: 02-27-2019 Synthroid 50 m cg (0.05 mg) oral tablet Dose : 50 mcg = 1 tab(s), Oral, qDayAC, # 90 tab(s), 0 Refill(s) Start Date: 02/27/19 Status: Ordered Start: 05-09-2015 take 1 tablet by [facility] once daily Levothyroxine 50 MCG tablet Active 50 ug PO DAILY May 23, 2015 12:00am Complies with drug therapy ursodiol 500 mg oral tablet (20 sources) Start: 10-13-2022 take 1 tablet by mouth three times daily Ursodiol 500 mg tablet Active 500 mg PO THREE TIMES A DAY October 13, 2022 1:00am Complies with drug therapy Start: 02-27-2019 End: 03-29-2019 ursodiol 500 mg oral tablet Dose : 500 mg = 1 tab(s), Oral, TID, 0 Refill(s) Start Date: 02/27/19 Stop Date: 03/29/19 Status: Ordered Start: 05-23-2015 End: 10-13-2022 take 1 tablet by mouth three times daily Ursodiol 250 MG tablet Discontinued 500 mg PO THREE TIMES A DAY May 23, 2015 12:00am October 13, 2022 12:51pm Start: 05-23-2015 End: 10-13-2022 take 500 mg by mouth three times daily Ursodiol Discontinued 500 MG PO THREE TIMES A DAY May 23, 2015 12:00am October 13, 2022 12:51pm Start: 05-09-2015 ANIA FORTE 500 MG TABS three times a day URSODIOL [id number] [place] Completed/Discontinued Medications Medication Drug Class(es) Dates Sig (Normalized) Sig (Original) acetaminophen 325 mg / HYDROcodone bitartrate 5 mg oral tablet (20 sources) Opioid Agonist Start: 04-11-2024 End: 04-17-2024 Hydrocodone-Acetami nophen 5-325 mg tablet Discontinued 1 {tbl} PO EVERY 6 HOURS NEEDED as needed for Pain 10 3 0 April 11, 2024 April 17, 2024 10:47am Fracture of greater tuberosity of left humerus Start: 07-06-2017 End: 08-18-2017 Hydrocodone-Acetaminophen 1 TABLET tablet Discontinued 1 - 2 {tbl} PO EVERY 6 HOURS NEEDED as needed for Pain 30 July 06, 2017 12:00am August 18, 2017 1:50pm Start: 07-06-2017 End: 08-18-2017 take 1 tablet by mouth every six hours as needed Hydrocodone-Acetaminophen Discontinued 1 - 2 TABLET PO EVERY 6 HOURS NEEDED July 06, 2017 12:00am August 18, 2017 1:50pm albuterol 0.83 mg/ml inhalation solution (14 sources) beta2-Adrenergic Agonist Start: 09-24-2022 End: 04-11-2024 take 2.5 mg by inhalation every two hours as needed Albuterol Sulfate 2.5 mg /3 mL (0.083 %) Solution For Nebulization Discontinued 2.5 mg INHALATION EVERY 2 HOURS NEEDED as needed for SHORTNESS OF BREATH 75 0 September 24, 2022 1:00am April 11, 2024 7:38pm albuterol 0.833 mg/ml / ipratropium bromide 0.167 mg/ml inhalation solution (14 sources) Anticholinergic, beta2-Adrenergic Agonist Start: 09-24-2022 End: 04-11-2024 take 1 mL by inhalation every eight hours Ipratropium-Albut rukhsana 0.5 mg-3 mg(2.5 mg base)/3 mL Solution For Nebulization Discontinued 3 mL INHALATION Q8H 90 0 September 24, 2022 1:00am April 11, 2024 7:40pm Start: 09-24-2022 take 1 mL by inhalat ion every eight hours Ipratropium-Albuterol Active 3 ML INHALATION Q8H 90 September 24, 2022 1:00am amLODIPine 2.5 mg / benazepril hydrochloride 10 mg oral capsule (20 sources) Dihydropyridine Calcium Channel Curtis, Angiotensin Converting Enzyme Inhibitor Start: 09-21-2022 End: 10-13-2022 take 1 capsule by mouth once daily Amlodipine-Benazepril Active 1 CAP PO DAILY October 13, 2022 12:46pm Start: 02-27-2019 End: 10-13-2022 Amlodipine-Benazepril 2.5-10 mg capsule Discontinued 2.5 - 10 NMA PO DAILY September 21, 2022 1:00am October 13, 2022 12:56pm HEART Start: 06-30-2017 End: 09-09-2022 Amlodipine-Benazepril 1 EACH capsule Discontinued 1 NMA PO DAILY June 30, 2017 12:00am September 09, 2022 3:44pm Start: 06-30-2017 End: 09-09-2022 Amlodipine-Benazepril Discon tinued 1 EACH PO DAILY June 30, 2017 12:00am September 09, 2022 3:44pm Start: 05-09-2015 AMLODIPINE BES Y-BENAZEPRIL HCL 2.5-10 MG CAPS daily AMLODIPINE BESY-BENAZEPRIL HCL [id number] [place] apixaban 5 mg oral tablet (20 sources) Factor Xa Inhibitor Start: 09-09-2022 End: 02-08-2025 take 1 tablet by mouth twice daily Apixaban (Eliquis) 5 mg tablet Discontinued 5 mg PO TWICE A DAY 180 3 February 08, 2025 1:46pm February 08, 2025 4:21pm aspirin 81 mg delayed release oral tablet (20 sources) Platelet Aggregation Inhibitor, Nonsteroidal Anti-inflammatory Drug Start: 02-21-2024 End: 04-17-2024 take 1 tablet by mouth once daily Aspirin (Adult Aspirin Regimen) 81 mg tablet,delayed release (DR/EC) Discontinued 81 mg PO DAILY 10 February 21, 2024 12:00am April 17, 2024 10:45am Cardiac catheterization Start: 02-15-2023 aspirin 81 mg oral delayed release tablet Dose : 81 mg = 1 tab(s), Oral, qDay, 0 Refill(s) Start Date: 02/15/23 Status: Ordered Start: 05-23-2015 End: 10-22-2023 take 1 tablet by mouth once daily Aspirin 81 MG tablet,chewable Discontinued 81 mg PO DAILY@0800 May 23, 2015 12:00am October 22, 2023 12:50pm azithromycin 250 mg oral tablet (15 sources) Macrolide Antimicrobial Start: 09-24-2022 End: 10-13-2022 take 2 tablets by mouth every twenty-four hours Azithromycin 250 mg Tablet Discontinued 500 mg PO EVERY 24 HOURS 2 1 September 24, 2022 1:00am October 13, 2022 12:55pm Start: 09-24-2022 End: 10-13-2022 take 500 mg by mouth every twenty-four hours Azithromycin Discontinued 500 MG PO EVERY 24 HOURS 2 September 24, 2022 1:00am October 13, 2022 12:55pm Start: 09-10-2022 take 500 mg by mouth once janki y Azithromycin Active 500 MG PO DAILY 14 September 10, 2022 12:00am cephalexin 500 mg oral capsule (18 sources) Cephalosporin Antibacterial Start: 07-06-2017 End: 08-18-2017 take 1 capsule by mouth every twelve hours Cephalexin 500 MG capsule Discontinued 500 mg PO EVERY 12 HOURS July 06, 2017 12:00am August 18, 2017 1:50pm diclofenac sodium 0.01 mg/mg topical gel (12 sources) Nonsteroidal Anti-inflammatory Drug Start: 10-13-2022 End: 04-14-2023 Diclofenac Sodium (Arthritis Pain (Diclofenac)) 1 % gel Discontinued 4 g TOPICAL .COMPLEX October 13, 2022 1:00am April 14, 2023 10:25am 4 grams topically BID and Q4hrs PRN; apply to single knee, ankle, foot; for foot includes sole/toes/top of foot docusate sodium 100 mg oral capsule (18 sources) Start: 07-06-2017 End: 04-11-2024 take 1 capsule by mouth twice daily as needed for constipation Docusate Sodium (Dok) 100 MG capsule Discontinued 100 mg PO TWICE DAILY NEEDED as needed for Constipation July 06, 2017 12:00am April 11, 2024 7:40pm Dulaglutide (12 sources) GLP-1 Receptor Agonist Start: 10-13-2022 End: 04-14-2023 Dulaglutide (Trulicity) 4.5 mg/0.5 mL pen injector Discontinued 4.5 mg SC EVERY WEEK October 13, 2022 1:00am April 14, 2023 10:24am Start: 10-13-2022 End: 04-14-2023 Dulaglutide (Trulicity) 4.5 mg/0.5 mL pen injector Discontinued 4.5 MG SC EVERY WEEK October 13, 2022 1:00am April 14, 2023 10:24am Start: 10-13-2022 Dulaglutide (T rulicity) 4.5 mg/0.5 mL pen injector Active 4.5 MG SC EVERY WEEK October 13, 2022 1:00am 0.65 ml exenatide 3.08 mg/ml pen injector (11 sources) GLP-1 Receptor Agonist Start: 06-30-2017 End: 10-13-2022 Exenatide Microspheres (Bydureon) 2 MG/0.65 ML pen injector Discontinued 2 MG SQ EVERY WEEK June 30, 2017 12:00am October 13, 2022 12:55pm Exenatide Microspheres (Bydureon) 2 MG/0.65 ML pen injector (7 sources) Start: 06-30-2017 End: 10-13-2022 Exenatide Microspheres (Bydureon) 2 MG/0.65 ML pen injector Discontinued 2 mg SQ EVERY WEEK June 30, 2017 12:00am October 13, 2022 12:55pm Check with primary doctor Start: 06-30-2017 End: 10-13-2022 Exenatide Microspheres (Bydu reon) 2 MG/0.65 ML pen injector Discontinued 2 mg SQ EVERY WEEK June 30, 2017 12:00am October 13, 2022 12:55pm furosemide 40 mg oral tablet (20 sources) Loop Diuretic Start: 09-10-2022 End: 06-19-2025 take 1 tablet by mouth once daily Furosemide 40 mg tablet Discontinued 40 mg PO DAILY April 14, 2023 10:23am June 19, 2025 11:37am 3xweek Start: 09-05-2022 take 40 mg by mouth every other day Furosemide Active 40 MG PO EVERY OTHER DAY September 05, 2022 12:00am glimepiride 2 mg oral tablet (20 sources) Sulfonylurea Start: 05-09-2015 End: 06-19-2025 take 1 tablet by mouth once daily Glimepiride 2 MG tablet Discontinued 2 mg PO DAILY May 23, 2015 12:00am June 19, 2025 11:15am 12 hr guaiFENesin 1200 mg extended release oral tablet (16 sources) Start: 09-09-2022 End: 09-24-2022 take 1 tablet by mouth twice daily, then take 1 tablet by mouth every twelve hours Guaifenesin (Mucus Relief Er) 1,200 mg Tablet Extended Release 12hr Discontinued 1200 mg PO TWICE A DAY 0 September 09, 2022 1:00am September 24, 2022 3:45pm 3 ml insulin glargine 100 unt/ml pen injector (12 sources) Insulin Analog Start: 10-13-2022 End: 04-14-2023 Insulin Glargine 100 unit/mL (3 mL) insulin pen Discontinued 10 U SC AT BEDTIME October 13, 2022 1:00am April 14, 2023 10:24am 3 ml insulin lispro 100 unt/ml pen injector (12 sources) Insulin Analog Start: 10-13-2022 End: 04-14-2023 inject 5 [IU] by subcutaneous injection before mealtime Insulin Lispro 100 unit/mL insulin pen Discontinued 0 SC before meals October 13, 2022 1:00am April 14, 2023 10:24am 5 units + sliding scale subcutaneously before meals; lisinopril 10 mg oral tablet (16 sources) Angiotensin Converting Enzyme Inhibitor Start: 09-09-2022 End: 04-14-2023 take 1 tablet by mouth once daily Lisinopril 10 mg Tablet Discontinued 10 mg PO DAILY 0 0 September 09, 2022 1:00am April 14, 2023 10:24am methylphenidate hydrochloride 10 mg oral tablet (2 sources) Central Nervous System Stimulant Start: 05-09-2015 RITALIN 10 MG TABS daily METHYLPHENIDATE HCL [id number] [place] METHYLPREDNISOLONE (2 sources) Corticosteroid Start: 05-09-2015 METHYLPREDNISOLONE 4 MG TBPK as directed METHYLPREDNISOLONE [id number] Kirill Garcia miconazole nitrate 0.02 mg/mg topical powder (12 sources) Azole Antifungal Start: 10-13-2022 End: 10-22-2023 Miconazole Nitrate 2 % powder Discontinued 1 NMA TOPICAL TWICE A DAY October 13, 2022 1:00am October 22, 2023 12:33pm oxyCODONE hydrochloride 5 mg oral capsule (7 sources) Opioid Agonist Start: 04-14-2024 End: 04-17-2024 take 1 capsule by mouth every six hours as needed for pain Oxycodone 5 mg capsule Discontinued 5 mg PO EVERY 6 HOURS as needed for pain 20 5 0 April 14, 2024 April 17, 2024 10:47am Fracture of greater tuberosity of left humerus potassium chloride 20 meq extended release oral tablet (12 sources) Start: 10-23-2022 End: 04-14-2023 take 1 tablet by mouth once daily Potassium Chloride 20 mEq tablet extended release Discontinued 20 meq PO DAILY 7 0 October 23, 2022 1:00am April 14, 2023 10:24am Hypokalemia Hypokalemia predniSONE 20 mg oral tablet (14 sources) Start: 09-24-2022 End: 10-13-2022 take 2 tablets by mouth once daily Prednisone 20 mg Tablet Discontinued 40 mg PO DAILY 4 2 0 September 24, 2022 1:00am October 13, 2022 12:55pm Start: 09-24-2022 End: 10-13-2022 take 40 mg by mouth once daily Prednisone Discontinued 40 MG PO DAILY 4 2 September 24, 2022 1:00am October 13, 2022 12:55pm sulfamethoxazole 800 mg / trimethoprim 160 mg oral tablet (20 sources) Dihydrofolate Reductase Inhibitor Antibacterial, Sulfonamide Antimicrobial Start: 05-23-2015 End: 05-23-2015 take 1 tablet by mouth twice daily Sulfamethoxazole-Trimethoprim Discontinued 1 TABLET PO TWICE A DAY May 23, 2015 12:00am May 23, 2015 2:57pm Start: 05-17-2015 End: 05-23-2015 Sulfamethoxazole-Trimethopri m 1 TABLET tablet Discontinued 1 {tbl} PO TWICE A DAY 10 May 23, 2015 12:00am May 23, 2015 2:57pm tamsulosin hydrochloride 0.4 mg oral capsule (18 sources) alpha-Adrenergic Curtis Start: 09-05-2022 End: 12-12-2024 take 1 capsule by mouth once daily Tamsulosin (Flomax) 0.4 mg Capsule Discontinued 0.4 mg PO DAILY September 05, 2022 1:00am December 12, 2024 10:55am traMADol hydrochloride 50 mg oral tablet (2 sources) Opioid Agonist Start: 05-09-2015 ULTRAM 50 MG TABS q6h TRAMADOL HCL [id number] [place] traZODone hydrochloride 50 mg oral tablet (20 sources) Serotonin Reuptake Inhibitor Start: 05-09-2015 End: 10-13-2022 take 1 tablet by mouth once daily Trazodone 50 MG tablet Discontinued 50 mg PO DAILY May 23, 2015 12:00am October 13, 2022 12:56pm Problems Active Problems Problem Classification Problem Date Documented Da te Episodic/Chronic Cardiac dysrhythmias (19 sources) Paroxysmal atrial fibrillation; Translations: [Paroxysmal atrial fibrillation] 10-12-2022 Chronic Diabetes mellitus with complications (2 sources) Type 2 diabetes mellitus with other diabetic kidney complication; Translations: [Type 2 diabetes mellitus with other circulatory complications] Onset: 11-12-2024 Chronic Diabetes mellitus without complication (13 sources) Type 2 diabetes mellitus without complication; Translations: [Type 2 diabetes mellitus without complications] 10-12-2022 Chronic Diabetes mellitus without complication (4 sources) Acute hyperglycemia; Translations: [Hyperglycemia, unspecified] Episodic E Codes: Fall (7 sources) Fall; Translations: [Unspecified fall, initial encounter] 04-19-2024 Episodic Essential hypertension (20 sources) Hypertensive disorder; Translations: [Essential (primary) hypertension] Chronic Fluid and electrolyte disorders (12 sources) Hypokalemia; Translations: [Hypokalemia] 10-23-2022 Episodic Fracture of upper limb (7 sources) Fracture of greater tuberosity of humerus; Translations: [Displaced fracture of greater tuberosity of left humerus, initial encounter for closed fracture] 04-19-2024 Episodic Gout and other crystal arthropathies (20 sources) Chronic tophaceous gout; Translations: [Gout] Onset: 06-18-2017 06-27-2017 Chronic Other aftercare (18 sources) Surgical follow-up; Translations: [Encounter for other orthopedic aftercare] 08-14-2017 Episodic Comment on above: 07/06/17 Other aftercare (2 sources) Long-term current use of anticoagulant; Translations: [senior living (current) use of anticoagulants] Episodic Other aftercare (2 sources) 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; Translations: [Long-term (current) use of anticoagulants] Episodic Other circulatory disease (17 sources) H/O: atrial fibrillation; Translations: [Personal history of other diseases of the circulatory system] 09-18-2022 Episodic Other circulatory disease (4 sources) Personal history of other diseases of the circulatory system; Translations: [Atrial fibrillation] Episodic Other liver diseases (3 sources) Cirrhosis of liver; Translations: [Unspecified cirrhosis of liver] 06-19-2025 Chronic Other liver diseases (1 source) Unspecified cirrhosis of liver; Translations: [Unspecified cirrhosis of liver] Onset: 11-24-2024 Chronic Other lower respiratory disease (7 sources) Dyspnea on exertion; Translations: [Other forms of dyspnea] 02-21-2024 Episodic Other upper respiratory disease (2 sources) Acute bronchospasm; Translations: [Acute bronchospasm] Episodic Other upper respiratory disease (2 sources) Acute bronchospasm; Translations: [Acute bronchospasm] Episodic Pneumonia (except that caused by tuberculosis or sexually transmitted disease) (20 sources) Community acquired pneumonia; Translations: [Pneumonia, unspecified organism] Episodic Pulmonary heart disease (11 sources) Pulmonary hypertension; Translations: [Pulmonary hypertension, unspecified] 04-19-2024 Chronic Residual codes; unclassified (12 sources) Obstructive sleep apnea syndrome; Translations: [Obstructive sleep apnea (adult) (pediatric)] 10-12-2022 Chronic Respiratory failure; insufficiency; arrest (adult) (20 sources) Acute on chronic hypercapnic respiratory failure; Translations: [Acute and chronic respiratory failure with hypercapnia] Chronic Respiratory failure; insufficiency; arrest (adult) (20 sources) Acute respiratory failure; Translations: [Acute respiratory failure with hypoxia] Episodic Septicemia (except in labor) (20 sources) Sepsis; Translations: [Sepsis, unspecified organism] Episodic Skin and subcutaneous tissue infections (20 sources) Abscess of finger; Translations: [Abscess of finger of right hand] Onset: 05-17-2015 05-29-2015 Episodic Thyroid disorders (12 sources) Hypothyroidism; Translations: [Hypothyroidism, unspecified] 10-12-2022 Chronic Past or Other Problems Problem Classification Problem Date Documented Da te Episodic/Chronic Abdominal hernia (1 source) Unspecified abdominal hernia with obstruction, without gangrene; Translations: [Unspecified abdominal hernia with obstruction, without gangrene] Onset: 12-10-2024 Episodic Genitourinary symptoms and ill-defined conditions (1 source) Proteinuria, unspecified; Translations: [Proteinuria, unspecified] Onset: 02-07-2025 Episodic Other aftercare (2 sources) Follow-up orthopedic assessment; Translations: [Encounter for other orthopedic aftercare] Onset: 05-27-2015 05-31-2015 Episodic Other connective tissue disease (4 sources) Pain in finger; Translations: [Hand pain] Onset: 05-09-2015 06-18-2017 Episodic Other non-traumatic joint disorders (2 sources) Stiffness of unspecified hand, not elsewhere classified; Translations: [Stiffness of unspecified hand, not elsewhere classified] Onset: 05-09-2015 05-18-2015 Episodic Unclassified (18 sources) bilateral carpal tunnel 04-04-2022 Comment on above: 1999 Unclassified (18 sources) left long finger I&D 04-04-2022 Comment on above: 07/06/17 Unclassified (18 sources) right long finger I&D 04-04-2022 Comment on above: 05/23/15 Unclassified (18 sources) sarcoidosis liver 04-04-2022 Results Test Name Value Interpretation Reference Range Facility Cardiology Visit Reporton Cardiology Visit Report [facility] [address] [place] [address] OFFICE VISIT Date of Service: 06/19/25 MR#: [id number] Acct: [id number] Name: APRIL CORREA Rep #: [id number] : [id number] Provider: ESPERANZA Leija Age/Sex: 70/F Location: [facility] [place] Status: Signed HPI HPI History of Present Illness Details: The patient is a 70-year-old female with paroxysmal atrial fibrillation, HTN, pulmonary HTN, cirrhosis, and DMII presenting for follow-up. She reports two brief episodes of irregular heartbeats in the past month, each lasting approximately 15 seconds, similar to prior atrial fibrillation episodes. She denies chest pain, heaviness, tightness, shortness of breath, lightheadedness, dizziness, or bleeding issues. She has been taking spironolactone 100 mg and Lasix together approximately once every two weeks, rather than daily as prescribed, due to frequent urination. She takes Kerendia 10 mg daily as prescribed. She was started on Ozempic about a month ago by Dr. Lott for DMII (HbA1c 9.2%) and has since experienced unintentional weight loss. She is now under the care of Dr. Larson for diabetes management, with a follow-up appointment scheduled at the end of the month. She notes that her blood pressure readings have been variable, with a high reading today. She does not check her blood pressure regularly at home and uses a wrist cuff that she acknowledges may be inaccurate. She reports that her blood pressure readings were within normal limits at recent visits with Dr. Jenkins. Intake Vital Signs 12/12/24 10:49 06/19/25 11:08 Height 5 ft 2 in 5 ft 2 in Weight: 290 lb BMI 53.0 BP 151/80 H Blood Pressure Location Lt brachial Position Sitting Respiration 16 Pulse 76 Pulse Source NIBP Intake Visit Reasons: 6 M FU Mid Level Developer Required: No Accompanied by: Self Is patient in pain?: Yes (B/L hip and knee arthritis) Pain scale (1-10): 5 Allergies nabumetone (From Relafen) Allergy (Verified 06/19/25 11:12) Itching nitrofurantoin (From Macrobid) Allergy (Verified 12/12/24 10:54) Rash oxycodone Allergy (Verified 06/19/25 11:12) Pain in joints Medications ???Medication ???Instructions ???Recorded ???Confirmed ???Type bupropion HCl 150 mg 24 hr tablet, 150 mg PO DAILY 05/23/15 5 History extended release levothyroxine 50 mcg tablet 50 mcg PO DAILY 05/23/15 06/19/25 History loratadine 10 mg tablet (Allergy 10 mg PO DAILY PRN PRN allergies 0 05/23/15 06/19/25 History Relief (loratadine)) allopurinol 300 mg tablet 300 mg PO DAILY 09/05/22 06/19/25 History omeprazole 20 mg capsule,delayed 20 mg PO DAILY 09/05/22 06/19/25 H istory release acetaminophen 325 mg tablet 650 mg (2 x 325 mg) PO Q4H PRN PRN 09/09/22 06/19/25 Rx (Tylenol) Fever, pain 1-06/22 #0 tabs amlodipine 2.5 mg-benazepril 10 mg 1 cap PO DAILY HEART 10/13/22 History capsule ropinirole 0.25 mg tablet 0.5 mg PO QHS 10/13/22 06/19/25 Hi story trazodone 50 mg tablet 50 mg PO QHS 10/13/22 06/19/25 His tory ursodiol 500 mg tablet 500 mg PO TID 10/13/22 06/19/25 Hi story aripiprazole 2 mg tablet (Abilify) 1 mg PO DAILY 04/11/24 06/19/25 History carvedilol 12.5 mg tablet 12.5 mg PO BID #180 tabs 12/14/24 06/19/25 Rx apixaban 5 mg tablet (Eliquis) 5 mg PO BID month supply waiting 0 02/08/25 06/19/25 Rx on mail order #60 tabs finerenone 10 mg tablet (Kerendia) 10 mg PO QDAY 06/19/25 06/19/25 History furosemide 40 mg tablet 40 mg PO DAILY PRN edema 06/19/25 06/19/25 History semaglutide 0.25 mg or 0.5 mg (2 0.25 mg subcut QWEEK 06/19/2504/06 History mg/3 mL) subcutaneous pen injector (Ozempic) spironolactone 100 mg tablet 100 mg PO QDAY PRN when using lasi x 06/19/25 06/19/25 History Ejection fraction %: 65 Have you fallen in the past year?: No PFSH Medical History Pulmonary hypertension GERD (gastroesophageal reflux disease) Depression Type 2 diabetes mellitus without complication Hypothyroidism Paroxysmal atrial fibrillation Essential hypertension NEREYDA on CPAP Acute and chronic respiratory failure with hypoxia Acute and chronic respiratory failure with hypercapnia Atrial fibrillation, currently in sinus rhythm sarcoidosis liver Surgical History History of bilateral carpal tunnel release Hx of laparoscopy left long finger I D right long finger I D Family History Father Goodpasture syndrome CHF (congestive heart failure) Mother CAD (coronary artery disease) CHF (congestive heart failure) Social History household members: (more content not included)... Normal [facility] Anion gap in Serum or Plasma Ordered By: Belinda Jenkins on 05-03-2025 Anion gap [Moles/Vol] 11 mmol/L 5-15 [facility] BUN/creatinine ratioOrdered By: Belinda Jenkins on 05-03-2025 Urea nitrogen/Creatinine [Mass ratio] 20.9 mg/mg High 10-20 [facility] Bilirubin, totalOrdered By: Belinda Jenkins on 05-03-2025 Bilirubin [Mass/Vol] 0.77 mg/dL 0.00-1.[address] [facility] Calculated very low density lipoprotein (VLDL) cholesterol measurementOrdered By: Belinda Jenkins on 05-03-2025 Calculated very low density lipoprotein (VLDL) cholesterol measurement 24 mg/dL 5-40 [facility] Carbon dioxide, total [Moles /volume] in Central venous bloodOrdered By: Belinda Jenkins on 05-03-2025 CO2 [Moles/Vol] 24.7 mmol/L 21.0-32.0 [facility] Chloride assayOrdered By: Zoila Jenkins on 05-03-2025 Chloride [Moles/Vol] 100 mmol/L 98-[address] [facility] Comprehensive Metabolic Prof ilon 05-03-2025 Albumin [Mass/Vol] 3.4 g/dL Normal 3.4-4.8 [facility] Comment on above: Order Comment: DR GONZALES ORDERED BMP AND NHUNG LOTT ORDERED A CMP AND LIPID Performed By: #### L 3600.4030, L3100.5800, L501.0900, L3100.5475, L3100.5700, L3300.1200, L3100.3450 #### [facility] [address] [place], [address] Albumin/Globulin [Mass ratio] 0.9 {ratio} Normal 0.9-2.4 [facility] Comment on above: Order Comment: DR GONZALES ORDERED BMP AND NHUNG LOTT ORDERED A CMP AND LIPID Performed By: #### L 3600.4030, L3100.5800, L501.0900, L3100.5475, L3100.5700, L3300.1200, L3100.3450 #### [facility] [address] [place], [address] ALK PHOS 188 U/L High 35-104 [facility] Comment on above: Order Comment: DR GONZALES ORDERED BMP AND NHUNG LOTT ORDERED A CMP AND LIPID Performed By: #### L 3600.4030, L3100.5800, L501.0900, L3100.5475, L3100.5700, L3300.1200, L3100.3450 #### [facility] [address] [place], [address] ALT [Catalytic activity/Vol] 8 U/L Normal <=34 [facility] Comment on above: Order Comment: DR GONZALES ORDERED BMP AND NHUNG LOTT ORDERED A CMP AND LIPID Performed By: #### L 3600.4030, L3100.5800, L501.0900, L3100.5475, L3100.5700, L3300.1200, L3100.3450 #### [facility] [address] [place], [address] AST [Catalytic activity/Vol] 19 U/L Normal <=31 [facility] Comment on above: Order Comment: DR GONZALES ORDERED BMP AND NHUNG LOTT ORDERED A CMP AND LIPID Performed By: #### L 3600.4030, L3100.5800, L501.0900, L3100.5475, L3100.5700, L3300.1200, L3100.3450 #### [facility] [address] [place], [address] Bilirubin [Mass/Vol] 0.77 mg/dL Normal 0.00-1.[address] [facility] Comment on above: Order Comment: DR GONZALES ORDERED BMP AND NHUNG LOTT ORDERED A CMP AND LIPID Performed By: #### L 3600.4030, L3100.5800, L501.0900, L3100.5475, L3100.5700, L3300.1200, L3100.3450 #### [facility] [address] [place], [address] BUN/CRE 20.9 RATIO High 10-20 [facility] Comment on above: Order Comment: DR GONZALES ORDERED BMP AND NHUNG LOTT ORDERED A CMP AND LIPID Performed By: #### L 3600.4030, L3100.5800, L501.0900, L3100.5475, L3100.5700, L3300.1200, L3100.3450 #### [facility] [address] [place], [address] Calcium [Mass/Vol] 9.6 mg/dL Normal 7.6-11.0 [facility] Comment on above: Order Comment: DR GONZALES ORDERED BMP AND NHUNG LOTT ORDERED A CMP AND LIPID Performed By: #### L 3600.4030, L3100.5800, L501.0900, L3100.5475, L3100.5700, L3300.1200, L3100.3450 #### [facility] [address] [place], [address] Chloride [Moles/Vol] 100 mmol/L Normal 98-[address] [facility] Comment on above: Order Comment: DR GONZALES ORDERED BMP AND NHUNG LOTT ORDERED A CMP AND LIPID Performed By: #### L 3600.4030, L3100.5800, L501.0900, L3100.5475, L3100.5700, L3300.1200, L3100.3450 #### [facility] [address] [place], [address] CO2 [Moles/Vol] 24.7 mmol/L Normal 21.0-32.0 [facility] Comment on above: Order Comment: DR GONZALES ORDERED BMP AND NHUNG LOTT ORDERED A CMP AND LIPID Performed By: #### L 3600.4030, L3100.5800, L501.0900, L3100.5475, L3100.5700, L3300.1200, L3100.3450 #### [facility] [address] [place], [address] Creatinine [Mass/Vol] 0.68 mg/dL Low 0.70-1.20 [facility] Comment on above: Order Comment: DR GONZALES ORDERED BMP AND NHUNG LOTT ORDERED A CMP AND LIPID Performed By: #### L 3600.4030, L3100.5800, L501.0900, L3100.5475, L3100.5700, L3300.1200, L3100.3450 #### [facility] [address] [place], [address] GAP 11 Normal 5-15 [facility] Comment on above: Order Comment: DR GONZALES ORDERED BMP AND NHUNG LOTT ORDERED A CMP AND LIPID Performed By: #### L 3600.4030, L3100.5800, L501.0900, L3100.5475, L3100.5700, L3300.1200, L3100.3450 #### [facility] [address] [place], [address] GFR/1.73 sq M.predicted among non-blacks MDRD (S/P/Bld) [Vol rate/Area] 94 mL/min/{1.73_m2} Normal >60 [facility] Comment on above: Order Comment: DR GONZALES ORDERED BMP AND NHUNG LOTT ORDERED A CMP AND LIPID Result Comment: mL/m in/1.73m2 CKD-EPI Creatinine Equation (2020) Performed By: #### L 3600.4030, L3100.5800, L501.0900, L3100.5475, L3100.5700, L3300.1200, L3100.3450 #### [facility] [address] [place], [address] Globulin (S) [Mass/Vol] 3.7 g/dL Normal 2.2-4.2 [facility] Comment on above: Order Comment: DR GONZALES ORDERED BMP AND NHUNG LOTT ORDERED A CMP AND LIPID Performed By: #### L 3600.4030, L3100.5800, L501.0900, L3100.5475, L3100.5700, L3300.1200, L3100.3450 #### [facility] [address] [place], [address] Glucose [Mass/Vol] 192 mg/dL High 70-99 [facility] Comment on above: Order Comment: DR GONZALES ORDERED BMP AND NHUNG LOTT ORDERED A CMP AND LIPID Performed By: #### L 3600.4030, L3100.5800, L501.0900, L3100.5475, L3100.5700, L3300.1200, L3100.3450 #### [facility] [address] [place], [address] Potassium [Moles/Vol] 5.1 mmol/L Normal 3.3-5.1 [facility] Comment on above: Order Comment: DR GONZALES ORDERED BMP AND NHUNG LOTT ORDERED A CMP AND LIPID Performed By: #### L 3600.4030, L3100.5800, L501.0900, L3100.5475, L3100.5700, L3300.1200, L3100.3450 #### [facility] [address] [place], [address] Sodium [Moles/Vol] 136 mmol/L Normal 133-145 [facility] Comment on above: Order Comment: DR GONZALES ORDERED BMP AND NHUNG LOTT ORDERED A CMP AND LIPID Performed By: #### L 3600.4030, L3100.5800, L501.0900, L3100.5475, L3100.5700, L3300.1200, L3100.3450 #### [facility] [address] [place], [address] T PROT 7.0 g/dL Normal 5.9-8.4 [facility] Comment on above: Order Comment: DR GONZALES ORDERED BMP AND NHUNG LOTT ORDERED A CMP AND LIPID Performed By: #### L 3600.4030, L3100.5800, L501.0900, L3100.5475, L3100.5700, L3300.1200, L3100.3450 #### [facility] [address] [place], [address] Urea nitrogen [Mass/Vol] 14 mg/dL Normal 4- [facility] Comment on above: Order Comment: DR GONZALES ORDERED BMP AND NHUNG LOTT ORDERED A CMP AND LIPID Performed By: #### L 3600.4030, L3100.5800, L501.0900, L3100.5475, L3100.5700, L3300.1200, L3100.3450 #### [facility] [address] [place], [place], [id number] (369) Glomerular filtration rate ( GFR) estimation/1.73 sq m using serum, plasma, or whole bOrdered By: Belinda Jenkins on 05-03-2025 GFR/1.73 sq M.predicted among non-blacks MDRD (S/P/Bld) [Vol rate/Area] 94 mL/min/{1.73_m2} >60 [facility] Comment on above: mL/min/1.73m2 CKD-EP I Creatinine Equation (2020) LDL calc ser/plasOrdered By: Belinda Jenkins on 05-03-2025 Cholesterol in LDL [Mass/Vol] 93 mg/dL [facility] Comment on above: Tynxoiohzm=076-602 m g/dL & Higher Izrp=705 mg/dL or greaterFriedwald Equation for LDL-C Laboratory - Chemistry and C hemistry - challengeOrdered By: Belinda Jenkins on 05-03-2025 AST [Catalytic activity/Vol] 19 U/L <32 [facility] Lipid Profileon 05-03-2025 CHOL:HDL 3.36 Normal [facility] Comment on above: Order Comment: DR GONZALES ORDERED BMP AND NHUNG LOTT ORDERED A CMP AND LIPID Performed By: #### L 3600.4030, L3100.5800, L501.0900, L3100.5475, L3100.5700, L3300.1200, L3100.3450 #### [facility] [address] [place], [address] Cholesterol [Mass/Vol] 167 mg/dL Normal <=200 [facility] Comment on above: Order Comment: DR GONZALES ORDERED BMP AND NHUNG LOTT ORDERED A CMP AND LIPID Result Comment: Chol esterol level, Desirable <200 mg/dL Borderline high cholesterol 200-239 mg/dL High cholesterol >=240 mg/dL Recommendations of the NCEP Adult Treatment Panel for the following risk-cutoff thresholds for the [place] population. Performed By: #### L 3600.4030, L3100.5800, L501.0900, L3100.5475, L3100.5700, L3300.1200, L3100.3450 #### [facility] [address] [place], [place], [id number] Cholesterol in HDL [Mass/Vol] 50 mg/dL Normal [facility] Comment on above: Order Comment: DR GONZALES ORDERED BMP AND NHUNG LOTT ORDERED A CMP AND LIPID Result Comment: Lydia onal Cholesterol Education Program (NCEP) guidelines: <40 mg/dL: Low HDL-cholesterol (major risk factor for CHD) >= 60 mg/dL: High HDL-cholesterol (negative risk factor for CHD) HDL-cholesterol is affected by a number of factors, e.g. smoking, exercise, hormones, sex and age. Performed By: #### L 3600.4030, L3100.5800, L501.0900, L3100.5475, L3100.5700, L3300.1200, L3100.3450 #### [facility] [address] [place], [place], [id number] [phone] Cholesterol in LDL [Mass/Vol] 93 mg/dL Normal [facility] Comment on above: Order Comment: DR GONZALES ORDERED BMP AND NHUNG LOTT ORDERED A CMP AND LIPID Result Comment: Bord ytjdet=656-127 mg/dL Higher Sudd=945 mg/dL or greater Friedwald Equation for LDL-C Performed By: #### L 3600.4030, L3100.5800, L501.0900, L3100.5475, L3100.5700, L3300.1200, L3100.3450 #### [facility] [address] [place], [address] Cholesterol in VLDL [Mass/Vol] 24 mg/dL Normal 5-40 [facility] Comment on above: Order Comment: DR GONZALES ORDERED BMP AND NHUNG LOTT ORDERED A CMP AND LIPID Performed By: #### L 3600.4030, L3100.5800, L501.0900, L3100.5475, L3100.5700, L3300.1200, L3100.3450 #### [facility] [address] [place], [address] Triglyceride [Mass/Vol] 122 mg/dL Normal [facility] Comment on above: Order Comment: DR GONZALES ORDERED BMP AND NHUNG LOTT ORDERED A CMP AND LIPID Result Comment: The drugs N-Acetylcysteine and Metamizole may falsely depress this assay. Normal range: <150 mg/dL Borderline High: 150-199 mg/dL High: 200-499 mg/dL Very High: >500 mg/dL Performed By: #### L 3600.4030, L3100.5800, L501.0900, L3100.5475, L3100.5700, L3300.1200, L3100.3450 #### [facility] [address] [place], [address] Potassium measurement (mass/ volume)Ordered By: Belinda Jenkins on 05-03-2025 Potassium (Unsp spec) [Mass/Vol] 5.1 mmol/L 3.3-5.1 [facility] Protein+Creatinine Ratio,Uri neon 05-03-2025 PROT:CRE RATIO 2524 mg/g CRE High 0-200 [facility] Comment on above: Order Comment: DR GONZALES ORDERED BMP AND NHUNG LOTT ORDERED A CMP AND LIPID Performed By: #### L 3600.4030, L3100.5800, L501.0900, L3100.5475, L3100.5700, L3300.1200, L3100.3450 #### [facility] [address] [place], [address] Protein (U) [Mass/Vol] 211.0 mg/dL High 0.0-12.0 [facility] Comment on above: Order Comment: DR GONZALES ORDERED BMP AND NHUNG LOTT ORDERED A CMP AND LIPID Performed By: #### L 3600.4030, L3100.5800, L501.0900, L3100.5475, L3100.5700, L3300.1200, L3100.3450 #### [facility] [address] [place], [address] Random urine creatinine doyle urement (mass/volume)Ordered By: Belinda Jenkins on 05-03-2025 Creatinine Unsp time (U) [Mass/Vol] 83.60 mg/dL 28.00-217. 00 [facility] Screening total cholesterol/ high density lipoprotein (HDL) cholesterol ratioOrdered By: Belinda Jenkins on 05-03-2025 Cholesterol.total/Mya sterol in HDL [Mass ratio] 3.36 {ratio} [facility] Serum creatinine measurement (mass/volume)Ordered By: Belinda Jenkins on 05-03-2025 Creatinine [Mass/Vol] 0.68 mg/dL Low 0.70-1.20 [facility] Serum globulin measurementOr dered By: Belinda Jenkins on 05-03-2025 Globulin (S) [Mass/Vol] 3.7 g/dL 2.2-4.2 [facility] Serum glucose measurement (m ass/volume)Ordered By: Belinda Jenkins on 05-03-2025 Glucose [Mass/Vol] 192 mg/dL High 70-99 [facility] Serum or plasma alanine peoples otransferase (ALT) measurementOrdered By: Belinda Jenkins on 05-03-2025 ALT [Catalytic activity/Vol] 8 U/L <35 [facility] Serum or plasma albumin doyle urement (mass/volume)Ordered By: Belinda Jenkins on 05-03-2025 Albumin [Mass/Vol] 3.4 g/dL 3.4-4.8 [facility] Serum or plasma albumin/glob ulin mass ratioOrdered By: Belinda Jenkins on 05-03-2025 Albumin/Globulin [Mass ratio] 0.9 {ratio} 0.9-2.4 [facility] Serum or plasma alkaline nelly sphatase measurementOrdered By: Belinda Jenkins on 05-03-2025 ALP [Catalytic activity/Vol] 188 U/L High 35-104 [facility] Serum or plasma calcium doyle urement (mass/volume)Ordered By: Belinda Jenkins on 05-03-2025 Calcium [Mass/Vol] 9.6 mg/dL 7.6-11.0 [facility] Serum or plasma cholesterol in HDL measurement (mass/volume)Ordered By: Belinda Jenkins on 05-03-2025 Cholesterol in HDL [Mass/Vol] 50 mg/dL >40 [facility] Comment on above: National Cholesterol Education Program (NCEP) guidelines:<40 mg/dL: Low HDL-cholesterol (major risk factor for CHD)>= 60 mg/dL: High HDL-cholesterol (negative risk factor for CHD)HDL-cholesterol is affected by a number of factors, e.g. smoking, exercise, hormones, sex and age. Serum or plasma cholesterol measurement (mass/volume)Ordered By: Belinda Jenkins on 05-03-2025 Cholesterol [Mass/Vol] 167 mg/dL <201 [facility] Comment on above: Cholesterol level, D esirable <200 mg/dLBorderline high cholesterol 200-239 mg/dLHigh cholesterol >=240 mg/dLRecommendations of the NCEP Adult Treatment Panel for the following risk-cutoff thresholds for the [place] population. Serum or plasma urea nitroge n measurement (mass/volume)Ordered By: Belinda Jenkins on 05-03-2025 Urea nitrogen [Mass/Vol] 14 mg/dL 4-19 [facility] Sodium levelOrdered By: Clara Jenkins on 05-03-2025 Sodium [Moles/Vol] 136 mmol/L 133-145 [facility] Total proteinOrdered By: Mike Jenkins on 05-03-2025 Protein [Mass/Vol] 7.0 g/dL 5.9-8.4 [facility] Triglycerides measurementOrd ered By: Belinda Jenkins on 05-03-2025 Triglyceride [Mass/Vol] 122 mg/dL <199 [facility] Comment on above: The drugs N-Acetylcy steine and Metamizole may falsely depress this assay. Normal range: <150 mg/dLBorderline High: 150-199 mg/dLHigh: 200-499 mg/dLVery High: >500 mg/dL Urine protein measurement (m ass/volume)Ordered By: Belinda Jenkins on 05-03-2025 Protein (U) [Mass/Vol] 211.0 mg/dL High 0.0-12.0 [facility] Urine protein/creatinine mas s ratioOrdered By: Belinda Jenkins on 05-03-2025 Protein/Creatinine (U) [Mass ratio] 2524 mg/g CRE High 0-200 [facility] ANCAon 02-09-2025 Atypical pANCA 1:40 Abnormal Neg:<1:20 [facility] Comment on above: Result Comment: The atypical pANCA pattern has been observed in a significant percentage of patients with ulcerative colitis, primary sclerosing cholangitis and autoimmune hepatitis. Performed By: #### L 501.0900, L501.9520, L500.2500 #### [facility] [address] [place], [place], [id number] Cytoplasmic Ab <1:20 Normal Neg:<1:20 [facility] Comment on above: Performed By: #### L 501.0900, L501.9520, L500.2500 #### [facility] [address] [place], [address] Perinuclear Ab. <1:20 Normal Neg:<1:20 [facility] Comment on above: Result Comment: The presence of positive fluorescence exhibiting P-ANCA or C-ANCA patterns alone is not specific for the diagnosis of Schuyler's Granulomatosis (WG) or microscopic polyangiitis. Decisions about treatment should not be based solely on ANCA IFA results. The International ANCA Group Consensus recommends follow up testing of positive sera with both WA- 3 and MPO-ANCA enzyme immunoassays. As many as 5% serum samples are positive only by EIA. Ref. AM J Clin Pathol 1999;111:507-513. Performed By: #### L 501.0900, L501.9520, L500.2500 #### [facility] [address] [place], [address] Complement C3on 02-09-2025 COMP C3 170 mg/dL High 82-167 [facility] Comment on above: Performed By: #### L 501.0900, L501.9520, L500.2500 #### [facility] [address] [place], [address] Complement C4on 02-09-2025 COMPLEMENT, C4 27 mg/dL Normal 12-38 [facility] Comment on above: Performed By: #### L 501.0900, L501.9520, L500.2500 #### [facility] [address] [place], [address] Immunofixation Urineon 02-09 EUSE[facility] Urine Comment Normal . [facility] Comment on above: Result Comment: No m onoclonality detected. Performed at: [address] [id number] [employer] Driver: Cali Payton PhD, Phone: [phone] Performed By: #### L 501.0900, L501.9520, L500.2500 #### [facility] [address] [place], [address] Protein Electroph, Son 02-09 Albumin [Mass/Vol] 3.0 g/dL Normal 2.9-4.4 [facility] Comment on above: Performed By: #### L 501.0900, L501.9520, L500.2500 #### [facility] [address] [place], [address] Albumin/Globulin [Mass ratio] 0.9 {ratio} Normal 0.7-1.7 [facility] Comment on above: Performed By: #### L 501.0900, L501.9520, L500.2500 #### [facility] [address] [place], [address] ALPHA-1 GLOBUL 0.3 g/dL Normal 0.0-0.4 [facility] Comment on above: Performed By: #### L 501.0900, L501.9520, L500.2500 #### [facility] [address] [place], [address] ALPHA-2 GLOBUL 0.7 g/dL Normal 0.4-1.0 [facility] Comment on above: Performed By: #### L 501.0900, L501.9520, L500.2500 #### [facility] [address] [place], [address] BETA GLOBULIN 1.4 g/dL High 0.7-1.3 [facility] Comment on above: Performed By: #### L 501.0900, L501.9520, L500.2500 #### [facility] [address] [place], [address] GAMMA GLOBULIN 0.9 g/dL Normal 0.4-1.8 [facility] Comment on above: Performed By: #### L 501.0900, L501.9520, L500.2500 #### [facility] [address] [place], [address] Globulin (S) [Mass/Vol] 3.2 g/dL Normal 2.2-3.9 [facility] Comment on above: Performed By: #### L 501.0900, L501.9520, L500.2500 #### [facility] [address] [place], [address] INTERPRETATION Comment Normal . [facility] Comment on above: Result Comment: Prot ein electrophoresis scan will follow via computer, mail, or control clerk food and beverage delivery. Performed By: #### L 501.0900, L501.9520, L500.2500 #### [facility] [address] [place], [address] M-SPIKE Not Observed Normal Not Observed [facility] Comment on above: Performed By: #### L 501.0900, L501.9520, L500.2500 #### [facility] [address] [place], [address] NOTE: Comment Normal . [facility] Comment on above: Result Comment: The SPE pattern demonstrates an increase in the beta fraction. This may be due to increases in transferrin, beta- lipoprotein (hypercholesterolemia), or immunoglobulins, as seen in polyclonal or monoclonal gammopathies. If clinically indicated, the presence of a monoclonal gammopathy may be confirmed by immunofixation or serum free light chain quantitation. Performed By: #### L 501.0900, L501.9520, L500.2500 #### [facility] [address] [place], [address] Protein [Mass/Vol] 6.2 g/dL Normal 6.0-8.5 [facility] Comment on above: Performed By: #### L 501.0900, L501.9520, L500.2500 #### [facility] [address] [place], [address] ANTINUCLEAR ANTIBODIES DIREC Ton 02-06-2025 PRICILA,DIRECT Negative Normal Negative [facility] Comment on above: Result Comment: Perf ormed at: - [facility] [id number] [employer] Driver: Cali Payton PhD, Phone: [phone] Performed By: #### L 501.0900, L501.9520, L500.2500 #### [facility] [address] [place], [address] Albumin Elph [Mass/Vol]Order ed By: Belinda Jenkins on 02-02-2025 Albumin [Mass/Vol] 3.0 g/dL 2.9-4.4 [facility] No Panel InformationOrdered By: Belinda Jenkins on 02-02-2025 Addendum Document Comment . [facility] Comment on above: The SPE pattern demo nstrates an increase in the betafraction. This may be due to increases in transferrin, beta-lipoprotein (hypercholesterolemia), or immunoglobulins, asseen in polyclonal or monoclonal gammopathies. Ifclinically indicated, the presence of a monoclonalgammopathy may be confirmed by immunofixation or serum freelight chain quantitation. Protein Fractions Elph [Inte rp]Ordered By: Belinda Jenkins on 02-02-2025 Protein Fractions [Interp] Comment . [facility] Comment on above: Protein electrophore sis scan will follow via computer,mail, or control clerk food and beverage delivery. Protein+Creatinine Ratio,Uri neon 02-02-2025 PROT:CRE RATIO 2944 mg/g CRE High 0-200 [facility] Comment on above: Performed By: #### L 501.0900, L501.9520, L500.2500 #### [facility] [address] [place], [address] Protein (U) [Mass/Vol] 169.0 mg/dL High 0.0-12.0 [facility] Comment on above: Performed By: #### L 501.0900, L501.9520, L500.2500 #### [facility] [address] [place], [address] UR CREAT 57.40 mg/dL Normal 28.00-217. 00 [facility] Comment on above: Performed By: #### L 501.0900, L501.9520, L500.2500 #### [facility] [address] [place], [address] Random urine creatinine doyle urement (mass/volume)Ordered By: Belinda Jenkins on 02-02-2025 Creatinine Unsp time (U) [Mass/Vol] 57.40 mg/dL 28.00-217. 00 [facility] Serum albumin to globulin ra tejas by protein electrophoresisOrdered By: Belinda Jenkins on 02-02-2025 Albumin/Globulin Elph [Mass ratio] 0.9 0.7-1.7 [facility] Serum classic neutrophil cyt oplasmic antibody assay (units/volume)Ordered By: Belinda Jenkins on 02-02-2025 Neutrophil cytoplasmic Ab.classic Qn (S) <1:20 titer Neg:<1:20 [facility] Serum globulin measurement ( mass/volume)Ordered By: Belinda Jenkins on 02-02-2025 Globulin (S) [Mass/Vol] 3.2 g/dL 2.2-3.9 [facility] Serum or plasma beta globuli n measurement by electrophoresis (mass/volume)Ordered By: Belinda Jenkins on 02-02-2025 Beta globulin Elph [Mass/Vol] 1.4 g/dL High 0.7-1.3 [facility] Serum or plasma complement C 4 measurement (mass/volume)Ordered By: Belinda Jenkins on 02-02-2025 Complement C4 [Mass/Vol] 27 mg/dL 12-38 [facility] Serum or plasma protein doyle urement (mass/volume)Ordered By: Belinda Jenkins on 02-02-2025 Protein [Mass/Vol] 6.2 g/dL 6.0-8.5 [facility] Serum or plasma protein mono clonal measurement by electrophoresis (mass/volume)Ordered By: Belinda Jenkins on 02-02-2025 Protein.monoclonal Elph [Mass/Vol] Not Observed g/dL Not Observed [facility] Serum perinuclear neutrophil cytoplasmic antibody titer by immunofluorescenceOrdered By: Belinda Jenkins on 02-02-2025 Neutrophil cytoplasmic Ab.perinuclear IF (S) [Titer] <1:20 titer Neg:<1:20 [facility] Comment on above: The presence of posi tive fluorescence exhibiting P-ANCA orC-ANCA patterns alone is not specific for the diagnosis ofWegener's Granulomatosis (WG) or microscopic polyangiitis.Decisions about treatment should not be based solely onANCA IFA results. The International ANCA Group Consensusrecommends follow up testing of positive sera with both WA-3 and MPO-ANCA enzyme immunoassays. As many as 5% serumsamples are positive only by EIA. Ref. AM J Clin Sjzhdh7382;111:507-513. Urine protein measurement (m ass/volume)Ordered By: Belinda Jenkins on 02-02-2025 Protein (U) [Mass/Vol] 169.0 mg/dL High 0.0-12.0 [facility] Urine protein/creatinine mas s ratioOrdered By: Belinda Jenkins on 02-02-2025 Protein/Creatinine (U) [Mass ratio] 2944 mg/g CRE High 0-200 [facility] Re-Evaluation - PT (1)on Re-Evaluation - PT (1) [facility] [address] [place] [address] / REEVALUATION / MEDICARE RECERTIFICATION PHYSICAL THERAPY MR#: [id number] Acct: [id number] Name: APRIL CORREA Rep #: [id number] : [id number] 70 From: Payal Torres Referring Dr.: Dr. Karen Terry MD Status:REG RCR Insurance: MEDICARE PART A B [employer] Re-Evaluation Intro: Dr. Karen Terry MD, It has been my pleasure to treat APRIL CORREA over the last 4 visits for Pelvic floor dysfunction and incontinence. Please see the progress note below for an update on the physical therapy plan of care! Subjective Subjective: She feels like she has noticed a slight improvement in her leaking. She thinks she may be expecting too much too soon. She states it seems like she can hold it when she is sitting but when she stands up she states she urinates and looses control (more than just leaking). She states her low back pain is 4/10 today. She feels about 10% improved with her incontinence/control to date. She follows up with Dr. Terry next Wednesday. Objective Objective/Function: Next visit will do internal pelvic floor exam to see how her contraction ability is improving. Slight improvement in her control. Hydrating more may be helpful in lessening ur gency (urine likely too concentrated). Plan Plan Plan: Continue pelvic floor work next visit to see how she is improving with her contraction ability. Add week 5 next visit and review weeks 1-3. Continue work on lumbar (worse on right side)- today had patient in sitting with the walker support and pillow in front of her. Goals Goals Goal 1:: April's pad use will go from 10-12 pads a day to 4 a day which will indicate less leaking episodes on a day to day basis. Goal Time Frame: 6-8 Weeks Goal Progress: Not Progressing (No change) Goal 2:: April will be able to hold back gas to avoid embarrassment during day to day life. Goal Time Frame: 6-8 Weeks Goal Progress: Not Progressing (No change) Goal 3:: April will go thru a period of 3 weeks without experiencing any incontinence of bowels. Goal Time Frame: 6-8 Weeks Goal Progress: Not Progressing Goal 4:: April will be on a frequency of voiding 7-8 times a day to allow for less disruption in her day to day activities. Goal Time Frame: 6-8 Weeks Goal Progress: Progressing Goal 5:: April will wake up dry in the mornings. Goal Time Frame: 6-8 Weeks Goal Progress: Progressing Anticipated Interventions Anticipated Interventions Patient/Client Instruction: Educate patient on: Condition and Plan of Care For the Purpose of:: To improve muscle performance and motor function, To improve ability of physical actions for home/community/work/leis ure, To improve health and function and To improve self management Therapeutic Exercise to Include: Strength training, Body mechanics, Postural training and Neuromotor development For the Purpose of:: To improve muscle performance and motor function, To improve health and function and To improve self management Manual Therapy Techniques to Include: Trigger point massage and Soft tissue mobilization For the Purpose of:: To decrease pain, To improve muscle performance and motor function and To improve self management Re-Evaluation Ending Re-evaluation ending: Please do not hesitate to contact me at [phone] by phone or if you have questions or concerns regarding this new plan of care! Sincerely, Payal Torres 01/30/25 1412 CC: Dr. Tracy Dillard MD; Dr. Karen Terry MD MG Signed For Medicare only, by signing this I certify the plan of care. ____ Physicians Signature Date Normal [facility] ANCAon 01-01-2025 Atypical pANCA <1:20 Normal Neg:<1:20 [facility] Comment on above: Result Comment: The atypical pANCA pattern has been observed in a significant percentage of patients with ulcerative colitis, primary sclerosing cholangitis and autoimmune hepatitis. Performed By: #### L 3600.4030, L3100.5800, L501.0900, L3100.5475, L3100.5700, L3300.1200, L3100.3450 #### [facility] [address] [place], [address] Cytoplasmic Ab <1:20 Normal Neg:<1:20 [facility] Comment on above: Performed By: #### L 3600.4030, L3100.5800, L501.0900, L3100.5475, L3100.5700, L3300.1200, L3100.3450 #### [facility] [address] [place], [address] Perinuclear Ab. <1:20 Normal Neg:<1:20 [facility] Comment on above: Result Comment: The presence of positive fluorescence exhibiting P-ANCA or C-ANCA patterns alone is not specific for the diagnosis of Schuyler's Granulomatosis (WG) or microscopic polyangiitis. Decisions about treatment should not be based solely on ANCA IFA results. The International ANCA Group Consensus recommends follow up testing of positive sera with both WA- 3 and MPO-ANCA enzyme immunoassays. As many as 5% serum samples are positive only by EIA. Ref. AM J Clin Pathol 1999;111:507-513. Performed By: #### L 3600.4030, L3100.5800, L501.0900, L3100.5475, L3100.5700, L3300.1200, L3100.3450 #### [facility] [address] [place], [address] Complement C3on 01-01-2025 COMP C3 180 mg/dL High 82-167 [facility] Comment on above: Performed By: #### L 3600.4030, L3100.5800, L501.0900, L3100.5475, L3100.5700, L3300.1200, L3100.3450 #### [facility] [address] [place], [address] Complement C4on 01-01-2025 COMPLEMENT, C4 28 mg/dL Normal 12-38 [facility] Comment on above: Performed By: #### L 3600.4030, L3100.5800, L501.0900, L3100.5475, L3100.5700, L3300.1200, L3100.3450 #### [facility] [address] [place], [address] Immunofixation Urineon 01-01 EUSEBIO Urine Comment Normal . [facility] Comment on above: Result Comment: No m onoclonality detected. Performed at: [address] [id number] [employer] Driver: Cali Payton PhD, Phone: [phone] Performed By: #### L 3600.4030, L3100.5800, L501.0900, L3100.5475, L3100.5700, L3300.1200, L3100.3450 #### [facility] [address] [place], [address] Protein Electroph, Son 01-01 Albumin [Mass/Vol] 2.9 g/dL Normal 2.9-4.4 [facility] Comment on above: Performed By: #### L 3600.4030, L3100.5800, L501.0900, L3100.5475, L3100.5700, L3300.1200, L3100.3450 #### [facility] [address] [place], [address] Albumin/Globulin [Mass ratio] 0.8 {ratio} Normal 0.7-1.7 [facility] Comment on above: Performed By: #### L 3600.4030, L3100.5800, L501.0900, L3100.5475, L3100.5700, L3300.1200, L3100.3450 #### [facility] [address] [place], [address] ALPHA-1 GLOBUL 0.3 g/dL Normal 0.0-0.4 [facility] Comment on above: Performed By: #### L 3600.4030, L3100.5800, L501.0900, L3100.5475, L3100.5700, L3300.1200, L3100.3450 #### [facility] [address] [place], [address] ALPHA-2 GLOBUL 0.8 g/dL Normal 0.4-1.0 [facility] Comment on above: Performed By: #### L 3600.4030, L3100.5800, L501.0900, L3100.5475, L3100.5700, L3300.1200, L3100.3450 #### [facility] [address] [place], [address] BETA GLOBULIN 1.5 g/dL High 0.7-1.3 [facility] Comment on above: Performed By: #### L 3600.4030, L3100.5800, L501.0900, L3100.5475, L3100.5700, L3300.1200, L3100.3450 #### [facility] [address] [place], [address] GAMMA GLOBULIN 1.0 g/dL Normal 0.4-1.8 [facility] Comment on above: Performed By: #### L 3600.4030, L3100.5800, L501.0900, L3100.5475, L3100.5700, L3300.1200, L3100.3450 #### [facility] [address] [place], [address] Globulin (S) [Mass/Vol] 3.7 g/dL Normal 2.2-3.9 [facility] Comment on above: Performed By: #### L 3600.4030, L3100.5800, L501.0900, L3100.5475, L3100.5700, L3300.1200, L3100.3450 #### [facility] [address] [place], [address] INTERPRETATION Comment Normal . [facility] Comment on above: Result Comment: Prot ein electrophoresis scan will follow via computer, mail, or control clerk food and beverage delivery. Performed By: #### L 3600.4030, L3100.5800, L501.0900, L3100.5475, L3100.5700, L3300.1200, L3100.3450 #### [facility] [address] [place], [place], [id number] M-SPIKE Not Observed Normal Not Observed [facility] Comment on above: Performed By: #### L 3600.4030, L3100.5800, L501.0900, L3100.5475, L3100.5700, L3300.1200, L3100.3450 #### [facility] [address] [place], [place], [address] NOTE: Comment Normal . [facility] Comment on above: Result Comment: The SPE pattern demonstrates an increase in the beta fraction. This may be due to increases in transferrin, beta- lipoprotein (hypercholesterolemia), or immunoglobulins, as seen in polyclonal or monoclonal gammopathies. If clinically indicated, the presence of a monoclonal gammopathy may be confirmed by immunofixation or serum free light chain quantitation. Performed By: #### L 3600.4030, L3100.5800, L501.0900, L3100.5475, L3100.5700, L3300.1200, L3100.3450 #### [facility] [address] [place], [place], [address] Protein [Mass/Vol] 6.6 g/dL Normal 6.0-8.5 [facility] Comment on above: Performed By: #### L 3600.4030, L3100.5800, L501.0900, L3100.5475, L3100.5700, L3300.1200, L3100.3450 #### [facility] [address] [place], [place], [address] ANTINUCLEAR ANTIBODIES DIRE Ton 12-29-2024 PRICILA,DIRECT Negative Normal Negative [facility] Comment on above: Result Comment: Perf ormed at: [address] [place], [place] [id number] [employer] Driver: Cali Payton PhD, Phone: [phone] Performed By: #### L 3600.4030, L3100.5800, L501.0900, L3100.5475, L3100.5700, L3300.1200, L3100.3450 #### [facility] [address] [place], [place], [address] PRICILA serumOrdered By: Promise Jenkins on 12-28-2024 Anti-Nuclear Antibody Screen Negative Negative [facility] Comment on above: Performed at: - [facility] [id number] [place], [place] [id number] Director: Cali Payton PhD, Phone: [phone] Addendum DocumentOrdered By: Belinda Jenkins on 12-28-2024 Protein Electrophoresis Note Comment . [facility] Comment on above: The SPE pattern demo nstrates an increase in the betafraction. This may be due to increases in transferrin, beta-lipoprotein (hypercholesterolemia), or immunoglobulins, asseen in polyclonal or monoclonal gammopathies. Ifclinically indicated, the presence of a monoclonalgammopathy may be confirmed by immunofixation or serum freelight chain quantitation. Albumin Elph [Mass/Vol]Order ed By: Belinda Jenkins on 12-28-2024 Albumin [Mass/Vol] 2.9 g/dL 2.9-4.4 [facility] Albumin/Globulin Elph [Mass ratio]Ordered By: Belinda Jenkins on 12-28-2024 Albumin/Globulin (PEP) 0.8 0.7-1.7 [facility] Ygtmb-1-yocjjtsw measurement by protein electrophoresisOrdered By: Belinda Jenkins on 12-28-2024 Byyca-4-Iodegmokx 0.3 g/dL 0.0-0.4 [facility] Rkgdh-6-rrukqfan measurement by protein electrophoresisOrdered By: Belinda Jenkins on 12-28-2024 Towhq-4-Sabnkzskp 0.8 g/dL 0.4-1.0 [facility] Atypical perinuclear antineu trophil cytoplasmic antibodies measurementOrdered By: Belinda Jenkins on 12-28-2024 Atypical p-ANCA <1:20 titer Neg:<1:20 [facility] Comment on above: The atypical pANCA p attern has been observed in asignificant percentage of patients with ulcerative colitis,primary sclerosing cholangitis and autoimmune hepatitis. Beta globulin Elph [Mass/Vol ]Ordered By: Belinda Jenkins on 12-28-2024 Beta Globulins 1.5 g/dL High 0.7-1.3 [facility] Complement C3 assayOrdered B y: Belinda Jenkins on 12-28-2024 Complement C3 180 mg/dL High 82-167 [facility] Complement C4 [Mass/Vol]Orde red By: Belinda Jenkins on 12-28-2024 Complement C4 28 mg/dL 12-38 [facility] Creatinine Unsp time (U) [Ma ss/Vol]Ordered By: Belinda Jenkins on 12-28-2024 Creatinine (U) [Mass/Vol] 163.00 mg/dL 28.00-217. 00 [facility] Gamma globulin measurement b y protein electrophoresisOrdered By: Belinda Jenkins on 12-28-2024 Gamma Globulins 1.0 g/dL 0.4-1.8 [facility] Globulin (S) [Mass/Vol]Order ed By: Belinda Jenkins on 12-28-2024 Globulin (PEP) 3.7 g/dL 2.2-3.9 [facility] Inital Evaluation (1) - PTon 12-28-2024 Inital Evaluation (1) - PT [facility] [place] [address] / REHABILITATION SERVICES INITIAL EVALUATION MR#: [id number] Acct: [id number] Name: APRIL CORREA Rep #: [id number] : 1955 69 From: Payal Torres Referring Dr.: Dr. Karen Terry MD Status: RE G R Insurance: MEDICARE PART A B [employer] Patient's Visit Information Visit Information Visit Information: APRIL CORREA is a 69 year old F referred to Physical Therapy by Dr. Karen Terry MD with a diagnosis of Pelvic floor dysfunction and incontinence. Date of Evaluation: 12/28/24 Physical Therapist: Payal Torres Visit Plan Frequency: 1x/Week Duration: 2 Months Plan: Continue 1 x week. Add week 2 next visit. She has trouble laying on her back due to back pain and shortness of breath, but may benefit from additional pelvic floor releases to address mild tightness bilaterally. Also look at right lumbar next visit. Subjective Subjective: She is coming for incontinence. Urinary and bowel incontinence. Urinary incontinence has been going on since 2007. If she has to go to the bathroom, she had to make a dash for the bathroom and she doesn't always make it. When she gets the urge to go, she goes in her pad right away. When she does she doesn't urinate much in the toilet. She goes 13-15 times a day and she has to change her pad every time. She doesn't leak with a cough or sneeze. She has been dealing with bowel incontinence a couple of years. For a couple of years her problem has gotten worse. When she gets the urge to go, she gets up and she can make it to the bathroom. Sometimes she can't make it to the bathroom. She can have diarrhea. She has bowel movements 1-2 x day. Second time consistent with diarrhea. She can't hold back gas very well. She doesn't even know it's going to happen. She is having trouble with her right low back. MRI in past she remembers something about a degenerative disc problem. Low back pain comes and goes depends on what she is doing and her movement about 4 years ago. Lately her back pain is 3-4/10. No leg pain. Dr. Terry put her on different med to control an overactive bladder. One of the meds made her mouth dry. She isn't taking any right now. The med was helping to lessen the frequency but not helping the incontinence. Dr. Terry found she is not fully emptying her bladder. She is urinating once every hour to hour and a half. She usually wakes up wet. She can wet her pad overnight and not even know it. She doesn't usually drink coffee. She drinks 3 16 oz bottles of water a day. Her goal would like to be able to hold her urine. She has tried kegels in past but she isn't sure if she was doing correctly. Pain Right lumbar pain: Pain Intensity (Out of 10): 2 Pain Intensity Range: 5 Objective Objective: Incontinence impact questionnaire 12, Urogenital distress inventory 12, Colorectal-Anal distress inventory 12 She gives consent for internal pelvic floor work LAYCOCK 11/14// mild , moderate pelvic floor tightness bilaterally (she had difficulty laying on her back for the exam ) Did not look at right low back Goals Goal 1:: April's pad use will go from 10-12 pads a day to 4 a day which will indicate less leaking episodes on a day to day basis. Goal Time Frame: 6-8 Weeks Goal 2:: April will be able to hold back gas to avoid embarrassment during day to day life. Goal Time Frame: 6-8 Weeks Goal 3:: April will go thru a period of 3 weeks without experiencing any incontinence of bowels. Goal Time Frame: 6-8 Weeks Goal 4:: April will be on a frequency of voiding 7-8 times a day to allow for less disruption in her day to day activities. Goal Time Frame: 6-8 Weeks Goal 5:: April will wake up dry in the mornings. Goal Time Frame: 6-8 Weeks Rehabilitation Potential Physical Therapy Diagnosis: Urge incontinence, Frequency of micturition Rehabilitation Potential: Fair Anticipated Interventions Patient/Client Instruction: Educate patient on: Condition and Plan of Care For the Purpose of:: To improve muscle performance and motor function, To improve ability of physical actions for home/community/work/leis ure, To improve health and function and To improve self management Therapeutic Exercise to Include: Strength training, Body mechanics, Postural training and Neuromotor development For the Purpose of:: To improve muscle performance and motor function, To improve health and function and To improve self management Manual Therapy Techniques to Include: Trigger point massage and Soft tissue mobilization For the Purpose of:: To decrease pain, To improve muscle performance and motor function and To improve self management Text: Thank you for the opportunity to evaluate your patient. For Medicare and Medicare HMO plans, please review the plan (more content not included)... Normal [facility] Inital Evaluation (1) - PT [facility] [address] [place] [address]. [address] [place] [address] / REHABILITATION SERVICES INITIAL EVALUATION MR#: [id number] Acct: [id number] Name: APRIL CORREA Rep #: [id number] : 1955 69 From: Payal Torres Referring Dr.: Dr. Karen Terry MD Status: RE G RCR Insurance: MEDICARE PART A B [employer] Patient's Visit Information Visit Information Visit Information: APRIL CORREA is a 69 year old F referred to Physical Therapy by Dr. Karen Terry MD with a diagnosis of . Date of Evaluation: 12/28/24 Physical Therapist: Payal Torres Visit Plan Frequency: 1x/Week Duration: 2 Months Plan: Continue 1 x week. Add week 2 next visit. She has trouble laying on her back due to back pain and shortness of breath, but may benefit from additional pelvic floor releases to address mild tightness bilaterally. Also look at right lumbar next visit. Subjective Subjective: She is coming for incontinence. Urinary and bowel incontinence. Urinary incontinence has been going on since 2007. If she has to go to the bathroom, she had to make a dash for the bathroom and she doesn't always make it. When she gets the urge to go, she goes in her pad right away. When she does she doesn't urinate much in the toilet. She goes 13-15 times a day and she has to change her pad every time. She doesn't leak with a cough or sneeze. She has been dealing with bowel incontinence a couple of years. For a couple of years her problem has gotten worse. When she gets the urge to go, she gets up and she can make it to the bathroom. Sometimes she can't make it to the bathroom. She can have diarrhea. She has bowel movements 1-2 x day. Second time consistent with diarrhea. She can't hold back gas very well. She doesn't even know it's going to happen. She is having trouble with her right low back. MRI in past she remembers something about a degenerative disc problem. Low back pain comes and goes depends on what she is doing and her movement about 4 years ago. Lately her back pain is 3-4/10. No leg pain. Dr. Terry put her on different med to control an overactive bladder. One of the meds made her mouth dry. She isn't taking any right now. The med was helping to lessen the frequency but not helping the incontinence. Dr. Terry found she is not fully emptying her bladder. She is urinating once every hour to hour and a half. She usually wakes up wet. She can wet her pad overnight and not even know it. She doesn't usually drink coffee. She drinks 3 16 oz bottles of water a day. Her goal would like to be able to hold her urine. She has tried kegels in past but she isn't sure if she was doing correctly. Pain Right lumbar pain: Pain Intensity (Out of 10): 2 Pain Intensity Range: 5 Objective Objective: Incontinence impact questionnaire 12, Urogenital distress inventory 12, Colorectal-Anal distress inventory 12 She gives consent for internal pelvic floor work LAYCOCK 11/14/10/15 mild , moderate pelvic floor tightness bilaterally (she had difficulty laying on her back for the exam ) Did not look at right low back Goals Goal 1:: April's pad use will go from 10-12 pads a day to 4 a day which will indicate less leaking episodes on a day to day basis. Goal Time Frame: 6-8 Weeks Goal 2:: April will be able to hold back gas to avoid embarrassment during day to day life. Goal Time Frame: 6-8 Weeks Goal 3:: April will go thru a period of 3 weeks without experiencing any incontinence of bowels. Goal Time Frame: 6-8 Weeks Goal 4:: April will be on a frequency of voiding 7-8 times a day to allow for less disruption in her day to day activities. Goal Time Frame: 6-8 Weeks Goal 5:: April will wake up dry in the mornings. Goal Time Frame: 6-8 Weeks Rehabilitation Potential Physical Therapy Diagnosis: Urge incontinence, Frequency of micturition Rehabilitation Potential: Fair Anticipated Interventions Patient/Client Instruction: Educate patient on: Condition and Plan of Care For the Purpose of:: To improve muscle performance and motor function, To improve ability of physical actions for home/community/work/leis ure, To improve health and function and To improve self management Therapeutic Exercise to Include: Strength training, Body mechanics, Postural training and Neuromotor development For the Purpose of:: To improve muscle performance and motor function, To improve health and function and To improve self management Manual Therapy Techniques to Include: Trigger point massage and Soft tissue mobilization For the Purpose of:: To decrease pain, To improve muscle performance and motor function and To improve self management Text: Thank you for the opportunity to evaluate your patient. For Medicare and Medicare HMO plans, please review the plan of care and approve it. It will need t (more content not included)... Normal [facility] Neutrophil cytoplasmic Ab.cl assic Qn (S)Ordered By: Belinda Jenkins on 12-28-2024 Cytoplasmic ANCA (c-ANCA) Antibody <1:20 titer Neg:<1:20 [facility] Neutrophil cytoplasmic Ab.pe rinuclear IF (S) [Titer]Ordered By: Belinda Jenkins on 12-28-2024 Perinuclear ANCA (p-ANCA) Antibody <1:20 titer Neg:<1:20 [facility] Comment on above: The presence of posi tive fluorescence exhibiting P-ANCA orC-ANCA patterns alone is not specific for the diagnosis ofWegener's Granulomatosis (WG) or microscopic polyangiitis.Decisions about treatment should not be based solely onANCA IFA results. The International ANCA Group Consensusrecommends follow up testing of positive sera with both WA-3 and MPO-ANCA enzyme immunoassays. As many as 5% serumsamples are positive only by EIA. Ref. AM J Clin [id number];111:507-513. No Panel InformationOrdered By: Belinda Jenkins on 12-28-2024 Addendum Document Comment . [facility] Comment on above: The SPE pattern demo nstrates an increase in the betafraction. This may be due to increases in transferrin, beta-lipoprotein (hypercholesterolemia), or immunoglobulins, asseen in polyclonal or monoclonal gammopathies. Ifclinically indicated, the presence of a monoclonalgammopathy may be confirmed by immunofixation or serum freelight chain quantitation. Protein Fractions Elph [Inte rp]Ordered By: Belinda Jenkins on 12-28-2024 Protein Electrophoresis Interpret Comment . [facility] Comment on above: Protein electrophore sis scan will follow via computer,mail, or control clerk food and beverage delivery. Protein Fractions [Interp] Comment . [facility] Comment on above: Protein electrophore sis scan will follow via computer,mail, or control clerk food and beverage delivery. Protein+Creatinine Ratio,Uri neon 12-28-2024 PROT:CRE RATIO 2368 mg/g CRE High 0-200 [facility] Comment on above: Performed By: #### L 3600.4030, L3100.5800, L501.0900, L3100.5475, L3100.5700, L3300.1200, L3100.3450 #### [facility] [address] [place], [address] Protein (U) [Mass/Vol] 386.0 mg/dL High 0.0-12.0 [facility] Comment on above: Performed By: #### L 3600.4030, L3100.5800, L501.0900, L3100.5475, L3100.5700, L3300.1200, L3100.3450 #### [facility] [address] [facility] [place], [address] Protein.monoclonal Elph [Mas s/Vol]Ordered By: Belinda Jenkins on 12-28-2024 Protein Electrophoresis M-Rob Not Observed g/dL Not Observed [facility] Protein/Creatinine (U) [Mass ratio]Ordered By: Belinda Jenkins on 12-28-2024 Urine Protein/Creatinine Ratio 2368 mg/g CRE High 0-200 [facility] Random urine creatinine doyle urement (mass/volume)Ordered By: Belinda Jenkins on 12-28-2024 Creatinine Unsp time (U) [Mass/Vol] 163.00 mg/dL 28.00-217. 00 [facility] Serum albumin to globulin ra tejas by protein electrophoresisOrdered By: Belinda Jenkins on 12-28-2024 Albumin/Globulin Elph [Mass ratio] 0.8 0.7-1.7 [facility] Serum classic neutrophil cyt oplasmic antibody assay (units/volume)Ordered By: Belinda Jenkins on 12-28-2024 Neutrophil cytoplasmic Ab.classic Qn (S) <1:20 titer Neg:<1:20 [facility] Serum globulin measurement ( mass/volume)Ordered By: Belinda Jenkins on 12-28-2024 Globulin (S) [Mass/Vol] 3.7 g/dL 2.2-3.9 [facility] Serum or plasma beta globuli n measurement by electrophoresis (mass/volume)Ordered By: Belinda Jenkins on 12-28-2024 Beta globulin Elph [Mass/Vol] 1.5 g/dL High 0.7-1.3 [facility] Serum or plasma complement C 4 measurement (mass/volume)Ordered By: Belinda Jenkins on 12-28-2024 Complement C4 [Mass/Vol] 28 mg/dL 12-38 [facility] Serum or plasma protein doyle urement (mass/volume)Ordered By: Belinda Jenkins on 12-28-2024 Protein [Mass/Vol] 6.6 g/dL 6.0-8.5 [facility] Serum or plasma protein mono clonal measurement by electrophoresis (mass/volume)Ordered By: Belinda Jenkins on 12-28-2024 Protein.monoclonal Elph [Mass/Vol] Not Observed g/dL Not Observed [facility] Serum perinuclear neutrophil cytoplasmic antibody titer by immunofluorescenceOrdered By: Belinda Jenkins on 12-28-2024 Neutrophil cytoplasmic Ab.perinuclear IF (S) [Titer] <1:20 titer Neg:<1:20 [facility] Comment on above: The presence of posi tive fluorescence exhibiting P-ANCA orC-ANCA patterns alone is not specific for the diagnosis ofWegener's Granulomatosis (WG) or microscopic polyangiitis.Decisions about treatment should not be based solely onANCA IFA results. The International ANCA Group Consensusrecommends follow up testing of positive sera with both WA-3 and MPO-ANCA enzyme immunoassays. As many as 5% serumsamples are positive only by EIA. Ref. AM J Clin [id number];111:507-513. Urine IFEOrdered By: Promise Jenkins on 12-28-2024 Urine Immunofixation Comment . [facility] Comment on above: No monoclonality det ected.Performed at: - [facility] [id number] Director: Cali Payton PhD, Phone: [phone] Urine protein measurement (m ass/volume)Ordered By: Belinda Jenkins on 12-28-2024 Protein (U) [Mass/Vol] 386.0 mg/dL High 0.0-12.0 [facility] Urine protein/creatinine mas s ratioOrdered By: Belinda Jenkins on 12-28-2024 Protein/Creatinine (U) [Mass ratio] 2368 mg/g CRE High 0-200 [facility] Final Surgical Pathology Rep pro 12-13-2024 Final Surgical Pathology Report . Pathology Reports Accession: Collected Date/Time: Received Date/Time: Pathologist: [id number] 12/11/2024 10:41 EDT 12/12/2024 09:54 EDT MK COCHRAN MD Final Surgical Pathology Report DIAGNOSIS: COLON, POLYPECTOMY: - TUBULAR ADENOMA CLINICAL INFORMATION: ENCOUNTER FOR SCREENING FOR MALIGNANT NEOPLASM OF THE COLON Procedure: COLONOSCOPY WITH POLYPECTOMY Preoperative diagnosis: SCREENING Postoperative diagnosis: SCREENING SPECIMEN: A POLYP HEPATIC FLEXURE/TRANSVERSE COLON GROSS DESCRIPTION: All parts labelled with patient name and [id number] Received in formalin labeled "hepatic flexure polyp/transverse colon" are 5 hayden-brown tissue fragments measuring 0.2 to 0.6 x 0.5 cm greatest dimension. TS-1 Jemima Stroud, Grossing Audio Video Repairer/ Dr. kM Cochran, Pathologist Performed by Jemima Stroud MICROSCOPIC DESCRIPTION: The microscopic examination is performed, except in the case of Gross Only. Verified by Pathology Report verified by [facility] MK COCHRAN Sign out Date: 12/13/2024 13:17 Performing Lab: [facility], [address] [place] [address] Pathology Dept Disclaimer If ancillary studies were utilized, the following Laboratory Developed Test (LDT) disclaimer will apply: Under CLIA requirements, [facility] is qualified to perform high complexity testing. For all ancillary stains, positive and negative controls stain appropriately. Performance characteristics of immunohistochemical and chromogenic in-situ hybridization tests have been determined by [facility]. These tests are used for clinical purposes, They should not be regarded as investigational or for research. . Normal [facility] Cardiology Visit Reporton Cardiology Visit Report [facility] [address] [place] [address] OFFICE VISIT Date of Service: 12/12/24 MR#: [id number] Acct: [id number] Name: CORREAESTELLAHanna Yeager Rep #: [id number] : 1955 Provider: Dr. Elkin Hendricks MD Age/Sex: 69/F Location: [facility] [place] Status: Signed HPI HPI History of Present Illness Details: April Correa is a 69-year-old lady with a previous history of hypertension who presented to the emergency room on 2021 with hypoxia and shortness of breath. She was initially admitted with a suspected community-acquired pneumonia and she was noted to be tachycardic in the emergency room with atrial fibrillation. She was started on carvedilol and Eliquis and spontaneously converted to sinus rhythm. TSH was noted to be normal and echocardiogram demonstrated preserved left ventricular systolic function of 65% and moderately enlarged left atrium. She had a CTA of her chest done which demonstrated mildly dilated main pulmonary artery but no evidence of pulmonary embolism. BT COOKY MACHINE OPERATOR was done which was normal. She was subsequently discharged on carvedilol and Eliquis. She subsequently presented back to the hospital approximately 9 days later with acute on chronic combined hypoxic and hypercapnic respiratory failure. She maintained sinus rhythm during that visit. She was treated with CPAP and BiPAP and then subsequently weaned onto supplemental oxygen. Her cardiac medications were continued. She has not had any neck arm or jaw discomfort suggest angina no dizziness or diaphoresis no near syncope or syncope and no episodes of palpitations. Intake Vital Signs 10/22/23 11:29 04/19/24 10:55 12/12/24 10:49 Height 5 ft 2 in 5 ft 2 in 5 ft 2 in Weight: 296 lb BMI 54.1 BP 178/90 H Blood Pressure Location Lt brachial Position Sitting Respiration 18 Pulse 65 Pulse Source Monitor Intake Visit Reasons: 1 Y FU Mid Level Developer Required: No Accompanied by: Self Is patient in pain?: No Allergies nabumetone (From Relafen) Allergy (Verified 12/12/24 10:54) Itching nitrofurantoin (From Macrobid) Allergy (Verified 12/12/24 10:54) Rash oxycodone Allergy (Verified 12/12/24 10:54) Pain in joints Medications ???Medication ???Instructions ???Recorded ???Confirmed ???Type bupropion HCl 150 mg 24 hr tablet, 150 mg PO DAILY 05/23/15 5 History extended release glimepiride 2 mg tablet 2 mg PO DAILY 05/23/15 12/12/24 Hi story levothyroxine 50 mcg tablet 50 mcg PO DAILY 05/23/15 12/12/24 History loratadine 10 mg tablet (Allergy 10 mg PO DAILY PRN PRN allergies 0 05/23/15 12/12/24 History Relief (loratadine)) allopurinol 300 mg tablet 300 mg PO DAILY 09/05/22 12/12/24 History omeprazole 20 mg capsule,delayed 20 mg PO DAILY 09/05/22 12/12/24 H istory release acetaminophen 325 mg tablet 650 mg (2 x 325 mg) PO Q4H PRN PRN 09/09/22 12/12/24 Rx (Tylenol) Fever, pain -06/22 #0 tabs amlodipine 2.5 mg-benazepril 10 mg 1 cap PO DAILY HEART 10/13/22 History capsule carvedilol 6.25 mg tablet 6.25 mg PO BID 10/13/22 12/12/24 H istory ropinirole 0.25 mg tablet 0.5 mg PO QHS 10/13/22 12/12/24 Hi story trazodone 50 mg tablet 50 mg PO QHS 10/13/22 12/12/24 His tory ursodiol 500 mg tablet 500 mg PO TID 10/13/22 12/12/24 Hi story apixaban 5 mg tablet (Eliquis) 5 mg PO BID #180 tabs 10/26/2210/07 Rx furosemide 40 mg tablet 40 mg PO DAILY 04/14/23 12/12/24 H istory aripiprazole 2 mg tablet (Abilify) 1 mg PO DAILY 04/11/24 12/12/24 History Have you fallen in the past year?: [facility] Pulmonary hypertension GERD (gastroesophageal reflux disease) Depression Type 2 diabetes mellitus without complication Hypothyroidism Paroxysmal atrial fibrillation Essential hypertension NEREYDA on CPAP Acute and chronic respiratory failure with hypoxia Acute and chronic respiratory failure with hypercapnia Atrial fibrillation, currently in sinus rhythm sarcoidosis liver Surgical History History of bilateral carpal tunnel release Hx of laparoscopy left long finger I D right long finger I D Family History Father Goodpasture syndrome CHF (congestive heart failure) Mother CAD (coronary artery disease) CHF (congestive heart failure) Social History household members: none housing: fpc Smoking Status: Never smoker alcohol intake: never substance use type: does not use caffeine: Yes ROS Const Const: Negative for fatigue, weakness, headache(s), daytime sleepiness or difficulty sleeping ENT ENT: Negative for hea (more content not included)... Normal [facility] Magnetic resonance imaging r eportOrdered By: Joe Farrell on 12-07-2024 Study report [facility] Imaging Services [address] [place] [address] MRI Abd WITH and W/O Contrast MR#: [id number] Acct: [id number] Name: APRIL CORREA Rep #: [id number] : 1955 F 69 From: Faye Farrell DO PCP: Dr. Tracy Dillard MD Status: REG CLI Study:MRI Abd WITH and W/O Contrast Date of E xam: 12/06/24 Exam# [id number] Ordering Dr: Eric Montgomery MD PROCEDURE: MRI of the abdomen without and with intravenous contrast. 12/06/2024 REASON FOR EXAM: Liver cirrhosis. No new complaints. TECHNIQUE: Multi planar, multisequence MRI images of the abdomen were obtained without and with intravenous contrast. 28 cc Clariscan IV contrast was administered. COMPARISON: Abdominal MRI 02/19/2023. FINDINGS: Moderate multilevel degenerative disc disease in the lumbar and lower thoracic spine. Mild S shaped scoliotic curvature of the thoracic/lumbar spine on coronal images. Heart size within normal limits. No sizable pericardial effusion. Lower lungs are grossly clear. Abdominal aorta normal in caliber. No large abdominal wall defect. The included bowel segments show no specific abnormality. Moderate lobulated contour of the liver is similar to the previousstudy. Patchy wall thickening of the stomach. Due to lack of distention versus peristalsis. No significant signal dropout of the liver to indicate fatty metamorphosis. The adrenal glands and pancreas show no specific abnormality. Moderate atrophy of the pancreatic parenchyma. Spleen size at the upper limits of normal at 13 cm. No discrete splenic lesion. There are nonenhancing bilateral renal cysts, the largest exophytic posterior superior right kidney at 16 mm. No solid-appearing renal mass or obstructive uropathy. No upper abdominal ascites or adenopathy. Some venous collaterals in the left upper abdomen/perisplenic region, not significantly changed. No enhancing liver lesion. No filling defects in the gallbladder. No abnormal dilation of the biliary tree. Portal vein is patent. There is a partially included nonenhancing T2 hyperintense cystic mass of the lower central pelvis measuring a proximally 9.3 cm. This was included on postcontrast coronal images on the prior study. MRI/MRI Abd WITH and W/O Contrast IMPRESSION: Similar appearance of moderate cirrhosis of the liver. No enhancing liver lesion. No upper abdominal ascites or adenopathy. Left upper abdominal varices/collaterals are similar. Spleen size at upper limits of normal. Nonenhancing bilateral renal cysts, the largest on the right at 1.3 cm. A fairly simple appearing 9.3 craniocaudad dimension cystic mass, which does notappear to enhance on the prior study, is not significantly changed, partially included on the current study. The lack of significant interval change in 1.5 years is most compatible with a benign finding. Suggest a short-term follow-up pelvic ultrasound evaluation in 1 month. Reading Location: [facility] CC: Dr. Tracy Dillard MD; Dr. Cali Montgomery MD ~ Garment Inspector: Signed [facility] MRI Abd WITH and W/O Contras ton 12-06-2024 MRI Abd WITH and W/O Contrast [facility] Imaging Services [address] [place] [id number] MRI Abd WITH and W/O Contrast MR#: [id number] Acct: [id number] Name: APRIL CORREA Rep #: [id number] : 1955 F 69 From: Joe Keith i DO PCP: Dr. Tracy Dillard MD Status: REG CLI Study: MRI Abd WITH and W/O Contrast Date of Exam: Exam# [id number] Ordering Dr: Cali Montgomery MD PROCEDURE: MRI of the abdomen without and with intravenous contrast. 12/06/2024 REASON FOR EXAM: Liver cirrhosis. No new complaints. TECHNIQUE: Multi planar, multisequence MRI images of the abdomen were obtained without and with intravenous contrast. 28 cc Clariscan IV contrast was administered. COMPARISON: Abdominal MRI 02/19/2023. FINDINGS: Moderate multilevel degenerative disc disease in the lumbar and lower thoracic spine. Mild S shaped scoliotic curvature of the thoracic/lumbar spine on coronal images. Heart size within normal limits. No sizable pericardial effusion. Lower lungs are grossly clear. Abdominal aorta normal in caliber. No large abdominal wall defect. The included bowel segments show no specific abnormality. Moderate lobulated contour of the liver is similar to the previous study. Patchy wall thickening of the stomach. Due to lack of distention versus peristalsis. No significant signal dropout of the liver to indicate fatty metamorphosis. The adrenal glands and pancreas show no specific abnormality. Moderate atrophy of the pancreatic parenchyma. Spleen size at the upper limits of normal at 13 cm. No discrete splenic lesion. There are nonenhancing bilateral renal cysts, the largest exophytic posterior superior right kidney at 16 mm. No solid-appearing renal mass or obstructive uropathy. No upper abdominal ascites or adenopathy. Some venous collaterals in the left upper abdomen/perisplenic region, not significantly changed. No enhancing liver lesion. No filling defects in the gallbladder. No abnormal dilation of the biliary tree. Portal vein is patent. There is a partially included nonenhancing T2 hyperintense cystic mass of the lower central pelvis measuring a proximally 9.3 cm. This was included on postcontrast coronal images on the prior study. MRI/MRI Abd WITH and W/O Contrast IMPRESSION: Similar appearance of moderate cirrhosis of the liver. No enhancing liver lesion. No upper abdominal ascites or adenopathy. Left upper abdominal varices/collaterals are similar. Spleen size at upper limits of normal. Nonenhancing bilateral renal cysts, the largest on the right at 1.3 cm. A fairly simple appearing 9.3 craniocaudad dimension cystic mass, which does not appear to enhance on the prior study, is not significantly changed, partially included on the current study. The lack of significant interval change in 1.5 years is most compatible with a benign finding. Suggest a short-term follow-up pelvic ultrasound evaluation in 1 month. Reading Location: [facility] CC: Dr. Tracy Dillard MD; Dr. Cali Montgomery MD Garment Inspector: Signed Normal [facility] AFP, Tumor Markeron 11-16-19 25 AFP TUMOR RACH < 1.8 Normal 0.0-9.2 [facility] Comment on above: Order Comment: N Result Comment: [employer] [facility] Electrochemiluminescence Immunoassay (ECLIA) Values obtained with different assay methods or kits cannot be used interchangeably. Results cannot be interpreted as absolute evidence of the presence or absence of malignant disease. This test is not interpretable in females. Performed at: [email or web address] [address] [id number] [employer] Vehicle Driver: Cali Payton PhD, Phone: [phone] Performed By: #### L 3600.4030, L3100.5800, L501.0900, L3100.5475, L3100.5700, L3300.1200, L3100.3450 #### [facility] [address] [place], [place], [id number] Activated partial thrombopla stin time (aPTT) in platelet poor plasma by coagulation aOrdered By: Cali Montgomery on 11-13-2024 aPTT Coag (PPP) [Time] 34.9 s 24.1-36.2 [facility] Alpha fetoprotein measuremen t as tumor markerOrdered By: Cali Montgomery on 11-13-2024 Tumor Marker Alpha Fetoprotein < 1.8 ng/mL 0.0-9.2 [facility] Comment on above: [email or web address] El ectrochemiluminescence Immunoassay(ECLIA)Values obtained with different assay methods or kits cannotbe used interchangeably. Results cannot be interpreted asabsolute evidence of the presence or absence of malignantdisease.This test is not interpretable in females.Performed at: [email or web address] [address] [id number] Director: Cali Payton PhD, Phone: [phone] Anion gap in Serum or Plasma Ordered By: Cali Montgomery on 11-13-2024 Anion gap [Moles/Vol] 11 mmol/L 5-15 [facility] BUN/creatinine ratioOrdered By: Cali Montgomery on 11-13-2024 Urea nitrogen/Creatinine [Mass ratio] 34.6 mg/mg High 10-20 [facility] Bilirubin, totalOrdered By: Cali Montgomery on 11-13-2024 Bilirubin [Mass/Vol] 0.51 mg/dL 0.00-1.[address] [facility] CBC-Complete Blood Cnt No Di ffon 11-13-2024 Erythrocyte distribution width (RBC) [Ratio] 12.3 % Normal 11.6-14.6 [facility] Comment on above: Performed By: #### L 501.0900, L501.9520, L500.2500 #### [facility] [address] [place], [address] Hematocrit (Bld) [Volume fraction] 40.3 % Normal 37-47 [facility] Comment on above: Performed By: #### L 501.0900, L501.9520, L500.2500 #### [facility] [address] [place], [address] Hemoglobin (Bld) [Mass/Vol] 13.3 g/dL Normal 12.0-15.0 [facility] Comment on above: Performed By: #### L 501.0900, L501.9520, L500.2500 #### [facility] [address] [place], [address] MCH (RBC) [Entitic mass] 31.1 pg Normal 27.0-32.0 [facility] Comment on above: Performed By: #### L 501.0900, L501.9520, L500.2500 #### [facility] [address] [place], [address] MCHC (RBC) [Mass/Vol] 33.0 g/dL Normal 32-36 [facility] Comment on above: Performed By: #### L 501.0900, L501.9520, L500.2500 #### [facility] [address] [place], [address] MCV (RBC) [Entitic vol] 94.4 fL Normal 81-99 [facility] Comment on above: Performed By: #### L 501.0900, L501.9520, L500.2500 #### [facility] [address] [place], [address] Platelet mean volume (Bld) [Entitic vol] 10.8 fL Normal 6.2-12.0 [facility] Comment on above: Performed By: #### L 501.0900, L501.9520, L500.2500 #### [facility] [address] [place], [address] Platelets (Bld) [#/Vol] 218 10*3/uL Normal 150-450 [facility] Comment on above: Performed By: #### L 501.0900, L501.9520, L500.2500 #### [facility] [address] [place], [address] RBC (Bld) [#/Vol] 4.27 10*6/uL Normal 4.2-5.4 [facility] Comment on above: Performed By: #### L 501.0900, L501.9520, L500.2500 #### [facility] [address] [place], [address] RDW SD 42.4 fl Normal 35.1-43.9 [facility] Comment on above: Performed By: #### L 501.0900, L501.9520, L500.2500 #### [facility] [address] [place], [address] WBC (Bld) [#/Vol] 6.6 10*3/uL Normal 4.4-11.0 [facility] Comment on above: Performed By: #### L 501.0900, L501.9520, L500.2500 #### [facility] [address] [place], [address] Carbon dioxide, total [Moles /volume] in Central venous bloodOrdered By: Cali Montgomery on 11-13-2024 CO2 [Moles/Vol] 23.4 mmol/L 21.0-32.0 [facility] Chloride assayOrdered By: Susi Mnotgomery on 11-13-2024 Chloride [Moles/Vol] 102 mmol/L 98-[address] [facility] Comprehensive Metabolic Prof ilon 11-13-2024 Calcium [Mass/Vol] 9.8 mg/dL Normal 7.6-11.0 [facility] Comment on above: Performed By: #### L 3600.4030, L3100.5800, L501.0900, L3100.5475, L3100.5700, L3300.1200, L3100.3450 #### [facility] [address] [place], [address] Chloride [Moles/Vol] 102 mmol/L Normal 98-[address] [facility] Comment on above: Performed By: #### L 3600.4030, L3100.5800, L501.0900, L3100.5475, L3100.5700, L3300.1200, L3100.3450 #### [facility] [address] [place], [address] CO2 [Moles/Vol] 23.4 mmol/L Normal 21.0-32.0 [facility] Comment on above: Performed By: #### L 3600.4030, L3100.5800, L501.0900, L3100.5475, L3100.5700, L3300.1200, L3100.3450 #### [facility] [address] [place], [address] GAP 11 Normal 5-15 [facility] Comment on above: Performed By: #### L 3600.4030, L3100.5800, L501.0900, L3100.5475, L3100.5700, L3300.1200, L3100.3450 #### [facility] [address] [place], [address] Potassium [Moles/Vol] 4.8 mmol/L Normal 3.3-5.1 [facility] Comment on above: Performed By: #### L 3600.4030, L3100.5800, L501.0900, L3100.5475, L3100.5700, L3300.1200, L3100.3450 #### [facility] [address] [place], [address] Sodium [Moles/Vol] 136 mmol/L Normal 133-145 [facility] Comment on above: Performed By: #### L 3600.4030, L3100.5800, L501.0900, L3100.5475, L3100.5700, L3300.1200, L3100.3450 #### [facility] [address] [place], [address] Erythrocyte distribution wid th ratioOrdered By: Cali Montgomery on 11-13-2024 Erythrocyte distribution width (RBC) [Ratio] 12.3 % 11.6-14.6 [facility] Erythrocyte distribution wid th standard deviationOrdered By: Cali Montgomery on 11-13-2024 Erythrocyte distribution width (RBC) [Entitic vol] 42.4 fL 35.1-43.9 [facility] Erythrocyte distribution width (RBC) [Ratio] 42.4 fl 35.1-43.9 [facility] GFR/1.73 sq M.predicted unruly g non-blacks MDRD (S/P/Bld) [Vol rate/Area]Ordered By: Cali Montgomery on 11-13-2024 Estimated GFR (MDRD) Non-Af Amer 96 >60 [facility] Comment on above: mL/min/1.73m2 CKD-EP I Creatinine Equation (2020) Glomerular filtration rate ( GFR) estimation/1.73 sq m using serum, plasma, or whole bOrdered By: Cali Montgomery on 11-13-2024 GFR/1.73 sq M.predicted among non-blacks MDRD (S/P/Bld) [Vol rate/Area] 96 mL/min/{1.73_m2} >60 [facility] Comment on above: mL/min/1.73m2 CKD-EP I Creatinine Equation (2020) Hematocrit Auto (Bld) [Volum e fraction]Ordered By: Cali Montgomery on 11-13-2024 Hematocrit (Bld) [Volume fraction] 40.3 % 37-47 [facility] Hemoglobin measurementOrdere d By: Cali Montgomery on 11-13-2024 Hemoglobin (Bld) [Mass/Vol] 13.3 g/dL 12.0-15.0 [facility] International normalized rat io (INR) calculationOrdered By: Cali Montgomery on 11-13-2024 INR Coag (Bld) [Relative time] 1.4 {INR} [facility] - Chemistry and C hemistry - challengeOrdered By: Cali Montgomery on 11-13-2024 AST [Catalytic activity/Vol] 19 U/L <32 [facility] MCV (mean corpuscular volume ) determinationOrdered By: Cali Montgomery on 11-13-2024 MCV (RBC) [Entitic vol] 94.4 fL 81-99 [facility] Mean corpuscular hemoglobin (MCH) determinationOrdered By: Cali Montgomery on 11-13-2024 MCH (RBC) [Entitic mass] 31.1 pg 27.0-32.0 [facility] Mean corpuscular hemoglobin concentration (MCHC) determinationOrdered By: Cali Montgomery on 11-13-2024 MCHC (RBC) [Mass/Vol] 33.0 g/dL 32-36 [facility] Mean platelet volume determi nationOrdered By: Cali Montgomery on 11-13-2024 Platelet mean volume (Bld) [Entitic vol] 10.8 fL 6.2-12.0 [facility] Partial Thromboplast Timeon 11-13-2024 aPTT Coag (Bld) [Time] 34.9 s Normal 24.1-36.2 [facility] Comment on above: Performed By: #### L 3600.4030, L3100.5800, L501.0900, L3100.5475, L3100.5700, L3300.1200, L3100.3450 #### [facility] [address] [place], [place], [id number] (360) Platelet countOrdered By: Susi Montgomery on 11-13-2024 Platelets (Bld) [#/Vol] 218 10*3/uL 150-450 [facility] Potassium (Unsp spec) [Mass/ Vol]Ordered By: Cali Montgomery on 11-13-2024 Potassium [Moles/Vol] 4.8 mmol/L 3.3-5.1 [facility] Potassium measurement (mass/ volume)Ordered By: Cali Montgomery on 11-13-2024 Potassium (Unsp spec) [Mass/Vol] 4.8 mmol/L 3.3-5.1 [facility] Prothrombin Time w/INRon INR Coag (PPP) [Relative time] 1.4 {INR} Normal [facility] Comment on above: Performed By: #### L 3600.4030, L3100.5800, L501.0900, L3100.5475, L3100.5700, L3300.1200, L3100.3450 #### [facility] [address] [place], [address] PT Coag (PPP) [Time] 17.5 s High 11.7-14.[address] [facility] Comment on above: Performed By: #### L 3600.4030, L3100.5800, L501.0900, L3100.5475, L3100.5700, L3300.1200, L3100.3450 #### [facility] [address] [place], [address] Prothrombin timeOrdered By: Cali Montgomery on 11-13-2024 PT Coag (PPP) [Time] 17.5 s High 11.7-14.[address] [facility] RBC Auto (Bld) [#/Vol]Ordere d By: Cali Montgomery on 11-13-2024 RBC (Bld) [#/Vol] 4.27 10*6/uL 4.2-5.4 [facility] Serum creatinine measurement (mass/volume)Ordered By: Cali Montgomery on 11-13-2024 Creatinine [Mass/Vol] 0.66 mg/dL Low 0.70-1.20 [facility] Serum globulin measurementOr dered By: Cali Montgomery on 11-13-2024 Globulin (S) [Mass/Vol] 3.5 g/dL 2.2-4.2 [facility] Serum glucose measurement (m ass/volume)Ordered By: Cali Montgomery on 11-13-2024 Glucose [Mass/Vol] 250 mg/dL High 70-99 [facility] Serum or plasma alanine peoples otransferase (ALT) measurementOrdered By: Cali Montgomery on 11-13-2024 ALT [Catalytic activity/Vol] 8 U/L <35 [facility] Serum or plasma albumin doyle urement (mass/volume)Ordered By: Cali Montgomery on 11-13-2024 Albumin [Mass/Vol] 3.5 g/dL 3.4-4.8 [facility] Serum or plasma albumin/glob ulin mass ratioOrdered By: Cali Montgomery on 11-13-2024 Albumin/Globulin [Mass ratio] 1.0 {ratio} 0.9-2.4 [facility] Serum or plasma alkaline nelly sphatase measurementOrdered By: Cali Montgomery on 11-13-2024 ALP [Catalytic activity/Vol] 184 U/L High 35-104 [facility] Serum or plasma calcium doyle urement (mass/volume)Ordered By: Cali Montgomery on 11-13-2024 Calcium [Mass/Vol] 9.8 mg/dL 7.6-11.0 [facility] Serum or plasma urea nitroge n measurement (mass/volume)Ordered By: Cali Montgomery on 11-13-2024 Urea nitrogen [Mass/Vol] 23 mg/dL High 4-19 [facility] Sodium levelOrdered By: Christian Montgomery on 11-13-2024 Sodium [Moles/Vol] 136 mmol/L 133-145 [facility] Total proteinOrdered By: Rickey Montgomery on 11-13-2024 Protein [Mass/Vol] 7.0 g/dL 5.9-8.4 [facility] White blood cell (WBC) count Ordered By: Cali Montgomery on 11-13-2024 WBC (Bld) [#/Vol] 6.6 10*3/uL 4.4-11.0 [facility] aPTT Coag (PPP) [Time]Ordere d By: Cali Montgomery on 11-13-2024 aPTT Coag (Bld) [Time] 34.9 s 24.1-36.2 [facility] Basic Metabolic Profile (BMP )on 10-31-2024 BUN/CRE 20.4 RATIO High 10-20 [facility] Comment on above: Performed By: #### L 501.0900, L501.9520, L500.2500 #### [facility] [address] [place], [address] CA,Total 9.6 mg/dL Normal 8.5-10.1 [facility] Comment on above: Performed By: #### L 501.0900, L501.9520, L500.2500 #### [facility] [address] [place], [address] Chloride [Moles/Vol] 102 mmol/L Normal 98-[address] [facility] Comment on above: Performed By: #### L 501.0900, L501.9520, L500.2500 #### [facility] [address] [place], [address] CO2 [Moles/Vol] 28.0 mmol/L Normal 21.0-32.0 [facility] Comment on above: Performed By: #### L 501.0900, L501.9520, L500.2500 #### [facility] [address] [place], [address] Creatinine [Mass/Vol] 0.74 mg/dL Normal 0.55-1.02 [facility] Comment on above: Result Comment: The validity of the calculated GFR GFRAA in patients over 70 years has not been determined. Clinical correlation is essential. Performed By: #### L 501.0900, L501.9520, L500.2500 #### [facility] [address] [place], [address] EST GFR - AA 101 mL/min Normal >60 [facility] Comment on above: Result Comment: Afri can [place] GFR Calc Performed By: #### L 501.0900, L501.9520, L500.2500 #### [facility] [address] [place], [address] GAP 7 Normal 5-15 [facility] Comment on above: Performed By: #### L 501.0900, L501.9520, L500.2500 #### [facility] [address] [place], [address] GFR/1.73 sq M.predicted among non-blacks MDRD (S/P/Bld) [Vol rate/Area] 83 mL/min/{1.73_m2} Normal >60 [facility] Comment on above: Result Comment: Non- GFR Calc Performed By: #### L 501.0900, L501.9520, L500.2500 #### [facility] [address] [place], [address] Glucose [Mass/Vol] 241 mg/dL High 74-106 [facility] Comment on above: Result Comment: Gluc ose result greater than or equal to 200 mg/dL suggests DIABETES MELLITUS per A.D.A. criteria. Performed By: #### L 501.0900, L501.9520, L500.2500 #### [facility] [address] [place], [address] Potassium [Moles/Vol] 4.2 mmol/L Normal 3.5-5.1 [facility] Comment on above: Performed By: #### L 501.0900, L501.9520, L500.2500 #### [facility] [address] [place], [address] Sodium [Moles/Vol] 137 mmol/L Normal 136-145 [facility] Comment on above: Performed By: #### L 501.0900, L501.9520, L500.2500 #### [facility] [address] [place], [address] Urea nitrogen [Mass/Vol] 15 mg/dL Normal 7-18 [facility] Comment on above: Performed By: #### L 501.0900, L501.9520, L500.2500 #### [facility] [address] [place], [address] Blood urea nitrogen (BUN)/cr eatinine ratioOrdered By: Tracy Dillard on 10-31-2024 Urea nitrogen/Creatinine [Mass ratio] 20.4 mg/mg High 10-20 [facility] Carbon dioxide measurementOr dered By: Tracy Dillard on 10-31-2024 CO2 [Moles/Vol] 28.0 mmol/L 21.0-32.0 [facility] Chloride measurementOrdered By: Tracy Dillard on 10-31-2024 Chloride [Moles/Vol] 102 mmol/L 98-[address] [facility] Estimated glomerular filtrat ion rate (GFR) AmericanOrdered By: Tracy Dillard on 10-31-2024 Estimated GFR (MDRD) Amer 101 mL/min >60 [facility] Comment on above: GFR Calc Glomerular filtration rate ( GFR) estimationOrdered By: Tracy Dillard on 10-31-2024 Estimated GFR (MDRD) Non-Af Amer 83 mL/min >60 [facility] Comment on above: Non- GFR Calc GFR/1.73 sq M.predicted among non-blacks MDRD (S/P/Bld) [Vol rate/Area] 83 mL/min/{1.73_m2} >60 [facility] Comment on above: Non- GFR Calc Glucose measurementOrdered B y: Tracy Dillard on 10-31-2024 Glucose [Mass/Vol] 241 mg/dL High 74-106 [facility] Comment on above: Glucose result great er than or equal to 200 mg/dLsuggests DIABETES MELLITUS per A.D.A. criteria. Potassium measurementOrdered By: Tracy Dillard on 10-31-2024 Potassium [Moles/Vol] 4.2 mmol/L 3.5-5.1 [facility] Protein+Creatinine Ratio,Uri neon 10-31-2024 PROT:CRE RATIO 3798 mg/g CRE High 0-200 [facility] Comment on above: Performed By: #### L 501.0900, L501.9520, L500.2500 #### [facility] [address] [place], [address] Protein (U) [Mass/Vol] 167.5 mg/dL High <11.9 [facility] Comment on above: Performed By: #### L 501.0900, L501.9520, L500.2500 #### [facility] [address] [place], [address] UR CREAT 44.10 mg/dL Normal NO RANGE EST. [facility] Comment on above: Performed By: #### L 501.0900, L501.9520, L500.2500 #### [facility] [address] [place], [address] Protein/Creatinine (U) [Mass ratio]Ordered By: Tracy Dillard on 10-31-2024 Urine Protein/Creatinine Ratio 3798 mg/g CRE High 0-200 [facility] Random urine protein measure mentOrdered By: Tracy Dillard on 10-31-2024 Protein (U) [Mass/Vol] 167.5 mg/dL High 0.0-11.8 [facility] Serum anion gap measurementO rdered By: Tracy Dillard on 10-31-2024 Anion gap [Moles/Vol] 7 mmol/L 5-15 [facility] Serum or plasma calcium doyle urement (mass/volume)Ordered By: Tracy Dillard on 10-31-2024 Calcium [Mass/Vol] 9.6 mg/dL 8.5-10.1 [facility] Serum or plasma creatinine m easurement (mass/volume)Ordered By: Tracy Dillard on 10-31-2024 Creatinine [Mass/Vol] 0.74 mg/dL 0.55-1.02 [facility] Comment on above: The validity of the calculated GFR & GFRAA in patients over 70 years has not been determined. Clinical correlation is essential. Serum or plasma thyroid stim ulating hormone (TSH) measurement (units/volume)Ordered By: Tracy Dillard on 10-31-2024 TSH Qn 1.580 uIU/mL 0.358-3.74 0 [facility] Serum or plasma urea nitroge n measurement (mass/volume)Ordered By: Tracy Dillard on 10-31-2024 Urea nitrogen [Mass/Vol] 15 mg/dL 7-18 [facility] Sodium levelOrdered By: Tracy Dillard on 10-31-2024 Sodium [Moles/Vol] 137 mmol/L 136-145 [facility] TSH QnOrdered By: Tracy garcia on 10-31-2024 Thyroid Stimulating Hormone (TSH) 1.580 uIU/mL 0.358-3.74 0 [facility] Thyroid Stim Hormone (TSH)on 10-31-2024 TSH 1.580 uIU/mL Normal 0.358-3.74 0 [facility] Comment on above: Performed By: #### L 501.0900, L501.9520, L500.2500 #### [facility] [address] [place] [address]. [place], [address] Urine creatinine measurement (mass/volume)Ordered By: Tracy Dillard on 10-31-2024 Creatinine (U) [Mass/Vol] 44.10 mg/dL NO RANGE EST. [facility] Urine protein/creatinine mas s ratioOrdered By: Tracy Dillard on 10-31-2024 Protein/Creatinine (U) [Mass ratio] 3798 mg/g CRE High 0-200 [facility] PT D/C Summary (1)on 025 PT D/C Summary (1) [facility] Physical Therapy [facility] [address] [place] [address] / REHABILITATION SERVICES DISCHARGE SUMMARY MR#: [id number] Acct: [id number] Name: APRIL CORREA Rep #: [id number] : [id number] 69 From: Albertina Martins MPT Referring Dr.: ESPERANZA Garcia Status: REG RCR Insurance: MEDICARE PART A B [employer] Discharge Summary D/C summary: It has been my pleasure to treat APRIL CORREA referred by ESPERANZA Garcia, with the diagnosis of Fall on April 11 and Fx L surgical neck of humerus. for a total of 15 visit(s). Discharge Date: 09/29/24 Please see the following information for a summary of their discharge status. Subjective Subjective: Pt reports that she is doing good but sometimes when she moves her arm there is grinding or a pop and not painful. That is her big concern. She is still struggling trying to reach behind her and up. She feels confidence in her HEP. Pain L SH: Pain Intensity (Out of 10): 0 Overall Improvement % Improvement: 70 Objective Objective/Function: Discussed IR with a gait belt along the midline. AROM: R shoulder flexion 155 and L shoulder flexion 147 R shoulder ABD 140 and L 144 R shoulder IR T12 and L Greater Trochanter on the L2 R shoulder ER 70 and L 70 Shoulder MMT: R shoulder flexion 9.2 and L 7.2 R shoulder ABD 9.6 and L 7.4 R shoulder ER 8.6 and L 11 R shoulder IR 11 and L 12.4 Goals Goal 1:: I HEP Goal Progress: Goal Met Goal 2:: Increase L shoulder AROM (at the time of eval: Shoulder AROM: R shoulder flexion 155 and L shoulder flexion 100 R shoulder ABD 140 and L 107 R shoulder IR T12 and L Greater Trochanter on the L R shoulder ER 70 and L 52) Goal Progress: Goal Met Goal 3:: Increase L shoulder strength (at the time of the eval: Shoulder MMT: R shoulder flexion 9.2 and L 6.7 R shoulder ABD 9.6 and L 4.3 R shoulder ER 8.6 and L 7.8 R shoulder IR 11 and L 9.7) Goal Progress: Goal Met Goal 4:: Be able to reach behind her back to reach her bra Goal Progress: Progressing Goal 5:: Be able to reach overhead and hold something getting it out of the cupboard with ease Goal Progress: Goal Met Plan Plan: +++Work on strength/ROM over 90 within pain tolerance but overall shoulder strength to reach goals. (Add sitting wand flexion for ROM/strength). 2X/ week for 8 weeks for L shoulder AAROM, AROM, scapular and RC strength with HEP Pt does not lay on her back. Fall on April 11 and Fx L surgical neck of humerus. HEP: sitting wand flex/ABD, standing belly up against mat table for stability and wand IR D/C Information Discharge Comments: DC PT to HEP (continue to work on flexion and IR with a gait belt) d/c sentence: If there are questions or concerns regarding this patient's physical therapy, please feel free to call me at [phone]. Thank you for the referral of this patient. Sincerely, Albertina Martins, MPT Balance/Gait/Functional tests Balance/Special Test Scores Quick DASH Score: 13.6350 Improvement % Improvement: 70 09/29/24 1231 CC: Dr. Tracy Dillard MD; ESPERANZA Garcia Signed Normal [facility] OT D/C Summaryon 08-31-2024 OT D/C Summary [facility] Occupational Therapy Health[address] [place] [address] / REHABILITATION SERVICES DISCHARGE SUMMARY MR#: [id number] Acct: [id number] Name: APRIL CORREA Rep #: [id number] : 1955 69 From: Anh Mccall Referring Dr.: ESPERANZA Garcia Status: REG RCR Eval Date: Discharge Date: Discharge Summary D/C Summary: It has been my pleasure to treat APRIL CORREA under orders from ESPERANZA Garcia, for the diagnosis of 3 part fx surgical neck of humerus, primary oa L hand for a total of 8 visit(s). Please see the following information for a summary of their discharge status. 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 left IF PIP 100* DIP flexion 50* left MF PIP 95 DIP flexion 30* left RF PIP 90 DIP flexion 30* left LF PIP 0 ( hard end feel) pt demo with functional ROM of left hand and strength following humerus fx - pt demo with OA deformities of all joints of left hand PIP feel is hard end feel and mechanically will not change- Goals Patient Goals: Regain Strength, Decrease Pain, Decrease Swelling/Stiffness, Use Hand/Wrist/Arm Normally Again, Increase ROM, Be More Independent in ADLS, Resume Former Household Responsibilities (Cooking,Cleaning,Yard, etc.) and Resume Hobbies Goal:ROM equal to unaffected hand: Yes Goal Progress: not met Goal:Bacteriology Professor/Pinch strength at least 75% of unaffected hand: Yes Goal Progress: not met Goal:No pain with affected hand use: Yes Goal Progress: Goal Met Goal:Full use of affected hand in daily activities including work: Yes Goal Progress: Goal Met Other Goal: pt will improve quick dash score by 10 points or more (34.09) in order to maximize functional use of L hand now 13.65 GOAL MET pt will verbalize/ demonstrate 100% accuracy in proper joint protection and positioning to promote use of L hand. ( goal met) Plan Plan: AROM/AAROM/PROM strengthening trigger point release D/C Information Discharge Comments: This 69 year old female arrives with dx of OA of L hand. pt demonstrates decreased pain of L hand with functional use as well as improvement in ROM and strength. discharge pt at this time due to reaching maximal potential -- pt in agreeance. d/c sentence: If there are questions or concerns regarding this patient's occupational therapy, please fell free to call me at [phone]. Thank you for the referral of this patient. Sincerely, Anh Mccall 08/31/24 6007 CC: Dr. Tracy Dillard MD; ESPERANZA Garcia CK Signed Normal [facility] OT D/C of Non Returning Pton 08-31-2024 OT D/C of Non Returning Pt [facility] Occupational Therapy Health[address] [place] [address] / REHABILITATION SERVICES DISCHARGE SUMMARY MR#: [id number] Acct: [id number] Name: APRIL CORREA Rep #: [id number] : 1955 69 From: Anh Mccall Referring Dr.: ESPERANZA Garcia Status: REG RCR Eval Date: Discharge Date: Patient Information Patient Information: APRIL CORREA was seen in my office for initial evaluation on 07/18/24. The following Plan of Care was established for this patient: POC Established Initial Frequency: 1-2x /Week Initial Duration: 4-6 Weeks Plan: AROM/AAROM/PROM strengthening trigger point release Anticipated Interventions Anticipated Interventions: A/AAROM/PROM, Strengthening, Triggerpoint Release, Modalities, ADL Training, Education re assistive Equipment, Education re Diagnosis and Home Program Last Seen Last Seen: This patient was last seen in our office 08/31/24. Pertinent comments regarding their Occupational therapy will appear below: This 69 year old female arrives with dx of OA of L hand. pt demonstrates decreased pain of L hand with functional use as well as improvement in ROM and strength. discharge pt at this time due to reaching maximal potential -- pt in agreeance. At this point I will be discontinuing this patient from occupational therapy. I would be happy to see this patient again in the future if found appropriate by the physician. Thank you! Anh Mccall 08/31/24 6686 CC: Dr. Tracy Dillard MD; ESPERANZA Garcia CK Signed Normal [facility] Re-Evaluation - PT (1)on Re-Evaluation - PT (1) [facility] [address] [place] [address]. [address] [place] [address] / REEVALUATION / MEDICARE RECERTIFICATION PHYSICAL THERAPY MR#: [id number] Acct: [id number] Name: APRIL CORREA Rep #: [id number] : 1955 69 From: Albertina CHANEY Referring Dr.: ESPERANZA Garcia Status:REG RCR Insurance: MEDICARE PART A B [employer] Re-Evaluation Intro: Zoraida Leonor, PA, It has been my pleasure to treat APRIL CORREA over the last 8 visits for Fall on April 11 and Fx L surgical neck of humerus.. Please see the progress note below for an update on the physical therapy plan of care! Subjective Subjective: Pt is doing ok but still struggling with reaching behind her back and Keke gave her some exercises to do and she is still struggling with that. She can get her arm up over head but not all the way and she feels the pull. She is doing her HEP Objective Objective/Function: Shoulder AROM: R shoulder flexion 155 and L shoulder flexion 130 R shoulder ABD 140 and L 134 R shoulder IR T12 and L5 on the L R shoulder ER 70 and L 55 Shoulder MMT: R shoulder flexion 9.2 and L 7.3 R shoulder ABD 9.6 and L 7.2 R shoulder ER 8.6 and L 10.4 R shoulder IR 11 and L 10.8 Plan Plan Plan: +++Work on strength/ROM over 90 within pain tolerance but overall shoulder strength to reach goals. (Add sitting wand flexion for ROM/strength). 2X/ week for 8 weeks for L shoulder AAROM, AROM, scapular and RC strength with HEP Pt does not lay on her back. Fall on April 11 and Fx L surgical neck of humerus. HEP: sitting wand flex/ABD, standing belly up against mat table for stability and wand IR Balance/Gait/Functional tests Balance/Special Test Scores Quick DASH Score: 31.8175 Goals Goals Goal 1:: I HEP Goal Time Frame: 6-8 Weeks Goal Progress: Goal Met Goal 2:: Increase L shoulder AROM (at the time of eval: Shoulder AROM: R shoulder flexion 155 and L shoulder flexion 100 R shoulder ABD 140 and L 107 R shoulder IR T12 and L Greater Trochanter on the L R shoulder ER 70 and L 52) Goal Time Frame: 6-8 Weeks Goal Progress: Progressing Goal 3:: Increase L shoulder strength (at the time of the eval: Shoulder MMT: R shoulder flexion 9.2 and L 6.7 R shoulder ABD 9.6 and L 4.3 R shoulder ER 8.6 and L 7.8 R shoulder IR 11 and L 9.7) Goal Time Frame: 6-8 Weeks Goal Progress: Progressing Goal 4:: Be able to reach behind her back to reach her bra Goal Time Frame: 6-8 Weeks Goal Progress: Progressing Goal 5:: Be able to reach overhead and hold something getting it out of the cupboard with ease Goal Time Frame: 6-8 Weeks Goal Progress: Progressing Anticipated Interventions Anticipated Interventions Patient/Client Instruction: Educate patient on: Condition and Plan of Care For the Purpose of:: To decrease pain, To increase ROM, To improve nutrient delivery to tissue, To increase oxygenation perfusion, To improve muscle performance and motor function, To improve ability to perform ADL's, To increase tolerance to activity/condition/posit ion, To improve performance and independence with ADL's, To decrease level of supervision to perform tasks, To improve ability of physical actions for home/community/work/leis ure, To improve health of tissue, To decrease soft tissue restriction and To increase flexibility/ROM Therapeutic Exercise to Include: Strength training, Endurance training, Postural training, Neuromotor development, Passive ROM, Active ROM and Scapular Strength/Stabilization For the Purpose of:: To decrease pain, To increase ROM, To improve nutrient delivery to tissue, To improve muscle performance and motor function, To improve ability to perform ADL's, To increase tolerance to activity/condition/posit ion, To improve performance and independence with ADL's, To decrease level of supervision to perform tasks, To improve ability of physical actions for home/community/work/leis ure, To improve gait and locomotor functions, To improve health of tissue, To decrease soft tissue restriction and To increase flexibility/ROM Manual Therapy Techniques to Include: Passive ROM For the Purpose of:: To increase ROM Re-Evaluation Ending Re-evaluation ending: Please do not hesitate to contact me at [phone] by phone or if you have questions or concerns regarding this new plan of care! Sincerely, Albertina Martins, MPT 08/21/24 1352 CC: Dr. Tracy Dillard MD; ESPERANZA Garcia Signed For Medicare only, by signing this I certify the plan of care. ____ Physicians Signature Date Normal [facility] Inital Evaluation (1) - PTon 07-18-2024 Inital Evaluation (1) - PT [facility] Physical Therapy [facility] [address] [place] [address] / REHABILITATION SERVICES INITIAL EVALUATION MR#: [id number] Acct: [id number] Name: APRIL CORREA Rep #: [id number] : 1955 69 From: Albertina CHANEY Referring Dr.: ESPERANZA Garcia Status: REG RCR Insurance: MEDICARE PART A B [employer] Patient's Visit Information Visit Information Visit Information: APRIL CORREA is a 69 year old F referred to Physical Therapy by ESPERANZA Garcia with a diagnosis of Fall on April 11 and Fx L surgical neck of humerus.. Date of Evaluation: 07/18/24 Physical Therapist: RITU Harrison Visit Plan Frequency: 2x /Week Duration: 2 Months Plan: 2X/ week for 8 weeks for L shoulder AAROM, AROM, scapular and RC strength with HEP Pt does not lay on her back. Fall on April 11 and Fx L surgical neck of humerus. HEP: sitting wand flex/ABD, standing belly up against mat table for stability and wand IR Subjective Subjective: She broke her L arm. She lost her balance and fell on it with her arm up in the air on April 11. She is R handed. They put her arm in a sling for 6 weeks. Her mobility is better but she has trouble reaching behind her and she has no strength if she has to lift over her head. She sleeps in a lift chair so she does not know if she can sleep on that side. She struggles putting on her bra and hooking her bra. She drives and has no issue. She is taking Tylenol as needed. 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 Shoulder AROM: R shoulder flexion 155 and L shoulder flexion 100 R shoulder ABD 140 and L 107 R shoulder IR T12 and L Greater Trochanter on the L R shoulder ER 70 and L 52 Shoulder MMT: R shoulder flexion 9.2 and L 6.7 R shoulder ABD 9.6 and L 4.3 R shoulder ER 8.6 and L 7.8 R shoulder IR 11 and L 9.7 Balance/Special Test Scores Quick DASH Score: 40.9075 Goals Goal 1:: I HEP Goal Time Frame: 6-8 Weeks Goal 2:: Increase L shoulder AROM (at the time of eval: Shoulder AROM: R shoulder flexion 155 and L shoulder flexion 100 R shoulder ABD 140 and L 107 R shoulder IR T12 and L Greater Trochanter on the L R shoulder ER 70 and L 52) Goal Time Frame: 6-8 Weeks Goal 3:: Increase L shoulder strength (at the time of the eval: Shoulder MMT: R shoulder flexion 9.2 and L 6.7 R shoulder ABD 9.6 and L 4.3 R shoulder ER 8.6 and L 7.8 R shoulder IR 11 and L 9.7) Goal Time Frame: 6-8 Weeks Goal 4:: Be able to reach behind her back to reach her bra Goal Time Frame: 6-8 Weeks Goal 5:: Be able to reach overhead and hold something getting it out of the cupboard with ease Goal Time Frame: 6-8 Weeks Rehabilitation Potential Rehabilitation Potential: Good Anticipated Interventions Patient/Client Instruction: Educate patient on: Condition and Plan of Care For the Purpose of:: To decrease pain, To increase ROM, To improve nutrient delivery to tissue, To increase oxygenation perfusion, To improve muscle performance and motor function, To improve ability to perform ADL's, To increase tolerance to activity/condition/posit ion, To improve performance and independence with ADL's, To decrease level of supervision to perform tasks, To improve ability of physical actions for home/community/work/leis ure, To improve health of tissue, To decrease soft tissue restriction and To increase flexibility/ROM Therapeutic Exercise to Include: Strength training, Endurance training, Postural training, Neuromotor development, Passive ROM, Active ROM and Scapular Strength/Stabilization For the Purpose of:: To decrease pain, To increase ROM, To improve nutrient delivery to tissue, To improve muscle performance and motor function, To improve ability to perform ADL's, To increase tolerance to activity/condition/posit ion, To improve performance and independence with ADL's, To decrease level of supervision to perform tasks, To improve ability of physical actions for home/community/work/leis ure, To improve gait and locomotor functions, To improve health of tissue, To decrease soft tissue restriction and To increase flexibility/ROM Manual Therapy Techniques to Include: Passive ROM For the Purpose of:: To increase ROM Text: Thank you for the opportunity to evaluate your patient. For Medicare and Medicare HMO plans, please review the plan of care and approve it. It will need to be FAXED BACK to us at [phone] for Medicare purposes. For Medicare only, by signing this I certify the plan of care. Please let me know if there are questions or concerns regarding this plan of care. Physician Signature: Date: ____ 07/18/24 1351 CC: Dr. Tracy Dillard MD; ESEPRANZA Garcia Signed Normal [facility] OT General Evaluationon OT General Evaluation [facility] Occupational Therapy [facility] [place] [address] / REHABILITATION SERVICES INITIAL EVALUATION MR#: [id number] Acct: [id number] Name: APRIL CORREA Rep #: [id number] : 1955 69 From: Anh Mccall Referring Dr.: ESPERANZA Garcia Status: REG RCR Insurance: MEDICARE PART A B Eval Date: [employer] Patient's Visit Information Visit Information Visit Information: APRIL CORREA is a 69 year old F, referred to Occupational Therapy by ESPERANZA Garcia, with a diagnosis of 3 part fx surgical neck of humerus, primary oa L hand. Date of Evaluation: 07/18/24 Occupational Therapist: Anh Mccall Subjective Subjective: This 69 year old female with fx to greater tuberosity April 112023 as well as primary OA received therapy at home for approx 6 weeks now done with home therapy. this female denies pain at this time unless moving thumb. Fx occurred by falling after losing balance. No surgical intervention received for shoulder routine healing. Pt was in sling for 6 weeks and now results in loss of ability to make composite fist. pt is R hand dominant. denies numbness and tingling at this time. decreased ability to grasp and maintain grasp on items which has impacted ability to perform self care Pain L thumb: Current Pain Intensity: 2 Objective Objective/Observation: arrives ROM limitations noted at thumb as well as digits. pts IF crosses over MF pt LF PIP little flexion ROM Wrist: L 50/45 R 60/45 MP: L -35/80 R - 25/ 65 IP: L 0/30 R 0/45 Opposition: wfl however adductor takes over MP: L D2 0/80 D3 0/83 D4 0/80 D5 0/75 PIP: L D2 0/90 D3 0/75 D4 0/80 D5 0/ 15 DIP: L D2 -35 extension D30/25 D40/25 D5 -30/65 ROM Comments: L ulnar dev 30 L radial dev 15 R ulnar dev 40 R radial dev 15 pt is 2.5 cm IF to palm of hand Strength Bacteriology Professor: R 20# L 5# Lateral Pinch: R 5# L 0# Tripod Pinch: R1# L 0# Edema Wrist: R 16 cm L 17.5 cm Sensation Sensation Comments: denies Quick DASH-Disab of Arm,Shoulder Hand Quick DASH Score: 34.0900 Goals Goal:ROM equal to unaffected hand: Yes Goal:Bacteriology Professor/Pinch strength at least 75% of unaffected hand: Yes Goal:No pain with affected hand use: Yes Goal:Full use of affected hand in daily activities including work: Yes Other Goal: pt will improve quick dash score by 10 points or more (34.09) in order to maximize functional use of L hand pt will verbalize/ demonstrate 100% accuracy in proper joint protection and positioning to promote use of L hand. Rehabilitation General Assessment: This 69 year old female with dx of L 3 part fx of humerus and primary OA of L hand demonstrates impairments in L hand ROM as well as strength and pain with use of thumb. occasional triggering of thumb with use. This pt would benefit from OT in order to improve ROM strength provide ed on joint protection and positioning as well as bracing as needed 1-2x a week for 4-6 weeks in order to promote optimal functional use of L UE. Rehabilitation Potential: Good Anticipated Interventions Anticipated Interventions: A/AAROM/PROM, Strengthening, Triggerpoint Release, Modalities, ADL Training, Education re assistive Equipment, Education re Diagnosis and Home Program Visit Plan Frequency: 1-2x /Week Duration: 4-6 Weeks General Plan: AROM/PROM/AAROM bracing modalities strengthening TEXT: Thank you for the opportunity to evaluate your patient. For Medicare and Medicare HMO plans, please review the plan of care and approve it. It will need to be FAXED BACK to us at [phone] for Medicare purposes. Please let me know if there are questions or concerns regarding this plan of care. Physician Signature: Date: ____ 07/18/24 1512 CC: Dr. Tracy Dillard MD; ESPERANZA Garcia CK Signed For Medicare only, by signing this I certify the plan of care. ____ Physicians Signature Date Normal [facility] Basophil percentageOrdered B y: Tracy Dillard on 04-30-2023 Bilirubin [Mass/Vol] 0.90 mg/dL 0.20-1.[address] [facility] Comment on above: For patients on eltr ombopag therapy, use of Dimension [place] TBIL is not recommended. Chloride [Moles/Vol] 103 mmol/L 98-[address] [facility] Cholesterol [Mass/Vol] 177 mg/dL <200 [facility] Comment on above: <200 mg/dL Desirable 200-240 mg/dL Borderline >240 mg/dL High Risk Glucose [Mass/Vol] 165 mg/dL 74-106 [facility] Comment on above: Fasting Glucose resu lt greater than or equal to 126 mg/dL suggests DIABETES MELLITUS per A.D.A. criteria. Potassium [Moles/Vol] 3.6 mmol/L 3.5-5.1 [facility] Protein [Mass/Vol] 7.0 g/dL 6.4-8.2 [facility] Sodium [Moles/Vol] 137 mmol/L 136-145 [facility] Triglyceride [Mass/Vol] 111 mg/dL <199 [facility] Comment on above: The drugs N-Acetylcy steine and Metamizole may falsely depress this assay.Serum Triglycerides Reference Interval Normal <150 mg/dL Borderline high 150 - 199 mg/dL High 200 - 499 mg/dL Very High > or = 500 mg/dL Direct bilirubinOrdered By: Tracy Dillard on 04-30-2023 Bilirubin.direct [Mass/Vol] 0.32 mg/dL 0.00-0.30 [facility] Laboratory - Chemistry and C hemistry - challengeOrdered By: Tracy Dillard on 04-30-2023 ALP [Catalytic activity/Vol] 184 U/L 45-117 [facility] ALT [Catalytic activity/Vol] 13 U/L 13-56 [facility] CO2 [Moles/Vol] 27.0 mmol/L 21.0-32.0 [facility] Globulin (S) [Mass/Vol] 3.9 g/dL 2.2-4.2 [facility] T4 [Mass/Vol] 8.8 ug/dL 4.8-13.9 [facility] Urea nitrogen/Creatinine [Mass ratio] 20.8 mg/mg 10-20 [facility] No Panel InformationOrdered By: Tracy Dillard on 04-30-2023 Estimated GFR (MDRD) Amer 123 mL/min >60 [facility] Comment on above: GFR Calc Estimated GFR (MDRD) Non-Af Amer 101 mL/min >60 [facility] Comment on above: Non- GFR Calc Thyroid Stimulating Hormone (TSH) 2.96 uIU/mL 0.358-3.74 [facility] Serum or plasma albumin doyle urement (mass/volume)Ordered By: Tracy Dillard on 04-30-2023 Albumin [Mass/Vol] 3.1 g/dL 3.2-5.0 [facility] Serum or plasma calcium doyle urement (mass/volume)Ordered By: Tracy Dillard on 04-30-2023 Calcium [Mass/Vol] 9.3 mg/dL 8.5-10.1 [facility] Serum or plasma cholesterol in HDL measurement (mass/volume)Ordered By: Tracy Dillard on 04-30-2023 Cholesterol in HDL [Mass/Vol] 51 mg/dL >40 [facility] Comment on above: The drugs N-Acetylcy steine and Metamizole may falsely depress this assay. Reference Range HDL <40 mg/dL Low HDL Cholesterol HDL >or= 60 mg/dL High HDL Cholesterol Serum or plasma cholesterol in VLDL measurement (mass/volume)Ordered By: Tracy Dillard on 04-30-2023 Cholesterol in VLDL [Mass/Vol] 22 mg/dL 5-40 [facility] Serum or plasma creatinine m easurement (mass/volume)Ordered By: Tracy Dillard on 04-30-2023 Creatinine [Mass/Vol] 0.62 mg/dL 0.55-1.02 [facility] Comment on above: The validity of the calculated GFR & GFRAA in patients over 70 years has not been determined. Clinical correlation is essential. Serum or plasma low density lipoprotein (LDL) cholesterol measurement (mass/volume)Ordered By: Tracy Dillard on 04-30-2023 Cholesterol in LDL [Mass/Vol] 104 mg/dL 0-130 [facility] Serum or plasma urea nitroge n measurement (mass/volume)Ordered By: Tracy Dillard on 04-30-2023 Urea nitrogen [Mass/Vol] 13 mg/dL 7-18 [facility] Thin prep Papanicolaou smear with manual screeningOrdered By: Tracy Dillard on 04-30-2023 Thin prep Papanicolaou smear with manual screening 20 U/L 15-37 [facility] Thin prep Papanicolaou smear with manual screening 7 5-15 [facility] LABORATORYOrdered By: Mila Navas on 02-15-2023 Glucose [Mass/Vol] 129 mg/dL Invalid Interpretation Code 82 - 115 mg/dL [facility] Basophil percentageOrdered B y: Dr. Montgomery on 02-03-2023 Bilirubin [Mass/Vol] 0.90 mg/dL 0.20-1.[address] [facility] Comment on above: For patients on eltr ombopag therapy, use of Dimension [place] TBIL is not recommended. Chloride [Moles/Vol] 105 mmol/L 98-[address] [facility] Glucose [Mass/Vol] 163 mg/dL 74-106 [facility] Comment on above: Fasting Glucose resu lt greater than or equal to 126 mg/dL suggests DIABETES MELLITUS per A.D.A. criteria. Potassium [Moles/Vol] 3.9 mmol/L 3.5-5.1 [facility] Protein [Mass/Vol] 7.6 g/dL 6.4-8.2 [facility] Sodium [Moles/Vol] 140 mmol/L 136-145 [facility] [facility] INR in Blood by Coagulation assayOrdered By: Dr. Montgomery on 02-03-2023 INR Coag (Bld) [Relative time] 1.4 {INR} [facility] - Chemistry and C hemistry - challengeOrdered By: Dr. Montgomery on 02-03-2023 ALP [Catalytic activity/Vol] 167 U/L 45-117 [facility] ALT [Catalytic activity/Vol] 19 U/L 13-56 [facility] CO2 [Moles/Vol] 27.0 mmol/L 21.0-32.0 [facility] Globulin (S) [Mass/Vol] 4.4 g/dL 2.2-4.2 [facility] Urea nitrogen/Creatinine [Mass ratio] 12.8 mg/mg 10-20 [facility] - CoagulationOrde red By: Dr. Montgomery on 02-03-2023 aPTT Coag (Bld) [Time] 39.0 s 24.1-36.2 [facility] PT Coag (PPP) [Time] 17.5 s 11.7-14.[address] [facility] No Panel InformationOrdered By: Dr. Montgomery on 02-03-2023 Estimated GFR (MDRD) Amer 107 mL/min >60 [facility] Comment on above: GFR Calc Estimated GFR (MDRD) Non-Af Amer 88 mL/min >60 [facility] Comment on above: Non- GFR Calc Serum or plasma albumin doyle urement (mass/volume)Ordered By: Dr. Montgomery on 02-03-2023 Albumin [Mass/Vol] 3.2 g/dL 3.2-5.0 [facility] Serum or plasma albumin/glob ulin mass ratioOrdered By: Dr. Montgomery on 02-03-2023 Albumin/Globulin [Mass ratio] 0.7 {ratio} 0.9-2.4 [facility] Serum or plasma [id number] protein tumor marker measurement (units/volume)Ordered By: Dr. Montgomery on 02-03-2023 AFP.tumor marker Qn 2.6 ng/mL 0.0-9.2 [facility] Comment on above: [facility] [employer] [place] ectrochemiluminescence Immunoassay(ECLIA)Values obtained with different assay methods or kits cannotbe used interchangeably. Results cannot be interpreted asabsolute evidence of the presence or absence of malignantdisease.This test is not interpretable in females.Performed at: [facility] [id number] Director: Cali Payton PhD, Phone: [phone] Serum or plasma calcium doyle urement (mass/volume)Ordered By: Dr. Montgomery on 02-03-2023 Calcium [Mass/Vol] 9.7 mg/dL 8.5-10.1 [facility] Serum or plasma creatinine m easurement (mass/volume)Ordered By: Dr. Montgomery on 02-03-2023 Creatinine [Mass/Vol] 0.70 mg/dL 0.55-1.02 [facility] Comment on above: The validity of the calculated GFR & GFRAA in patients over 70 years has not been determined. Clinical correlation is essential. Serum or plasma urea nitroge n measurement (mass/volume)Ordered By: Dr. Montgomery on 02-03-2023 Urea nitrogen [Mass/Vol] 9 mg/dL 7-18 [facility] Thin prep Papanicolaou smear with manual screeningOrdered By: Dr. Montgomery on 02-03-2023 Thin prep Papanicolaou smear with manual screening 22 U/L 15-37 [facility] Thin prep Papanicolaou smear with manual screening 8 5-15 [facility] Basophil percentageOrdered B y: Dr. Dillard on 11-23-2022 Chloride [Moles/Vol] 102 mmol/L 98-[address] [facility] Glucose [Mass/Vol] 181 mg/dL 74-106 [facility] Comment on above: Fasting Glucose resu lt greater than or equal to 126 mg/dL suggests DIABETES MELLITUS per A.D.A. criteria. Potassium [Moles/Vol] 4.1 mmol/L 3.5-5.1 [facility] Sodium [Moles/Vol] 136 mmol/L 136-145 [facility] Laboratory - Chemistry and C hemistry - challengeOrdered By: Dr. Dillard on 11-23-2022 CO2 [Moles/Vol] 27.0 mmol/L 21.0-32.0 [facility] Urea nitrogen/Creatinine [Mass ratio] 26.0 mg/mg 10-20 [facility] No Panel InformationOrdered By: Dr. Dillard on 11-23-2022 Estimated GFR (MDRD) Amer 96 mL/min >60 [facility] Comment on above: GFR Calc Estimated GFR (MDRD) Non-Af Amer 80 mL/min >60 [facility] Comment on above: Non- GFR Calc Serum or plasma calcium doyle urement (mass/volume)Ordered By: Dr. Dillard on 11-23-2022 Calcium [Mass/Vol] 9.6 mg/dL 8.5-10.1 [facility] Serum or plasma creatinine m easurement (mass/volume)Ordered By: Dr. Dillard on 11-23-2022 Creatinine [Mass/Vol] 0.77 mg/dL 0.55-1.02 [facility] Comment on above: The validity of the calculated GFR & GFRAA in patients over 70 years has not been determined. Clinical correlation is essential. Serum or plasma urea nitroge n measurement (mass/volume)Ordered By: Dr. Dillard on 11-23-2022 Urea nitrogen [Mass/Vol] 20 mg/dL 7-18 [facility] Thin prep Papanicolaou smear with manual screeningOrdered By: Dr. Dillard on 11-23-2022 Thin prep Papanicolaou smear with manual screening 7 5-15 [facility] Absolute lymphocyte countOrd ered By: Chaz Aldridge on 10-23-2022 Lymphocytes Auto (Unsp spec) [#/Vol] 1.14 10*3/uL 0.83-4.51 [facility] Basophil percentageOrdered B y: Chaz Aldridge on 10-23-2022 Basophils/100 WBC (Bld) 0.5 % 0-1 [facility] Chloride [Moles/Vol] 101 mmol/L 98-[address] [facility] Eosinophils/100 WBC (Bld) 4.4 % 0-5 [facility] Glucose [Mass/Vol] 125 mg/dL 74-106 [facility] Comment on above: Fasting Glucose resu lt from 100 to 125 mg/dL suggests IMPAIRED HOMEOSTASIS per A.D.A. criteria. Neutrophils (Bld) [#/Vol] 2.4 10*3/uL 2.0-7.7 [facility] Neutrophils/100 WBC (Bld) 57.4 % 47-70 [facility] Potassium [Moles/Vol] 3.0 mmol/L 3.5-5.1 [facility] Sodium [Moles/Vol] 143 mmol/L 136-145 [facility] WBC (Bld) [#/Vol] 4.1 10*3/uL 4.4-11.0 [facility] Blood erythrocytes count (nu mber/volume)Ordered By: Chaz Aldridge on 10-23-2022 RBC (Bld) [#/Vol] 3.46 10*6/uL 4.2-5.4 [facility] Blood hemoglobin measurement (mass/volume)Ordered By: Chaz Aldridge on 10-23-2022 Hemoglobin (Bld) [Mass/Vol] 10.7 g/dL 12.0-15.0 [facility] Blood lymphocytes/100 leukoc ytesOrdered By: Chaz Aldridge on 10-23-2022 Lymphocytes/100 WBC (Bld) 27.7 % 19-41 [facility] Blood monocytes/100 leukocyt esOrdered By: Chaz Aldridge on 10-23-2022 Monocytes/100 WBC (Bld) 9.5 % 0-10 [facility] Blood platelet mean volumeOr dered By: Chaz Aldridge on 10-23-2022 Platelet mean volume (Bld) [Entitic vol] 10.5 fL 6.2-12.0 [facility] Determination of erythrocyte mean corpuscular volume (MCV)Ordered By: Chaz Aldridge on 10-23-2022 MCV (RBC) [Entitic vol] 98.0 fL 81-99 [facility] Hematocrit Auto (Bld) [Volum e fraction]Ordered By: Chaz Aldridge on 10-23-2022 Hematocrit (Bld) [Volume fraction] 33.9 % 37-47 [facility] - Chemistry and C hemistry - challengeOrdered By: Chaz Aldridge on 10-23-2022 CO2 [Moles/Vol] 36.0 mmol/L 21.0-32.0 [facility] Urea nitrogen/Creatinine [Mass ratio] 12.5 mg/mg 10-20 [facility] - Hematology and Cell countsOrdered By: Chaz Aldridge on 10-23-2022 Erythrocyte distribution width (RBC) [Entitic vol] 55.4 fL 35.1-43.9 [facility] Erythrocyte distribution width (RBC) [Ratio] 15.6 % 11.6-14.6 [facility] Immature granulocytes/100 WBC (Bld) 0.500 % 0.0-0.9 [facility] Comment on above: IG% - Immature Granu locytes (promyelocytes, myelocytes and metamyelocytes) > 1% indicates that a LEFT SHIFT is Present. MCH (RBC) [Entitic mass] 30.9 pg 27.0-32.0 [facility] Nucleated RBC/100 WBC (Bld) [Ratio] 0 % 0-5 [facility] MCHC Auto (RBC) [Mass/Vol]Or dered By: Chaz Aldridge on 10-23-2022 MCHC (RBC) [Mass/Vol] 31.6 g/dL 32-36 [facility] No Panel InformationOrdered By: Chaz Aldridge on 10-23-2022 Estimated GFR (MDRD) Amer 83 mL/min >60 [facility] Comment on above: GFR Calc Estimated GFR (MDRD) Non-Af Amer 68 mL/min >60 [facility] Comment on above: Non- GFR Calc Platelets bldOrdered By: Miah Aldridge on 10-23-2022 Platelets (Bld) [#/Vol] 237 10*3/uL 150-450 [facility] Serum or plasma calcium doyle urement (mass/volume)Ordered By: Chaz Aldridge on 10-23-2022 Calcium [Mass/Vol] 8.5 mg/dL 8.5-10.1 [facility] Serum or plasma creatinine m easurement (mass/volume)Ordered By: lucasbrooklynbrian Aldridge on 10-23-2022 Creatinine [Mass/Vol] 0.88 mg/dL 0.55-1.02 [facility] Comment on above: The validity of the calculated GFR & GFRAA in patients over 70 years has not been determined. Clinical correlation is essential. Serum or plasma urea nitroge n measurement (mass/volume)Ordered By: Chaz Aldridge on 10-23-2022 Urea nitrogen [Mass/Vol] 11 mg/dL 7-18 [facility] Thin prep Papanicolaou smear with manual screeningOrdered By: [facility] Thin prep Papanicolaou smear with manual screening 6 5-15 [facility] Absolute lymphocyte countOrd ered By: kimmie Aldridge on 10-09-2022 Lymphocytes Auto (Unsp spec) [#/Vol] 0.97 10*3/uL 0.83-4.51 [facility] Basophil percentageOrdered B y: Jonibrian Aldridge on 10-09-2022 Basophils/100 WBC (Bld) 0.5 % 0-1 [facility] Chloride [Moles/Vol] 101 mmol/L 98-[address] [facility] Eosinophils/100 WBC (Bld) 5.1 % 0-5 [facility] Glucose [Mass/Vol] 119 mg/dL 74-106 [facility] Comment on above: Fasting Glucose resu lt from 100 to 125 mg/dL suggests IMPAIRED HOMEOSTASIS per A.D.A. criteria. Neutrophils (Bld) [#/Vol] 2.5 10*3/uL 2.0-7.7 [facility] Neutrophils/100 WBC (Bld) 62.8 % 47-70 [facility] Potassium [Moles/Vol] 3.6 mmol/L 3.5-5.1 [facility] Sodium [Moles/Vol] 142 mmol/L 136-145 [facility] WBC (Bld) [#/Vol] 3.9 10*3/uL 4.4-11.0 [facility] Blood erythrocytes count (nu mber/volume)Ordered By: Chaz Aldridge on 10-09-2022 RBC (Bld) [#/Vol] 3.23 10*6/uL 4.2-5.4 [facility] Blood hemoglobin measurement (mass/volume)Ordered By: Chaz Aldridge on 10-09-2022 Hemoglobin (Bld) [Mass/Vol] 9.7 g/dL 12.0-15.0 [facility] Blood lymphocytes/100 leukoc ytesOrdered By: lucaswilmotbrian Aldridge on 10-09-2022 Lymphocytes/100 WBC (Bld) 24.9 % 19-41 [facility] Blood monocytes/100 leukocyt esOrdered By: Chaz Aldridge on 10-09-2022 Monocytes/100 WBC (Bld) 6.4 % 0-10 [facility] Blood platelet mean volumeOr dered By: Chaz Aldridge on 10-09-2022 Platelet mean volume (Bld) [Entitic vol] 11.9 fL 6.2-12.0 [facility] Determination of erythrocyte mean corpuscular volume (MCV)Ordered By: Chaz Aldridge on 10-09-2022 MCV (RBC) [Entitic vol] 97.5 fL 81-99 [facility] Hematocrit Auto (Bld) [Volum e fraction]Ordered By: Chaz Aldridge on 10-09-2022 Hematocrit (Bld) [Volume fraction] 31.5 % 37-47 [facility] - Chemistry and C hemistry - challengeOrdered By: Chaz Aldridge on 10-09-2022 CO2 [Moles/Vol] 35.0 mmol/L 21.0-32.0 [facility] Urea nitrogen/Creatinine [Mass ratio] 12.4 mg/mg 10-20 [facility] - Hematology and Cell countsOrdered By: Chaz Aldridge on 10-09-2022 Erythrocyte distribution width (RBC) [Entitic vol] 53.7 fL 35.1-43.9 [facility] Erythrocyte distribution width (RBC) [Ratio] 15.2 % 11.6-14.6 [facility] Immature granulocytes/100 WBC (Bld) 0.300 % 0.0-0.9 [facility] Comment on above: IG% - Immature Granu locytes (promyelocytes, myelocytes and metamyelocytes) > 1% indicates that a LEFT SHIFT is Present. MCH (RBC) [Entitic mass] 30.0 pg 27.0-32.0 [facility] Nucleated RBC/100 WBC (Bld) [Ratio] 0 % 0-5 [facility] MCHC Auto (RBC) [Mass/Vol]Or dered By: Chaz Aldridge on 10-09-2022 MCHC (RBC) [Mass/Vol] 30.8 g/dL 32-36 [facility] No Panel InformationOrdered By: Chaz Aldridge on 10-09-2022 Estimated GFR (MDRD) Amer 82 mL/min >60 [facility] Comment on above: GFR Calc Estimated GFR (MDRD) Non-Af Amer 68 mL/min >60 [facility] Comment on above: Non- GFR Calc Platelets bldOrdered By: Miah Aldridge on 10-09-2022 Platelets (Bld) [#/Vol] 152 10*3/uL 150-450 [facility] Serum or plasma calcium doyle urement (mass/volume)Ordered By: Chaz Aldridge on 10-09-2022 Calcium [Mass/Vol] 8.9 mg/dL 8.5-10.1 [facility] Serum or plasma creatinine m easurement (mass/volume)Ordered By: Chaz Aldridge on 10-09-2022 Creatinine [Mass/Vol] 0.88 mg/dL 0.55-1.02 [facility] Comment on above: The validity of the calculated GFR & GFRAA in patients over 70 years has not been determined. Clinical correlation is essential. Serum or plasma urea nitroge n measurement (mass/volume)Ordered By: Chaz Aldridge on 10-09-2022 Urea nitrogen [Mass/Vol] 11 mg/dL 7-18 [facility] Thin prep Papanicolaou smear with manual screeningOrdered By: Chaz Aldridge on 10-09-2022 Thin prep Papanicolaou smear with manual screening 6 5- [facility] - Microbiology an d Antimicrobial susceptibilityOrdered By: Dr. Duckworth on 09-26-2022 Bacteria identified Cx Nom (Bld) No growth in 5 days. [facility] Absolute lymphocyte countOrd ered By: Chaz Aldridge on 09-25-2022 Lymphocytes Auto (Unsp spec) [#/Vol] 1.07 10*3/uL 0.83-4.51 [facility] Basophil percentageOrdered B y: Chaz Aldridge on 09-25-2022 Basophils/100 WBC (Bld) 0.0 % 0-1 [facility] Chloride [Moles/Vol] 90 mmol/L 98-[address] [facility] Eosinophils/100 WBC (Bld) 0.2 % 0-5 [facility] Glucose [Mass/Vol] 273 mg/dL 74-106 [facility] Comment on above: Glucose result great er than or equal to 200 mg/dLsuggests DIABETES MELLITUS per A.D.A. criteria. Neutrophils (Bld) [#/Vol] 4.6 10*3/uL 2.0-7.7 [facility] Neutrophils/100 WBC (Bld) 75.0 % 47-70 [facility] Potassium [Moles/Vol] 4.2 mmol/L 3.5-5.1 [facility] Sodium [Moles/Vol] 133 mmol/L 136-145 [facility] WBC (Bld) [#/Vol] 6.1 10*3/uL 4.4-11.0 [facility] Blood erythrocytes count (nu mber/volume)Ordered By: Chaz Aldridge on 09-25-2022 RBC (Bld) [#/Vol] 3.51 10*6/uL 4.2-5.4 [facility] Blood hemoglobin measurement (mass/volume)Ordered By: Chaz Aldridge on 09-25-2022 Hemoglobin (Bld) [Mass/Vol] 10.3 g/dL 12.0-15.0 [facility] Blood lymphocytes/100 leukoc ytesOrdered By: Chaz Aldridge on 09-25-2022 Lymphocytes/100 WBC (Bld) 17.6 % 19-41 [facility] Blood monocytes/100 leukocyt esOrdered By: Chaz Aldridge on 09-25-2022 Monocytes/100 WBC (Bld) 6.9 % 0-10 [facility] Blood platelet mean volumeOr dered By: Chaz Aldridge on 09-25-2022 Platelet mean volume (Bld) [Entitic vol] 11.0 fL 6.2-12.0 [facility] Determination of erythrocyte mean corpuscular volume (MCV)Ordered By: Chaz Aldridge on 09-25-2022 MCV (RBC) [Entitic vol] 96.0 fL 81-99 [facility] Hematocrit Auto (Bld) [Volum e fraction]Ordered By: Chaz Aldridge on 09-25-2022 Hematocrit (Bld) [Volume fraction] 33.7 % 37-47 [facility] - Chemistry and C hemistry - challengeOrdered By: [facility] on 09-[facility]22 CO2 [Moles/Vol] 39.0 mmol/L 21.0-32.0 [facility] Urea nitrogen/Creatinine [Mass ratio] 45.4 mg/mg 10-20 [facility] - Hematology and Cell countsOrdered By: lucaswilmotbrian Aldridge on 09-25-2022 Erythrocyte distribution width (RBC) [Entitic vol] 44.0 fL 35.1-43.9 [facility] Erythrocyte distribution width (RBC) [Ratio] 13.1 % 11.6-14.6 [facility] Immature granulocytes/100 WBC (Bld) 0.300 % 0.0-0.9 [facility] Comment on above: IG% - Immature Granu locytes (promyelocytes, myelocytes and metamyelocytes) > 1% indicates that a LEFT SHIFT is Present. MCH (RBC) [Entitic mass] 29.3 pg 27.0-32.0 [facility] Nucleated RBC/100 WBC (Bld) [Ratio] 0 % 0-5 [facility] MCHC Auto (RBC) [Mass/Vol]Or dered By: Chaz Aldridge on 09-25-2022 MCHC (RBC) [Mass/Vol] 30.6 g/dL 32-36 [facility] Microbial respiratory cultur eOrdered By: Dr. Ashley on 09-25-2022 Bacteria identified Respiratory culture Nom (Unsp spec) or Staphylococcus aureus isolated. [facility] No Panel InformationOrdered By: Chaz Aldridge on 09-25-2022 Estimated GFR (MDRD) Amer 78 mL/min >60 [facility] Comment on above: GFR Calc Estimated GFR (MDRD) Non-Af Amer 64 mL/min >60 [facility] Comment on above: Non- GFR Calc Platelets bldOrdered By: Miah Aldridge on 09-25-2022 Platelets (Bld) [#/Vol] 258 10*3/uL 150-450 [facility] Serum or plasma calcium doyle urement (mass/volume)Ordered By: Chaz Aldridge on 09-25-2022 Calcium [Mass/Vol] 9.2 mg/dL 8.5-10.1 [facility] Serum or plasma creatinine m easurement (mass/volume)Ordered By: Chaz Aldridge on 09-25-2022 Creatinine [Mass/Vol] 0.93 mg/dL 0.55-1.02 [facility] Comment on above: The validity of the calculated GFR & GFRAA in patients over 70 years has not been determined. Clinical correlation is essential. Serum or plasma urea nitroge n measurement (mass/volume)Ordered By: Chaz Aldridge on 09-25-2022 Urea nitrogen [Mass/Vol] 42 mg/dL 7-18 [facility] Thin prep Papanicolaou smear with manual screeningOrdered By: Chaz Aldridge on 09-25-2022 Thin prep Papanicolaou smear with manual screening 4 5-15 [facility] Absolute lymphocyte countOrd ered By: Dr. Ashley on 09-24-2022 Lymphocytes Auto (Unsp spec) [#/Vol] 0.99 10*3/uL 0.83-4.51 [facility] Assessment of wrist artery p atency prior to arterial punctureOrdered By: Dr. Ashley on 09-24-2022 Arterial patency Wrist artery --pre arterial puncture Positive [facility] Base excessOrdered By: Dr. Maryann oseguera on 09-24-2022 Base excess Calc (BldV) [Moles/Vol] 16 mmol/L -2-2 [facility] Basophil percentageOrdered B y: Dr. Ashley on 09-24-2022 Basophils/100 WBC (Bld) 0.0 % 0-1 [facility] Chloride [Moles/Vol] 94 mmol/L 98-[address] [facility] Eosinophils/100 WBC (Bld) 0.0 % 0-5 [facility] Glucose [Mass/Vol] 227 mg/dL 74-106 [facility] Comment on above: Glucose result great er than or equal to 200 mg/dLsuggests DIABETES MELLITUS per A.D.A. criteria. Neutrophils (Bld) [#/Vol] 6.4 10*3/uL 2.0-7.7 [facility] Neutrophils/100 WBC (Bld) 80.5 % 47-70 [facility] Potassium [Moles/Vol] 4.1 mmol/L 3.5-5.1 [facility] Sodium [Moles/Vol] 136 mmol/L 136-145 [facility] WBC (Bld) [#/Vol] 7.9 10*3/uL 4.4-11.0 [facility] Basophil percentage 40.8 mmol/L 22-[address] [facility] Basophils/100 WBC (Bld) 97 % 95-99 [facility] Blood erythrocytes count (nu mber/volume)Ordered By: Dr. Ashley on 09-24-2022 RBC (Bld) [#/Vol] 3.67 10*6/uL 4.2-5.4 [facility] Blood hemoglobin measurement (mass/volume)Ordered By: Dr. Ashley on 09-24-2022 Hemoglobin (Bld) [Mass/Vol] 10.8 g/dL 12.0-15.0 [facility] Blood lymphocytes/100 leukoc ytesOrdered By: Dr. Ashley on 09-24-2022 Lymphocytes/100 WBC (Bld) 12.5 % 19-41 [facility] Blood monocytes/100 leukocyt esOrdered By: Dr. Ashley on 09-24-2022 Monocytes/100 WBC (Bld) 6.6 % 0-10 [facility] Blood platelet mean volumeOr dered By: Dr. Ashley on 09-24-2022 Platelet mean volume (Bld) [Entitic vol] 10.6 fL 6.2-12.0 [facility] CO2 (BldA) [Partial pressure ]Ordered By: Dr. Ashley on 09-24-2022 CO2 (Bld) [Partial pressure] 65.1 mm[Hg] 35-45 [facility] COVID-19 virus antigen assay Ordered By: Dr. Ashley on 09-24-2022 SARS-CoV-2 (COVID-19) Ag IA.rapid Ql (Resp) [facility] Determination of erythrocyte mean corpuscular volume (MCV)Ordered By: Dr. Ashley on 09-24-2022 MCV (RBC) [Entitic vol] 93.7 fL 81-99 [facility] Glucose Glucometer (dC) [M ass/Vol]Ordered By: Dr. Ashley on 09-24-2022 Glucose [Mass/Vol] 409 mg/dL 74-106 [facility] Comment on above: MANAGEMENT OF PATIEN T CARE PER NURSING PROTOCOL Hematocrit Auto (Bld) [Volum e fraction]Ordered By: Dr. Ashley on 09-24-2022 Hematocrit (Bld) [Volume fraction] 34.4 % 37-47 [facility] - Chemistry and C hemistry - challengeOrdered By: Dr. Ashley on 09-24-2022 CO2 [Moles/Vol] 40.0 mmol/L 21.0-32.0 [facility] Urea nitrogen/Creatinine [Mass ratio] 49.7 mg/mg 10-20 [facility] - Hematology and Cell countsOrdered By: Dr. Ashley on 09-24-2022 Erythrocyte distribution width (RBC) [Entitic vol] 43.6 fL 35.1-43.9 [facility] Erythrocyte distribution width (RBC) [Ratio] 13.1 % 11.6-14.6 [facility] Immature granulocytes/100 WBC (Bld) 0.400 % 0.0-0.9 [facility] Comment on above: IG% - Immature Granu locytes (promyelocytes, myelocytes and metamyelocytes) > 1% indicates that a LEFT SHIFT is Present. MCH (RBC) [Entitic mass] 29.4 pg 27.0-32.0 [facility] Nucleated RBC/100 WBC (Bld) [Ratio] 0 % 0-5 [facility] MCHC Auto (RBC) [Mass/Vol]Or dered By: Dr. Ashley on 09-24-2022 MCHC (RBC) [Mass/Vol] 31.4 g/dL 32-36 [facility] No Panel InformationOrdered By: Dr. Ashley on 09-24-2022 Estimated Creatinine Clearance Calc 44.66 ml/min [facility] Estimated GFR (MDRD) Amer 72 mL/min >60 [facility] Comment on above: GFR Calc Estimated GFR (MDRD) Non-Af Amer 60 mL/min >60 [facility] Comment on above: Non- GFR Calc Blood Gas Liter Flow 2.0 /min [facility] Blood Gas Sample Site R Radial [facility] Blood Gas Specimen Type ART [facility] Blood Gas Total CO2 43 mmol/L [facility] Oxygen Delivery Device Cannula [facility] Oxygen (BldA) [Partial press ure]Ordered By: Dr. Ashley on 09-24-2022 Oxygen (Bld) [Partial pressure] 91 mmHG 75-100 [facility] Platelets bldOrdered By: Dr. Ashley on 09-24-2022 Platelets (Bld) [#/Vol] 323 10*3/uL 150-450 [facility] Serum or plasma calcium doyle urement (mass/volume)Ordered By: Dr. Ashley on 09-24-2022 Calcium [Mass/Vol] 9.5 mg/dL 8.5-10.1 [facility] Serum or plasma creatinine m easurement (mass/volume)Ordered By: Dr. Ashley on 09-24-2022 Creatinine [Mass/Vol] 0.98 mg/dL 0.55-1.02 [facility] Comment on above: The validity of the calculated GFR & GFRAA in patients over 70 years has not been determined. Clinical correlation is essential. Serum or plasma urea nitroge n measurement (mass/volume)Ordered By: Dr. Ashley on 09-24-2022 Urea nitrogen [Mass/Vol] 49 mg/dL 7-18 [facility] Thin prep Papanicolaou smear with manual screeningOrdered By: Dr. Ashley on 09-24-2022 Thin prep Papanicolaou smear with manual screening 2 5-15 [facility] pH measurementOrdered By: Dr Mckenzie Ashley on 09-24-2022 pH (Unsp spec) 7.41 [pH] 7.35-7.45 [facility] Gram stain for investigation of transfusion reactionOrdered By: Dr. Ashley on 09-23-2022 Microscopic observation Gram stain Nom (Unsp spec) [facility] No Panel InformationOrdered By: Dr. Ashley on 09-23-2022 Blood Gas Clinical Comments See comment [facility] Comment on above: home cpap in use 3L bled in Basophil percentageOrdered B y: Dr. Ashley on 09-22-2022 Bilirubin [Mass/Vol] 0.50 mg/dL 0.20-1.[address] [facility] Comment on above: For patients on eltr ombopag therapy, use of Dimension [place] TBIL is not recommended. Protein [Mass/Vol] 6.6 g/dL 6.4-8.2 [facility] Laboratory - Chemistry and C hemistry - challengeOrdered By: Dr. Ashley on 09-22-2022 ALP [Catalytic activity/Vol] 136 U/L 45-117 [facility] ALT [Catalytic activity/Vol] 15 U/L 13-56 [facility] Globulin (S) [Mass/Vol] 4.8 g/dL 2.2-4.2 [facility] No Panel InformationOrdered By: Dr. Ashley on 09-22-2022 Thyroid Stimulating Hormone (TSH) 1.11 uIU/mL 0.358-3.74 [facility] Serum or plasma albumin doyle urement (mass/volume)Ordered By: Dr. Ashley on 09-22-2022 Albumin [Mass/Vol] 1.8 g/dL 3.2-5.0 [facility] Serum or plasma albumin/glob ulin mass ratioOrdered By: Dr. Ashley on 09-22-2022 Albumin/Globulin [Mass ratio] 0.4 {ratio} 0.9-2.4 [facility] Thin prep Papanicolaou smear with manual screeningOrdered By: Dr. Ashley on 09-22-2022 Thin prep Papanicolaou smear with manual screening 14 U/L 15-37 [facility] Absolute lymphocyte counton 09-21-2022 Lymphocytes Auto (Unsp spec) [#/Vol] 0.74 10*3/uL 0.83-4.51 [facility] Work Phone: Assessment of wrist artery p atency prior to arterial punctureon 09-21-2022 Arterial patency Wrist artery --pre arterial puncture Positive [facility] Work Phone: Base excesson 09-21-2022 Base excess Calc (BldV) [Moles/Vol] 20 mmol/L -2-2 [facility] Work Phone: Basophil percentageon 2022 Basophil percentage 47.1 mmol/L 22-[address] [facility] Work Phone: Basophils/100 WBC (Bld) 90 % 95-99 [facility] Work Phone: Basophils/100 WBC (Bld) 0.4 % 0-1 [facility] Work Phone: Bilirubin [Mass/Vol] 0.40 mg/dL 0.20-1.[address] [facility] Work Phone: Comment on above: For patients on eltr ombopag therapy, use of Dimension [place] TBIL is not recommended. Chloride [Moles/Vol] 94 mmol/L 98-[address] [facility] Work Phone: Eosinophils/100 WBC (Bld) 0.6 % 0-5 [facility] Work Phone: Glucose [Mass/Vol] 228 mg/dL 74-106 [facility] Work Phone: Comment on above: Glucose result great er than or equal to 200 mg/dLsuggests DIABETES MELLITUS per A.D.A. criteria. Neutrophils (Bld) [#/Vol] 5.6 10*3/uL 2.0-7.7 [facility] Work Phone: [phone] Neutrophils/100 WBC (Bld) 81.8 % 47-70 [facility] Work Phone: Potassium [Moles/Vol] 4.8 mmol/L 3.5-5.1 [facility] Work Phone: Protein [Mass/Vol] 7.5 g/dL 6.4-8.2 [facility] Work Phone: Sodium [Moles/Vol] 137 mmol/L 136-145 [facility] Work Phone: WBC (Bld) [#/Vol] 6.9 10*3/uL 4.4-11.0 [facility] Work Phone: Basophil percentageOrdered B y: Dr. Duckworth on 09-21-2022 Lactate [Moles/Vol] 0.5 mmol/L 0.4-2.0 [facility] Blood erythrocytes count (nu mber/volume)on 09-21-2022 RBC (Bld) [#/Vol] 3.85 10*6/uL 4.2-5.4 [facility] Work Phone: Blood hemoglobin measurement (mass/volume)on 09-21-2022 Hemoglobin (Bld) [Mass/Vol] 11.6 g/dL 12.0-15.0 [facility] Work Phone: Blood lymphocytes/100 leukoc yteson 09-21-2022 Lymphocytes/100 WBC (Bld) 10.7 % 19-41 [facility] Work Phone: Blood monocytes/100 leukocyt eson 09-21-2022 Monocytes/100 WBC (Bld) 6.1 % 0-10 [facility] Work Phone: Blood platelet mean volumeon 09-21-2022 Platelet mean volume (Bld) [Entitic vol] 10.2 fL 6.2-12.0 [facility] Work Phone: CO2 (BldA) [Partial pressure ]on 09-21-2022 CO2 (Bld) [Partial pressure] 99.3 mm[Hg] 35-45 [facility] Work Phone: Determination of erythrocyte mean corpuscular volume (MCV)on 09-21-2022 MCV (RBC) [Entitic vol] 99.0 fL 81-99 [facility] Work Phone: HCO3 (BldA) [Moles/Vol]Order ed By: Dr. Duckworth on 09-21-2022 HCO3 (Bld) [Moles/Vol] 44 mmol/L 22-26 [facility] Hematocrit Auto (Bld) [Volum e fraction]on 09-21-2022 Hematocrit (Bld) [Volume fraction] 38.1 % 37-47 [facility] Work Phone: Laboratory - Chemistry and C hemistry - challengeOrdered By: Dr. Duckworth on 09-21-2022 CO2 [Moles/Vol] 47 mmol/L 23-33 [facility] Laboratory - Chemistry and C hemistry - challengeon 09-21-2022 ALP [Catalytic activity/Vol] 161 U/L 45-117 [facility] Work Phone: ALT [Catalytic activity/Vol] 15 U/L 13-56 [facility] Work Phone: CO2 [Moles/Vol] 41.0 mmol/L 21.0-32.0 [facility] Work Phone: Globulin (S) [Mass/Vol] 5.4 g/dL 2.2-4.2 [facility] Work Phone: Urea nitrogen/Creatinine [Mass ratio] 34.2 mg/mg 10-20 [facility] Work Phone: Laboratory - Hematology and Cell countson 09-21-2022 Erythrocyte distribution width (RBC) [Entitic vol] 44.7 fL 35.1-43.9 [facility] Work Phone: Erythrocyte distribution width (RBC) [Ratio] 12.6 % 11.6-14.6 [facility] Work Phone: Immature granulocytes/100 WBC (Bld) 0.400 % 0.0-0.9 [facility] Work Phone: Comment on above: IG% - Immature Granu locytes (promyelocytes, myelocytes and metamyelocytes) > 1% indicates that a LEFT SHIFT is Present. MCH (RBC) [Entitic mass] 30.1 pg 27.0-32.0 [facility] Work Phone: Nucleated RBC/100 WBC (Bld) [Ratio] 0 % 0-5 [facility] Work Phone: MCHC Auto (RBC) [Mass/Vol]on 09-21-2022 MCHC (RBC) [Mass/Vol] 30.4 g/dL 32-36 [facility] Work Phone: No Panel InformationOrdered By: Dr. Duckworth on 09-21-2022 Bed Mix Venous Bld PCO2 at Pat Temp 75.5 mmHg 41-51 [facility] Bld Gas Crit Called To/Read Back By Yes [facility] Venous Blood Base Excess 19 mmol/L -1.0-3.5 [facility] No Panel Informationon 09-21 Blood Gas Specimen Type JASKARAN [facility] Work Phone: Oxygen Delivery Device AVAPS [facility] Work Phone: Blood Gas Liter Flow 5.0 /min [facility] Work Phone: Blood Gas Sample Site R Radial [facility] Work Phone: Blood Gas Total CO2 > 50 mmol/L [facility] Work Phone: Estimated Creatinine Clearance Calc 43.77 ml/min [facility] Work Phone: Estimated GFR (MDRD) Amer 94 mL/min >60 [facility] Work Phone: Comment on above: GFR Calc Estimated GFR (MDRD) Non-Af Amer 77 mL/min >60 [facility] Work Phone: Comment on above: Non- GFR Calc Oxygen (BldA) [Partial press ure]on 09-21-2022 Oxygen (Bld) [Partial pressure] 71 mmHG 75-100 [facility] Work Phone: PO2 venousOrdered By: Dr. Luis nino on 09-21-2022 Oxygen (BldV) [Partial pressure] 52 mm[Hg] 25-40 [facility] Platelets bldon 09-21-2022 Platelets (Bld) [#/Vol] 375 10*3/uL 150-450 [facility] Work Phone: Serum or plasma albumin doyle urement (mass/volume)on 09-21-2022 Albumin [Mass/Vol] 2.1 g/dL 3.2-5.0 [facility] Work Phone: Serum or plasma albumin/glob ulin mass ratioon 09-21-2022 Albumin/Globulin [Mass ratio] 0.4 {ratio} 0.9-2.4 [facility] Work Phone: Serum or plasma calcium doyle urement (mass/volume)on 09-21-2022 Calcium [Mass/Vol] 9.8 mg/dL 8.5-10.1 [facility] Work Phone: Serum or plasma creatinine m easurement (mass/volume)on 09-21-2022 Creatinine [Mass/Vol] 0.79 mg/dL 0.55-1.02 [facility] Work Phone: Comment on above: The validity of the calculated GFR & GFRAA in patients over 70 years has not been determined. Clinical correlation is essential. Serum or plasma urea nitroge n measurement (mass/volume)on 09-21-2022 Urea nitrogen [Mass/Vol] 27 mg/dL 7-18 [facility] Work Phone: Thin prep Papanicolaou smear with manual screeningon 09-21-2022 Thin prep Papanicolaou smear with manual screening 16 U/L 15-37 [facility] Work Phone: Thin prep Papanicolaou smear with manual screening 2 5-15 [facility] Work Phone: Vital signsOrdered By: Dr. Aric hernandes on 09-21-2022 Oxygen saturation in Blood 84 % 50-70 [facility] pH measurementOrdered By: Dr Mckenzie Duckworth on 09-21-2022 pH (Unsp spec) 7.38 [pH] 7.32-7.42 [facility] pH measurementon 09-21-2022 pH (Unsp spec) 7.28 [pH] 7.35-7.45 [facility] Work Phone: Basophil percentageOrdered B y: Chaz Aldridge on 09-15-2022 Chloride [Moles/Vol] 95 mmol/L 98-[address] [facility] Glucose [Mass/Vol] 195 mg/dL 74-106 [facility] Comment on above: Fasting Glucose resu lt greater than or equal to 126 mg/dL suggests DIABETES MELLITUS per A.D.A. criteria. Potassium [Moles/Vol] 4.1 mmol/L 3.5-5.1 [facility] Sodium [Moles/Vol] 136 mmol/L 136-145 [facility] WBC (Bld) [#/Vol] 7.1 10*3/uL 4.4-11.0 [facility] Blood erythrocytes count (nu mber/volume)Ordered By: Chaz Aldridge on 09-15-2022 RBC (Bld) [#/Vol] 3.82 10*6/uL 4.2-5.4 [facility] Blood hemoglobin measurement (mass/volume)Ordered By: Chaz Aldridge on 09-15-2022 Hemoglobin (Bld) [Mass/Vol] 11.3 g/dL 12.0-15.0 [facility] Blood platelet mean volumeOr dered By: Chaz Aldridge on 09-15-2022 Platelet mean volume (Bld) [Entitic vol] 10.6 fL 6.2-12.0 [facility] Determination of erythrocyte mean corpuscular volume (MCV)Ordered By: Chaz Aldridge on 09-15-2022 MCV (RBC) [Entitic vol] 97.1 fL 81-99 [facility] Hematocrit Auto (Bld) [Volum e fraction]Ordered By: Chaz Aldridge on 09-15-2022 Hematocrit (Bld) [Volume fraction] 37.1 % 37-47 [facility] Laboratory - Chemistry and C hemistry - challengeOrdered By: Chaz Aldridge on 09-15-2022 CO2 [Moles/Vol] 39.0 mmol/L 21.0-32.0 [facility] Urea nitrogen/Creatinine [Mass ratio] 32.5 mg/mg 10-20 [facility] Laboratory - Hematology and Cell countsOrdered By: Chaz Aldridge on 09-15-2022 Erythrocyte distribution width (RBC) [Entitic vol] 42.9 fL 35.1-43.9 [facility] Erythrocyte distribution width (RBC) [Ratio] 12.2 % 11.6-14.6 [facility] MCH (RBC) [Entitic mass] 29.6 pg 27.0-32.0 [facility] MCHC Auto (RBC) [Mass/Vol]Or dered By: Chaz Aldridge on 09-15-2022 MCHC (RBC) [Mass/Vol] 30.5 g/dL 32-36 [facility] No Panel InformationOrdered By: Chaz Aldridge on 09-15-2022 Estimated GFR (MDRD) Amer 96 mL/min >60 [facility] Comment on above: GFR Calc Estimated GFR (MDRD) Non-Af Amer 80 mL/min >60 [facility] Comment on above: Non- GFR Calc Platelets bldOrdered By: Miah Aldridge on 09-15-2022 Platelets (Bld) [#/Vol] 407 10*3/uL 150-450 [facility] Serum or plasma calcium doyle urement (mass/volume)Ordered By: Chaz Aldridge on 09-15-2022 Calcium [Mass/Vol] 9.5 mg/dL 8.5-10.1 [facility] Serum or plasma creatinine m easurement (mass/volume)Ordered By: Chaz Aldridge on 09-15-2022 Creatinine [Mass/Vol] 0.77 mg/dL 0.55-1.02 [facility] Comment on above: The validity of the calculated GFR & GFRAA in patients over 70 years has not been determined. Clinical correlation is essential. Serum or plasma urea nitroge n measurement (mass/volume)Ordered By: Chaz Aldridge on 09-15-2022 Urea nitrogen [Mass/Vol] 25 mg/dL 7-18 [facility] Thin prep Papanicolaou smear with manual screeningOrdered By: Chaz Aldridge on 09-15-2022 Thin prep Papanicolaou smear with manual screening 2 5-15 [facility] Absolute lymphocyte countOrd ered By: Chaz Aldridge on 09-11-2022 Lymphocytes Auto (Unsp spec) [#/Vol] 0.88 10*3/uL 0.83-4.51 [facility] Basophil percentageOrdered B y: Chaz Aldridge on 09-11-2022 Basophils/100 WBC (Bld) 0.3 % 0-1 [facility] Bilirubin [Mass/Vol] 0.70 mg/dL 0.20-1.[address] [facility] Comment on above: For patients on eltr ombopag therapy, use of Dimension [place] TBIL is not recommended. Chloride [Moles/Vol] 97 mmol/L 98-[address] [facility] Cholesterol [Mass/Vol] 111 mg/dL <200 [facility] Comment on above: <200 mg/dL Desirable 200-240 mg/dL Borderline >240 mg/dL High Risk Eosinophils/100 WBC (Bld) 0.7 % 0-5 [facility] Glucose [Mass/Vol] 225 mg/dL 74-106 [facility] Comment on above: Glucose result great er than or equal to 200 mg/dLsuggests DIABETES MELLITUS per A.D.A. criteria. Neutrophils (Bld) [#/Vol] 8.0 10*3/uL 2.0-7.7 [facility] Neutrophils/100 WBC (Bld) 82.1 % 47-70 [facility] Potassium [Moles/Vol] 3.6 mmol/L 3.5-5.1 [facility] Protein [Mass/Vol] 6.6 g/dL 6.4-8.2 [facility] Sodium [Moles/Vol] 134 mmol/L 136-145 [facility] Triglyceride [Mass/Vol] 70 mg/dL <199 [facility] Comment on above: The drugs N-Acetylcy steine and Metamizole may falsely depress this assay.Serum Triglycerides Reference Interval Normal <150 mg/dL Borderline high 150 - 199 mg/dL High 200 - 499 mg/dL Very High > or = 500 mg/dL WBC (Bld) [#/Vol] 9.7 10*3/uL 4.4-11.0 [facility] Blood erythrocytes count (nu mber/volume)Ordered By: Chaz Aldridge on 09-11-2022 RBC (Bld) [#/Vol] 3.97 10*6/uL 4.2-5.4 [facility] Blood hemoglobin measurement (mass/volume)Ordered By: Chaz Aldridge on 09-11-2022 Hemoglobin (Bld) [Mass/Vol] 11.5 g/dL 12.0-15.0 [facility] Blood lymphocytes/100 leukoc ytesOrdered By: Chaz Aldridge on 09-11-2022 Lymphocytes/100 WBC (Bld) 9.0 % 19-41 [facility] Blood monocytes/100 leukocyt esOrdered By: Chaz Aldridge on 09-11-2022 Monocytes/100 WBC (Bld) 7.5 % 0-10 [facility] Blood platelet mean volumeOr dered By: Chaz Aldridge on 09-11-2022 Platelet mean volume (Bld) [Entitic vol] 10.5 fL 6.2-12.0 [facility] Determination of erythrocyte mean corpuscular volume (MCV)Ordered By: Chaz Aldridge on 09-11-2022 MCV (RBC) [Entitic vol] 94.2 fL 81-99 [facility] Direct bilirubinOrdered By: Chaz Aldridge on 09-11-2022 Bilirubin.direct [Mass/Vol] 0.39 mg/dL 0.00-0.30 [facility] Hematocrit Auto (Bld) [Volum e fraction]Ordered By: Chaz Aldridge on 09-11-2022 Hematocrit (Bld) [Volume fraction] 37.4 % 37-47 [facility] Laboratory - Chemistry and C hemistry - challengeOrdered By: Chaz Aldridge on 09-11-2022 ALP [Catalytic activity/Vol] 163 U/L 45-117 [facility] ALT [Catalytic activity/Vol] 15 U/L 13-56 [facility] CO2 [Moles/Vol] 32.0 mmol/L 21.0-32.0 [facility] Globulin (S) [Mass/Vol] 4.7 g/dL 2.2-4.2 [facility] Urea nitrogen/Creatinine [Mass ratio] 35.0 mg/mg 10-20 [facility] Laboratory - Hematology and Cell countsOrdered By: Chaz Aldridge on 09-11-2022 Erythrocyte distribution width (RBC) [Entitic vol] 43.2 fL 35.1-43.9 [facility] Erythrocyte distribution width (RBC) [Ratio] 12.5 % 11.6-14.6 [facility] Immature granulocytes/100 WBC (Bld) 0.400 % 0.0-0.9 [facility] Comment on above: IG% - Immature Granu locytes (promyelocytes, myelocytes and metamyelocytes) > 1% indicates that a LEFT SHIFT is Present. MCH (RBC) [Entitic mass] 29.0 pg 27.0-32.0 [facility] Nucleated RBC/100 WBC (Bld) [Ratio] 0 % 0-5 [facility] MCHC Auto (RBC) [Mass/Vol]Or dered By: Chaz Aldridge on 09-11-2022 MCHC (RBC) [Mass/Vol] 30.7 g/dL 32-36 [facility] No Panel InformationOrdered By: Chaz Aldridge on 09-11-2022 Estimated GFR (MDRD) Amer 92 mL/min >60 [facility] Comment on above: GFR Calc Estimated GFR (MDRD) Non-Af Amer 76 mL/min >60 [facility] Comment on above: Non- GFR Calc Thyroid Stimulating Hormone (TSH) 1.09 uIU/mL 0.358-3.74 [facility] Platelets bldOrdered By: Miah Aldridge on 09-11-2022 Platelets (Bld) [#/Vol] 315 10*3/uL 150-450 [facility] Serum or plasma albumin doyle urement (mass/volume)Ordered By: Chaz Aldridge on 09-11-2022 Albumin [Mass/Vol] 1.9 g/dL 3.2-5.0 [facility] Serum or plasma calcium doyle urement (mass/volume)Ordered By: Chaz Aldridge on 09-11-2022 Calcium [Mass/Vol] 8.4 mg/dL 8.5-10.1 [facility] Serum or plasma cholesterol in HDL measurement (mass/volume)Ordered By: Chaz Aldridge on 09-11-2022 Cholesterol in HDL [Mass/Vol] 40 mg/dL >40 [facility] Comment on above: The drugs N-Acetylcy steine and Metamizole may falsely depress this assay. Reference Range HDL <40 mg/dL Low HDL Cholesterol HDL >or= 60 mg/dL High HDL Cholesterol Serum or plasma cholesterol in VLDL measurement (mass/volume)Ordered By: Chaz Aldridge on 09-11-2022 Cholesterol in VLDL [Mass/Vol] 14 mg/dL 5-40 [facility] Serum or plasma creatinine m easurement (mass/volume)Ordered By: Chaz Aldridge on 09-11-2022 Creatinine [Mass/Vol] 0.80 mg/dL 0.55-1.02 [facility] Comment on above: The validity of the calculated GFR & GFRAA in patients over 70 years has not been determined. Clinical correlation is essential. Serum or plasma low density lipoprotein (LDL) cholesterol measurement (mass/volume)Ordered By: Chaz Aldridge on 09-11-2022 Cholesterol in LDL [Mass/Vol] 57 mg/dL 0-130 [facility] Serum or plasma urea nitroge n measurement (mass/volume)Ordered By: Chaz Aldridge on 09-11-2022 Urea nitrogen [Mass/Vol] 28 mg/dL 7-18 [facility] Thin prep Papanicolaou smear with manual screeningOrdered By: Chaz Aldridge on 09-11-2022 Thin prep Papanicolaou smear with manual screening 18 U/L 15-37 [facility] Thin prep Papanicolaou smear with manual screening 5 5-15 [facility] Whole blood hemoglobin A1c/t otal hemoglobin ratio (mass fraction)Ordered By: Chaz Aldridge on 09-11-2022 HbA1c (Bld) [Mass fraction] 8.7 % 3.8-5.6 [facility] Comment on above: Normal < 5.7 % Predi abetic 5.7 - 6.4 % Diabetic >or= 6.5 % Please note range changes. Absolute lymphocyte countOrd ered By: Dr. Jenkins on 09-10-2022 Lymphocytes Auto (Unsp spec) [#/Vol] 1.13 10*3/uL 0.83-4.51 [facility] Basophil percentageOrdered B y: Dr. Jenkisn on 09-10-2022 Basophil percentage 3.0 mg/dL 2.5-4.9 [facility] Basophils/100 WBC (Bld) 0.2 % 0-1 [facility] Bilirubin [Mass/Vol] 0.80 mg/dL 0.20-1.[address] [facility] Comment on above: For patients on eltr ombopag therapy, use of Dimension [place] TBIL is not recommended. Chloride [Moles/Vol] 96 mmol/L 98-[address] [facility] Eosinophils/100 WBC (Bld) 1.2 % 0-5 [facility] Glucose [Mass/Vol] 190 mg/dL 74-106 [facility] Comment on above: Fasting Glucose resu lt greater than or equal to 126 mg/dL suggests DIABETES MELLITUS per A.D.A. criteria. Neutrophils (Bld) [#/Vol] 6.4 10*3/uL 2.0-7.7 [facility] Neutrophils/100 WBC (Bld) 76.7 % 47-70 [facility] Potassium [Moles/Vol] 3.8 mmol/L 3.5-5.1 [facility] Protein [Mass/Vol] 6.7 g/dL 6.4-8.2 [facility] Sodium [Moles/Vol] 136 mmol/L 136-145 [facility] WBC (Bld) [#/Vol] 8.3 10*3/uL 4.4-11.0 [facility] Blood erythrocytes count (nu mber/volume)Ordered By: Dr. Jenkins on 09-10-2022 RBC (Bld) [#/Vol] 4.09 10*6/uL 4.2-5.4 [facility] Blood hemoglobin measurement (mass/volume)Ordered By: Dr. Jenkins on 09-10-2022 Hemoglobin (Bld) [Mass/Vol] 12.3 g/dL 12.0-15.0 [facility] Blood lymphocytes/100 leukoc ytesOrdered By: Dr. Jenkins on 09-10-2022 Lymphocytes/100 WBC (Bld) 13.6 % 19-41 [facility] Blood monocytes/100 leukocyt esOrdered By: Dr. Jenkins on 09-10-2022 Monocytes/100 WBC (Bld) 7.7 % 0-10 [facility] Blood platelet mean volumeOr dered By: Dr. Jenkins on 09-10-2022 Platelet mean volume (Bld) [Entitic vol] 9.7 fL 6.2-12.0 [facility] Determination of erythrocyte mean corpuscular volume (MCV)Ordered By: Dr. Jenkisn on 09-10-2022 MCV (RBC) [Entitic vol] 93.2 fL 81-99 [facility] Glucose Glucometer (BldC) [M ass/Vol]Ordered By: Dr. Jenkins on 09-10-2022 Glucose [Mass/Vol] 330 mg/dL 74-106 [facility] Comment on above: MANAGEMENT OF PATIEN T CARE PER NURSING PROTOCOL Hematocrit Auto (Bld) [Volum e fraction]Ordered By: Dr. Jenkins on 09-10-2022 Hematocrit (Bld) [Volume fraction] 38.1 % 37-47 [facility] Laboratory - Chemistry and C hemistry - challengeOrdered By: Dr. Jenkins on 09-10-2022 ALP [Catalytic activity/Vol] 173 U/L 45-117 [facility] ALT [Catalytic activity/Vol] 16 U/L 13-56 [facility] CO2 [Moles/Vol] 36.0 mmol/L 21.0-32.0 [facility] Globulin (S) [Mass/Vol] 4.6 g/dL 2.2-4.2 [facility] Magnesium [Mass/Vol] 2.2 mg/dL 1.6-2.[address] [facility] Urea nitrogen/Creatinine [Mass ratio] 31.1 mg/mg 10-20 [facility] Laboratory - Hematology and Cell countsOrdered By: Dr. Jenkins on 09-10-2022 Erythrocyte distribution width (RBC) [Entitic vol] 43.6 fL 35.1-43.9 [facility] Erythrocyte distribution width (RBC) [Ratio] 12.7 % 11.6-14.6 [facility] Immature granulocytes/100 WBC (Bld) 0.600 % 0.0-0.9 [facility] Comment on above: IG% - Immature Granu locytes (promyelocytes, myelocytes and metamyelocytes) > 1% indicates that a LEFT SHIFT is Present. MCH (RBC) [Entitic mass] 30.1 pg 27.0-32.0 [facility] Nucleated RBC/100 WBC (Bld) [Ratio] 0 % 0-5 [facility] Laboratory - Microbiology an d Antimicrobial susceptibilityOrdered By: Dr. Sweeney on 09-10-2022 Bacteria identified Cx Nom (Bld) No growth in 5 days. [facility] MCHC Auto (RBC) [Mass/Vol]Or dered By: Dr. Jenkins on 09-10-2022 MCHC (RBC) [Mass/Vol] 32.3 g/dL 32-36 [facility] No Panel InformationOrdered By: Dr. Jenkins on 09-10-2022 Estimated Creatinine Clearance Calc 54.71 ml/min [facility] Estimated GFR (MDRD) Amer 92 mL/min >60 [facility] Comment on above: GFR Calc Estimated GFR (MDRD) Non-Af Amer 76 mL/min >60 [facility] Comment on above: Non- GFR Calc Platelets bldOrdered By: Dr. Jenkins on 09-10-2022 Platelets (Bld) [#/Vol] 290 10*3/uL 150-450 [facility] Serum or plasma albumin doyle urement (mass/volume)Ordered By: Dr. Jenkins on 09-10-2022 Albumin [Mass/Vol] 2.1 g/dL 3.2-5.0 [facility] Serum or plasma albumin/glob ulin mass ratioOrdered By: Dr. Jenkins on 09-10-2022 Albumin/Globulin [Mass ratio] 0.5 {ratio} 0.9-2.4 [facility] Serum or plasma calcium doyle urement (mass/volume)Ordered By: Dr. Jenkins on 09-10-2022 Calcium [Mass/Vol] 8.3 mg/dL 8.5-10.1 [facility] Serum or plasma creatinine m easurement (mass/volume)Ordered By: Dr. Jenkins on 09-10-2022 Creatinine [Mass/Vol] 0.80 mg/dL 0.55-1.02 [facility] Comment on above: The validity of the calculated GFR & GFRAA in patients over 70 years has not been determined. Clinical correlation is essential. Serum or plasma urea nitroge n measurement (mass/volume)Ordered By: Dr. Jenkins on 09-10-2022 Urea nitrogen [Mass/Vol] 25 mg/dL 7-18 [facility] Thin prep Papanicolaou smear with manual screeningOrdered By: Dr. Jenkins on 09-10-2022 Thin prep Papanicolaou smear with manual screening 25 U/L 15-37 [facility] Thin prep Papanicolaou smear with manual screening 4 5-15 [facility] COVID-19 virus antigen assay Ordered By: Dr. Bethea on 09-09-2022 SARS-CoV-2 (COVID-19) Ag IA.rapid Ql (Resp) [facility] INR in Blood by Coagulation assayOrdered By: Dr. Jenkins on 09-09-2022 INR Coag (Bld) [Relative time] 1.2 {INR} [facility] Laboratory - CoagulationOrde red By: Dr. Jenkins on 09-09-2022 PT Coag (PPP) [Time] 15.1 s 11.7-14.[address] [facility] Laboratory - Chemistry and C hemistry - challengeOrdered By: Dr. Jenkins on 09-07-2022 Natriuretic peptide B (Bld) [Mass/Vol] 43.3 pg/mL 0-100 [facility] Laboratory - Microbiology an d Antimicrobial susceptibilityOrdered By: Dr. Jenkins on 09-07-2022 SARS-CoV-2 (COVID-19) RNA BONIFACIO+probe Ql (Unsp spec) Not detected Not Detect [facility] Comment on above: Normal Reference Ran ge: Not DetectedMethod:(RT-PCR) real-time reverse transcriptase PCRLuminex ALEK Instrument*The Food and Drug Administration (FDA) has issued an Emergency Use Authorization (EAU) for the ALEK SARS-CoV-2 Assay for the rapid detection of the virus that causes COVID-19. This test has been validated, but the FDAs independent review of this validation is pending.*Negative results do not preclude infection and should not be used as the sole basis for treatment or patient management. Optimum specimen types and timing for peak viral levels during infections caused by SARS-CoV-2 have not been determined. Collection of multiple specimens from the same patient may be necessary to detect the virus. The possibility of a false negative result should be considered if the patient has clinical presentation or has had recent exposure. No Panel InformationOrdered By: Dr. Bethea on 09-06-2022 Streptococcus pneumoniae Antigen (M [facility] Urine Legionella pneumophila antigen detectionOrdered By: Dr. Bethea on 09-06-2022 L. pneumophila Ag Ql (U) [facility] Absolute lymphocyte counton 09-05-2022 Lymphocytes Auto (Unsp spec) [#/Vol] 0.61 10*3/uL 0.83-4.51 [facility] Work Phone: Assessment of wrist artery p atency prior to arterial punctureOrdered By: Dr. Sweeney on 09-05-2022 Arterial patency Wrist artery --pre arterial puncture Positive [facility] Base excessOrdered By: Dr. Mehul acosta on 09-05-2022 Base excess Calc (BldV) [Moles/Vol] 8 mmol/L -2-2 [facility] Basophil percentageOrdered B y: Dr. Sweeney on 09-05-2022 Lactate [Moles/Vol] 1.3 mmol/L 0.4-2.0 [facility] Basophil percentage 33.4 mmol/L 22-[address] [facility] Basophils/100 WBC (Bld) 98 % 95-99 [facility] Basophil percentageon 2021 Basophils/100 WBC (Bld) 0.4 % 0-1 [facility] Work Phone: Bilirubin [Mass/Vol] 0.60 mg/dL 0.20-1.[address] [facility] Work Phone: Comment on above: For patients on eltr ombopag therapy, use of Dimension [place] TBIL is not recommended. Chloride [Moles/Vol] 94 mmol/L 98-[address] [facility] Work Phone: Eosinophils/100 WBC (Bld) 0.0 % 0-5 [facility] Work Phone: Glucose [Mass/Vol] 365 mg/dL 74-106 [facility] Work Phone: Comment on above: Glucose result great er than or equal to 200 mg/dLsuggests DIABETES MELLITUS per A.D.A. criteria. Lactate [Moles/Vol] 2.2 mmol/L 0.4-2.0 [facility] Work Phone: Comment on above: Critical Result(s) C alled at: 15:31:24 09/05/2022 by: Carey Oropeza to Priyanka Espinosa . Results read back by same. Neutrophils (Bld) [#/Vol] 4.1 10*3/uL 2.0-7.7 [facility] Work Phone: Neutrophils/100 WBC (Bld) 81.0 % 47-70 [facility] Work Phone: [phone] Potassium [Moles/Vol] 4.0 mmol/L 3.5-5.1 [facility] Work Phone: Protein [Mass/Vol] 7.7 g/dL 6.4-8.2 [facility] Work Phone: Sodium [Moles/Vol] 133 mmol/L 136-145 [facility] Work Phone: WBC (Bld) [#/Vol] 5.1 10*3/uL 4.4-11.0 [facility] Work Phone: Blood erythrocytes count (nu mber/volume)on 09-05-2022 RBC (Bld) [#/Vol] 4.55 10*6/uL 4.2-5.4 [facility] Work Phone: Blood hemoglobin measurement (mass/volume)on 09-05-2022 Hemoglobin (Bld) [Mass/Vol] 13.8 g/dL 12.0-15.0 [facility] Work Phone: Blood lymphocytes/100 leukoc yteson 09-05-2022 Lymphocytes/100 WBC (Bld) 12.1 % 19-41 [facility] Work Phone: Blood monocytes/100 leukocyt eson 09-05-2022 Monocytes/100 WBC (Bld) 6.1 % 0-10 [facility] Work Phone: Blood platelet mean volumeon 09-05-2022 Platelet mean volume (Bld) [Entitic vol] 10.1 fL 6.2-12.0 [facility] Work Phone: CO2 (BldA) [Partial pressure ]Ordered By: Dr. Sweeney on 09-05-2022 CO2 (Bld) [Partial pressure] 58.2 mm[Hg] 35-45 [facility] Determination of erythrocyte mean corpuscular volume (MCV)on 09-05-2022 MCV (RBC) [Entitic vol] 93.4 fL 81-99 [facility] Work Phone: Hematocrit Auto (Bld) [Volum e fraction]on 09-05-2022 Hematocrit (Bld) [Volume fraction] 42.5 % 37-47 [facility] Work Phone: INR in Blood by Coagulation assayon 09-05-2022 INR Coag (Bld) [Relative time] 1.2 {INR} [facility] Work Phone: Laboratory - Chemistry and C hemistry - challengeon 09-05-2022 ALP [Catalytic activity/Vol] 236 U/L 45-117 [facility] Work Phone: [phone] ALT [Catalytic activity/Vol] 27 U/L 13-56 [facility] Work Phone: CO2 [Moles/Vol] 32.0 mmol/L 21.0-32.0 [facility] Work Phone: [phone] Globulin (S) [Mass/Vol] 4.8 g/dL 2.2-4.2 [facility] Work Phone: Urea nitrogen/Creatinine [Mass ratio] 19.4 mg/mg 10-20 [facility] Work Phone: Laboratory - CoagulationOrde red By: Dr. Sweeney on 09-05-2022 aPTT Coag (Bld) [Time] 34.4 s 24.1-36.2 [facility] Laboratory - Coagulationon 1 11-06-2021 PT Coag (PPP) [Time] 14.4 s 11.7-14.[address] [facility] Work Phone: Laboratory - Hematology and Cell countson 09-05-2022 Erythrocyte distribution width (RBC) [Entitic vol] 44.1 fL 35.1-43.9 [facility] Work Phone: Erythrocyte distribution width (RBC) [Ratio] 12.9 % 11.6-14.6 [facility] Work Phone: Immature granulocytes/100 WBC (Bld) 0.400 % 0.0-0.9 [facility] Work Phone: Comment on above: IG% - Immature Granu locytes (promyelocytes, myelocytes and metamyelocytes) > 1% indicates that a LEFT SHIFT is Present. MCH (RBC) [Entitic mass] 30.3 pg 27.0-32.0 [facility] Work Phone: Nucleated RBC/100 WBC (Bld) [Ratio] 0 % 0-5 [facility] Work Phone: MCHC Auto (RBC) [Mass/Vol]on 09-05-2022 MCHC (RBC) [Mass/Vol] 32.5 g/dL 32-36 [facility] Work Phone: No Panel InformationOrdered By: Dr. Sweeney on 09-05-2022 Bedside Blood Gas PEEP 6 [facility] Blood Gas Clinical Comments 06/05 [facility] Blood Gas Oxygen Percent 40 [facility] Blood Gas Respiration Rate 12 [facility] Blood Gas Sample Site L Radial [facility] Blood Gas Specimen Type ART [facility] Blood Gas Tidal Volume 450 [facility] Blood Gas Total CO2 35 mmol/L [facility] Blood Gas Vent Mode BiLevel [facility] Oxygen Delivery Device BiPAP [facility] No Panel Informationon 09-05 Estimated Creatinine Clearance Calc 42.49 ml/min [facility] Work Phone: Estimated GFR (MDRD) Amer 69 mL/min >60 [facility] Work Phone: Comment on above: GFR Calc Estimated GFR (MDRD) Non-Af Amer 57 mL/min >60 [facility] Work Phone: Comment on above: Non- GFR Calc No Panel InformationOrdered By: Dr. Bethea on 09-05-2022 Thyroid Stimulating Hormone (TSH) 2.11 uIU/mL 0.358-3.74 [facility] Oxygen (BldA) [Partial press ure]Ordered By: Dr. Sweeney on 09-05-2022 Oxygen (Bld) [Partial pressure] 103 mmHG 75-100 [facility] Platelets bldon 09-05-2022 Platelets (Bld) [#/Vol] 195 10*3/uL 150-450 [facility] Work Phone: Serum or plasma albumin doyle urement (mass/volume)on 09-05-2022 Albumin [Mass/Vol] 2.9 g/dL 3.2-5.0 [facility] Work Phone: Serum or plasma albumin/glob ulin mass ratioon 09-05-2022 Albumin/Globulin [Mass ratio] 0.6 {ratio} 0.9-2.4 [facility] Work Phone: Serum or plasma calcium doyle urement (mass/volume)on 09-05-2022 Calcium [Mass/Vol] 8.5 mg/dL 8.5-10.1 [facility] Work Phone: Serum or plasma creatinine m easurement (mass/volume)on 09-05-2022 Creatinine [Mass/Vol] 1.03 mg/dL 0.55-1.02 [facility] Work Phone: Comment on above: The validity of the calculated GFR & GFRAA in patients over 70 years has not been determined. Clinical correlation is essential. Serum or plasma urea nitroge n measurement (mass/volume)on 09-05-2022 Urea nitrogen [Mass/Vol] 20 mg/dL 7-18 [facility] Work Phone: Thin prep Papanicolaou smear with manual screeningon 09-05-2022 Thin prep Papanicolaou smear with manual screening 34 U/L 15-37 [facility] Work Phone: Thin prep Papanicolaou smear with manual screening 7 5-15 [facility] Work Phone: pH measurementOrdered By: Dr Mckenzie Sweeney on 09-05-2022 pH (Unsp spec) 7.37 [pH] 7.35-7.45 [facility] Microbiology: Culture, Deep Woundon 07-12-2017 CUDW Cult, AnaerobicNo gr owth in 5 days. Invalid Interpretation Code [facility] Orthopa[facility]ics Work Phone: [phone] Microbiology: (P) Culture, D eep Woundon 07-09-2017 CUDW Wound CultureNo grow th aerobically. Invalid Interpretation Code [facility] Work Phone: [phone] Lab Report: Bedside Glucoseo n 07-06-2017 Glucose mass conc 159 mg/dL High 70-110 [facility] Work Phone: [phone] Office Visiton 06-18-2017 Documentation of current medications (procedure) Done Invalid Interpretation Code [facility] Work Phone: [phone] Tobacco use CPHS Never smoker Invalid Interpretation Code [facility] Work Phone: [phone] Lab Report: Basic Metabolic Profile (BMP)on 05-23-2015 Anion gap 11 mmol/L Invalid Interpretation Code - [facility] Work Phone: [phone] BUN/Creatinine Ratio 14.8 RATIO Invalid Interpretation Code 07-02 [facility] Work Phone: [phone] Calcium 8.9 mg/dL Invalid Interpretation Code 8.5-10.1 [facility] Work Phone: [phone] Chloride 103 mmol/L Invalid Interpretation Code 98-107 [facility] Work Phone: [phone] CO2 22.0 mmol/L Invalid Interpretation Code 21.0-32.0 [facility] Work Phone: [phone] Creatinine 1.15 mg/dL Invalid Interpretation Code 0.55-1.20 [facility] Work Phone: [phone] Creatinine 41.66 mL/min Invalid Interpretation Code [facility] Work Phone: [phone] eGFR (non-black) 62 mL/min/{1.73_m2} Invalid Interpretation Code >60 [facility] Work Phone: [phone] eGFR (non-black) 51 mL/min/{1.73_m2} Low >60 [facility] Work Phone: [phone] Glucose mass conc 126 mg/dL High 70-110 [facility] Work Phone: [phone] Potassium molar conc 4.3 mmol/L Invalid Interpretation Code 3.5-5.1 [facility] Work Phone: [phone] Sodium 136 mmol/L Invalid Interpretation Code 136-145 [facility] Work Phone: [phone] Urea nitrogen 17 mg/dL Invalid Interpretation Code 7-18 [facility] Work Phone: [phone] Lab Report: CRPon 05-23-2015 C reactive protein (CRP) 2.49 mg/dL High Units converted. See lab report for original value. [facility] Work Phone: [phone] Lab Report: Erythrocyte Sed Rateon 05-23-2015 Erythrocyte sedimentation rate 117 mm/h High 0-30 [facility] Work Phone: [phone] Replaced Document: (P) CBC W /Diff, Automatedon 05-23-2015 Absolute Neut 6.5 X10 3/UL Invalid Interpretation Code 2.0-7.7 [facility] Work Phone: [phone] Basophils/100 WBC Auto (Bld) 0.4 % Invalid Interpretation Code 0-1 [facility] Work Phone: [phone] Eosinophils/100 leukocytes 3.3 % Invalid Interpretation Code 0-5 [facility] Work Phone: [phone] Erythrocyte distribution width Auto Ratio (RBC) 13.3 % Invalid Interpretation Code 11.6-14.6 [facility] Work Phone: [phone] Erythrocytes (RBC) 4.63 10*6/uL Invalid Interpretation Code 4.2-5.4 [facility] Work Phone: [phone] Hematocrit (HCT) 42.4 % Invalid Interpretation Code 37-47 [facility] Work Phone: [phone] Hemoglobin mass conc (Bld) 13.8 g/dL Invalid Interpretation Code 12.0-15.0 [facility] Work Phone: [phone] Immature granulocytes/100 WBC (Bld) 0.100 % Invalid Interpretation Code 0.0-0.9 [facility] Work Phone: [phone] Lymphocytes 1.01 X10 3/UL Invalid Interpretation Code 0.83-4.51 [facility] Work Phone: [phone] Lymphocytes/100 leukocytes 12.0 % Low 19-41 [facility] Work Phone: [phone] MCH 29.8 pg Invalid Interpretation Code 27.0-32.0 [facility] Work Phone: [phone] MCHC mass conc (RBC) 32.5 G/GL Invalid Interpretation Code 32-36 [facility] Work Phone: [phone] MCV 91.6 fL Invalid Interpretation Code 81-99 [facility] Work Phone: [phone] Monocytes/100 leukocytes 7.3 % Invalid Interpretation Code 0-10 [facility] Work Phone: [phone] Neutrophils/100 WBC Auto (Bld) 76.9 % High 47-70 [facility] Work Phone: [phone] Platelets 303 10*3/mm3 Invalid Interpretation Code 150-450 [facility] Work Phone: [phone] PMV by Ina 10.6 fL Invalid Interpretation Code 6.2-12.0 [facility] Work Phone: [phone] RDW SD 44.0 fL High 35.1-43.9 [facility] Work Phone: [phone] WBC (Leukocytes) 8.4 10*3/uL Invalid Interpretation Code 4.4-11.0 [facility] Work Phone: [phone] COVID-19 virus antigen assay SARS-CoV-2 (COVID-19) Ag IA.rapid Ql (Resp) [facility] Work Phone: Influenza virus A and B and SARS-CoV-2 (COVID-19) Ag panel - Upper respiratory specim SARS-CoV-2 (COVID-19) RNA BONIFACIO+probe Ql (Resp) [facility] Work Phone: Laboratory - Microbiology an d Antimicrobial susceptibility Bacteria identified Cx Nom (Bld) No growth in 5 days. [facility] Work Phone: No Panel Information Streptococcus pneumoniae Antigen (M [facility] Work Phone: Urine Legionella pneumophila antigen detection L. pneumophila Ag Ql (U) [facility] Work Phone: Vital Signs Date Time Vital Sign Value Performing Clinician Facility 06-19-2025 11:08-0400 Body height 157.[address] Tracy Dillard MD Work Phone: [facility] 06-19-2025 11:08-0400 Body mass index (BMI) [Ratio] 53 kg/m2 Dr. Tracy Dillard MD Work Phone: [facility] 06-19-2025 11:08-0400 Body weight 131.[address] Tracy Dillard MD Work Phone: [facility] 06-19-2025 11:08-0400 Diastolic blood pressure 80 mm[Hg] Dr. Tracy Dillard MD Work Phone: [phone] [place] [address] 06-19-2025 11:08-0400 Heart rate 76 /min Dr. Tracy Dillard MD Work Phone: [phone] [place] [address] 06-19-2025 11:08-0400 Respiratory rate 16 /min Dr. Tracy Dillard MD Work Phone: [phone] [address] 06-19-2025 11:08-0400 Systolic blood pressure 151 mm[Hg] Dr. Tracy Dillard MD Work Phone: [phone])958-458994 [place] [address] 12-12-2024 10:49-0400 Body height 157.[address] Tracy Dillard MD Work Phone: [phone] [place] [address] 12-12-2024 10:49-0400 Body mass index (BMI) [Ratio] 54.1 kg/m2 Dr. Tracy Dillard MD Work Phone: [phone] [place] [address] 12-12-2024 10:49-0400 Body weight 134.[address] Tracy Dillard MD Work Phone: [phone] [place] [address] 12-12-2024 10:49-0400 Diastolic blood pressure 90 mm[Hg] Dr. Tracy Dillard MD Work Phone: [phone] [place] [address] 12-12-2024 10:49-0400 Heart rate 65 /min Dr. Tracy Dillard MD Work Phone: [phone] [place] [address] 12-12-2024 10:49-0400 Respiratory rate 18 /min Dr. Tracy Dillard MD Work Phone: [phone])925-441794 [place] [address] 12-12-2024 10:49-0400 Systolic blood pressure 178 mm[Hg] Dr. Tracy Dillard MD Work Phone: [phone] [place] [address] 04-14-2023 10:53-0400 Diastolic blood pressure 80 mm[Hg] Dr. Tracy Dillard Work Phone: [phone] [place] [address] 04-14-2023 10:53-0400 Systolic blood pressure 140 mm[Hg] Dr. Tracy Dillard Work Phone: [facility] 04-14-2023 10:17-0400 Body height 157.[address] Tracy Dillard Work Phone: [facility] 04-14-2023 10:17-0400 Body mass index (BMI) [Ratio] 53.6 kg/m2 Dr. Tracy Dillard Work Phone: [facility] 04-14-2023 10:17-0400 Body weight 132.[address] Tracy Dillard Work Phone: [facility] 04-14-2023 10:17-0400 Heart rate 65 /min Dr. Tracy Dillard Work Phone: [facility] 04-14-2023 10:17-0400 Respiratory rate 22 /min Dr. Tracy Dillard Work Phone: [facility] 04-14-2023 10:17-0400 SaO2% (BldA) [Mass fraction] 94 % Dr. Tracy Dillard Work Phone: [facility] 02-15-2023 10:00-0400 Diastolic Blood Pressure Non-Invasive [address] CALI MONTGOMERY MD [facility] 02-15-2023 10:00-0400 Systolic Blood Pressure Non-Invasive [address] CALI MONTGOMERY MD [facility] 02-15-2023 09:45-0400 Diastolic Blood Pressure Non-Invasive [address] CALI MONTGOMERY MD [facility] 02-15-2023 09:45-0400 Heart rate 60 /min DR CALI MONTGOMERY MD [facility] 02-15-2023 09:45-0400 Systolic Blood Pressure Non-Invasive [address] CALI MONTGOMERY MD [facility] 02-15-2023 09:36-0400 Diastolic Blood Pressure Non-Invasive [address] CALI MONTGOMERY MD [facility] 02-15-2023 09:36-0400 Respiratory rate 20 /min DR CALI MONTGOMERY MD [facility] 02-15-2023 09:36-0400 Systolic Blood Pressure Non-Invasive [address] CALI MONTGOMERY MD [facility] 02-15-2023 09:30-0400 Body temperature 97.52 [degF] DR CALI MONTGOMERY MD [facility] 02-15-2023 09:30-0400 Respiratory rate 16 /min DR CALI MONTGOMERY MD [facility] 02-15-2023 09:25-0400 Respiratory Rate - Anes 17 br/min DR CALI MONTGOMERY MD [facility] 02-15-2023 09:20-0400 Respiratory Rate - Anes 24 br/min DR CALI MONTGOMERY MD [facility] 02-15-2023 08:34-0400 Body height [address] CALI MONTGOMERY MD [facility] 02-15-2023 08:34-0400 Body temperature 97.16 [degF] DR CALI MONTGOMERY MD [facility] 02-15-2023 08:34-0400 Body weight [address] CALI MONTGOMERY MD [facility] 02-15-2023 08:34-0400 Heart rate 73 /min DR CALI MONTGOMERY MD [facility] 02-15-2023 08:34-0400 Respiratory rate 14 /min DR CALI MONTGOMERY MD [facility] 10-14-2022 09:46-0500 Body height 157.[address] Tracy Dillard Work Phone: [facility] 10-14-2022 09:46-0500 Body mass index (BMI) [Ratio] 58.8 kg/m2 Dr. Tracy Dillard Work Phone: [facility] 10-14-2022 09:46-0500 Body weight 146.[address] Tracy Dillard Work Phone: [facility] 10-14-2022 09:46-0500 Diastolic blood pressure 71 mm[Hg] Dr. Tracy Dillard Work Phone: [facility] 10-14-2022 09:46-0500 Heart rate 76 /min Dr. Tracy Dillard Work Phone: [facility] 10-14-2022 09:46-0500 Inhaled oxygen flow rate 2 L/min Dr. Tracy Dillard Work Phone: [facility] 10-14-2022 09:46-0500 Respiratory rate 18 /min Dr. Tracy Dillard Work Phone: [facility] 10-14-2022 09:46-0500 SaO2% (BldA) [Mass fraction] 98 % Dr. Tracy Dillard Work Phone: [facility] 10-14-2022 09:46-0500 Systolic blood pressure 131 mm[Hg] Dr. Tracy Dillard Work Phone: [facility] 09-24-2022 15:28-0500 Body temperature 98.2 [degF] Dr. Tracy Dillard Work Phone: [facility] 09-24-2022 15:28-0500 Diastolic blood pressure 55 mm[Hg] Dr. Tracy Dillard Work Phone: [facility] 09-24-2022 15:28-0500 Heart rate 60 /min Dr. Tracy Dillard Work Phone: [facility] 09-24-2022 15:28-0500 Inhaled oxygen flow rate 2 L/min Dr. Tracy Dillard Work Phone: [facility] 09-24-2022 15:28-0500 Respiratory rate 18 /min Dr. Tracy Dillard Work Phone: [facility] 09-24-2022 15:28-0500 SaO2% (BldA) [Mass fraction] 96 % Dr. Tracy Dillard Work Phone: [facility] 09-24-2022 15:28-0500 Systolic blood pressure 107 mm[Hg] Dr. Tracy Dillard Work Phone: [facility] 09-24-2022 04:23-0500 Body weight 148.[address] Tracy Dillard Work Phone: [facility] 09-23-2022 03:44-0500 Inhaled oxygen concentration 25 % Dr. Tracy Dillard Work Phone: [facility] 09-22-2022 15:19-0500 Body height 157.[address] Tracy Dillard Work Phone: [facility] 09-21-2022 15:49-0500 Body mass index (BMI) [Ratio] 58.1 kg/m2 Dr. Tracy Dillard Work Phone: [facility] 09-21-2022 14:00-0500 Body temperature 97 [degF] Dr. Tracy Dillard Work Phone: [facility] Work Phone: 09-21-2022 14:00-0500 Diastolic blood pressure 67 mm[Hg] Dr. Tracy Dillard Work Phone: [facility] Work Phone: 09-21-2022 14:00-0500 Heart rate 77 /min Dr. Tracy Dillard Work Phone: [facility] Work Phone: 09-21-2022 14:00-0500 Respiratory rate 23 /min Dr. Tracy Dillard Work Phone: [facility] Work Phone: 09-21-2022 14:00-0500 SaO2% (BldA) [Mass fraction] 96 % Dr. Tracy Dillard Work Phone: [facility] Work Phone: 09-21-2022 14:00-0500 Systolic blood pressure 148 mm[Hg] Dr. Tracy Dillard Work Phone: [facility] Work Phone: 09-21-2022 12:55-0500 Inhaled oxygen concentration 30 % Dr. Tracy Dillard Work Phone: [facility] Work Phone: 09-21-2022 10:15-0500 Inhaled oxygen flow rate 5 L/min Dr. Tracy Dillard Work Phone: [facility] Work Phone: 09-21-2022 09:31-0500 Body height 157.[address] Tracy Dillard Work Phone: [facility] Work Phone: 09-21-2022 09:31-0500 Body mass index (BMI) [Ratio] 65 kg/m2 Dr. Tracy Dillard Work Phone: [facility] Work Phone: 09-21-2022 09:31-0500 Body weight 161.[address] Tracy Dillard Work Phone: [facility] Work Phone: 09-10-2022 13:17-0500 Body temperature 98.2 [degF] Dr. Tracy Dillard Work Phone: [facility] 09-10-2022 13:17-0500 Diastolic blood pressure 69 mm[Hg] Dr. Tracy Dillard Work Phone: [facility] 09-10-2022 13:17-0500 Heart rate 80 /min Dr. Tracy Dillard Work Phone: [facility] 09-10-2022 13:17-0500 Inhaled oxygen flow rate 1 L/min Dr. Tracy Dillard Work Phone: [facility] 09-10-2022 13:17-0500 Respiratory rate 18 /min Dr. Tracy Dillard Work Phone: [facility] 09-10-2022 13:17-0500 SaO2% (BldA) [Mass fraction] 94 % Dr. Tracy Dillard Work Phone: [facility] 09-10-2022 13:17-0500 Systolic blood pressure 152 mm[Hg] Dr. Tracy Dillard Work Phone: [facility] 09-10-2022 02:21-0500 Inhaled oxygen concentration 30 % Dr. Tracy Dillard Work Phone: [facility] 09-07-2022 18:21-0500 Body height 157.[address] Tracy Dillard Work Phone: [facility] Work Phone: 09-07-2022 18:21-0500 Body weight 144.[address] Tracy Dillard Work Phone: [facility] 09-05-2022 17:31-0500 Body mass index (BMI) [Ratio] 58.1 kg/m2 Dr. Tracy Dillard Work Phone: [facility] 09-05-2022 16:53-0500 Diastolic blood pressure 90 mm[Hg] Dr. Tracy Dillard Work Phone: [facility] Work Phone: 09-05-2022 16:53-0500 Heart rate 64 /min Dr. Tracy Dillard Work Phone: [facility] Work Phone: 09-05-2022 16:53-0500 Respiratory rate 23 /min Dr. Tracy Dillard Work Phone: [facility] Work Phone: 09-05-2022 16:53-0500 SaO2% (BldA) [Mass fraction] 97 % Dr. Tracy Dillard Work Phone: [facility] Work Phone: 09-05-2022 16:53-0500 Systolic blood pressure 164 mm[Hg] Dr. Tracy Dillard Work Phone: [facility] Work Phone: 09-05-2022 16:00-0500 Body temperature 97.3 [degF] Dr. Tracy Dillard Work Phone: [facility] Work Phone: 09-05-2022 14:45-0500 Inhaled oxygen concentration 35 % Dr. Tracy Dillard Work Phone: [facility] Work Phone: 09-05-2022 14:25-0500 Inhaled oxygen flow rate 5 L/min Dr. Tracy Dillard Work Phone: [facility] Work Phone: 09-05-2022 13:52-0500 Body height 157.[address] Tracy Dillard Work Phone: [facility] Work Phone: 09-05-2022 13:52-0500 Body mass index (BMI) [Ratio] 58.1 kg/m2 Dr. Tracy Dillard Work Phone: [facility] Work Phone: 09-05-2022 13:52-0500 Body weight 144.[address] Tracy Dillard Work Phone: [facility] Work Phone: 05-09-2015 08:31-0400 Height 160.02 cm [facility] Work Phone: 05-09-2015 08:31-0400 Weight 148.33 kg Kirill Garcia [facility] Work Phone: Encounters Encounter Date Encounter Type Care Provider Facility Start: 06-19-2025 End: 06-19-2025 Patient encounter procedure Nubia Moscoso PA -[facility] Work Phone: Start: 06-19-2025 End: 06-19-[address] Tracy Dillard MD Work Phone: -[facility] Start: 05-03-2025 End: 05-03-[address] Tracy Dillard MD Work Phone: -[facility] Start: 05-03-2025 End: 05-03-[address] Belinda Selby Work Phone: Start: 05-03-2025 End: 05-03-2025 ambulatory Aleks Lott Facility:[facility] Start: 03-13-2025 Non-patient / Non-visit Dr. Karen Terry MD -[facility] Work Phone: Start: 02-13-2025 End: 02-13-2025 ambulatory Tracy Dillard Facility:[facility] Start: 02-13-[address] Karen shaw MD -Physical Therapy Work Phone: Start: 02-02-2025 End: 02-02-[address] Tracy Dillard MD Work Phone: [facility] Work Phone: Start: 02-02-2025 End: 02-02-[address] Belinda Selby Work Phone: Start: 02-02-2025 End: 02-02-2025 ambulatory Tracy Dillard Facility:[facility] Start: 01-30-[address] Karen shaw MD -Physical Therapy Work Phone: Start: 12-28-[address] Karen shaw MD -Physical Therapy Work Phone: Start: 12-28-2024 End: 12-28-[address] Tracy Dillard MD Work Phone: [facility] Work Phone: Start: 12-28-2024 End: 12-28-[address] Belinda Jenkins DO -Laboratory Work Phone: Start: 12-28-2024 End: 12-28-2024 ambulatory Tracy Dillard Facility:[facility] Start: 12-12-2024 End: 12-12-[address] Elkin Hendricks MD -[facility] Work Phone: Start: 12-12-2024 End: 12-12-2024 ambulatory Tracy Dillard Facility:[facility] Start: 12-11-2024 End: 12-11-[address] CALI MONTGOMERY MD Facility:[facility] Start: 12-06-2024 End: 12-06-[address] Tracy Dillard MD Work Phone: [facility] Work Phone: Start: 12-06-2024 End: 12-06-[address] Cali Montgomery MD -[facility] Work Phone: Start: 12-06-2024 End: 12-06-2024 ambulatory Tracy Dillard Facility:[facility] Start: 11-20-[address] CALI MONTGOMREY MD Fa cility:[facility] Start: 11-13-2024 End: 11-13-[address] Tracy Dillard MD Work Phone: [facility] Work Phone: Start: 11-13-2024 End: 11-13-[address] Cali Montgomery MD -[facility] Work Phone: Start: 11-13-2024 End: 11-13-2024 ambulatory Cali Montgomery Facility:[facility] Start: 10-31-2024 End: 10-31-[address] Tracy Dillard MD -[facility] Start: 10-31-2024 End: 10-31-2024 ambulatory Tracy Dillard Facility:[facility] Start: 09-29-2024 End: 09-29-2024 ambulatory Zoraida Galvez Facility:[facility] Start: 09-29-2024 End: 09-29-2024 Discharged Recurring Zoraida Galvez PA -Physical Therapy Work Phone: Start: 04-30-2023 End: 04-30-[address] Tracy Dillard Work Phone: [facility] Work Phone: Start: 04-30-2023 End: 04-30-[address] Tracy Dillard Work Phone: [facility] Start: 04-14-2023 End: 04-14-[address] Tracy Dillard Work Phone: [facility] Work Phone: Start: 02-19-2023 End: 02-19-2023 ambulatory [facility] Work Phone: Start: 02-19-2023 End: 02-19-2023 Patient encounter procedure [facility] Start: 02-15-2023 End: 02-15-[address] CALI MONTGOMERY MD Facility:[facility] Start: 02-15-2023 End: 02-15-[address] CALI MONTGOMERY MD [facility] Start: 02-03-2023 End: 02-03-2023 ambulatory [facility] Work Phone: Start: 02-03-2023 End: 02-03-2023 Patient encounter procedure [facility] Start: 11-23-2022 End: 11-23-[address] Tracy Dillard Work Phone: [facility] Work Phone: Start: 11-23-2022 End: 11-23-[address] Tracy Dillard Work Phone: [facility] Start: 10-23-2022 End: 10-23-[address] Tracy Dillard Work Phone: [facility] Work Phone: Start: 10-23-2022 End: 10-23-[address] Tracy Dillard Work Phone: [facility] Start: 10-23-[address] Tracy nichols Work Phone: [facility] Start: 10-14-2022 End: 10-14-[address] Tracy Dillard Work Phone: [facility] Start: 10-09-[address] Tracy nichols Work Phone: [facility] Start: 09-25-[address] Tracy nichols Work Phone: [facility] Start: 09-24-2022 Non-patient / Non-visit Dr. Tracy Dillard Work Phone: [facility] Start: 09-23-2022 Non-patient / Non-visit Dr. Tracy Dillard Work Phone: [facility] Start: 09-22-2022 Non-patient / Non-visit Dr. Tracy Dillard Work Phone: [facility] Start: 09-21-2022 End: 09-21-[address] Tracy Dillard Work Phone: [facility] Start: 09-21-2022 Non-patient / Non-visit Dr. Tracy Dillard Work Phone: [facility] Start: 09-21-2022 End: 09-24-2022 Evaluation and management of inpatient Dr. Tracy Dillard Work Phone: [facility] Start: 09-18-2022 End: 09-18-[address] Tracy Dillard Work Phone: [facility] Start: 09-15-[address] Tracy nichols Work Phone: [facility] Start: 09-11-2022 End: 09-11-[address] Tracy Dillard Work Phone: [facility] Work Phone: Start: 09-11-2022 End: 09-11-[address] Tracy Dillard Work Phone: [facility] Start: 09-11-[address] Tracy nichols Work Phone: [facility] Start: 09-10-2022 End: 09-10-[address] Tracy Dillard Work Phone: [facility] Start: 09-09-2022 End: 09-09-2022 Non-patient / Non-visit Dr. Tracy Dillard Work Phone: [facility] Start: 09-08-2022 Non-patient / Non-visit Dr. Tracy Dillard Work Phone: [facility] Start: 09-07-2022 Non-patient / Non-visit Dr. Tracy Dillard Work Phone: [facility] Start: 09-07-2022 Non-patient / Non-visit Dr. Tracy Dillard Work Phone: [facility] Start: 09-06-2022 Non-patient / Non-visit Dr. Tracy Dillard Work Phone: [facility] Start: 09-05-2022 Non-patient / Non-visit Dr. Tracy Dillard Work Phone: [facility] Start: 09-05-2022 End: 09-10-2022 Evaluation and management of inpatient Dr. Tracy Dillard Work Phone: [facility]-Progressive Care Unit Start: 05-07-2022 End: 05-07-2022 ambulatory [facility] Work Phone: Start: 05-07-2022 End: 05-07-2022 Patient encounter procedure [facility]-Outpatient Bone Densitometry Procedures Date Procedure Procedure Detail Performing Clinician Start: 02-02-[address] Tracy Dillard MD Work Phone: Comment on above: Performed at: [facility] Director: Cali Payton PhD, Phone: [phone] Start: 02-02-[address] Tracy Dillard MD Work Phone: Comment on above: The atypical pANCA pattern has been obse rved in asignificant percentage of patients with ulcerative colitis,primary sclerosing cholangitis and autoimmune hepatitis. Start: 02-02-2025 C>3< complement assay Dr. Tracy Dillard MD Work Phone: Start: 02-02-2025 Electrophoresis: [id number] Dr. Gianna Dillard MD Work Phone: Start: 02-02-2025 Electrophoresis: [id number] Dr. Gianna Dilalrd MD Work Phone: Start: 02-02-2025 Electrophoresis: gamma globulin Dr. Tracy Dillard MD Work Phone: Start: 02-02-[address] Tracy Dillard MD Work Phone: Comment on above: No monoclonality detected.Performed at: [address] [id number] Director: Cali Payton PhD, Phone: [phone] Start: 12-28-[address] Tracy Dillard MD Work Phone: Comment on above: Performed at: [address] [id number] Director: Cali Payton PhD, Phone: [phone] Start: 12-28-[address] Tracy Dillard MD Work Phone: Comment on above: The atypical pANCA pattern has been obse rved in asignificant percentage of patients with ulcerative colitis,primary sclerosing cholangitis and autoimmune hepatitis. Start: 12-28-2024 C>3< complement assay Dr. Tracy Dillard MD Work Phone: Start: 12-28-2024 Electrophoresis: [id number] Dr. Gianna Dillard MD Work Phone: Start: 12-28-2024 Electrophoresis: [id number]-3-[id number] Dr. Gianna Dillard MD Work Phone: Start: 12-28-2024 Electrophoresis: gamma globulin Dr. Tracy Dillard MD Work Phone: Start: 12-28-[address] Tracy Dillard MD Work Phone: Comment on above: No monoclonality detected.Performed at: [address] [id number] Director: Cali Payton PhD, Phone: [phone] Start: 12-06-2024 MRI of abdomen with contrast Dr. Tracy escalante MD Work Phone: Start: 11-13-2024 Bsdpi-1-Vpryskswhyn measurement Dr. Tracy Dillard MD Work Phone: Comment on above: [email or web address] Electrochemiluminescen ce Immunoassay(ECLIA)Values obtained with different assay methods or kits cannotbe used interchangeably. Results cannot be interpreted asabsolute evidence of the presence or absence of malignantdisease.This test is not interpretable in females.Performed at: [address] [id number] Director: Cali Payton PhD, Phone: [phone] Start: 10-31-2024 Measurement of renal function Dr. Tracy nichols MD Work Phone: Comment on above: GFR Calc Start: 02-19-2023 MRI of abdomen with contrast Start: 09-21-2022 Plain chest X-ray Dr. Tracy Dillard Work Phone: Start: 09-09-[address] Tracy Dillard Work Phone: Start: 09-09-[address] Tracy Dillard Work Phone: Start: 09-08-2022 CT angiography of chest with contrast Dr. Tracy Dillard Work Phone: Start: 09-08-2022 Plain chest X-ray Dr. Tracy Dillard Work Phone: Start: 09-05-2022 Plain chest X-ray Dr. Tracy Dillard Work Phone: Start: 05-07-2022 Dual energy X-ray absorptiometry Start: 05-07-2022 Screening mammography Start: 06-09-2021 Esophagogastroduodenoscopy gastric outlet reduction DR CALI MONTGOMERY MD Start: 02-27-[address] CALI HOGAN MD Start: 06-18-2017 End: 07-09-2017 Radex fingr minimum 2 views Kirill Muniz dd Work Phone: Start: 05-22-2015 End: 05-22-2016 Occupational therapy Kirill Garcia Work Phone: Start: 05-09-2015 End: 05-10-2015 Documentation of current medications Kirill Garcia Work Phone: Start: 05-09-2015 End: 05-26-2015 Radex hand minimum 3 views Kirill marcano Work Phone: Bacteria identified in Blood by Culture Dr. Tracy Dillard Work Phone: Bacteria identified in Blood by Culture Dr. Tracy Dillard Work Phone: Bacteria identified in Blood by Culture Dr. Tracy Dillard Work Phone: Colonoscopy DR CALI FULLER MD Decompression of median nerve DR CALI MONTGOMERY MD Investigation of tra nsfusion reaction Dr. Tracy Dillard Work Phone: Legionella pneumophi la antigen assay Dr. Tracy Dillard Work Phone: Legionella pneumophi la antigen assay Dr. Tracy Dillard Work Phone: Liver biopsy sample (specimen) DR CALI MONTGOMERY MD Respiratory microbial culture Dr. Tracy Dillard Work Phone: SARS-CoV-2 & FLU Antigen (Rapid) Dr. Tracy Dillard Work Phone: Streptococcus pneumo niae Antigen (M Dr. Tracy Dillard Work Phone: Streptococcus pneumo niae Antigen (M Dr. Tracy Dillard Work Phone: Viral antigen assay Dr. Tracy Dillard Work Phone: Viral antigen assay Dr. Tracy Dillard Work Phone: Viral antigen assay Dr. Tracy Dillard Work Phone: Plan of Treatment Date Care Activity Detail Author Start: 02-02-2025 [facility] Start: 09-24-2022 Patient discharge [facility] Start: 09-24-2022 [facility] Start: 09-21-2022 Care planning and problem solving actions [facility] Start: 09-21-2022 Assessment of risk of venous thromboembolism [facility] Start: 09-21-2022 Care regimes management [facility] Start: 09-21-2022 Incentive spirometry [facility] Start: 09-21-2022 Insertion of catheter into peripheral vein [facility] Start: 09-21-2022 Measuring intake and output [facility] Start: 09-21-2022 Oxygen therapy [facility] Start: 09-21-2022 Providing care according to standard [facility] Start: 09-21-2022 Provision of activity privileges [facility] Start: 09-21-2022 Referral to occupational therapist [facility] Start: 09-21-2022 Referral to service [facility] Start: 09-21-2022 Vital signs measurements [facility] Start: 09-21-2022 [facility] Start: 09-21-2022 Following clinical pathway protocol [facility] Start: 09-21-2022 Verification routine [facility] Work Phone: Start: 09-21-2022 Admission procedure [facility] Start: 09-21-2022 Continuous pulse oximetry [facility] Start: 09-21-2022 End: 09-21-2022 Blood culture [facility] Work Phone: Start: 09-21-2022 End: 09-21-2022 [facility] Work Phone: Start: 09-21-2022 Dual pressure spontaneous ventilation support [facility] Start: 09-21-2022 Inhalation therapy procedure [facility] Start: 09-10-2022 Patient discharge [facility] Start: 09-09-2022 Physiotherapy of chest [facility] Start: 09-09-2022 [facility] Start: 09-07-2022 Referral to occupational therapist [facility] Start: 09-07-2022 Referral to service [facility] Start: 09-07-2022 [facility] Start: 09-05-2022 Following clinical pathway protocol [facility] Start: 09-05-2022 Incentive spirometry [facility] Start: 09-05-2022 Ambulation without limitation [facility] Start: 09-05-2022 Assessment of risk of venous thromboembolism [facility] Start: 09-05-2022 Care regimes management [facility] Start: 09-05-2022 Insertion of catheter into peripheral vein [facility] Start: 09-05-2022 Measuring intake and output [facility] Start: 09-05-2022 Oxygen therapy [facility] Start: 09-05-2022 Providing care according to standard [facility] Start: 09-05-2022 [facility] Start: 09-05-2022 Electrocardiographic procedure [facility] Work Phone: Start: 09-05-2022 Verification routine [facility] Work Phone: Start: 09-05-2022 Admission procedure [facility] Start: 09-05-2022 End: 09-05-2022 Blood culture [facility] Work Phone: Start: 09-05-2022 Continuous pulse oximetry [facility] Start: 09-05-2022 Dual pressure spontaneous ventilation support [facility] Start: 09-05-2022 End: 09-05-2022 [facility] Work Phone: Start: 09-05-2022 Inhalation therapy procedure [facility] Start: 07-19-2017 End: 07-19-2017 Appointment Appointment [facility] Work Phone: Start: 06-18-2017 End: 07-09-2017 Radex fingr minimum 2 views X-Ray, Fingers [facility] Work Phone: Start: 05-22-2015 End: 05-22-2015 Occupational Therapy General Occupational Therapy General Re[facility], [address] [place] [address], [id number] [facility] Work Phone: Start: 05-09-2015 End: 05-26-2015 Radex hand minimum 3 views X-Ray, Hand [facility] Work Phone: Albumin/Globulin [Ma ss Ratio] in Serum or Plasma by Electrophoresis [facility] Bacteria identified in Blood by Culture Blood Culture [facility] Work Phone: Blood culture [facility] Work Phone: Complement C3 [Mass/ volume] in Serum or Plasma [facility] Complement C4 [Mass/ volume] in Serum or Plasma [facility] Electrophoresis: albumin [facility] Electrophoresis: [id number] [facility] Electrophoresis: [id number]-3-ggalwggk [facility] Electrophoresis: lizeth ma globulin [facility] Globulin measurement [facility] Neutrophil cytoplasm ic Ab.classic [Units/volume] in Serum [facility] P-ANCA measurement [facility] Patient Education [facility] Work Phone: Patient referral [facility] Work Phone: Protein electrophore sis panel - Serum or Plasma [facility] Serum protein electrophoresis [facility] Total globulins measurement [facility] Urine immunofixation [facility] Payers Date Payer Category Payer Self-pay [id number] 2023 Medicare [id number] 2023 Private Health Insurance [facility] [id number] 2021 Medicare [id number] 2021 Private Health Insurance [facility] [id number] 2013 Unknown [facility] [id number] 1955 Unknown [id number] 1955 Unknown [id number] 1955 Unknown [id number] Unknown [id number] Unknown [id number] Unknown [id number] Unknown [id number] Unknown [id number] Unknown [id number] Unknown [id number] Unknown [id number] Unknown [id number] Unknown [id number] Social History Date Type Detail Facility Start: 08-18-2017 End: 04-14-2023 Tobacco smoking status NHIS Unknown if ever smoked [facility] Start: 1955 Sex Assigned At Female [facility] Start: 06-17-2020 End: 04-11-2024 Tobacco smoking status Never smoked tobacco (finding) [facility] Start: 11-24-2024 End: 01-02-2025 Sex Female (finding) [facility] Sex Female [facility] Goals Date Patient Goal Desired Activity /State Functional Status Date Assessment Result Facility 02-15-2023 Functional Status Awake [facility] 02-15-2023 Functional Status Maintained [facility] 09-24-2022 Functional status Chair [facility] Work Phone: 09-10-2022 Functional status Patient Activity Chair [facility] Work Phone: 09-10-2022 Functional status Activity Abili ty With Assist of 2 [facility] Work Phone: Mental Status Date Assessment Result Facility 02-15-2023 Mental Status Oriented x 4 [facility] 02-15-2023 Mental Status [facility] 09-24-2022 Cognitive function Voice/Name [facility] Work Phone: 09-10-2022 Cognitive function Voice/Name [facility] Work Phone: Clinical Notes 02-15-2023 to 06-19-2025 Note Date & Type Note Facility 06-19-2025 Evaluation note Diagnosis Onset Date Resolution Essential hypertension acute Oc tober 2024 10:57am Pulmonary hypertension acute O[place] to[place] 2024 10:57am Unspecified cirrhosis of liver acute June 19 10:57am Paroxysmal atrial fibrillation chronic June 19 10:57am Type 2 diabetes mellitus without complication chronic June 19 10:57am [facility] Work Phone: 1(147) 937-794204-01-2025 Evaluation note* Diagnosis Onset Date Resolution Status Admit Date Essential hypertension acute Ap ril 2024 10:47am Pulmonary hypertension acute Ap ril 2024 10:47am Paroxysmal atrial fibrillation chron ic December 12, 2024 10:47am [facility] Work Phone: 1(763) 383-470706-05-2023 Evaluation + Plan noteExtracted from: Title:Clinical Document Author:CALI MONTGOMERY Date:02/15/23 [place] ADMISSION HISTORY AN D PHYSICIAL CHIEF COMPLAINT: HISTORY OF PRESENT ILLNESS: REVIEW OF SYSTEMS: ACTIVE PROBLEMS: (8) Atrial fibrillation ([id number]) Cirrhosis (44018812) Diabetes mellitus (195960526) Esophageal reflux (080924003) Hypertension ([id number]) Hypothyroid (49454703) Sarcoidosis (57604410) Sleep apnea (721202232) MEDICATIONS: Active Inpt Meds: None Active PRN Meds: None One Time Meds: None Active IV Meds: Lactated Ringers Infusion 1,000 mL (LR 1,000 mL) Start: 02/15/23 8:14:00 EDT, Rate: 50 mL/hr, 02/15/23 8:14:00 EDT ALLERGIES: (2) Macrobid Relafen FAMILY HISTORY: SOCIAL HISTORY: PHYSICAL EXAM: VITALS: [id number](kg) 02/15 08:3436.2--[id number]/82797.0 24 Hr Tmax: 36.2 at 02/15 08:34 36 Hr Tmax: 36.2 at 02/15 08:34 Vital Signs are the last 5 in the past 48 hours. Weights display the last 5 within 7 days. Initial Wt: 02/15 144.0 kg 317 lb Current Wt: 02/15 144.0 kg 317 lb GENERAL: HEENT: CARDIOVASCULAR: RESPIRATORY: ABDOMEN: EXREMETIES: NEUROLOGICAL: PSYCHIATRIC: LABS: 36hr Labs 02/15 0846 Blood Glucose, [id number] Blood Glucose, [id number] DIAGNOSTICS: IMPRESSION: PLAN: History and Physical Update I have examined the patient; reviewed the H&P and there are no changes to the H&P unless noted below. [facility] 06-05-2023 Hospital Discharge instructions Patient Education 02/15/2023 09:35:37 Nausea and Vomiting, Adult, Kksq-er-Prlr Nausea and Vomiting, Adult Nausea is feeling sick to your stomach or feeling that you are about to throw up (vomit). Vomiting is when food in your stomach is thrown up and out of the mouth. Throwing up can make you feel weak. It can also make you lose too much water in your body (get dehydrated). If you lose too much water in your body, you may: Feel tired. Feel thirsty. Have a dry mouth. Have cracked lips. Go pee (urinate) less often. Older adults and people with other diseases or a weak body defense system (immune system) are at higher risk for losing too much water in the body. If you feel sick to your stomach and you throw up, it is important to follow instructions from your doctor about how to take care of yourself. Follow these instructions at home: Watch your symptoms for any changes. Tell your doctor about them. Follow these instructions to carefor yourself at home. Eating and drinking Take an ORS (oral rehydration solution). This is a drink that is sold at pharmacies and stores. Drink clear fluids in small amounts as you are able, such as: ?Water. ?Ice chips. ?Fruit juice that has water added (diluted fruit juice). ?Low-calorie sports drinks. Eat bland, mkjv-je-ufmpfn foods in small amounts as you are able, such as: ?Bananas. ?Applesauce. ?Rice. ?Low-fat (lean) meats. ?[place]elawn. ?Crackers. Avoid drinking fluids that have a lot of sugar or caffeine in them. This includes energy drinks, sports drinks, and soda. Avoid alcohol. Avoid spicy or fatty foods. General instructions Take pcik-yku-rneoszy and prescription medicines only as told by your doctor. Drink enough fluid to keep your pee (urine) pale yellow. Wash your hands often with soap and water. If you cannot use soap and water, use hand boats renter. Make sure that all people in your home wash their hands well and often. Rest at home while you get better. Watch your condition for any changes. Take slow and deep breaths when you feel sick to your stomach. Keep all follow-up visits as told by your doctor. This is important. Contact a doctor if: Your symptoms get worse. You have new symptoms. You have a fever. You cannot drink fluids without throwing up. You feel sick to your stomach for more than 2 days. You feel light-headed or dizzy. You have a headache. You have muscle cramps. You have a rash. You have pain while peeing. Get help right away if: You have pain in your chest, neck, arm, or jaw. You feel very weak or you pass out (faint). You throw up again and again. You have throw up that is bright red or looks like black coffee grounds. You have bloody or black poop (stools) or poop that looks like tar. You have a very bad headache, a stiff neck, or both. You have very bad pain, cramping, or bloating in your belly (abdomen). You have trouble breathing. You are breathing very quickly. Your heart is beating very quickly. Your skin feels cold and clammy. You feel confused. You have signs of losing too much water in your body, such as: ?Dark pee, very little pee, or no pee. ?Cracked lips. ?Dry mouth. ?Sunken eyes. ?Sleepiness. ?Weakness. These symptoms may be an emergency. Do not wait to see if the symptoms will go away. Get medical help right away. Call your local emergency services (911 in the [place] Do not drive yourself to the hospital. Summary Nausea is feeling sick to your stomach or feeling that you are about to throw up (vomit). Vomiting is when food in your stomach is thrown up and out of the mouth. Follow instructions from your doctor about eating and drinking to keep from losing too much water in your body. Take dund-sww-kmdarlv and prescription medicines only as told by your doctor. Contact your doctor if your symptoms get worse or you have new symptoms. Keep all follow-up visits as told by your doctor. This is important. This information is not intended to replace advice given to you by your health care provider. Make sure you discuss any questions you have with your health care provider. Document Released: 02/15/2009 Document Revised: 12/22/2019 Document Reviewed: 02/07/2019 [employer] Patient Education 2020 [employer]. 02/15/2023 09:35:34 Moderate Conscious Sedation, Adult, Care After Moderate Conscious Sedation, Adult, Care After These instructions provide you with information about caring for yourself after your procedure. Your health care provider may also give you more specific instructions. Your treatment has been plannedaccording to current medical practices, but problems sometimes occur. Call your health care provider if you have any problems or questions after your procedure. What can I expect after the procedure? After your procedure, it is common: To feel sleepy for several hours. To feel clumsy and have poor balance for several hours. To have poor judgment for several hours. To vomit if you eat too soon. Follow these instructions at home: For at least 24 hours after the procedure: Do not: ?Participate in activities where you could fall or become injured. ?Drive. ?Use heavy machinery. ?Drink alcohol. ?Take sleeping pills or medicines that cause drowsiness. ?Make important decisions or sign legal documents. ?Take care of children on your own. Rest. Eating and drinking Follow the diet recommended by your health care provider. If you vomit: ?Drink water, juice, or soup when you can drink without vomiting. ?Make sure you have little or no nausea before eating solid foods. General instructions Have a responsible adult stay with you until you are awake and alert. Take xudx-wnu-azlhoba and prescription medicines only as told by your health care provider. If you smoke, do not smoke without supervision. Keep all follow-up visits as told by your health care provider. This is important. Contact a health care provider if: You keep feeling nauseous or you keep vomiting. You feel light-headed. You develop a rash. You have a fever. Get help right away if: You have trouble breathing. This information is not intended to replace advice given to you by your health care provider. Make sure you discuss any questions you have with your health care provider. Document Released: 06/20/2014 Document Revised: 08/12/2018 Document Reviewed: 12/19/2016 [employer] Patient Education 2020 [employer]. 02/15/2023 09:35:30 Esophagogastroduodenoscopy, Care After ([id number]) Esophagogastroduodenoscopy, Care After Refer to this sheet in the next few weeks. These instructions provide you with information about caring for yourself after your procedure. Your health care provider may also give you more specific instructions. Your treatment has been planned according to current medical practices, but problems sometimes occur. Call your health care provider if you have any problems or questions after your procedure. What can I expect after the procedure? After the procedure, it is common to have: A sore throat. Nausea. Bloating. Dizziness. Fatigue. Follow these instructions at home: Do not eat or drink anything until the numbing medicine (local anesthetic) has worn off and your gag reflex has returned. You will know that the local anesthetic has worn off when you can swallow comfortably. Do not drive for 24 hours if you received a medicine to help you relax (sedative). If your health care provider took a tissue sample for testing during the procedure, make sure to get your test results. This is your responsibility. Ask your health care provider or the department performing the test when your results will be ready. Keep all follow-up visits as told by your health care provider. This is important. Contact a health care provider if: You cannot stop coughing. You are not urinating. You are urinating less than usual. Get help right away if: You have trouble swallowing. You cannot eat or drink. You have throat or chest pain that gets worse. You are dizzy or light-headed. You faint. You have nausea or vomiting. You have chills. You have a fever. You have severe abdominal pain. You have black, tarry, or bloody stools. This information is not intended to replace advice given to you by your health care provider. Make sure you discuss any questions you have with your health care provider. Document Released: 08/16/2013 Document Revised: 02/04/2017 Document Reviewed: 07/23/2016 [employer] Interactive Patient Education 2019 [employer]. 02/15/2023 09:35:21 9 - AO Minor Esophagogastroduodenoscopy (11/24) (CUSTOM) Esophagogastroduodenoscopy This is an endoscopic procedure (a procedure that uses a device like a flexible telescope) that allows your caregiver to view the upper stomach and small bowel. This test allows your caregiver to look at the esophagus. The esophagus carries food from your mouth to your stomach. They can also look at your duodenum. This is the first part of the small intestine that attaches to the stomach. This paul t is used to detect problems in the bowel such as ulcers and inflammation. MEANING OF TEST Your caregiver will go over the test results with you and discuss the importance and meaning of your results, as well as treatment options and the need for additional tests if necessary. OBTAINING THE TEST RESULTS Your caregiver s office will call you with the results of the test. POST SEDATION INSTRUCTIONS Rest at home today. Since your coordination may be impaired, be cautious on stairways, do not drive any vehicle or operate any heavy machinery, or use any sharp instruments for the remainder of the day. Do not drink any alcoholic beverages or make any major decisions for 24 hours. POST PROCEDURE INSTRUCTIONS Progress slowly with full liquids then resume previous diet and medications. Belching or passing of gas is to be expected. Notify the physician if you have severe chest pain, fever, or if difficulty when swallowing persists. 11/21/13 Custom Follow Up Care 02/09/2023 14:21:06 With:CALI MONTGOMERY MD Address: [address] [facility] [address] [place] [address]- [phone] When: Unknown [facility] 06-05-2023 Summary of episode note Discharge Instructions Thank you for allowing [facility] to assist you with your healthcare needs. The following is importantdischarge information regarding your hospital visit. Your Care Team JOLLIFF, TRACY MD What to do next Follow Up Appointments Follow Up with CALI MONTGOMERY MD When Where: [address] [facility] [address] [place] [phone] The Following Activity and Diet Have Been Ordered for You Discharge Activity - Ordered -- NO activity restrictions, 02/15/23 9:26:00 EDT Discharge Diet - Ordered -- Follow the post-operative/post-procedure diet instructions provided by your physician's office.,02/15/23 9:26:00 EDT The Following Equipment Has Been Ordered for You Discharge Home Equipment Discharge Wound Care - Ordered -- Follow the post-operative/post-procedure wound care instructions provided by your physician's office., 02/15/23 9:26:00 EDT The Following Treatments Have Been Ordered for You Discharge Labs No qualifying data available. Discharge Radiology No qualifying data available. Other Therapies No qualifying data available. Post Acute Orders No qualifying data available. Someone Will Contact You Regarding These Home Health Referrals No home referrals have been ordered for you. No one will call you. Allergies Macrobid Relafen (ITCH) Medications Please ask your primary doctor or pharmacist before taking any other medication not listed, including over the counter drugs, herbal medications, vitamins and or supplements as they may interact withyour home medications. What How Much When Instructions Last Dose Unchanged amlodipine-benazepril (amlodipine-benazepril 2.5 mg-10 mg oral capsule) 1 cap by mouth Once a day Unchanged apixaban (Eliquis 5 mg oral tablet) Unchanged ARIPiprazole (ARIPiprazole 2 mg oral tablet) 1 tab(s) by mouth Every day Unchanged aspirin (aspirin 81 mg oral delayed release tablet) 1 tab(s) by mouth Once a day Unchanged buPROPion (buPROPion 150 mg/ 24 hours (XL) oral tablet, extended release) 1 tab(s) by mouth Every 24 hours Unchanged carvedilol (carvedilol 6.25 mg oral tablet) 1 tab(s) by mouth Two (2) times a day Unchanged glimepiride (glimepiride 2 mg oral tablet) 1 tab(s) by mouth Once a day Unchanged ibuprofen (Advil 200 mg oral tablet) 2 tab(s) by mouth Every 4 hours as needed for as needed for pain Unchanged levothyroxine (Synthroid 50 mcg (0.05 mg) oral tablet) 1 tab(s) by mouth Once a day before a meal Unchanged loratadine (Claritin 5 mg oral tablet, chewable) 1 tab(s) Chewed Once a day Unchanged omeprazole (omeprazole 40 mg oral delayed release capsule) 1 cap by mouth Once a day Unchanged rOPINIRole (rOPINIRole 0.25 mg oral tablet) 1 tab(s) by mouth Three (3) times a day Unchanged tamsulosin (tamsulosin 0.4 mg oral capsule) Unchanged traZODone (traZODone 50 mg oral tablet) 1 tab(s) by mouth Three (3) times a day Unchanged ursodiol (ursodiol 500 mg oral tablet) 1 tab(s) by mouth Three (3) times a day Duration: 30 Days Please take this list to your next doctor s visit. Bring all medications you take, including over the counter medications, herbals and other supplements with you to your doctor s visit. Patients and families are reminded to discard old lists and to update any records with all medication providers or retail pharmacies. Education Materials Nausea and Vomiting, Adult Nausea is feeling sick to your stomach or feeling that you are about to throw up (vomit). Vomiting is when food in your stomach is thrown up and out of the mouth. Throwing up can make you feel weak. It can also make you lose too much water in your body (get dehydrated). If you lose too much water in your body, you may: Feel tired. Feel thirsty. Have a dry mouth. Have cracked lips. Go pee (urinate) less often. Older adults and people with other diseases or a weak body defense system (immune system) are at higher risk for losing too much water in the body. If you feel sick to your stomach and you throw up, it is important to follow instructions from your doctor about how to take care of yourself. Follow these instructions at home: Watch your symptoms for any changes. Tell your doctor about them. Follow these instructions to carefor yourself at home. Eating and drinking Take an ORS (oral rehydration solution). This is a drink that is sold at pharmacies and stores. Drink clear fluids in small amounts as you are able, such as: ? Water. ? Ice chips. ? Fruit juice that has water added (diluted fruit juice). ? Low-calorie sports drinks. Eat bland, ayco-uh-mjjdqz foods in small amounts as you are able, such as: ? Bananas. ? Applesauce. ? Rice. ? Low-fat (lean) meats. ? [place]elawn. ? Crackers. Avoid drinking fluids that have a lot of sugar or caffeine in them. This includes energy drinks, sports drinks, and soda. Avoid alcohol. Avoid spicy or fatty foods. General instructions Take rcgx-rve-tlrqfki and prescription medicines only as told by your doctor. Drink enough fluid to keep your pee (urine) pale yellow. Wash your hands often with soap and water. If you cannot use soap and water, use hand boats renter. Make sure that all people in your home wash their hands well and often. Rest at home while you get better. Watch your condition for any changes. Take slow and deep breaths when you feel sick to your stomach. Keep all follow-up visits as told by your doctor. This is important. Contact a doctor if: Your symptoms get worse. You have new symptoms. You have a fever. You cannot drink fluids without throwing up. You feel sick to your stomach for more than 2 days. You feel light-headed or dizzy. You have a headache. You have muscle cramps. You have a rash. You have pain while peeing. Get help right away if: You have pain in your chest, neck, arm, or jaw. You feel very weak or you pass out (faint). You throw up again and again. You have throw up that is bright red or looks like black coffee grounds. You have bloody or black poop (stools) or poop that looks like tar. You have a very bad headache, a stiff neck, or both. You have very bad pain, cramping, or bloating in your belly (abdomen). You have trouble breathing. You are breathing very quickly. Your heart is beating very quickly. Your skin feels cold and clammy. You feel confused. You have signs of losing too much water in your body, such as: ? Dark pee, very little pee, or no pee. ? Cracked lips. ? Dry mouth. ? Sunken eyes. ? Sleepiness. ? Weakness. These symptoms may be an emergency. Do not wait to see if the symptoms will go away. Get medical help right away. Call your local emergency services (911 in the [place] Do not drive yourself to the hospital. Summary Nausea is feeling sick to your stomach or feeling that you are about to throw up (vomit). Vomiting is when food in your stomach is thrown up and out of the mouth. Follow instructions from your doctor about eating and drinking to keep from losing too much water in your body. Take gkmw-ewn-tzlmggo and prescription medicines only as told by your doctor. Contact your doctor if your symptoms get worse or you have new symptoms. Keep all follow-up visits as told by your doctor. This is important. This information is not intended to replace advice given to you by your health care provider. Make sure you discuss any questions you have with your health care provider. Document Released: 02/15/2009 Document Revised: 12/22/2019 Document Reviewed: 02/07/2019 [employer] Patient Education 2020 [employer]. Moderate Conscious Sedation, Adult, Care After These instructions provide you with information about caring for yourself after your procedure. Your health care provider may also give you more specific instructions. Your treatment has been plannedaccording to current medical practices, but problems sometimes occur. Call your health care provider if you have any problems or questions after your procedure. What can I expect after the procedure? After your procedure, it is common: To feel sleepy for several hours. To feel clumsy and have poor balance for several hours. To have poor judgment for several hours. To vomit if you eat too soon. Follow these instructions at home: For at least 24 hours after the procedure: Do not: ? Participate in activities where you could fall or become injured. ? Drive. ? Use heavy machinery. ? Drink alcohol. ? Take sleeping pills or medicines that cause drowsiness. ? Make important decisions or sign legal documents. ? Take care of children on your own. Rest. Eating and drinking Follow the diet recommended by your health care provider. If you vomit: ? Drink water, juice, or soup when you can drink without vomiting. ? Make sure you have little or no nausea before eating solid foods. General instructions Have a responsible adult stay with you until you are awake and alert. Take wcca-ykm-kbxkznv and prescription medicines only as told by your health care provider. If you smoke, do not smoke without supervision. Keep all follow-up visits as told by your health care provider. This is important. Contact a health care provider if: You keep feeling nauseous or you keep vomiting. You feel light-headed. You develop a rash. You have a fever. Get help right away if: You have trouble breathing. This information is not intended to replace advice given to you by your health care provider. Make sure you discuss any questions you have with your health care provider. Document Released: 06/20/2014 Document Revised: 08/12/2018 Document Reviewed: 12/19/2016 [employer] Patient Education 2020 [employer]. Esophagogastroduodenoscopy, Care After Refer to this sheet in the next few weeks. These instructions provide you with information about caring for yourself after your procedure. Your health care provider may also give you more specific instructions. Your treatment has been planned according to current medical practices, but problems sometimes occur. Call your health care provider if you have any problems or questions after your procedure. What can I expect after the procedure? After the procedure, it is common to have: A sore throat. Nausea. Bloating. Dizziness. Fatigue. Follow these instructions at home: Do not eat or drink anything until the numbing medicine (local anesthetic) has worn off and your gag reflex has returned. You will know that the local anesthetic has worn off when you can swallow comfortably. Do not drive for 24 hours if you received a medicine to help you relax (sedative). If your health care provider took a tissue sample for testing during the procedure, make sure to get your test results. This is your responsibility. Ask your health care provider or the department performing the test when your results will be ready. Keep all follow-up visits as told by your health care provider. This is important. Contact a health care provider if: You cannot stop coughing. You are not urinating. You are urinating less than usual. Get help right away if: You have trouble swallowing. You cannot eat or drink. You have throat or chest pain that gets worse. You are dizzy or light-headed. You faint. You have nausea or vomiting. You have chills. You have a fever. You have severe abdominal pain. You have black, tarry, or bloody stools. This information is not intended to replace advice given to you by your health care provider. Make sure you discuss any questions you have with your health care provider. Document Released: 08/16/2013 Document Revised: 02/04/2017 Document Reviewed: 07/23/2016 [employer] Interactive Patient Education 2019 [employer] Esophagogastroduodenoscopy This is an endoscopic procedure (a procedure that uses a device like a flexible telescope) that allows your caregiver to view the upper stomach and small bowel. This test allows your caregiver to look at the esophagus. The esophagus carries food from your mouth to your stomach. They can also look at your duodenum. This is the first part of the small intestine that attaches to the stomach. This paul t is used to detect problems in the bowel such as ulcers and inflammation. MEANING OF TEST Your caregiver will go over the test results with you and discuss the importance and meaning of your results, as well as treatment options and the need for additional tests if necessary. OBTAINING THE TEST RESULTS Your caregiver s office will call you with the results of the test. POST SEDATION INSTRUCTIONS Rest at home today. Since your coordination may be impaired, be cautious on stairways, do not drive any vehicle or operate any heavy machinery, or use any sharp instruments for the remainder of the day. Do not drink any alcoholic beverages or make any major decisions for 24 hours. POST PROCEDURE INSTRUCTIONS Progress slowly with full liquids then resume previous diet and medications. Belching or passing of gas is to be expected. Notify the physician if you have severe chest pain, fever, or if difficulty when swallowing persists. 11/21/13 Custom Additional Information VACCINATE! IT SAVES LIVES! Members of the community who have not yet received the COVID-19 vaccine and would like to receive it can visit one of [facility] vaccine clinics. There are many vaccine clinic locations within the [facility]. For locations and available times, please visit [email or web address] It is important to note that some COVID mobile vaccine clinics are held outdoors and may be canceled in rainy or stormy conditions. To learn more about pediatric vaccinations (ages 5-11), we invite you to visit the [facility] webpage. [email or web address] learn more about the COVID-19 vaccine, we invite you to visit the CDC website for a list of frequently asked questions.https://www.cdc.gov/coronavirus/2019-ncov/vaccines/faq.html [facility] Patient Portal Access Instructions: Stay connected with your healthcare team and access your personal medical information anytime with the [employer] Patient Portal. Please follow the directions below to create your [employer] account: 1.Access the email account you provided upon registration to the hospital/physician office.2.Look for an invitation email from [facility].3.Open the email and access the invitation link: AcceptInvitation to [facility].4.Fill in the required trevino to create your account. To access your account, visit [employer]. Click the blue button labeled "Access Patient Portal" and then log in with the username and password that you created in the steps above. You will be able to view your test results, lab results, a summary of your visits, upcoming appointments and more. There is also a convenient messaging option where you can send secure messages to your p [employer]. In addition, you will have the ability to download any documents or summaries to your computer and/or send the information securely to a physician. Remember that your healthcare information is confidential, so carefully consider who you will allowto register on the [facility] Patient Portal for access to your information. You can also access the [facility] Patient Portal on the [employer] emily. Simply click on "Patient Portal" and then log into your account. If you would like to receive a full copy of your medical records, please contact the [facility] Medical Records Department by calling [phone], Wednesday through Wednesday between 8 a.m. and 4:30 p.m. HOW TO SAFELY DISPOSE OF PRESCRIPTION MEDICATIONS Please use one of the following methods to safely dispose of your unused medications. 1.Use a drug disposal kit: the drug disposal pouch allows you to safely discard your old and unuseddrugs. Ask your nurse to give you one when you are discharged.2.Visit a local take-back location: Many local pharmacies and police departments have programs that collect old and unwanted prescriptiondrugs. Call your local pharmacy or go to [email or web address] Sounds/1B4Pe9s to find one close to you.3.Make use of household items: Use cat litter or old coffee grounds to dispose medications if other options arenot available. Mix your drugs with these household products, seal them in an airtight container andthrow it into the garbage. Call [facility]: [phone] to be sure your drugs can be disposed of in this way. Some medicines may require a different approach.4.Never flush your medications down the toilet. IF YOU HAVE BEEN PRESCRIBED AN OPIOID FOR PAIN If you have been prescribed an opioid (such as hydrocodone, oxycodone or morphine), it is critical to understand the possible side effects and risks of opioid pain medications. Even when taken as directed, opioids can have several side effects including: Tolerance, meaning you might need to take more of a medication for the same pain relief. Nausea, vomiting and/or constipation. Sleepiness, dizziness, dry mouth, confusion, depression or itching. Physical dependence, meaning you have withdrawal symptoms when a medication is stopped, can develop within a few days. KNOW YOUR RESPONSIBILITIES It is important to know exactly how much and how often to take the opioid pain medications you are prescribed. Never take opioids in higher amounts or more often than prescribed. Do not combine opioids with alcohol or other drugs that cause drowsiness, such as benzodiazepines, also known as benzos, including diazepam and alprazolam, muscle relaxants or sleep aids. Never sell or share prescription opioids. This is illegal. Store opioids in a secure place and out of reach of others (including children, family, friends and visitors). The last page of this document has been signed and retained as a CHART COPY. Signatures Patient Education Materials Nausea and Vomiting, Adult, [id number] Moderate Conscious Sedation, Adult, Care After Esophagogastroduodenoscopy, Care After ([id number]) 9 - AO Minor Esophagogastroduodenoscopy (11/24) (CUSTOM) Medication Leaflets My discharge plan and instructions have been reviewed and explained to me and IMADELINE LINDA M understand my current condition and have read and understand these discharge instructions. I have received a written copy of the plan/instructions. If I have questions, I am aware that I should contact my doctor. 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/Speech Lang Path Therapist Signature: Date/Time: Relationship to Patient: Witness Name/Signature: Date/Time: [facility]06-05-2023 Anesthesiology Consult note Patient: APRIL CORREA Age: 68 years Sex: Female : 1955 Associated Diagnoses: None Author: CARLOS DEUTSCH Assessment Postanesthesia assessment Vitals: Vital signs from flowsheet : Vital Signs 02/15/2023 9:25 EDT Heart Rate Monitored 63 bpm bpm Respiratory Rate - Anes 17 br/min br/min 02/15/2023 9:20 EDT Heart Rate Monitored 63 bpm bpm Respiratory Rate - Anes 24 br/min br/min Systolic Blood Pressure Non-Invasive 164 mmHg mmHg Diastolic Blood Pressure Non-Invasive 84 mmHg mmHg 02/15/2023 8:34 EDT Temperature Temporal Artery 36.2 DegC Apical Heart Rate 73 bpm Respiratory Rate 14 br/min Systolic Blood Pressure Non-Invasive 158 mmHg HI Diastolic Blood Pressure Non-Invasive 70 mmHg , Measurements from flowsheet . Mental status: alert & oriented x 4. Respiratory function: respirations are non-labored. Respiratory support: none. CV function: Normal rate. Cardiovascular support: none. Pain. Nausea status: see nursing documentation of medications. Postoperative hydration status: within normal limits. Digitally Signed by CARLOS DEUTSCH on 02/15/2023 09:27 AM [facility]06-05-2023 Anesthesiology Consult note Patient: APRIL CORREA Age: 68 years Sex: Female : 1955 Associated Diagnoses: None Author: CARLOS DEUTSCH Preoperative Information Time of last food or liquid consumption: 02/15/2023 00:00:00 Anesthesia history Patient's history: negative. Family's history: negative. Health Status Allergies: Allergic Reactions (Selected) Severity Not Documented Macrobid- No reactions were documented. Relafen- Itch., Allergies (2) ActiveReaction MacrobidNone Documented RelafenITCH Current medications: (Selected) Inpatient Medications Ordered LR 1,000 mL: 50 mL/hr, Intravenous Documented Medications Documented ARIPiprazole 2 mg oral tablet: 2 mg, 1 tab(s), Oral, Daily, 0 Refill(s) Advil 200 mg oral tablet: 400 mg, 2 tab(s), Oral, q4h, PRN: as needed for pain, 120 tab(s), 0 Refill(s) Claritin 5 mg oral tablet, chewable: 5 mg, 1 tab(s), Chewed, qDay, 0 Refill(s) Eliquis 5 mg oral tablet: 0 Refill(s) Synthroid 50 mcg (0.05 mg) oral tablet: 50 mcg, 1 tab(s), Oral, qDayAC, 90 tab(s), 0 Refill(s) amlodipine-benazepril 2.5 mg-10 mg oral capsule: 1 cap(s), Oral, qDay, 90 cap(s), 0 Refill(s) aspirin 81 mg oral delayed release tablet: 81 mg, 1 tab(s), Oral, qDay, 0 Refill(s) buPROPion 150 mg/24 hours (XL) oral tablet, extended release: 150 mg, 1 tab(s), Oral, q24h, 90 tab(s), 0 Refill(s) carvedilol 6.25 mg oral tablet: 6.25 mg, 1 tab(s), Oral, BID, 60 tab(s), 0 Refill(s) glimepiride 2 mg oral tablet: 2 mg, 1 tab(s), Oral, qDay, 90 tab(s), 0 Refill(s) omeprazole 40 mg oral delayed release capsule: 40 mg, 1 cap(s), Oral, qDay, 0 Refill(s) rOPINIRole 0.25 mg oral tablet: 0.25 mg, 1 tab(s), Oral, TID, 270 tab(s), 0 Refill(s) tamsulosin 0.4 mg oral capsule: 0 Refill(s) traZODone 50 mg oral tablet: 50 mg, 1 tab(s), Oral, TID, 90 tab(s), 0 Refill(s) ursodiol 500 mg oral tablet: 500 mg, 1 tab(s), Oral, TID, for 30 day(s), 0 Refill(s), Medications (1) Active Scheduled: (0) Continuous: (1) Lactated Ringers 1,000 mL 1,000 mL, Intravenous, 50 mL/hr PRN: (0) Problem list: Active Problems (8) Atrial fibrillation Cirrhosis Diabetes mellitus Esophageal reflux Hypertension Hypothyroid Sarcoidosis Sleep apnea Histories Past Medical History: No active or resolved past medical history items have been selected or recorded. Family History: Heart disease Father Congenital heart disease Father Respiratory disease Father Stroke Mother Black lung disease Sister Diabetes Mother Procedure history: EGD (esophagogastroduodenoscopy) gastric outlet reduction ([id number]) on 06/09/2021 at 66 Years. Esophagogastroduodenoscopy ([id number]) on 02/27/2019 at 64 Years. Liver biopsy sample ([id number]). Colonoscopy ([id number]). Carpal tunnel release ([id number]). Social History Social & Psychosocial Habits Alcohol 06/17/2020 Use: Current Frequency: 1-2 times per year Substance Abuse 06/17/2020 Use: Never Tobacco 06/17/2020 Tobacco Use: Never (less than 100 in l Home/Environment 06/17/2020 Living situation: Home/Independent Nutrition/Health 06/17/2020 Type of diet: Regular Appetite Good Eating Difficulties None . Physical Examination Vital Signs 02/15/2023 8:34 EDT Temperature Temporal Artery 36.2 DegC Apical Heart Rate 73 bpm Respiratory Rate 14 br/min Systolic Blood Pressure Non-Invasive 158 mmHg HI Diastolic Blood Pressure Non-Invasive 70 mmHg Vital Signs(last 24 hrs) Last Charted Resp Rate 14 br/min (FEB 15 08:34) SBPH 158mmHg (FEB 15 08:34) DBP70 mmHg (FEB 15 08:34) Measurements from flowsheet : Measurements 02/15/2023 8:34 EDT Height 160 cm Height in inches 63 inch(es) Admission Weight 144 kg Weight Lbs 316.8 lb [place] Body Weight 52.38 kg Pain assessment: Pain Assessment 02/15/2023 8:34 EDT Primary Pain Intensity 0 Pain Scale Type 0-10 Pain scale . General: Alert and oriented. Airway: Normal temporomandibular joint mobility, Normal mouth, Normal neck range of motion. Mallampati classification: II (soft palate, fauces, uvula visible). Dentition Evaluation: Denies loose/chipped teeth. Respiratory: Respirations are non-labored. Cardiovascular: Normal rate. Neurologic: Alert, Oriented. Review / Management Results review: No qualifying data available , Lab results 02/15/2023 9:19 EDT SN - Proc - Anesthesia Type MAC SN - Proc - EBL 0 mL SN - Proc - Actual Procedure ESOPHAGOGASTRODUODENOSCOPY 02/15/2023 9:17 EDT SN - PP - Body Position Cardiac Lateral Right Side-up Standard Intra-op 02/15/2023 9:17 EDT [place] History and Physical 02/15/2023 9:15 EDT SN - CAt - Case Attendee SN - CAt - Case Attendee SN - CAt - Case Attendee SN - CAt - Case Attendee SN - CAt - Case Attendee SN - CAt - Case Attendee SN - CAt - Case Attendee SN - CAt - Case Attendee SN - CAt - Role Performed Primary Surgeon SN - CAt - Role Performed [employer] Trolley Driver 1 SN - CAt - Role Performed [employer] Truck Driver SN - CAt - Role Performed INSPECTOR BALANCE BRIDGE 02/15/2023 8:47 EDT Lactated Ringers Injection Begin Bag 1,000 mL mL 02/15/2023 8:46 EDT Blood Glucose, Capillary 129 mg/dL HI Wrist Right 02/15/2023 21 gauge Peripheral IV Activity: Insert new site Peripheral IV Dressing Condition: Clean, Dry, Intact Peripheral IV Dressing Activity: Applied, Transparent dressing Peripheral IV Line Status/Patency: Continuous infusion Peripheral IV Line Care: Secured with tape Peripheral IV Site Condition: No complications Peripheral IV Equipment: Extension set Peripheral IV Number of Attempts: 1 02/15/2023 8:34 EDT Height 160 cm Height in inches 63 inch(es) Admission Weight 144 kg Weight Lbs 316.8 lb [place] Body Weight 52.38 kg Temperature Temporal Artery 36.2 DegC Apical Heart Rate 73 bpm Respiratory Rate 14 br/min Systolic Blood Pressure Non-Invasive 158 mmHg HI Diastolic Blood Pressure Non-Invasive 70 mmHg Primary Pain Intensity 0 Pain Scale Type 0-10 Pain scale Heart Rhythm Regular Oxygen Therapy Room air Oxygen Saturation 96 % Abdomen Description Non-distended, Soft Urinary Elimination Incontinence Skin Temperature Warm Skin Description [place], Normal for ethnicity, Dry Skin Integrity Intact IV Present Present Neurological Symptoms Patient denies Extremity Movement Equal Characteristics of Speech Clear Level of Consciousness Alert Strength All Extremities Moderate Tone All Extremities Normal Affect/Behavior Appropriate, Calm, Cooperative Orientation Oriented x 4 Allergies Yes Consent Form Signed Yes Patient Dressed In Hospital gown History & Physical Update On Chart Yes History & Physical On Chart Yes Orientation Assessment Oriented x 4 Activity Status ADL Awake, Resting NPO Status Maintained Standard Safety ID band on, Allergy Band on, Call device within reach, Bed in low position, Wheels locked, Non-Slip footwear Allergy Band on and Verified Yes Patient ID Band on and Verified Yes Implants Verified Yes Pacemaker/AICD Verified Yes Anesthesia Consent Signed Yes Last Fluid Intake 02/15/2023 0:20 Last Food Intake 02/14/2023 21:00 Last Void 02/15/2023 8:39 . Assessment and Plan [place] [employer] Anesthesi[employer] (ASA) physical status classification: Class III. Anesthetic Preoperative Plan Anesthetic technique: MAC. Informed consent: signed by patient. Digitally Signed by CARLOS DEUTSCH on 02/15/2023 09:23 AM [facility]06-05-2023 Note [place] ADMISSION HISTORY AND PHYSICIAL CHIEF COMPLAINT: HISTORY OF PRESENT ILLNESS: REVIEW OF SYSTEMS: ACTIVE PROBLEMS: (8) Atrial fibrillation (95174143) Cirrhosis (56320890) Diabetes mellitus (784582934) Esophageal reflux (749291743) Hypertension (1154901412) Hypothyroid (69830398) Sarcoidosis (71809944) Sleep apnea (836524343) MEDICATIONS: Active Inpt Meds: None Active PRN Meds: None One Time Meds: None Active IV Meds: Lactated Ringers Infusion 1,000 mL (LR 1,000 mL) Start: 02/15/23 8:14:00 EDT, Rate: 50 mL/hr, 02/15/23 8:14:00 EDT ALLERGIES: (2) Macrobid Relafen FAMILY HISTORY: SOCIAL HISTORY: PHYSICAL EXAM: VITALS: [id number](kg) 02/15 08:3436.2--[id number]/45391.0 24 Hr Tmax: 36.2 at 02/15 08:34 36 Hr Tmax: 36.2 at 02/15 08:34 Vital Signs are the last 5 in the past 48 hours. Weights display the last 5 within 7 days. Initial Wt: 02/15 144.0 kg 317 lb Current Wt: 02/15 144.0 kg 317 lb GENERAL: HEENT: CARDIOVASCULAR: RESPIRATORY: ABDOMEN: EXREMETIES: NEUROLOGICAL: PSYCHIATRIC: LABS: 36hr Labs 02/15 0846 Blood Glucose, [id number] Blood Glucose, [id number] DIAGNOSTICS: IMPRESSION: PLAN: History and Physical Update I have examined the patient; reviewed the H&P and there are no changes to the H&P unless noted below. Digitally Signed by CALI MONTGOMERY MD on 02/15/2023 09:17 AM [facility] noteNo assessment information availableWSamaritan Hospital Work Phone: Evaluation note* Diagnosis Onset Date Resolution Status Acute respiratory failure with hypoxia acute Atrial fibrillation, currently in sinus rhythm acute Community acquired pneumonia acute Pneumonia acute Severe sepsis [facility] Work Phone: Evaluation note* Diagnosis Onset Date Resolution Status Acute respiratory failure with hypoxia acute Pneumonia acute Severe sepsis resolved Acute bronchospasm acute Acute hyperglycemia acute Anticoagulant long-term use acute Acute and chronic respiratory failure with hypercapnia chronic Acute and chronic respiratory failure with hypoxia chronic Hypertension [facility] Work Phone: Evaluation note* Diagnosis Onset Date Resolution Status Acute respiratory failure with hypoxia acute Pneumonia acute Severe sepsis resolved Hypertension [facility] Work Phone: Evaluation note* Diagnosis Onset Date Resolution Status Acute respiratory failure with hypoxia acute Pneumonia acute Atrial fibrillation, currently in sinus rhythm resolved Severe sepsis resolved Essential hypertension acute Paroxysmal atrial fibrillation [facility] Work Phone: Evaluation note* Diagnosis Onset Date Resolution Status Essential hypertension acute Paroxysmal atrial fibrillation [facility] Work Phone: Evaluation note* Diagnosis Onset Date Resolution Status Admit Date Essential hypertension acute Oc tob2024 10:57am Pulmonary hypertension acute Oc tober 2024 10:57am Paroxysmal atrial fibrillation chron ic June 19, 2025 10:57am [facility] Work Phone: Hospital course Narrative No data available for this section [facility] Reason for referral (narrative)No reason for referral information availableWSamaritan Hospital Work Phone: Chief Complaint and Reason for Visit Chief Complaint SCREENING/POST JENNY Chief Complaint AFIB WITH HYPOXIA AN D PNEUMONIA AFIB WITH HYPOXIA AND PNEUMONIA Reason for Visit Acute respiratory fa ilure with hypoxia Atrial fibrillation, currently in sinus rhythm Community acquired pneumonia Pneumonia Severe sepsis Chief Complaint AFIB WITH HYPOXIA AN D PNEUMONIA AFIB WITH HYPOXIA AND PNEUMONIA AFIB WITH HYPOXIA AND PNEUMONIA AFIB WITH HYPOXIA AND PNEUMONIA AFIB WITH HYPOXIA AND PNEUMONIA AFIB WITH HYPOXIA AND PNEUMONIA Reason for Visit Acute respiratory fa ilure with hypoxia Atrial fibrillation, currently in sinus rhythm Community acquired pneumonia Pneumonia Severe sepsis Chief Complaint AFIB WITH HYPOXIA AN D PNEUMONIA AFIB WITH HYPOXIA AND PNEUMONIA AFIB WITH HYPOXIA AND PNEUMONIA AFIB WITH HYPOXIA AND PNEUMONIA AFIB WITH HYPOXIA AND PNEUMONIA AFIB WITH HYPOXIA AND PNEUMONIA ADMISSON EXAM ACUTE CARE VISIT ACUTE ON CHRONIC HYPOXIC AND HYPERCAPNIC RESP FAIL HYPOXIA Reason for Visit Acute respiratory fa ilure with hypoxia Pneumonia Severe sepsis Acute bronchospasm Acute hyperglycemia Anticoagulant long-term use Acute and chronic respiratory failure with hypercapnia Acute and chronic respiratory failure with hypoxia Hypertension Chief Complaint AFIB WITH HYPOXIA AN D PNEUMONIA AFIB WITH HYPOXIA AND PNEUMONIA AFIB WITH HYPOXIA AND PNEUMONIA AFIB WITH HYPOXIA AND PNEUMONIA AFIB WITH HYPOXIA AND PNEUMONIA AFIB WITH HYPOXIA AND PNEUMONIA ADMISSON EXAM ACUTE CARE VISIT ACUTE ON CHRONIC HYPOXIC AND HYPERCAPNIC RESP FAIL HYPOXIA ACUTE CARE VISIT ACUTE ON CHRONIC HYPOXIC AND HYPERCAPNIC RESP FAIL ACUTE ON CHRONIC HYPOXIC AND HYPERCAPNIC RESP FAIL ACUTE ON CHRONIC HYPOXIC AND HYPERCAPNIC RESP FAIL Reason for Visit Acute respiratory fa ilure with hypoxia Pneumonia Severe sepsis Acute bronchospasm Acute hyperglycemia Anticoagulant long-term use Acute and chronic respiratory failure with hypercapnia Acute and chronic respiratory failure with hypoxia Hypertension Chief Complaint AFIB WITH HYPOXIA AN D PNEUMONIA AFIB WITH HYPOXIA AND PNEUMONIA AFIB WITH HYPOXIA AND PNEUMONIA AFIB WITH HYPOXIA AND PNEUMONIA AFIB WITH HYPOXIA AND PNEUMONIA AFIB WITH HYPOXIA AND PNEUMONIA ADMISSON EXAM RETIREMENT LAB WORK LABWORK ACUTE CARE VISIT ACUTE ON CHRONIC HYPOXIC AND HYPERCAPNIC RESP FAIL HYPOXIA ACUTE CARE VISIT ACUTE ON CHRONIC HYPOXIC AND HYPERCAPNIC RESP FAIL ACUTE ON CHRONIC HYPOXIC AND HYPERCAPNIC RESP FAIL ACUTE ON CHRONIC HYPOXIC AND HYPERCAPNIC RESP FAIL Reason for Visit Acute respiratory fa ilure with hypoxia Pneumonia Severe sepsis Hypertension Chief Complaint AFIB WITH HYPOXIA AN D PNEUMONIA AFIB WITH HYPOXIA AND PNEUMONIA AFIB WITH HYPOXIA AND PNEUMONIA AFIB WITH HYPOXIA AND PNEUMONIA AFIB WITH HYPOXIA AND PNEUMONIA AFIB WITH HYPOXIA AND PNEUMONIA TACHY ADMISSON EXAM NH Labs, fatigue,acute resp failure w/hypoxia, LABWORK ACUTE CARE VISIT ACUTE ON CHRONIC HYPOXIC AND HYPERCAPNIC RESP FAIL HYPOXIA ACUTE CARE VISIT ACUTE ON CHRONIC HYPOXIC AND HYPERCAPNIC RESP FAIL ACUTE ON CHRONIC HYPOXIC AND HYPERCAPNIC RESP FAIL ACUTE ON CHRONIC HYPOXIC AND HYPERCAPNIC RESP FAIL RETIREMENT LABWORK LABWORK AFIB W [facility] ED 1-4 RETIREMENT LABWORK Reason for Visit Acute respiratory fa ilure with hypoxia Pneumonia Atrial fibrillation, currently in sinus rhythm Severe sepsis Essential hypertension Paroxysmal atrial fibrillation Chief Complaint CIRRHOSIS CIRRHOSIS OF LIVER *ATTENTION LIVER* Chief Complaint CIRRHOSIS CIRRHOSIS OF LIVER *ATTENTION LIVER* 6 M FU Reason for Visit Essential hypertensi on Paroxysmal atrial fibrillation Chief Complaint Admit Date SHOULDER,OSTEOARTHRITIS LEFT HAND RX HER E September 29, 2024 12:00pm SEE ORDER November 13, 2024 2:59 pm Chief Complaint Admit Date SHOULDER,OSTEOARTHRITIS LEFT HAND RX HER E September 29, 2024 12:00pm SEE ORDER November 13, 2024 2:59 pm CIRRHOSIS December 06, 2024 1:0 3pm Chief Complaint Admit Date SHOULDER,OSTEOARTHRITIS LEFT HAND RX HER E September 29, 2024 12:00pm SEE ORDER November 13, 2024 2:59 pm CIRRHOSIS December 06, 2024 1:0 3pm 1 Y FU December 12, 2024 10:4 7am PELVIC FLOOR RX HERE December 28, 2024 1: 49pm Reason for Visit Admit Date Essential hypertension December 12, 2024 1 0:47am Pulmonary hypertension December 12, 2024 1 0:47am Paroxysmal atrial fibrillation December 10:47am Chief Complaint Admit Date SEE ORDER November 13, 2024 2:59 pm CIRRHOSIS December 06, 2024 1:0 3pm 1 Y FU December 12, 2024 10:4 7am PELVIC FLOOR RX HERE January 30, 2025 1:30 pm Chief Complaint Admit Date PELVIC FLOOR RX HERE February 13, 2025 1:30 pm 2 ORDERING JOSELINE JENKINS/KAYLIE May 03, 2025 2:33pm Chief Complaint Admit Date 2 ORDERING JOSELINE JENKINS/KAYLIE May 03, 2025 2:33pm 6 M FU June 19, 2025 10 :57am Reason for Visit Admit Date Essential hypertension June 19, 2025 10:57am Pulmonary hypertension June 19, 2025 10:57am Paroxysmal atrial fibrillation June 192024 10:57am Reason for Visit Admit Date Essential hypertension June 19, 2025 10:57am Pulmonary hypertension June 19, 2025 10:57am Unspecified cirrhosis of liver June 192024 10:57am Paroxysmal atrial fibrillation June 192024 10:57am Type 2 diabetes mellitus without complic ation June 19, 2025 10:57am Advance Directives Advance Directive Response Recorded Date/ Time Advance Directives Yes May 1:22pm Living Will Yes June 30 3:39pm Power of Acid Maker Yes June 30, 2017 3:39pm Advance Directive Response Recorded Date/ Time Advance Directives Yes May 12:22pm Living Will No September 05 022 1:54pm Power of Acid Maker No September 05, 2022 1:54pm Advance Directive Response Recorded Date/ Time Name of Medical Power of Acid Maker Indira (sister ) September 05, 2022 5:31pm Advance Directives Yes May 12:22pm Living Will Yes September 05 022 5:31pm Power of Acid Maker Yes September 05, 2022 5:31pm Advance Directive Response Recorded Date/ Time Name of Medical Power of Acid Maker Indira (sister ) September 05, 2022 5:31pm Name of Medical Power of Acid Maker ? September 21, 2022 10:42am Advance Directives Yes May 12:22pm Living Will Yes September 21 10:42am Power of Acid Maker Yes September 21 023 10:42am Advance Directive Response Recorded Date/ Time Name of Medical Power of Acid Maker Indira (sister ) September 05, 2022 5:31pm Name of Medical Power of Acid Maker Indira Kenyatta y September 21, 2022 3:45pm Advance Directives Yes May 12:22pm Living Will Yes September 21 3:45pm Power of Acid Maker Yes September 21 023 3:45pm Advance Directive Response Recorded Date/ Time Name of Medical Power of Acid Maker Indira (sister ) September 05, 2022 6:31pm Name of Medical Power of Acid Maker Indira guerrier September 21, 2022 4:45pm Advance Directives Yes May 1:22pm Living Will Yes September 21 3 4:45pm Power of Acid Maker Yes September 21 023 4:45pm Advance Directive Response Recorded Date/ Time Advance Directives Yes May 1:22pm Living Will Yes September 21 4:45pm Power of Acid Maker Yes September 21 023 4:45pm Advance Directive Response Recorded Date/ Time Living Will Yes April 11, 2024 7:34pm Power of Acid Maker Yes April 11 7:34pm Advance Directives Yes March 06 7:59am Advance Directive Response Recorded Date/ Time Living Will Yes April 11, 2024 7:34pm Do you have a Healthcare Power of Acid Maker? Yes April 11, 2024 7:34pm Advance Directives Yes March 06 7:59am Advance Directive Response Recorded Date/ Time Living Will Yes September 21 4:45pm Do you have a Healthcare Power of Acid Maker? Yes September 21, 2022 4:45pm Living Will Yes April 11, 2024 7:34pm Do you have a Healthcare Power of Acid Maker? Yes April 11, 2024 7:34pm Advance Directives Yes March 06 7:59am Advance Directive Response Recorded Date/ Time Living Will Yes September 21 4:45pm Do you have a Healthcare Power of Acid Maker? Yes September 21, 2022 4:45pm Advance Directives Yes March 06 7:59am Advance Directive Response Recorded Date/ Time Advance Directives Yes March 06 7:59am Family History No Family History Records Found Relationship Condition Age at Onset Recorded Date/T akhil father Goodpasture's syndrome Unknown Congestive heart failure Unknown mother Coronary artery disease Unknown Summary Purpose Additional Source Comments Goals (unrecognized section and content) Goals may be documented in a n alternate sectionGoals may be documented in an alternate section No data available for this sectionGoals may be documented in an alternate sectionGoals may be documented in an alternate sectionGoals may be documented in an alternate sectionGoals may be documented in an alternate sectionGoals may be documented in an alternate sectionGoals may be documented in an alternate sectionGoals may be documented in an alternate sectionGoals may be documented in an alternate sectionGoals may be documented in an alternate sectionGoals may be documented in an alternate section Care Teams (unrecognized sec tion and content) Team Status: Active Member Role Status Dates Dr. Tracy Dillard MD Family Provider Active Dr. Tracy Dillard MD Primary Care Provider Active Team Status: Active Member Role Status Dates Dr. Tracy Dillard MD Primary Care Provider Active Dr. Jose Sweeney DO Emergency Provider Active Dr. Everton Bethea MD Admit Provi monster, Attending Provider, Other Provider Active Team Status: Active Member Role Status Dates Dr. Tracy Dillard MD Primary Care Provider Active Dr. Jose Sweeney DO Emergency Provider Active Dr. Everton Bethea MD Admit Provider, Other Pro vider Active Dr. Mavis Jenkins DO Attending Provider, Other Provide r Active Team Status: Active Member Role Status Dates Dr. Tracy Dillard MD Primary Care Provider Active Dr. Mary Ulrich MD Attending Provider Active Team Status: Inactive Member Role Status Dates Dr. Tracy Dillard MD Primary Care Provider Active Chelo Jiménez COOKY MACHINE OPERATOR, COOKY MACHINE OPERATOR-C Attending Provider Active Team Status: Active Member Role Status Dates Dr. Tracy Dillard MD Primary Care Provider Active Dr. Johnnie Duckworth MD Emergency Provider Active Dr. Nataly Ashley MD Attending Provider Active Team Status: Active Member Role Status Dates Dr. Tracy Dillard MD Primary Care Provider Active Dr. Johnnie Duckworth MD Emergency Provider Active Dr. Nataly Ashley MD Admit Provider, At tending Provider, Other Provider Active Team Status: Inactive Member Role Status Dates Dr. Tracy Dillard MD Primary Care Provider Active Dr. Jose Sweeney DO Emergency Provider Active Dr. Everton Bethea MD Admit Provider, Other Pro vider Active Dr. Mavis Jenkins DO Attending Provider Active Team Status: Inactive Member Role Status Dates Dr. Tracy Dillard MD Primary Care Provider Active Chaz Aldridge MD Attending Provider Active Team Status: Active Member Role Status Dates Dr. Tracy Dillard MD Primary Care Provider Active Chaz Aldridge MD Attending Provider Active Team Status: Inactive Member Role Status Dates Dr. Tracy Dillard MD Primary Care Provider Active Dr. Johnnie Duckworth MD Emergency Provider Active Dr. Nataly Ashley MD Admit Provider, Attending Provid er Active Team Status: Inactive Member Role Status Dates Dr. Tracy Dillard MD Primary Care Provider, Referrin g Provider Active Dr. Elkin Hendricks MD Attending Provider Active Team Status: Active Member Role Status Dates Dr. Tracy Dillard MD Primary Care Provider Active Dr. Aleks Noriega MD Attending Provider, Referring Provider Active Team Status: Active Member Role Status Dates Dr. Tracy Dillard MD Primary Care Provider Active Chaz JOHNS MD Attending Provider Active Team Status: Active Member Role Status Dates Dr. Tracy Dillard MD Primary Care Provider Active Dr. Chaz Aldridge MD Attending Provider, Referrin g Provider Active Team Status: Inactive Member Role Status Dates Dr. Tracy Dillard MD Primary Care Provider, Attendin g Provider Active Team Status: Inactive Member Role Status Dates Dr. Tracy Dillard MD Primary Care Provider Active Chaz JOHNS MD Attending Provider Active Team Status: Active Member Role Status Dates Dr. Tracy Dillard MD Primary Care Provider Active Dr. Cali Montgomery MD Attending Provider, Referring Provider Active Team Status: Inactive Member Role Status Dates Dr. Tracy Dillard MD Primary Care Provider Active Dr. Cali Montgomery MD Attending Provider, Referring Provider Active Team Status: Inactive Member Role Status Dates Dr. Tracy Dillard MD Primary Care Provider, Referrin g Provider Active Nubia MATA, [place] Attending Provider Active Team Status: Active Member Role Status Dates Dr. Tracy Dillard MD Primary Care Provider Active Team Status: Inactive Member Role Status Dates Dr. Tracy Dillard MD Primary Care Provider Active Start: September 29, 2024 End: September 29, 2024 ESPERANZA Garcia Attending Provider Active Start : September 29, 2024 End: September 29, 2024 ESPERANZA Garcia Referring Provider Active Start : September 29, 2024 End: September 29, 2024 Team Status: Inactive Member Role Status Dates Dr. Tracy Dillard MD Primary Care Provider Active Start: October 31, 2024 End: October 31, 2024 Dr. Tracy Dillard MD Attending Provider Active Start: October 31, 2024 End: October 31, 2024 Dr. Tracy Dillard MD Referring Provider Active Start: October 31, 2024 End: October 31, 2024 Team Status: Inactive Member Role Status Dates Dr. Tracy Dillard MD Primary Care Provider Active Start: November 13, 2024 End: November 13, 2024 Dr. Cali Montgomery MD Attending Provider Active Start: November 13, 2024 End: November 13, 2024 Dr. Cali Montgomery MD Referring Provider Active Start: November 13, 2024 End: November 13, 2024 Team Status: Inactive Member Role Status Dates Dr. Tracy Dillard MD Primary Care Provider Active Start: December 06, 2024 End: December 06, 2024 Dr. Cali Montgomery MD Attending Provider Active Start: December 06, 2024 End: December 06, 2024 Dr. Cali Montgomery MD Referring Provider Active Start: December 06, 2024 End: December 06, 2024 Team Status: Inactive Member Role Status Dates Dr. Tracy Dillard MD Primary Care Provider Active Start: December 12, 2024 End: December 12, 2024 Dr. Tracy Dillard MD Referring Provider Active Start: December 12, 2024 End: December 12, 2024 Dr. Elkin Hendricks MD Attending Provider Active S tart: December 12, 2024 End: December 12, 2024 Team Status: Inactive Member Role Status Dates Dr. Tracy Dillard MD Primary Care Provider Active Start: December 28, 2024 End: December 28, 2024 Dr. Belinda Jenkins DO Attending Provider Active Start: December 28, 2024 End: December 28, 2024 Dr. Belinda Jenkins DO Referring Provider Active Start: December 28, 2024 End: December 28, 2024 Team Status: Active Member Role Status Dates Dr. Tracy Dillard MD Primary Care Provider Active Start: December 28, 2024 Dr. Karen Terry MD Attending Provider Active Start: December 28, 2024 Dr. Karen Terry MD Referring Provider Active Start: December 28, 2024 Team Status: Active Member Role Status Dates Dr. Tracy Dillard MD Primary Care Provider Active Start: January 30, 2025 Dr. Karen Terry MD Attending Provider Active Start: January 30, 2025 Dr. Karen Terry MD Referring Provider Active Start: January 30, 2025 Team Status: Inactive Member Role Status Dates Dr. Tracy Dillard MD Primary Care Provider Active Start: February 02, 2025 End: February 02, 2025 Dr. Belinda Jenkins DO Attending Provider Active Start: February 02, 2025 End: February 02, 2025 Dr. Belinda Jenkins DO Referring Provider Active Start: February 02, 2025 End: February 02, 2025 Team Status: Active Member Role/Relationship Status Dates Dr. Aleks Lott MD Primary Care Provider Active Team Status: Inactive Member Role/Relationship Status Dates Dr. Tracy Dillard MD Primary Care Provider Active Start: February 02, 2025 End: February 02, 2025 Dr. Belinda Jenkins DO Attending Provider Active Start: February 02, 2025 End: February 02, 2025 Dr. Belinda Jenkins DO Referring Provider Active Start: February 02, 2025 End: February 02, 2025 Team Status: Active Member Role/Relationship Status Dates Dr. Tracy Dillard MD Primary Care Provider Active Start: February 13, 2025 Dr. Karen Terry MD Attending Provider Active Start: February 13, 2025 Dr. Karen Terry MD Referring Provider Active Start: February 13, 2025 Team Status: Inactive Member Role/Relationship Status Dates Dr. Tracy Dillard MD Primary Care Provider Active Start: March 13, 2025 Dr. Karen Terry MD Attending Provider Active Start: March 13, 2025 Team Status: Inactive Member Role/Relationship Status Dates Dr. Aleks Lott MD Primary Care Provider Active Start: May 03, 2025 End: May 03, 2025 Dr. Aleks Lott MD Referring Provider Active Start: May 03, 2025 End: May 03, 2025 Dr. Belinda Jenkins DO Attending Provider Active Start: May 03, 2025 End: May 03, 2025 Team Status: Active Member Role/Relationship Status Dates Kimberley Carter MD Primary care physician Active Team Status: Inactive Member Role/Relationship Status Dates Dr. Tracy Dillard MD Primary care physician Active Start: March 13, 2025 Dr. Karen Terry MD Attending physician Active Start: March 13, 2025 Team Status: Inactive Member Role/Relationship Status Dates Dr. Aleks Lott MD Primary care physician Active Start: May 03, 2025 End: May 03, 2025 Dr. Aleks Lott MD Referring Provider Active Start: May 03, 2025 End: May 03, 2025 Dr. Belinda Jenkins DO Attending physician Active Start: May 03, 2025 End: May 03, 2025 Team Status: Inactive Member Role/Relationship Status Dates Dr. Tracy Dillard MD Referring Provider Active Start: June 19, 2025 End: June 19, 2025 Nubia MATA, PA Attending physician Active Start: June 19, 2025 End: June 19, 2025 Kimberley Carter MD Primary care physician Active S tart: June 19, 2025 End: June 19, 2025 INFORMATION SOURCE (unrecogn ized section and content) DATE CREATED AUTHOR 02/23/2023 [facility] ([place]) DATE CREATED AUTHOR AUTHOR'S ORGANIZ ATION 01/19/2025 [facility] DATE CREATED AUTHOR AUTHOR'S ORGANIZ ATION 06/29/2025 [facility] FOR RECORDS PERTAINING TO PATIENTS WHO ARE OR HAVE BEEN ENROLLED IN A CHEMICAL DEPENDENCY/SUBSTANCEABUSE PROGRAM, SOME INFORMATION MAY BE OMITTED. This clinical summary was aggregated from multiple sources. Caution should be exercised in using it in the provision of clinical care. This summary normalizes information from multiple sources, and as a consequence, information in this document may materially change the coding, format and clinical context of patient data. In addition, data may be omitted in some cases. CLINICAL DECISIONS SHOULD BE BASED ON THE PRIMARY CLINICAL RECORDS. [employer] provides no warranty or guarantee of the accuracy or completeness of information in this document.
== END | disposition home or self-care (01) ==
LOC: OPBI 13:38
PROVIDERS: PCP Family Medicine; Referring Provider Family Medicine; Visit Provider Family Medicine
DX: Z12.31 Encounter for screening mammogram for malignant neoplasm of breast (principal)
CPT/HCPCS: 77063; 77067